=== PATIENT | female | born 1960 | race African-American/Black ===

== ENCOUNTER 2018-07-18 19:39 | Inpatient (IN) | payer MEDICAID ==
[~2018-07-18] VITALS: Ht 167.6 cm; Wt 69.9 kg
[~2018-07-18 19:39] MED LIST: LEVE250T2 PO; PANT40TA2 PO
--- NOTE | 2018-07-18 19:45 | NUR ---
PT RAFARA S/P WITNESSED SEIZURE FOR 30 SECONDS. PT HAS HX OF SEIZURES. LAST EPISODE WAS LAST YEAR. BS160 EN ROUTE. PT ON MONITOR IN BED 9. SEIZURE PRECAUTIONS TAKEN. WILL CONTINUE TO MONITOR.
--- NOTE | 2018-07-18 19:49 | NUR ---
PHLEB AT BEDSIDE FOR LAB DRAW
[2018-07-18] MEDS ORDERED: SIMV20TA6 PO (19:51)
[2018-07-18] MEDS ORDERED: IBUP-1953 PO (19:51)
[2018-07-18] MEDS ORDERED: FAMO40TA7 PO (19:51)
[2018-07-18] MEDS ORDERED: FURO20TA4 PO (19:51)
[2018-07-18] MEDS ORDERED: TRAM50TA2 PO (19:51)
[2018-07-18] MEDS ORDERED: BENA1TAB18 PO (19:51)
[2018-07-18] MEDS ORDERED: CLON0.1T PO (19:51)
[2018-07-18] MEDS ORDERED: AMLO10TA7 PO (19:51)
--- NOTE | 2018-07-18 19:56 | NUR ---
TECH AT BEDSIDE FOR EKG
[2018-07-18] MEDS ORDERED: LEVETIRACETAM (500MG) 500 MG in IV NS 0.9% 100 ML IV SCH (20:00)
[2018-07-18] MEDS ORDERED: IV NS 0.9% 1,000 ML BAG IV ONE (20:00)
[2018-07-18 20:01] LABS: BASOPHILS % (AUTO) 0.2 % (0.0-2.0); EOSINOPHILS % (AUTO) 0.4 % (0.0-6.0); HEMATOCRIT 37 % (33-45); HEMOGLOBIN 11.3 g/dL (11.5-14.8); LYMPHOCYTES # (AUTO) 1.9 /CMM (0.8-4.8); LYMPHOCYTES % (AUTO) 22.2 % (20.0-44.0); MEAN CORPUSCULAR HGB CONC 31 g/dl (31.0-36.0); MEAN CORPUSCULAR VOLUME 98 fL (82-100); MONOCYTES # (AUTO) 0.2 /CMM (0.1-1.30); MONOCYTES % (AUTO) 2.5 % (2.0-12.0); NEUTROPHILS # (AUTO) 6.2 /CMM (1.8-8.9); NEUTROPHILS % (AUTO) 74.7 % (43.0-81.0); PLATELET COUNT (AUTO) 136 /CMM (150-450); RED BLOOD CELL COUNT(AUTO) 3.73 MIL/uL (4.0-5.2); WHITE BLOOD COUNT (AUTO) 8.3 K/uL (4.3-11.0)
--- NOTE | 2018-07-18 20:02 | NUR ---
CALLED PT'S DAUGHTER, JALEEL, WHO WILL BE HERE IN 5 MINS.
[2018-07-18] MEDS ORDERED: LEVETIRACETAM (500MG) 500 MG in IV NS 0.9% 100 ML IV STA (20:06)
--- NOTE | 2018-07-18 20:10 | NUR ---
PT'S DAUGHTER IS AT THE BEDSIDE. DR. CORRALES AND PRIMARY RN NOTIFIED.
[2018-07-18 20:12] LABS: CALCIUM, SERUM 8.9 mg/dL (8.5-10.1); CREATININE 1.4 mg/dL (0.6-1.3)
--- NOTE | 2018-07-18 20:17 | NUR ---
DR. DIXON AT BEDSIDE
[2018-07-18 20:18] LABS: ALBUMIN 3.4 g/dL (3.4-5.0); BILIRUBIN,DIRECT 0.1 mg/dL (0.0-0.2); BILIRUBIN,TOTAL 0.3 mg/dL (0.2-1.0); TOTAL PROTEIN, SERUM 8.6 g/dL (6.4-8.2)
--- NOTE | 2018-07-18 20:29 | NUR ---
RADIOLOGY AT BEDSIDE FOR XRAY
[2018-07-18] MEDS ORDERED: IV NS 0.9% 500 ML BAG IV ONE (20:30)
--- NOTE | 2018-07-18 21:00 | NUR ---
URINE COLLECTED AND SENT TO LAB
[2018-07-18 21:03] LABS: APPEARANCE,URINE Slightly Cloudy (CLEAR); BILIRUBIN,URINE Negative (NEGATIVE); BLOOD, URINE Trace-intact Ery/uL (NEGATIVE); COLOR,URINE Yellow (YELLOW); KETONES,URINE Negative (NEGATIVE); LEUKOCYTE ESTERASE ,URINE Negative (NEGATIVE); NITRITE, URINE Negative (NEGATIVE); PH,URINE 6.5 (5.0-8.0); PROTEIN,URINE Trace mg/dl (NEGATIVE); UGLUCOSE Negative (NEGATIVE); UROBILINOGEN,URINE 0.2 EU/dL (0.2)
[2018-07-18 21:12] LABS: BACTERIA,URINE Many /HPF (None Seen); SQUAMOUS EPITHELIAL CELL,UR Few /HPF (None Seen)
--- NOTE | 2018-07-18 21:35 | NUR ---
PT IS GOING TO TELE 313-2.
[2018-07-18] MEDS ORDERED: POTASSIUM CHLORIDE 10 MEQ/50 ML PREMIXED IVPB FOR PERIPHERAL LINE IV ONE (22:00)
--- NOTE | 2018-07-18 22:11 | NUR ---
REPORT GIVEN TO WU DIAMOND FOR JOSE RAUL
[2018-07-18 22:30] VITALS: BP 120/95
--- NOTE | 2018-07-18 22:30 | NUR ---
EDUCATION DEPARTMENT REGISTRAR NOTES RECEIVED PATIENT FROM ER IN STABLE CONDITION. REPORT RECEIVED FROM ER NURSE WITH ADMITTING DX OF BREAKTHROUGH SEIZURE AND MILD ARF. SEIZURE PRECAUTIONS OBSERVED AND MAINTAINED AT ALL TIMES. PERIPHERAL LINE IN LFA 18 GAUGE INTACT AND PATENT. PATIENT WITH NO C/O PAIN OR DISCOMFORT. NO RESPIRATORY DISTRESS NOTED. ALL BELONGINGS KEPT NEAR BEDSIDE. BED IN LOW LOCK SETTING. ENCOURAGED USE OF CALL LIGHT FOR ASSISTANCE AND VERBALIZED GOOD UNDERSTANDING. WILL CONTINUE TO MONITOR.
[2018-07-18] MEDS ORDERED: POTASSIUM CL. PREMIX PERIPHER. 200 ML ONE (23:14)
[2018-07-18] MEDS ORDERED: CLONIDINE HCL 0.1 MG TABLET PO PRN (23:30)
[2018-07-18] MEDS ORDERED: TRAMADOL HCL 50 MG TABLET PO PRN (23:30)
[2018-07-18] MEDS: LEVETIRACETAM (250 MG) 250 MG TABLET PO SCH (23:30)
[2018-07-19] MEDS ORDERED: ONDANSETRON HCL/PF 4 MG/2 ML VIAL IVP PRN
[2018-07-19] MEDS ORDERED: ZOLPIDEM TARTRATE 5 MG TABLET PO PRN
[2018-07-19] MEDS ORDERED: POTASSIUM CL. PREMIX PERIPHER. 0 ML ONE (00:24)
[2018-07-19] MEDS: POTASSIUM CL. PREMIX PERIPHER. 50 ML IV SCH ×4 (00:54→03:42)
[2018-07-19 04:00] VITALS: BP 142/89
--- NOTE | 2018-07-19 06:54 | NUR ---
STEWARDING SUPERVISOR CLOSING NOTES PATIENT ASLEEP IN BED WITH NO DISTRESS NOTED. CALL LIGHT WITHIN REACH. SEIZURE PRECAUTIONS OBSERVED AND MAINTAINED AT ALL TIMES. PERIPHERAL IV INTACT AND PATENT. ALL DUE MEDS GIVEN ORDERED WITH NO ASE NOTED. NO C/O PAIN OR DISCOMFORT. ALL BELONGINGS KEPT NEAR BEDSIDE. BED IN LOW LOCK SETTING. WILL ENDORSE TO ONCOMING SHIFT.
--- NOTE | 2018-07-19 07:10 | NUR ---
TELE/RN OPENING NOTE THE PATIENT IS RECEIVED IN BED. AWAKE, ALERT AND ORIENTED X2 AND ABLE TO MAKE NEEDS KNOWN VERBALLY. DENIES PAIN AT THIS TIME. RESPIRATION REGULAR AND UNLABORED. IN ROOM AIR AND DENIES SOB. EXTERNAL TELE BOX READING IS SR 82. LFA G 18 PATENT AND SALINE LOCKED. BED LOW AND LOCKED. SIDE RAILS PADDED. SIDE RAILS UP X3. CALL LIGHT WITHIN REACH. WILL CONTINUE TO MONITOR.
[2018-07-19] MEDS: PANTOPRAZOLE 40 MG TABLET.DR PO SCH ×2 (07:30→08:30)
[2018-07-19 07:42] LABS: BASOPHILS % (AUTO) 0.2 % (0.0-2.0); EOSINOPHILS % (AUTO) 0.2 % (0.0-6.0); HEMATOCRIT 31 % (33-45); LYMPHOCYTES # (AUTO) 1.1 /CMM (0.8-4.8); LYMPHOCYTES % (AUTO) 6.1 % (20.0-44.0); MEAN CORPUSCULAR HGB CONC 32 g/dl (31.0-36.0); MEAN CORPUSCULAR VOLUME 95 fL (82-100); MONOCYTES # (AUTO) 0.8 /CMM (0.1-1.30); MONOCYTES % (AUTO) 4.6 % (2.0-12.0); NEUTROPHILS # (AUTO) 15.8 /CMM (1.8-8.9); NEUTROPHILS % (AUTO) 88.9 % (43.0-81.0); PLATELET COUNT (AUTO) 123 /CMM (150-450); RED BLOOD CELL COUNT(AUTO) 3.26 MIL/uL (4.0-5.2); WHITE BLOOD COUNT (AUTO) 17.7 K/uL (4.3-11.0)
[2018-07-19 08:00] VITALS: BP 125/77
[2018-07-19 08:23] LABS: ALBUMIN 2.8 g/dL (3.4-5.0); BILIRUBIN,TOTAL 0.3 mg/dL (0.2-1.0); CALCIUM, SERUM 8.4 mg/dL (8.5-10.1); CREATININE 1.3 mg/dL (0.6-1.3); MAGNESIUM 1.8 mg/dL (1.8-2.4); PHOSPHORUS 3.6 mg/dL (2.5-4.9); POTASSIUM 3.8 mmol/L (3.5-5.1); TOTAL PROTEIN, SERUM 7.1 g/dL (6.4-8.2)
[2018-07-19] MEDS: AMLODIPINE BESYLATE 10 MG TABLET PO SCH (08:31)
[2018-07-19] MEDS: LEVETIRACETAM (250 MG) 250 MG TABLET PO SCH ×2 (08:31→20:40)
[2018-07-19] MEDS: FUROSEMIDE 20 MG TABLET PO SCH (08:31)
[2018-07-19 08:32] LABS: THYROID STIMULATING HORMONE 1.357 uIU/mL (0.358-3.74)
--- NOTE | 2018-07-19 11:24 | NUR ---
TELE/RN NOTE PROTONIX 40 MG PO (ONE OF THE 2 ORDERS) NOT GIVEN DUE TO BEING DUPLICATE ORDER.
--- NOTE | 2018-07-19 11:31 | NUR ---
TELE/RN NOTE THE PATIENT STATES PAIN 8/. PRN TRAMADOL 50 MG 1 TAB PO IS GIVEN. WILL CONTINUE TO MONITOR.
[2018-07-19 12:00] VITALS: BP 126/92
--- NOTE | 2018-07-19 12:31 | NUR ---
TELE/RN NOTE PAIN VERBALIZED RELIEFS FROM PAIN RATING PAIN 0/10.
[2018-07-19] MEDS: ACETAMINOPHEN 325 MG TABLET PO PRN ×2 (14:28→20:40)
--- NOTE | 2018-07-19 14:30 | NUR ---
TELE/RN NOTE TEMP 102.0 F. TYLENOL 650 MG PO GIVEN. COOLING MEASURES TAKEN. WILL CONTINUE TO MONITOR.
--- NOTE | 2018-07-19 14:30 | NUR ---
TELE/RN NOTE SERVICE CENTER MANAGER SLAVA IS MADE AWARE THAT THE PATIENT HAS LARGE AMOUNT OF THICK SECRETION, TEMP 102.0 F AND HEAR RATE ELEVATED TO 132. RECEIVED ORDER OF NORMAL SALINE 500ML WIDE OPEN. NOTED AND CARRIED OUT.
--- NOTE | 2018-07-19 14:47 | NUR ---
TELE/RN NOTE OBTAINED ORDER FROM RUTH ANN PEDERSEN FOR CHEST X-RAY. NOTED AND CARRIED OUT.
[2018-07-19] MEDS ORDERED: IV NS 0.9% 500 ML IV ONE (15:00)
--- NOTE | 2018-07-19 15:20 | NUR ---
TELE/RN NOTE TEMP DECREASED TO 98.9.
--- NOTE | 2018-07-19 15:30 | NUR ---
TELE/RN NOTE BLOOD PRESSURE IS 165/83 AND PULSE 137. CLONIDINE HCL 0.1 MG PO IS ADMINISTERED. WILL CONTINUE TO MONITOR. UPHOLSTERY DEPARTMENT SUPERVISOR ANDREZ IS MADE AWARE OF PATIENT`S ELEVATED HEART RATE.
[2018-07-19 16:00] VITALS: BP 150/73
--- NOTE | 2018-07-19 18:42 | NUR ---
MS/RN NOTE RECEIVED ORDER FROM RONDA PEDERSEN FOR CBC AND BMP ON 07/20/18. READ BACK, VERIFIED. NOTED AND CARRIED OUT.
--- NOTE | 2018-07-19 18:50 | NUR ---
TELE/RN NOTE THE PATIENT ALERT AND ORIENTED X2. DENIES SOB. IN ROOM AIR AND SATURATION AT 94%. DENIES PAIN. TELE BOX READING SINUS TACHY 112. PATIENT IN NO APPARENT DISTRESS. BED LOW AND LOCKED. SIDE RAILS UP X3. SIDE RAILS ARE PADDED. CALL LIGHT WITHIN REACH. WILL ENDORSE TO TAX COMMISSIONER.
--- NOTE | 2018-07-19 19:05 | NUR ---
RN MS NOTES RECEIVED PATIENT IN BED AWAKE ALERT AND ORIENTED X 2, RESPIRATIONS EVEN AND UNLABORED WITH EQUAL RISE AND FALL OF CHEST, DENIES ANY PAIN AT THIS TIME, REPOSITIONED HEAD OF BED ELEVATED FOR ASPIRATION PRECAUTIONS, RAILS PADDED FOR SEIZURE PRECAUTIONS, REORIENTATION PROVIDED. SAFETY PRECAUTIONS IN PLACE, LOW BED AND LOCKED, BED ALARM FALL PRECAUTIONS IN PLACE, IV TO LEFT FA #20G INTACT AND PATENT, NO REDNESS, NO INFILTRATION PRESENT, ORIENTED TO STAFF AND CALL LIGHT, ALL NEEDS ATTENDED AT THIS TIME, REMAINS COMFORTABLE WILL CONTINUE TO CLOSELY MONITOR. Addendum: 07/19/18 at 2047 by GIDEON MACARIO RN CLARIFICATION BUSINESS DEVELOPMENT ASSISTANT OPENING NOTES PATIENT IS ON BEHAVIORAL HEALTH COUNSELOR ST 100, NO DISTRESS PRESENT, REMAINS COMFORTABLE AND ALERT AT THIS TIME.
[2018-07-19 20:00] VITALS: BP_SYST 116; BP_SYST 81; BP_DIAS 64; BP_DIAS 69
--- NOTE | 2018-07-19 20:41 | NUR ---
WU CRAIG NOTES NOTED PATIENT WITH FEVER OF 100.8 TYLENOL PRN GIVEN , COOLING MEASURES PROVIDED WILL CONTINUE TO MONITOR. Addendum: 07/20/18 at 0741 by GIDEON MACARIO RN WU DIAZ
[2018-07-19] MEDS: SIMVASTATIN 20 MG TABLET PO SCH (21:44)
--- NOTE | 2018-07-19 22:00 | NUR ---
GRID INSPECTOR NOTES TEMPERATURE REASSESSED NOTED AT 99.5. TYLENOL AND COOLING MEASURES EFFECTIVE.
[2018-07-20] VITALS: BP 111/63
--- NOTE | 2018-07-20 03:34 | NUR ---
OBSTETRICAL NURSE NOTES PATIENT ATTEMPTED TO GET OOB UNASSISTED AT RISK FOR FALL,UNABLE TO AMBULATE NOT STEADY, NOTED PATIENT REMOVED SCAB TO RIGHT KNEE, PICTURE TAKEN , NOTED PATIENT REMOVING TELE LEADS X 5 TIMES,PATIENT DOES NOTE FOLLOW DIRECTIONS AND NEEDS CONSTANT REORIENTATION , NEW ORDER NOTED AND CARRIED OUT FOR MD CANELO AWARE
[2018-07-20 04:00] VITALS: BP 148/92
[2018-07-20 06:46] LABS: BASOPHILS % (AUTO) 0.1 % (0.0-2.0); EOSINOPHILS % (AUTO) 0.5 % (0.0-6.0); HEMATOCRIT 29 % (33-45); HEMOGLOBIN 9.5 g/dL (11.5-14.8); LYMPHOCYTES # (AUTO) 1.8 /CMM (0.8-4.8); LYMPHOCYTES % (AUTO) 11.4 % (20.0-44.0); MEAN CORPUSCULAR HGB CONC 32 g/dl (31.0-36.0); MEAN CORPUSCULAR VOLUME 94 fL (82-100); MONOCYTES % (AUTO) 6.4 % (2.0-12.0); NEUTROPHILS # (AUTO) 12.9 /CMM (1.8-8.9); NEUTROPHILS % (AUTO) 81.6 % (43.0-81.0); PLATELET COUNT (AUTO) 108 /CMM (150-450); WHITE BLOOD COUNT (AUTO) 15.8 K/uL (4.3-11.0)
[2018-07-20 07:16] LABS: CALCIUM, SERUM 8.6 mg/dL (8.5-10.1); CREATININE 1.5 mg/dL (0.6-1.3); POTASSIUM 3.6 mmol/L (3.5-5.1)
--- NOTE | 2018-07-20 07:20 | NUR ---
RN OPENING NOTES RECEIVED PT. PT STABLE AND RESTING IN BED. NO S/S OF RESP DISTRESS/SOB. NO C/O PAIN AT THIS TIME. 1:1 SITTER AT BEDSIDE. SAFETY MEASURES IN PLACE, CALL LIGHT WITHIN REACH. WILL CONTINUE TO MONITOR.
[2018-07-20] MEDS: PANTOPRAZOLE 40 MG TABLET.DR PO SCH ×2 (07:30)
--- NOTE | 2018-07-20 07:39 | NUR ---
COMPUTER NETWORKING INSTRUCTOR ADJUNCT CLOSING NOTES PATIENT IN BED AWAKE ALERT AND ORIENTED X 2, RESPIRATIONS EVEN AND UNLABORED WITH EQUAL RISE AND FALL OF CHEST, DENIES ANY PAIN AT THIS TIME, REPOSITIONED HEAD OF BED ELEVATED FOR ASPIRATION PRECAUTIONS, RAILS PADDED FOR SEIZURE PRECAUTIONS, REORIENTATION PROVIDED. SAFETY PRECAUTIONS IN PLACE, LOW BED AND LOCKED, BED ALARM FALL PRECAUTIONS IN PLACE, IV TO LEFT FA #20G INTACT AND PATENT, NO REDNESS, NO INFILTRATION PRESENT,DRESSING TO RIGHT KNEE SCAB INTACT CALL LIGHT, ALL NEEDS ATTENDED AT THIS TIME, REMAINS COMFORTABLE WILL CONTINUE TO CLOSELY MONITOR AND ENDORSE TO NEXT SHIFT. PATIENT IS ON MINING ANALYST S63, NO DISTRESS PRESENT, REMAINS COMFORTABLE AND ALERT AT THIS TIME.
[2018-07-20] MEDS: AMLODIPINE BESYLATE 10 MG TABLET PO SCH (08:10)
[2018-07-20] MEDS: LEVETIRACETAM (250 MG) 250 MG TABLET PO SCH ×2 (08:13→21:05)
[2018-07-20] MEDS: FUROSEMIDE 20 MG TABLET PO SCH (09:00)
[2018-07-20] MEDS ORDERED: IV NS 0.9% 500 ML IV ONE (14:30)
[2018-07-20] MEDS ORDERED: PIPERACILLIN /TAZOBACTAM 3.375 G in IV D5W 50 ML IV SCH (16:30)
[2018-07-20] MEDS: PIPERACILLIN /TAZOBACTAM 3.375 G in IV D5W 100 ML IV SCH (17:33)
--- NOTE | 2018-07-20 18:34 | NUR ---
RN CLOSING NOTES PT IN BED RESTING. NO S/S OF RESP DISTRESS/SOB. ALL PT NEEDS ANTICIPATED AND MET. SAFETY MEASURES IN PLACE, CALL LIGHT WITHIN REACH. WILL ENDORSE TO HOST COORDINATOR FOR JOSE RAUL.
--- NOTE | 2018-07-20 19:10 | NUR ---
RN MS OPENING NOTES RECEIVED PATIENT IN BED AWAKE, ALERT AND ORIENTED X 2, ABLE TO MAKE SIMPLE NEEDS KNOWN , EXPLAINED TO PATIENT PER ANDREZ PEDERSEN SHE IS TO REMAIN NPO EXCEPT FOR MEDS AT THIS TIME, AND WILL RECEIVE IV HYDRATION PER NEW ORDERS. REEDUCATION SHE IS AT RISK FOR ASPIRATION AT THIS TIME, AND NEEDS TO BE EVALUATED. RESPIRATIONS EVEN AND UNLABORED WITH EQUAL RISE AND FALL OF CHEST, DENIES ANY PAIN OR DISCOMFORT AT THIS TIME, SITTER AT BEDSIDE, FALL PRECAUTIONS IN PLACE LOW BED AND LOCKED, CALL LIGHT KEPT WITHIN REACH, HEELS OFFLOADED, HEAD OF BED ELEVATED FOR ASPIRATION PRECAUTIONS, IV SITE TO LEFT FA #20 G INTACT AND PATENT, NO REDNESS, NO INFILTRATION PRESENT, ALL NEEDS ATTENDED REMAINS COMFORTABLE AT THIS TIME, WILL CONTINUE TO MONITOR. REMAINS AFEBRILE AT THIS TIME.
[2018-07-20 20:00] VITALS: BP 116/76
[2018-07-20] MEDS: IV D5/ 0.9% NACL 1,000 ML IV PRN (20:15)
[2018-07-20] MEDS: SIMVASTATIN 20 MG TABLET PO SCH (21:04)
[2018-07-21] MEDS: PIPERACILLIN /TAZOBACTAM 3.375 G in IV D5W 100 ML IV SCH ×3 (00:38→16:04)
--- NOTE | 2018-07-21 06:31 | NUR ---
RN MS CLOSING NOTES PATIENT REMAINS IN BED SLEEPING BUT EASILY AROUSABLE, RESPIRATIONS EVEN AND UNLABORED WITH EQUAL RISE AND FALL OF CHEST, DENIES ANY PAIN AT THIS TIME, REPOSITIONED OFFLOADED HEELS AND KEPT CLEAN SACRAL AND RIGHT MALLEOLUS SKIN REMAINS INTACT, HEAD OF BED ELEVATED FOR ASPIRATION PRECAUTIONS, NPO AT THIS TIME, IVF RUNNING ORDERED, ATB GIVEN ORDERED, DVT PUMPS IN PLACE IV SITE TO LEFT FA #2O G INTACT AND PATENT, NO REDNESS, NO INFILTRATION , ALL NEEDS WERE ATTENDED, WILL CONTINUE TO MONITOR AND ENDORSE TO NEXT SHIFT.BED ALARM IN PLACE, LOW BED AND LOCKED. CALL LIGHT KEPT WITHIN REACH.
[2018-07-21 07:00] LABS: BASOPHILS % (AUTO) 0.2 % (0.0-2.0); EOSINOPHILS % (AUTO) 0.5 % (0.0-6.0); HEMATOCRIT 26 % (33-45); HEMOGLOBIN 8.7 g/dL (11.5-14.8); LYMPHOCYTES # (AUTO) 1.4 /CMM (0.8-4.8); MEAN CORPUSCULAR HGB CONC 34 g/dl (31.0-36.0); MEAN CORPUSCULAR VOLUME 93 fL (82-100); MONOCYTES # (AUTO) 0.6 /CMM (0.1-1.30); MONOCYTES % (AUTO) 6.7 % (2.0-12.0); NEUTROPHILS # (AUTO) 6.8 /CMM (1.8-8.9); NEUTROPHILS % (AUTO) 76.6 % (43.0-81.0); PLATELET COUNT (AUTO) 120 /CMM (150-450); RED BLOOD CELL COUNT(AUTO) 2.81 MIL/uL (4.0-5.2); WHITE BLOOD COUNT (AUTO) 8.8 K/uL (4.3-11.0)
[2018-07-21 07:17] LABS: CALCIUM, SERUM 8.2 mg/dL (8.5-10.1); CREATININE 1.3 mg/dL (0.6-1.3); POTASSIUM 3.3 mmol/L (3.5-5.1)
--- NOTE | 2018-07-21 07:21 | NUR ---
RN OPENING NOTES PT WAS RECEIVED IN BED AT LOWEST AND LOCKED POSITION WITH SIDE RAILS UP X2, A/O X2, BREATHING EVEN AND UNLABORED ON RA, NO S/S OF PAIN OR DISTRESS NOTED AT THIS TIME, IV IS PATENT AND INTACT, SITTER PRESENT AT BEDSIDE, SAFETY PRECAUTIONS IN PLACE, CALL LIGHT WITHIN REACH, WILL MONITOR ACCORDINGLY
[2018-07-21] MEDS: PANTOPRAZOLE 40 MG TABLET.DR PO SCH ×2 (07:30→08:28)
[2018-07-21] MEDS: ACETAMINOPHEN 325 MG TABLET PO PRN ×2 (08:28→23:11)
[2018-07-21] MEDS: LEVETIRACETAM (250 MG) 250 MG TABLET PO SCH ×2 (08:28→20:57)
[2018-07-21] MEDS: FUROSEMIDE 20 MG TABLET PO SCH (08:38)
[2018-07-21] MEDS: AMLODIPINE BESYLATE 10 MG TABLET PO SCH (08:39)
--- NOTE | 2018-07-21 08:40 | NUR ---
RN NOTES ACETAMINOPHEN GIVEN DUE TO A SLIGHT TEMP OF 100.2
--- NOTE | 2018-07-21 08:42 | NUR ---
RN NOTE PROTONIX 40 MG PO (ONE OF THE 2 ORDERS) NOT GIVEN DUE TO BEING DUPLICATE ORDER.
[2018-07-21 08:43] VITALS: BP 102/63
--- NOTE | 2018-07-21 08:43 | NUR ---
RN NOTE BP MED HELD DUE TO A BP OF 102/63
[2018-07-21] MEDS ORDERED: POTASSIUM CHLORIDE 20 MEQ TAB.PRT.SR PO SCH ×2 (10:00→11:00)
--- NOTE | 2018-07-21 18:21 | NUR ---
RN CLOSING NOTES PT WAS IN BED AT LOWEST AND LOCKED POSITION WITH SIDE RAILS UP X2, A/O X2, BREATHING EVEN AND UNLABORED ON RA, NO S/S OF PAIN OR DISTRESS NOTED AT THIS TIME, IV IS PATENT AND INTACT, SITTER PRESENT AT BEDSIDE, SAFETY PRECAUTIONS IN PLACE, CALL LIGHT WITHIN REACH, ALL NEEDS ATTENDED TO, WILL ENDORSE TO CLOTH MERCERIZER BACK TENDER RN FOR JOSE RAUL
--- NOTE | 2018-07-21 20:00 | NUR ---
MS RN NOTES AWAKE & RESPONSIVE. NOT IN ANY DISTRESS. NO SOB NOTED. DENIES ANY PAIN OR DISCOMFORT AT THIS TIME. WITH IVF INFUSING WELL. CALL LIGHT WITHIN REACH. BED IN LOWEST POSITION. SR UP X 3 WITH BED ALARM ON FOR SAFETY. KEPT ON SEIZURE PREC AAT. WILL CONTINUE TO MONITOR.
--- NOTE | 2018-07-21 20:20 | NUR ---
MS RN NOTES PT PULLED OUT IV-HL. PLACED DRESSING ON. REPORT GIVEN TO VIK WASHBURN FOR CONTINUITY OF CARE.
--- NOTE | 2018-07-21 20:24 | NUR ---
MS RN OPENING NOTES: RECEIVED PT FROM RN, SALVADOR, ON ROOM AIR AND IS TOLERATING WELL. PT APPEARS TO BE ANGRY AT THIS TIME. NO IV NOTED AT THIS TIME IT WAS PULLED OUT NOT TOO LONG AGO. WILL START NEW IV SOON. BED ALARM ACTIVATED. BED KEPT IN LOW, LOCKED POSITION, AND SIDE RAILS X 2UP. WILL CONTINUE TO MONITOR PT.
[2018-07-21] MEDS: SIMVASTATIN 20 MG TABLET PO SCH (21:00)
[2018-07-21 21:07] VITALS: BP 137/95
--- NOTE | 2018-07-21 23:11 | NUR ---
MS RN NOTES: PT COMPLAINED OF BILATERAL CALF PAIN. PT REQUESTED FOR SOMETHING FOR PAIN. WHEN TYLENOL 650MG PO WAS BROUGHT AND CRUSHED, PT CHANGED HER MIND AND DID NOT WANT ANYTHING FOR PAIN ANYMORE. WILL CONTINUE TO MONITOR.
[2018-07-21] MEDS: IV D5/ 0.9% NACL 1,000 ML IV PRN (23:25)
--- NOTE | 2018-07-21 23:56 | NUR ---
MS RN NOTES: PT FOUND WITH IV PULLED OUT ON L HAND #22G . WILL ATTEMPT TO START A NEW ONE AGAIN.
[2018-07-22] MEDS: PIPERACILLIN /TAZOBACTAM 3.375 G in IV D5W 100 ML IV SCH ×2 (00:19→08:19)
--- NOTE | 2018-07-22 00:20 | NUR ---
MS RN NOTES: NEW IV STARTED ON L FOREARM #22G. WRAPPED WITH KERLIX.
--- NOTE | 2018-07-22 03:53 | NUR ---
MS RN NOTES: PT FOUND WITH IV PULLED OUT AGAIN. WILL HAVE TO START ANOTHER IV.
--- NOTE | 2018-07-22 05:01 | NUR ---
MS RN NOTES: NEW IV STARTED AGAIN ON L FOREARM #22G.
--- NOTE | 2018-07-22 07:18 | NUR ---
MS RN CLOSING NOTES: ALL NEEDS WERE ATTENDED AND ANTICIPATED FOR. PT KEPT CLEAN, DRY, AND COMFORTABLE. PT ASLEEP AT THIS TIME AND RESTING COMFORTABLY. IV REMAINS INTACT. CURRENTLY DISCONNECTED FROM FLUIDS PT HAS BEEN PULLING OUT IVS AND NO SITTER WAS AVAILABLE FOR PM SHIFT. BED ALARM ACTIVATED. BED PADDED FOR SEIZURE PRECAUTIONS. BED ALARM ACTIVATED. PT KEPT NPO EXCEPT MEDS. BED KEPT IN LOW, LOCKED POSITION, AND SIDE RAILS X 2UP. ENDORSED TO AM NURSE FOR JOSE RAUL.
[2018-07-22 07:32] LABS: CALCIUM, SERUM 8.7 mg/dL (8.5-10.1); CREATININE 1.2 mg/dL (0.6-1.3); POTASSIUM 3.6 mmol/L (3.5-5.1)
--- NOTE | 2018-07-22 07:43 | NUR ---
MS RN OPENING NOTE RECEIVED PT IN BED, ALERT AND ORIENTED X1-2. NO ACUTE DISTRESS NOTED AT THIS TIME. BREATHING IS EVEN AND UNLABORED ON ROOM AIR. L HAND #22G IV IS INFUSING ORDERED WITHOUT REDNESS OR SWELLING. NPO EXCEPT MEDS NOTED AND MAINTAINED. ALL NEEDS ATTENDED TO. 1:1 SITTER NOTED AT THE BEDSIDE FOR PT SAFETY. SEIZURE PRECAUTIONS MAINTAINED. BED IS LOCKED AND IN LOWEST POSITION, SIDE RAILS UP X2, CALL LIGHT WITHIN REACH.
[2018-07-22 08:00] VITALS: BP 134/88
[2018-07-22] MEDS: AMLODIPINE BESYLATE 10 MG TABLET PO SCH (08:19)
[2018-07-22] MEDS: PANTOPRAZOLE 40 MG TABLET.DR PO SCH (08:19)
[2018-07-22] MEDS: LEVETIRACETAM (250 MG) 250 MG TABLET PO SCH ×2 (08:19→21:38)
[2018-07-22] MEDS: FUROSEMIDE 20 MG TABLET PO SCH (08:19)
--- NOTE | 2018-07-22 08:30 | NUR ---
MS RN NEW IV INSERTED IV FOUND TO BE PULLED OUT BY PT. NEW IV INSERTED AT THE L FA #24G AND IS PATENT, CLEAN, DRY AND INTACT.
--- NOTE | 2018-07-22 10:15 | NUR ---
MS RN SWALLOW EVAL PER LIZBETH IN PT DEPARTMENT, SPEECH THERAPIST CALLED IN [place] AND DEPARTMENT IS PENDING PLACEMENT. INFORMED LIZBETH THAT PT IS NPO EXCEPT MEDS PENDING SWALLOW EVALUATION. WILL FOLLOW UP REGARDING SPEECH THERAPIST REPLACEMENT.
--- NOTE | 2018-07-22 12:11 | NUR ---
WOUND CARE CONSULT: PT PRESENTS WITH INCONTINENCE, LEFT ANTERIOR LOWER LEG FRAGILE SCAR, RT LATERAL ANKLE SCAR , LEFT FOOT DRY SCAB AND RT KNEE WOUND (PREVIOUSLY SCAB PICKED AT BY PT), ALL PRESENT ON ADMISSION. RECOMMENDATIONS MADE FOR SKIN PROTECTION AND WOUND CARE. DISCUSSED WITH NURSING STAFF. CURRENT ERWIN SCORE IS 13. WILL SEE PRN. MACKEY IN AGREEMENT WITH PLAN OF CARE. Addendum: 07/22/18 at 1213 by LAUREN LAZARO WNDNU Amended: Links added.
[2018-07-22] MEDS ORDERED: Z GUARD REMEDY 2 OZ OINT TP PRN (12:30)
[2018-07-22] MEDS ORDERED: LEVE250T2 PO (13:11)
[2018-07-22] MEDS ORDERED: LEVO500T2 PO (13:11)
[2018-07-22] MEDS: Z GUARD REMEDY 2 OZ OINT TP SCH (13:19)
[2018-07-22] MEDS: LEVOFLOXACIN (500MG) 500 MG TABLET PO SCH (13:19)
--- NOTE | 2018-07-22 14:00 | NUR ---
MS RN DAJUAN NIEVES FROM PHYSICAL THERAPY DEPARTMENT, COVERAGE OBTAINED FOR SPEECH THERAPIST. HOWEVER NO ONE HAS ARRIVED TO FACILITY YET. SPEECH THERAPIST WILL SEE PT WHEN THEY ARRIVE.
[2018-07-22 16:00] VITALS: BP 118/81
--- NOTE | 2018-07-22 17:55 | NUR ---
MS WU SPEECH THERAPIST AT THE BEDSIDE SPEECH THERAPIST AT THE BEDSIDE FOR SWALLOW EVAL. PER SPEECH THERAPIST PT CAN TOLERATE A PUREED DIET AND NECTAR THICK LIQUIDS. WILL ORDER DINNER TRAY FOR THE PT.
--- NOTE | 2018-07-22 19:00 | NUR ---
MS RN CLOSING NOTE PT IN BED, ALERT AND ORIENTED X1-2. NO ACUTE DISTRESS NOTED AT THIS TIME. BREATHING IS EVEN AND UNLABORED ON ROOM AIR. L FA #24G IV IS INFUSING ORDERED WITHOUT REDNESS OR SWELLING. PT PROVIDED WITH DINNER AFTER SWALLOW EVAL WITHOUT COUGHING OR CHOKING. ADLS PROVIDED. ALL NEEDS ATTENDED TO. 1:1 SITTER NOTED AT THE BEDSIDE FOR PT SAFETY. SEIZURE PRECAUTIONS MAINTAINED. BED IS LOCKED AND IN LOWEST POSITION, SIDE RAILS UP X2, CALL LIGHT WITHIN REACH. WILL ENDORSE TO THOROUGHBRED HORSE FARM MANAGER RN FOR CONTINUITY OF CARE.
--- NOTE | 2018-07-22 19:43 | NUR ---
RN MS OPENING NOTES RECEIVED PATIENT IN BED AWAKE. ALERT AND ORIENTED X1-2, VERBALLY RESPONSIVE, ABLE TO MAKE NEEDS KNOWN. BREATHING EVEN AND UNLABORED. NO SOB NOTED. TOLERATING ROOM AIR. IV ON LEFT FOREARM INTACT AND PATENT. NO COMPLAINTS OF PAIN OR DISCOMFORT. NO FACIAL GRIMACING. SKIN DRY AND WARM TO TOUCH. AFEBRILE. SITTER AT BEDSIDE. PATIENT EATING DINNER WITH NO ASPIRATIONS NOTED. ALL OTHER NEEDS ATTENDED TO. SAFETY MEASURES IN PLACE. CALL LIGHT WITHIN REACH. WILL CONTINUE TO MONITOR.
[2018-07-22] MEDS: LORAZEPAM INJ 2 MG/ML VIAL IV PRN (20:39)
[2018-07-22] MEDS: SIMVASTATIN 20 MG TABLET PO SCH (21:35)
[2018-07-22] MEDS: ACETAMINOPHEN 325 MG TABLET PO PRN (21:35)
[2018-07-23 00:59] VITALS: BP 120/78
--- NOTE | 2018-07-23 02:30 | NUR ---
RN MS NOTES IV LINE INFILTRATED. REMOVED AND APPLIED DRESSING. NEW IV LINE STARTED ON LEFT FOREARM G#22 WITH GOOD BLOOD RETURN. WILL CONTINUE TO MONITOR.
[2018-07-23] MEDS: LORAZEPAM INJ 2 MG/ML VIAL IV PRN ×2 (04:16→22:22)
--- NOTE | 2018-07-23 05:02 | NUR ---
RN MS NOTES PATIENT AGITATED AND ATTEMPTING TO GET OUT OF BED MULTIPLE TIMES. BECOMES COMBATIVE WHEN SITTER AND NURSES TRY TO CALM HER DOWN. PATIENT ALSO KEEPS TRYING TO TAKE OUT IV LINE. PAGED DR. ORELLANA FOR ANY MEDICATIONS THAT CAN HELP PATIENT CALM DOWN AND ALSO TO INFORM HIM ABOUT PATIENT ATTEMPTING TO TAKE OUT IV LINE. PER DR. ORELLANA, ATIVAN 1MG X1 NOW, AND SOFT RESTRAINTS. ORDERS NOTED AND CARRIED OUT. Addendum: 07/23/18 at 0551 by CROW PAUL RN ERROR: IT IS ATIVAN 1MG IV X1 NOW
--- NOTE | 2018-07-23 05:05 | NUR ---
RN MS NOTES OBTAINED CONSENT OVER THE PHONE WITH DAUGHTER, JALEEL LIND. DAUGHTER CONSENTED TO SOFT RESTRAINTS. WU LACEY WITNESSED.
--- NOTE | 2018-07-23 06:47 | NUR ---
RN MS CLOSING NOTES PATIENT IN BED AWAKE. HAD MULTIPLE EPISODES OF ATTEMPTING TO GET OUT OF BED, HITTING STAFF, TRYING TO TAKE OUT IV LINE. MITTENS IN PLACED. CHECKED FOR CIRCULATION/REDNESS - NONE NOTED. BREATHING EVEN AND UNLABORED. NO SOB NOTED. TOLERATING ROOM AIR. IV ON LEFT FOREARM #22 INTACT AND PATENT - WITH NS @ 75ML/HR. NO COMPLAINTS OF PAIN OR DISCOMFORT. NO FACIAL GRIMACING. SKIN DRY AND WARM TO TOUCH. AFEBRILE. SITTER AT BEDSIDE. ALL OTHER NEEDS ATTENDED TO. SAFETY MEASURES IN PLACE. CALL LIGHT WITHIN REACH. WILL ENDORSE TO ONCOMING NURSE FOR JOSE RAUL.
--- NOTE | 2018-07-23 07:40 | NUR ---
M/S RN - Assessment Patient in bed awake, confused, alert to self, reality orientation provided, verbally responsive, denies pain, not in any form of distress, no seizure activity overnight. IVF D5 1/2 NS at 75 ml/hr infusing well on the LFA with no signs of infiltration. Bilateral mittens in place to prevent pulling out peripheral IV. Sitter in place for safety. Fall, seizure and aspiration precautions maintained. All pressure ulcer prevention measures noted to be in place. Will continue with current medical management.
[2018-07-23] MEDS: PANTOPRAZOLE 40 MG TABLET.DR PO SCH (07:43)
[2018-07-23] MEDS: Z GUARD REMEDY 2 OZ OINT TP SCH (08:15)
[2018-07-23] MEDS: LEVETIRACETAM (250 MG) 250 MG TABLET PO SCH ×2 (08:16→21:45)
[2018-07-23] MEDS: FUROSEMIDE 20 MG TABLET PO SCH (08:16)
[2018-07-23] MEDS: AMLODIPINE BESYLATE 10 MG TABLET PO SCH (08:16)
[2018-07-23] MEDS: LEVOFLOXACIN (500MG) 500 MG TABLET PO SCH (13:20)
[2018-07-23 16:00] VITALS: BP 118/84
--- NOTE | 2018-07-23 17:30 | NUR ---
MS/RN - NGT NGT 14 Fr. inserted on the left nare, 60 cm in length, gastric content aspirated, obtain x-ray to confirm placement as ordered by Md. Patient tolerated procedure well.
--- NOTE | 2018-07-23 18:00 | NUR ---
MS/RN - Closing notes Patient awake, alert to self, afebrile, denies pain, not in any form of distress. Patient currently NPO, inserted NGT on the left nare, CXR done to check placement, awaiting result. Patient seen by GI for possible PEG placement. Sitter at bedside for safety, on bilateral mittens to prevent pulling out peripheral line and NGT, restraints protocol observed. All needs attended and met. Fall and aspiration precautions maintained. Daughter Hilary updated on plan of care. Will continue with current medical management.
--- NOTE | 2018-07-23 19:50 | NUR ---
MS RN NOTE: PATIENT RESTING IN BED, NO ACUTE DISTRESS NOTED. BREATHING EVEN AND UNLABORED, NO SOB NOTED. IV TO LFA IN PLACE. NG TUBE IN PLACE, HOB ELEVATED. BILATERAL MITTENS IN PLACE, WITH GOOD CIRCULATION CHECK. PATIENT OCCASIONALLY TRYING TO PULL AT NG TUBE. SITTER AT BEDSIDEBED LOCKED AND IN LOWEST POSITION, CALL LIGHT IN REACH. WILL CONTINUE TO MONITOR.
[2018-07-23 20:01] VITALS: BP 117/80
[2018-07-23] MEDS: SIMVASTATIN 20 MG TABLET PO SCH (21:45)
--- NOTE | 2018-07-23 22:00 | NUR ---
MS RN NOTE: PATIENT NIGHT MEDICATIONS NOT GIVEN, PATIENT NPO AND WITH NG TUBE, CHEST XRAY STILL PENDING RESULTS TO VERIFY PLACEMENT. WILL CONTINUE TO MONITOR.
[2018-07-23] MEDS: IV D5/ 0.9% NACL 1,000 ML IV PRN (22:22)
--- NOTE | 2018-07-23 22:30 | NUR ---
MS RN NOTE: PATIENT AGITATED, ATIVAN 1MG IV GIVEN PER MD ORDER. WILL CONTINUE TO MONITOR.
--- NOTE | 2018-07-24 06:30 | NUR ---
MS RN NOTE: PATIENT RESTING IN BED, NO ACUTE DISTRESS NOTED. BREATHING EVEN AND UNLABORED, NO SOB NOTED. IV TO LFA IN PLACE. NG TUBE IN PLACE, HOB ELEVATED. BILATERAL MITTENS IN PLACE, WITH GOOD CIRCULATION CHECK. SITTER AT BEDSIDE. BED LOCKED AND IN LOWEST POSITION, CALL LIGHT IN REACH. WILL ENDORSE TO DAY NURSE TO CONTINUE WITH PLAN OF CARE.
[2018-07-24] MEDS: LORAZEPAM INJ 2 MG/ML VIAL IV PRN (07:26)
[2018-07-24 07:29] LABS: CALCIUM, SERUM 8.7 mg/dL (8.5-10.1); CREATININE 1.1 mg/dL (0.6-1.3); POTASSIUM 3.3 mmol/L (3.5-5.1)
--- NOTE | 2018-07-24 07:31 | NUR ---
MS RN NOTE: PATIENT AGITATED AND TRYING TO PULL OUT NG TUBE, ATIVAN 1MG IV GIVEN PER MD ORDER. WILL CONTINUE TO MONITOR.
[2018-07-24 09:11] VITALS: BP 127/76
[2018-07-24] MEDS: LEVETIRACETAM (250 MG) 250 MG TABLET PO SCH (09:11)
[2018-07-24] MEDS: FUROSEMIDE 20 MG TABLET PO SCH (09:11)
[2018-07-24] MEDS: AMLODIPINE BESYLATE 10 MG TABLET PO SCH (09:11)
[2018-07-24] MEDS: PANTOPRAZOLE 40 MG TABLET.DR PO SCH (09:11)
[2018-07-24] MEDS: Z GUARD REMEDY 2 OZ OINT TP SCH (09:12)
[2018-07-24] MEDS ORDERED: POTASSIUM CHLORIDE 20 MEQ TAB.PRT.SR PO SCH (11:30)
[2018-07-24] MEDS: LEVOFLOXACIN (500MG) 500 MG TABLET PO SCH (12:26)
--- NOTE | 2018-07-24 16:28 | NUR ---
MS COLLECTION AGENT NOTES PATIENT DISCHARGED IN STABLE CONDITION. IN NO APPARENT DISTRESS. EXITCARE WAS SIGNED AND PROVIDED TO THE PARAMEDICS. BELONGINGS WERE CHECKED AND PROVIDED TO THE PATIENT. PRESCRIPTIONS WERE PROVIDED TO THE DAUGHTER. IV LINE AND ID BAND WERE REMOVED. ALL NEEDS WERE MET. PATIENT WAS ESCORTED OUT OF THE FACILITY VIA AMBULANCE BY EMT.
== END 2018-07-24 16:28 | disposition home or self-care (01) | DRG 53 ==
LOC: ER 19:42 → TELE 21:58 → MED 07-20 15:44 → MEDSG2 07-23 11:15
PROVIDERS: ADMIT Internal Medicine; ATTEND Nurse Practitioner Acute Care
DX: G40.909 Epilepsy, unspecified, not intractable, without status epilepticus (principal); N17.0 Acute kidney failure with tubular necrosis; J69.0 Pneumonitis due to inhalation of food and vomit; G93.41 Metabolic encephalopathy; R53.2 Functional quadriplegia; R13.10 Dysphagia, unspecified; E87.6 Hypokalemia; K21.9 Gastro-esophageal reflux disease without esophagitis; D64.9 Anemia, unspecified; D69.6 Thrombocytopenia, unspecified; E78.5 Hyperlipidemia, unspecified; I51.7 Cardiomegaly; I10 Essential (primary) hypertension; I69.320 Aphasia following cerebral infarction; Z96.611 Presence of right artificial shoulder joint; D68.59 Other primary thrombophilia
CPT/HCPCS: 36415; 70450-TC; 71045-TC; 71250-TC; 73502; 80048-TC; 80053-TC; 80061-TC; 80076-TC; 81000-TC; 82728-TC; 82962-TC; 83540-TC; 83735-TC; 83880; 84100-TC; 84443-TC; 84484-TC; 85025-TC; 87070-TC; 87081-TC; 87086-TC; 87186-TC; 87400; 92526; 92611-TC; 93307-TC; G0378; J1953; J2060; J2543; J3480; J7030; J7040; J7042; J7060

== ENCOUNTER 2020-01-27 15:30 | Inpatient (IN) | payer MEDICAID ==
[~2020-01-27] VITALS: Ht 175.3 cm; Wt 73.5 kg
[~2020-01-27 15:30] MED LIST changes: +AMLO10TA7 PO; +CLON0.1T PO; +FAMO40TA7 PO; +FURO20TA4 PO; +IBUP-1953 PO; +LEVO500T2 PO; +SIMV-46 PO; +TRAM50TA2 PO
--- NOTE | 2020-01-27 15:52 | NUR ---
BIB DAUGHTER FOR CHEST WALL PAIN, NON-RADIATING, CHOKING SENSATION, DROOLING WHEN EATING X 1 WEEK, TO ER BED 11. HOOKED TO HEATING SYSTEMS INSTALLER AND POX, CHANGED TO HOSP GOWN, WARM BLANKET PROVIDED, PATIENT AAO x 2, BREATHING EVEN AND UNLABORED. AWAITING MD URBANO.
--- NOTE | 2020-01-27 15:54 | NUR ---
DR REDDY AT BEDSIDE
[2020-01-27 16:20] LABS: BASOPHILS % (AUTO) 0.3 % (0.0-2.0); EOSINOPHILS % (AUTO) 0.6 % (0.0-6.0); HEMATOCRIT 27 % (33-45); HEMOGLOBIN 8.7 g/dL (11.5-14.8); LYMPHOCYTES # (AUTO) 1.5 /CMM (0.8-4.8); MEAN CORPUSCULAR HGB CONC 32 g/dl (31.0-36.0); MEAN CORPUSCULAR VOLUME 91 fL (82-100); MONOCYTES # (AUTO) 0.6 /CMM (0.1-1.30); MONOCYTES % (AUTO) 13.3 % (2.0-12.0); NEUTROPHILS # (AUTO) 2.4 /CMM (1.8-8.9); NEUTROPHILS % (AUTO) 52.8 % (43.0-81.0); PLATELET COUNT (AUTO) 177 /CMM (150-450); RED BLOOD CELL COUNT(AUTO) 3.02 MIL/uL (4.0-5.2); WHITE BLOOD COUNT (AUTO) 4.6 K/uL (4.3-11.0)
[2020-01-27] MEDS ORDERED: HYDR25TA4 MT (16:26)
[2020-01-27] MEDS ORDERED: LEVE500T20 MT (16:26)
[2020-01-27 16:42] LABS: CALCIUM, SERUM 8.6 mg/dL (8.5-10.1); CARBON DIOXIDE 25 mmol/L (21-32); CHLORIDE 103 mmol/L (98-107); CREATININE 1.2 mg/dL (0.6-1.3); GLUCOSE 122 mg/dL (74-106); POTASSIUM 3.6 mmol/L (3.5-5.1); SODIUM SERUM 137 mmol/L (136-145); UREA NITROGEN, BLOOD 13 mg/dL (7-18)
[2020-01-27 16:46] LABS: ALANINE AMINOTRANSFERASE 14 U/L (12-78); ALBUMIN 3.2 g/dL (3.4-5.0); ALKALINE PHOSPHATASE 141 U/L (46-116); ASPARTATE AMINOTRANSFERASE 17 U/L (15-37); BILIRUBIN,DIRECT 0.1 mg/dL (0.0-0.2); BILIRUBIN,TOTAL 0.2 mg/dL (0.2-1.0)
[2020-01-27] MEDS ORDERED: BENA20TA9 MT (16:51)
[2020-01-27] MEDS ORDERED: ZOLP5TAB8 MT (16:51)
[2020-01-27] MEDS ORDERED: ASPIRIN 325 MG TABLET PO ONE (17:00)
[2020-01-27] MEDS ORDERED: NITROGLYCERIN PACKET 1 GM PACKET TOP ONE (17:00)
[2020-01-27] MEDS ORDERED: NITROGLYCERIN PACKET 1 GM PACKET ONE (17:05)
[2020-01-27] MEDS ORDERED: ASPIRIN 325 MG TABLET ONE (17:06)
--- NOTE | 2020-01-27 17:26 | NUR ---
PLEASE CALL IRASEMA MARMOLEJO FOR UPDATES (CONTACT INFO IN PT DATA)
--- NOTE | 2020-01-27 17:35 | NUR ---
ODOM VIRUS SWAB DONE AND SENT TO LAB
--- NOTE | 2020-01-27 18:11 | NUR ---
Jerome sanchez in [facility] - 01/27/20 at 1816 by DAISY URINE SAMPLE COLLECTED AND SENT TO LAB
[2020-01-27] MEDS ORDERED: MAG HYDROX/AL HYDROX/SIMETH 30 ML UDC PO PRN (18:30)
[2020-01-27] MEDS ORDERED: ZOLPIDEM TARTRATE 5 MG TABLET PO PRN (18:30)
[2020-01-27] MEDS ORDERED: Z GUARD REMEDY 2 OZ OINT TP PRN (18:30)
[2020-01-27] MEDS ORDERED: MAGNESIUM HYDROXIDE 30 ML UDC PO PRN (18:30)
[2020-01-27] MEDS ORDERED: ACETAMINOPHEN 325 MG TABLET PO PRN (18:30)
[2020-01-27] MEDS ORDERED: ONDANSETRON HCL/PF 4 MG/2 ML VIAL IVP PRN (18:30)
--- NOTE | 2020-01-27 18:38 | NUR ---
GOT BED 322-2.
--- NOTE | 2020-01-27 18:50 | NUR ---
REPORT GIVEN TO ANGELLA WASHBURN FOR JOSE RAUL.
--- NOTE | 2020-01-27 19:10 | NUR ---
REPORT GIVEN TO LITHOGRAPHIC RETOUCHER APPRENTICE NURSE SHYLA WASHBURN FOR JOSE RAUL.
--- NOTE | 2020-01-27 19:15 | NUR ---
REPORT RECEIVED FROM NELLIE WASHBURN FOR JOSE RAUL
--- NOTE | 2020-01-27 19:29 | NUR ---
ULTRASOUND AT BEDSIDE IN PROGRESS
--- NOTE | 2020-01-27 19:38 | NUR ---
BED ASSIGNMENT 322-2
[2020-01-27 20:00] VITALS: BP 131/72
--- NOTE | 2020-01-27 20:00 | NUR ---
RN ADMITTING TELE OPENING NOTES RECEIVED PATIENT FROM ER VIA [facility],SAFELY TRANSFERRED TO BED, AWAKE ALERT AND ORIENTED X2, RESPIRATIONS EVEN AND UNLABORED WITH EQUAL RISE AND FALL OF CHEST, NOTED FORGETFUL HOWEVER ABLE TO MAKE NEEDS KNOWN , ABLE TO EXPRESS TOILETING NEEDS, AT THIS TIME APPEARS COMFORTABLE , DENIES PAIN AT THIS TIME, PLACED ON OBSTETRICIAN SB 56, SR 60. NO DISTRESS PRESENT, BED WHEATLEY OFFERED, PERINEAL CARE PROVIDED, LEFT PLANTAR FOOT NOTED DRY WOUND, LEFT FOOT SUSPECTED DEEP TISSUE INJURY, RIGHT HEEL SCATTERED SCABS IV SITE TO LEFT FA INTACT AND PATENT, NO REDNESS, NO INFILTRATION PRESENT, BELONGINGS LIST DONE, PATIENT HAS A WATCH AND TWO BRACELETS AND EARRINGS, ASKED PATIENT IF WOULD LIKE TO STORE IN SAFE, REFUSED TO REMOVE. BODY ASSESSMENT DONE SACRAL INTACT, NOTED WOUNDS TO BOTH LOWER EXTREMITIES ON FEET. BOTH FEET ELEVATED FLOATED WITH PILLOWS, ORIENTED TO STAFF AND CALL LIGHT AND KEPT WITHIN REACH, ALL NEEDS ATTENDED WILL CONTINUE TO MONITOR AND FOLLOW MD ORDERS, PT REMAINS COMFORTABLE AT THIS TIME.
--- NOTE | 2020-01-27 20:02 | NUR ---
PT TRANSFERRED TO ROOM VIA ACLS PROTOCOL
[2020-01-27] MEDS: HYDROCODONE/APAP 5/325MG 1 EACH TABLET PO PRN (20:27)
--- NOTE | 2020-01-27 20:27 | NUR ---
WHARF ATTENDANT NOTES PATIENT IS ABLE TO MAKE NEEDS KNOWN COMPLAINED OF PAIN STATES "PAIN TO RIGHT LEG AND CHEST SORENESS, CAN I HAVE PAIN MEDICATION". VITAL SIGNS ASSESSED WNL, NO CHANGES TO TELE MONITOR SINCE BROUGHT TO UNIT VS 131/72,60,18,98.9,100% RA. UNABLE TO STATE NUMBER ON PAIN SCALE. NORCO OFFERED AND PATIENT AGREED TO TAKE. NORCO PRN GIVEN ORDERED. PATIENT WAS ABLE TO SWALLOW PILL. REPOSITIONED WILL CONTINUE TO MONITOR FOR EFFECTIVENESS.
--- NOTE | 2020-01-27 22:45 | NUR ---
BREAKFAST SUPERVISOR NOTES PATIENT REMOVED TELE MONITOR X2, ATTEMPTED TO REPLACE TELE MONITOR BACK ON PATIENT AND SHE REFUSED DESPITE EDUCATION PROVIDED, WILL ATTEMPT TO APPLY AGAIN WHEN PATIENT AGREES. STATES " I DONT WANT IT AT THIS TIME".
[2020-01-28] VITALS (7 sets, daily range): BP systolic 108–157; BP diastolic 65–89
--- NOTE | 2020-01-28 02:21 | NUR ---
EMBEDDED FIRMWARE ENGINEER NOTES PATIENT FREQUENTLY REMOVED FLOORLEADER X4, REMOVED IV, REMOVED NAME BAND. MULTIPLE ATTEMPTS TO GET OOB DESPITE REDIRECTION AND EDUCATION. SITTER REQUESTED, CHARGE MADE AWARE.
[2020-01-28] MEDS: HYDROCODONE/APAP 5/325MG 1 EACH TABLET PO PRN (04:58)
--- NOTE | 2020-01-28 04:59 | NUR ---
government service executive notes patient states " i have pain in my back i need pain medication" juvenal prn offered patient agreed, patient unable to state level of pain BASED ON [place]CK[place] CORRAL FACE SCALE 7/10 FACIAL GRIMACING, WILL CONTINUE TO MONITOR. TELE MONITOR PLACED AGAIN REMINDED NOT TO REMOVE.
--- NOTE | 2020-01-28 05:25 | NUR ---
yarn finisher notes patient removed tele monitor reading prior to patient removing monitor sr [id number]
--- NOTE | 2020-01-28 06:23 | NUR ---
OFFICE SYSTEMS TECHNOLOGY INSTRUCTOR CLOSING NOTES PATIENT IN BED, AWAKE ALERT AND ORIENTED X2, RESPIRATIONS EVEN AND UNLABORED WITH EQUAL RISE AND FALL OF CHEST, NOTED FORGETFUL HOWEVER ABLE TO MAKE NEEDS KNOWN , ABLE TO EXPRESS TOILETING NEEDS,USES BED WHEATLEY, AT THIS TIME APPEARS COMFORTABLE , DENIES PAIN AT THIS TIME,NORCO EFFECTIVE, PLACED ON ASSEMBLER FLUORESCENT LIGHTS SB 57, NO DISTRESS PRESENT, PERINEAL CARE PROVIDED, IV SITE TO LEFT FA INTACT AND PATENT, NO REDNESS, NO INFILTRATION PRESENT, SACRAL INTACT, NOTED WOUNDS TO BOTH LOWER EXTREMITIES ON FEET. BOTH FEET ELEVATED FLOATED WITH PILLOWS, CALL LIGHT KEPT WITHIN REACH, ALL NEEDS ATTENDED WILL CONTINUE TO MONITOR AND ATTEND TO NEEDS, PT REMAINS COMFORTABLE AT THIS TIME WILL ENDORSE TO NEXT SHIFT.
--- NOTE | 2020-01-28 06:28 | NUR ---
WU DIAZ DENIES CHEST PAIN AT THIS TIME. Addendum: 01/28/20 at 0628 by GIDEON MACARIO RN WU DIAZ
[2020-01-28 07:03] LABS: BASOPHILS % (AUTO) 0.4 % (0.0-2.0); EOSINOPHILS % (AUTO) 1.3 % (0.0-6.0); HEMATOCRIT 31 % (33-45); HEMOGLOBIN 9.8 g/dL (11.5-14.8); LYMPHOCYTES # (AUTO) 1.8 /CMM (0.8-4.8); LYMPHOCYTES % (AUTO) 45.3 % (20.0-44.0); MEAN CORPUSCULAR HGB CONC 32 g/dl (31.0-36.0); MEAN CORPUSCULAR VOLUME 90 fL (82-100); MONOCYTES # (AUTO) 0.5 /CMM (0.1-1.30); MONOCYTES % (AUTO) 13.8 % (2.0-12.0); NEUTROPHILS # (AUTO) 1.5 /CMM (1.8-8.9); NEUTROPHILS % (AUTO) 39.2 % (43.0-81.0); PLATELET COUNT (AUTO) 189 /CMM (150-450); RED BLOOD CELL COUNT(AUTO) 3.44 MIL/uL (4.0-5.2); WHITE BLOOD COUNT (AUTO) 3.9 K/uL (4.3-11.0)
[2020-01-28] MEDS: PANTOPRAZOLE 40 MG TABLET.DR PO SCH (07:34)
[2020-01-28 07:46] LABS: CALCIUM, SERUM 9.3 mg/dL (8.5-10.1); CREATININE 0.8 mg/dL (0.6-1.3); MAGNESIUM 2.3 mg/dL (1.8-2.4); POTASSIUM 3.5 mmol/L (3.5-5.1)
[2020-01-28 07:49] LABS: THYROID STIMULATING HORMONE 2.643 uIU/mL (0.358-3.74)
--- NOTE | 2020-01-28 08:00 | NUR ---
CIVILIAN JAIL OFFICER OPENING NOTE Received patient awake in bed. A/O x2. PERRLA. Breathing even, clear, unlabored. On room air satting at 96%. No signs of SOB or distress. Pt denies fever, nausea, vomiting, chills. Tele monitor sinus bradycardia, HR 54. IV site left forearm 22g saline locked. IV patent and intact, no signs of infiltration. Skin warm, pink, dry, appropriate for ethnicity. Bed in low position, wheels locked, side rails up x2, call light within reach.
[2020-01-28] MEDS: ASPIRIN 81 MG TAB.CHEW PO SCH (08:02)
--- NOTE | 2020-01-28 09:11 | NUR ---
MS RN NOTE Pt scheduled for CTCA today. Consent obtained from daughter via phone. Consent witnessed by Chana Astorga RN.
--- NOTE | 2020-01-28 10:22 | NUR ---
WOUND CARE CONSULT: PT PRESENTS CONTINENT AND ABLE TO TURN AND REPOSITION IN BED. THERE ARE CALLUSED FEET AND DISCOLORED AREAS TO PLANTAR FEET, PRESENT ON ADMISSION. NO FLUCTUANCE, DRAINAGE, ERYTHEMA OR TENDERNESS NOTED. WILL SEE PRN.
[2020-01-28] MEDS ORDERED: NITROGLYCERIN 0.4 MG/TAB BOTTLE SL ONE (10:30)
[2020-01-28] MEDS ORDERED: METOPROLOL TARTRATE INJ 5 MG/5 ML AMPUL IVP PRN (10:30)
--- NOTE | 2020-01-28 10:33 | NUR ---
PLATER PRINTED CIRCUIT BOARD PANELS NOTE Pt left for CTCA by bed @ 1035.
[2020-01-28] MEDS ORDERED: IOHEXOL-350 100 ML VIAL IV ONE (10:34)
[2020-01-28] MEDS ORDERED: IV NS 0.9% 250 ML IV ONE (10:34)
--- NOTE | 2020-01-28 11:33 | NUR ---
RN NOTES: Post CTA: Patient non-compliant with the procedure, but able to complete the CTA. Patient denies pain/discomfort at this time. transferred back to her room, report given to patient RN
--- NOTE | 2020-01-28 11:56 | NUR ---
POMOLOGIST NOTE Patient returned from CTA @ 9347.
--- NOTE | 2020-01-28 17:39 | NUR ---
STONE ROUGHER CLOSING NOTE Pt sitting at bedside eating dinner. A/O x2. No signs of SOB or distress. No JVD. Pt denies pain, nausea, vomiting, chills. Tele monitor sinus bradycardia, heart rate 58. Nasal cannula 2 l/min. Breathing even, unlabored. Pt uses bedpan, urine output clear, yellow, no sediment. Patient ate 80% of dinner, tolerated well. Patient skin intact, clean, dry, appropriate for ethnicity. Safety precautions in place, bed in low position, wheels locked, side rails up x4, call light within reach. Addendum: 01/28/20 at 1821 by OSCAR MALCOLM RN Patient is confused, frequent orientation to hospital required. Frequently removes tele monitor and removed IV.
--- NOTE | 2020-01-28 19:26 | NUR ---
FINISHING INSPECTOR NOTES PATIENT IN BED, ALERT AND ORIENTED X 1-2. NEEDS FREQUENT REORIENTATION. BREATHING EVEN AND UNLABORED ON ROOM AIR. SHOWS NO SIGNS OF ACUTE RESPIRATORY DISTRESS, NO ACUTE PAIN. TELE MONITOR SR. PT NO IV MD AWARE, PT PULLING OUT. SAFETY PRECAUTIONS IN PLACE. SITTER AT BEDSIDE. BED IN LOWEST POSITION, LOCKED, AND CALL LIGHT KEPT WITHIN REACH. WILL CONTINUE TO MONITOR.
--- NOTE | 2020-01-28 23:00 | NUR ---
MS RN NOTES INSERT IV AND PT PULLED OUT. REFUSING ANOTHER IV INSERTION.
--- NOTE | 2020-01-29 06:52 | NUR ---
FURNITURE UPHOLSTERER NOTES PATIENT IN BED, ALERT AND ORIENTED X 1-2. NEEDS FREQUENT REORIENTATION. BREATHING EVEN AND UNLABORED ON ROOM AIR. SHOWS NO SIGNS OF ACUTE RESPIRATORY DISTRESS, NO ACUTE PAIN. TELE MONITOR SR. PT NO IV MD AWARE, PT PULLING OUT. ALL DUE MEDICATIONS GIVEN. SAFETY PRECAUTIONS IN PLACE. SITTER AT BEDSIDE. BED IN LOWEST POSITION, LOCKED, AND CALL LIGHT KEPT WITHIN REACH. WILL ENDORSE TO ONCOMING NURSE.
[2020-01-29] MEDS: PANTOPRAZOLE 40 MG TABLET.DR PO SCH (07:59)
[2020-01-29] MEDS: ASPIRIN 81 MG TAB.CHEW PO SCH (08:00)
[2020-01-29 08:16] LABS: BASOPHILS % (AUTO) 0.2 % (0.0-2.0); EOSINOPHILS % (AUTO) 0.7 % (0.0-6.0); HEMATOCRIT 30 % (33-45); HEMOGLOBIN 9.3 g/dL (11.5-14.8); LYMPHOCYTES # (AUTO) 1.5 /CMM (0.8-4.8); LYMPHOCYTES % (AUTO) 34.6 % (20.0-44.0); MEAN CORPUSCULAR HGB CONC 32 g/dl (31.0-36.0); MEAN CORPUSCULAR VOLUME 90 fL (82-100); MONOCYTES # (AUTO) 0.5 /CMM (0.1-1.30); MONOCYTES % (AUTO) 12.4 % (2.0-12.0); NEUTROPHILS # (AUTO) 2.3 /CMM (1.8-8.9); NEUTROPHILS % (AUTO) 52.1 % (43.0-81.0); PLATELET COUNT (AUTO) 189 /CMM (150-450); WHITE BLOOD COUNT (AUTO) 4.4 K/uL (4.3-11.0)
--- NOTE | 2020-01-29 08:21 | NUR ---
SPECIALTY MOLDER OPENING NOTE Patient awake in bed. A/O x1-2, confused and forgetful. Requires frequent reorientation to hospital. Breath sounds even, unlabored. Nasal cannula 2 l/min, satting at 94%. No JVD. No acute distress. No pain. Uses bedpan, voiding clear, yellow, urine. Bowel sounds hypoactive. Abdomen soft, round, non-distended. Pulses 2+. Skin warm, pink, dry, appropriate for ethnicity. Pulses 2+. Able to move all extremities. Sitter at bedside. Bed in low position, wheels locked, side rails up x2, call light within reach.
[2020-01-29 08:56] LABS: CALCIUM, SERUM 8.8 mg/dL (8.5-10.1); CREATININE 0.8 mg/dL (0.6-1.3); MAGNESIUM 2.3 mg/dL (1.8-2.4); PHOSPHORUS 3.4 mg/dL (2.5-4.9); POTASSIUM 3.4 mmol/L (3.5-5.1)
[2020-01-29 10:57] VITALS: BP 109/79
--- NOTE | 2020-01-29 16:30 | NUR ---
Tele/RN - Discharge Patient is alert and oriented x 1-2, confused and forgetful at times, needs frequent orientation and redirection, afebrile, denies chest pain, on room air without distress, ambulates with assistance/uses FWW. Patient was discharged home with home health for PT. Home health was arranged with [facility] [phone], pt to resume home meds as ordered. Reviewed discharge instructions with daughter Hilary and she verbalized full understanding of all teachings including medications and follow-up care with PCP within 1 week. Daughter was advised to seek immediate medical attention if patient experience chest pain, shortness of breath, palpitations, abdominal pain/distention, intractable nausea and vomiting, diarrhea, hematochezia, melena, weakness, loss of consciousness, neurological deficit, or any other emergent concerns. All belongings with patient and she deny any missing items. Pictures taken on skin breakdown. Discharge paperwork signed and copies were given per protocol. Accompanied to the lobby via wheelchair and transported by private car by daughter.
== END 2020-01-29 17:15 | disposition home health service (06) | DRG 203 ==
LOC: ER 15:40 → TELE 19:41 → MED 01-29 10:51
PROVIDERS: ADMIT Student in an Organized Health Care Education/Training Program; ATTEND Student in an Organized Health Care Education/Training Program
DX: R07.89 Other chest pain (principal); D64.9 Anemia, unspecified; E44.1 Mild protein-calorie malnutrition; I10 Essential (primary) hypertension; G40.909 Epilepsy, unspecified, not intractable, without status epilepticus; K21.9 Gastro-esophageal reflux disease without esophagitis; E88.09 Other disorders of plasma-protein metabolism, not elsewhere classified; E11.9 Type 2 diabetes mellitus without complications; I69.351 Hemiplegia and hemiparesis following cerebral infarction affecting right dominant side; I31.3 Pericardial effusion (noninflammatory); Z68.23 Body mass index [BMI] 23.0-23.9, adult
CPT/HCPCS: 36415; 71045-TC; 75574; 80048-TC; 80061-TC; 80076-TC; 82728-TC; 83540-TC; 83690-TC; 83735-TC; 84100-TC; 84443-TC; 84484-TC; 85025-TC; 87081-TC; 93307-TC; 97530-TC; G0378; J7050; Q9967

== ENCOUNTER 2020-02-14 18:00 | Emergency (ER) | payer MEDICAID ==
[~2020-02-14] VITALS: Ht 152.4 cm; Wt 73.0 kg
[~2020-02-14 18:00] MED LIST changes: +BENA20TA9 MT; +HYDR25TA4 MT; -LEVE250T2 PO; +LEVE500T20 MT; -LEVO500T2 PO; -PANT40TA2 PO; +ZOLP5TAB8 MT
--- NOTE | 2020-02-14 19:07 | NUR ---
BIBDAUGHTER FROM HOME TO ER BED 5. AAOX4. NOT IN IN RESP DISTRESS, BREATHING EVENA DN UNLABORED. CAME IN FOR CHEST PAIN SINCE SHE GOT DISCHARGED FROM HOSPITAL BACK IN MID JANUARY WELL BILAT LEG PAIN. CHEST PAIN IS IN MID CHEST NON RADIATING SHARP /. DENIES SOB. BIALT LEG ROM INTACT. MD WAS AT THE BEDSIDE. ORDERES RECEIVED, NOTED AND CARRIED OUT. IV LINE ON R HAND 20G, BLOOD DRAWN AND GIVEN TO COURT ADMINISTRATOR. PT IS ON MONITOR. EKG DONE BY EMT AT BEDSIDE
[2020-02-14] MEDS ORDERED: LIDOCAINE VISCOUS 2% UD 15 ML UDC ONE (19:14)
[2020-02-14] MEDS ORDERED: MAG HYDROX/AL HYDROX/SIMETH 30 ML UDC ONE (19:14)
[2020-02-14 19:18] LABS: BASOPHILS % (AUTO) 0.7 % (0.0-2.0); EOSINOPHILS % (AUTO) 0.5 % (0.0-6.0); HEMATOCRIT 31 % (33-45); HEMOGLOBIN 9.6 g/dL (11.5-14.8); LYMPHOCYTES # (AUTO) 1.9 /CMM (0.8-4.8); LYMPHOCYTES % (AUTO) 33.3 % (20.0-44.0); MEAN CORPUSCULAR HGB CONC 32 g/dl (31.0-36.0); MEAN CORPUSCULAR VOLUME 91 fL (82-100); MONOCYTES # (AUTO) 0.6 /CMM (0.1-1.30); MONOCYTES % (AUTO) 10.3 % (2.0-12.0); NEUTROPHILS # (AUTO) 3.2 /CMM (1.8-8.9); NEUTROPHILS % (AUTO) 55.2 % (43.0-81.0); PLATELET COUNT (AUTO) 224 /CMM (150-450); RED BLOOD CELL COUNT(AUTO) 3.37 MIL/uL (4.0-5.2); WHITE BLOOD COUNT (AUTO) 5.8 K/uL (4.3-11.0)
[2020-02-14 19:29] LABS: CALCIUM, SERUM 9.6 mg/dL (8.5-10.1); CARBON DIOXIDE 26 mmol/L (21-32); CHLORIDE 102 mmol/L (98-107); CREATININE 1.1 mg/dL (0.6-1.3); GLUCOSE 116 mg/dL (74-106); POTASSIUM 3.4 mmol/L (3.5-5.1); SODIUM SERUM 138 mmol/L (136-145); UREA NITROGEN, BLOOD 24 mg/dL (7-18)
[2020-02-14] MEDS ORDERED: LIDOCAINE VISCOUS 2% UD 15 ML UDC MM ONE (19:30)
[2020-02-14] MEDS ORDERED: MAG HYDROX/AL HYDROX/SIMETH 30 ML UDC PO ONE (19:30)
[2020-02-14 19:34] LABS: ALANINE AMINOTRANSFERASE 14 U/L (12-78); ALBUMIN 3.5 g/dL (3.4-5.0); ALKALINE PHOSPHATASE 151 U/L (46-116); ASPARTATE AMINOTRANSFERASE 16 U/L (15-37); BILIRUBIN,DIRECT 0.1 mg/dL (0.0-0.2); BILIRUBIN,TOTAL 0.2 mg/dL (0.2-1.0); LIPASE 163 U/L (73-393); TOTAL PROTEIN, SERUM 8.5 g/dL (6.4-8.2)
--- NOTE | 2020-02-14 21:54 | NUR ---
pt not complaining of pain anymore. md made aware. po trials tolerated. provided with meals
--- NOTE | 2020-02-14 22:53 | NUR ---
DAUGHTER CALLED. COMING TO LITERARY AGENT PT.
--- NOTE | 2020-02-14 23:27 | NUR ---
PT PICKED UP BY DAUGHTER JALEEL. PT WAS ASSISTED TO THE CAR ON A WHEELCHAIR. PT IS IN STABLE CONDITION.
[2020-02-14 23:28] VITALS: BP 72/143
== END 2020-02-14 23:39 | disposition home or self-care (01) ==
LOC: ER 18:05
DX: R07.89 Other chest pain (principal); R50.9 Fever, unspecified; I10 Essential (primary) hypertension; G40.909 Epilepsy, unspecified, not intractable, without status epilepticus; Z86.73 Personal history of transient ischemic attack (TIA), and cerebral infarction without residual deficits; Z98.890 Other specified postprocedural states; Z79.899 Other long term (current) drug therapy
CPT/HCPCS: 36415; 71045-TC; 80048-TC; 80076-TC; 83690-TC; 84484-TC; 85025-TC

== ENCOUNTER 2022-03-18 17:31 | Inpatient (IN) | payer MEDICAID ==
[~2022-03-18] VITALS: Ht 167.6 cm; Wt 66.2 kg
[~2022-03-18 17:31] MED LIST changes: +AMLO-213 PO; -AMLO10TA7 PO
--- NOTE | 2022-03-18 17:50 | NUR ---
RECEVED PT 61 YRS FEMALE CAME FROM [facility] BY TEJAS C/O CHEST PAIN AND UNnable to swallow RESPIRATION SPONT AND EASY PT KEEP SPEATION NO SOB
[2022-03-18] MEDS ORDERED: ACETAMINOPHEN 650 MG/20.3 ML UDC PO ONE (18:00)
--- NOTE | 2022-03-18 18:00 | NUR ---
SEEN BY DR. DAUGHERTY
--- NOTE | 2022-03-18 18:00 | NUR ---
TEJAS AT BED SIDE JALEEL F
--- NOTE | 2022-03-18 18:10 | NUR ---
SALINE LOCK ESTABLISHED, BLOOD DRAWN AND SENT TO LAB
[2022-03-18] MEDS ORDERED: ACETAMINOPHEN 325 MG TABLET ONE (18:12)
[2022-03-18 18:20] LABS: BASOPHILS % (AUTO) 0.5 % (0.0-2.0); EOSINOPHILS % (AUTO) 0.5 % (0.0-6.0); HEMATOCRIT 27 % (33-45); LYMPHOCYTES # (AUTO) 1.5 K/uL (0.8-4.8); LYMPHOCYTES % (AUTO) 23.8 % (20.0-44.0); MEAN CORPUSCULAR HGB CONC 33 g/dl (31.0-36.0); MEAN CORPUSCULAR VOLUME 96 fL (82-100); MONOCYTES # (AUTO) 0.5 K/uL (0.1-1.30); MONOCYTES % (AUTO) 8.5 % (2.0-12.0); NEUTROPHILS # (AUTO) 4.3 K/uL (1.8-8.9); NEUTROPHILS % (AUTO) 66.7 % (43.0-81.0); PLATELET COUNT (AUTO) 210 K/uL (150-450); RED BLOOD CELL COUNT(AUTO) 2.86 MIL/uL (4.0-5.2); WHITE BLOOD COUNT (AUTO) 6.4 K/uL (4.3-11.0)
--- NOTE | 2022-03-18 18:27 | NUR ---
TO CT SCAN
[2022-03-18 18:34] LABS: CARBON DIOXIDE 33 mmol/L (21-32); CHLORIDE 105 mmol/L (98-107); CREATININE 1.2 mg/dL (0.6-1.3); GLUCOSE 116 mg/dL (74-106); POTASSIUM 3.5 mmol/L (3.5-5.1); SODIUM SERUM 143 mmol/L (136-145); UREA NITROGEN, BLOOD 19 mg/dL (7-18)
[2022-03-18 18:57] LABS: ALANINE AMINOTRANSFERASE 14 U/L (12-78); ALBUMIN 2.8 g/dL (3.4-5.0); ALKALINE PHOSPHATASE 91 U/L (46-116); ASPARTATE AMINOTRANSFERASE 19 U/L (15-37); BILIRUBIN,DIRECT 0.1 mg/dL (0.0-0.2); BILIRUBIN,TOTAL 0.2 mg/dL (0.2-1.0); TOTAL PROTEIN, SERUM 7.7 g/dL (6.4-8.2)
--- NOTE | 2022-03-18 19:27 | NUR ---
HAND OFF TO MARGARET WASHBURN
--- NOTE | 2022-03-18 19:47 | NUR ---
SANDBLASTING SUPERVISOR AT PT'S BEDSIDE
--- NOTE | 2022-03-18 19:47 | NUR ---
20g IV LINE ESTABLISHED AT . PATENT AND INTACT. SALINE LOCKED.
[2022-03-18] MEDS ORDERED: ONDANSETRON HCL/PF 4 MG/2 ML VIAL ONE (20:03)
--- NOTE | 2022-03-18 20:21 | NUR ---
RORY COLLECTED AND SENT TO LAB
[2022-03-18] MEDS ORDERED: ONDANSETRON HCL/PF 4 MG/2 ML VIAL IV ONE (20:30)
--- NOTE | 2022-03-18 20:40 | NUR ---
XRAY AT BEDSIDE
--- NOTE | 2022-03-18 20:59 | NUR ---
DIRECTOR DATA ANALYTICS AT PT'S BEDSIDE
--- NOTE | 2022-03-18 21:03 | NUR ---
MAXIMINO NOEL PAGED FOR PANEL
--- NOTE | 2022-03-18 21:42 | NUR ---
DR. LINK MACKEY ON PHONE CALL WITH DR. BERT FRANKS
--- NOTE | 2022-03-18 21:50 | NUR ---
REPAGED EPIC FOR DR. NOEL
--- NOTE | 2022-03-18 21:52 | NUR ---
ROOM 308-2
--- NOTE | 2022-03-18 22:00 | NUR ---
RN NOTES PT A/O X2 VERY FORGETFUL BUT ABLE TO VERBALIZE NEEDS. PT IN DISTRESS OR PAIN AT THIS TIME. PT NOTED WITH IV ACCESS ONT HE RIGHT HAND 20G FLUSHING WELL S/L. PT PLACED ON TELE MONITOR READING SR 84. PT DOES NOT REPORT ANY CHEST PAIN AT THIS TIME. PT PLACED ON SEIZURE AND ASPIRATION PRECAUTIONS. BED IN LOWEST POSITION HOB ELEVATED. CALL LIGHT WITHIN REACH. TABLE WITHIN EACH. ALL NEEDS MET AT THIS TIME. Addendum: 03/19/22 at [address] RN TIME 22:50 Addendum: 03/19/22 [address] RN pt stating shes hungry jello,sandwich and juice provided at this time. once diet was verified.
--- NOTE | 2022-03-18 22:19 | NUR ---
REPORT GIVEN TO PATRICE
--- NOTE | 2022-03-18 22:20 | NUR ---
TROP 60, AWARE
--- NOTE | 2022-03-18 22:27 | NUR ---
DR. DAT MACKEY ON PHONE CALL WITH DR. BERT MACKEY
--- NOTE | 2022-03-18 22:48 | NUR ---
PT TRANSPORTED TO ROOM 308-2 ON CARDIAC PER ACLS PROTOCOL IN STABLE CONDITION
[2022-03-18] MEDS ORDERED: CLONIDINE HCL 0.1 MG TABLET PO PRN (23:00)
[2022-03-18] MEDS ORDERED: Z GUARD REMEDY 4 OZ OINT TP PRN (23:30)
[2022-03-18] MEDS ORDERED: MAGNESIUM HYDROXIDE 30 ML UDC PO PRN (23:30)
[2022-03-18] MEDS ORDERED: ONDANSETRON HCL/PF 4 MG/2 ML VIAL IVP PRN (23:30)
[2022-03-18] MEDS ORDERED: ACETAMINOPHEN 325 MG TABLET PO PRN (23:30)
[2022-03-18 23:46] VITALS: BP 128/88
[2022-03-19] VITALS: BP 128/88
[2022-03-19 00:23] LABS: IRON, SERUM 64 ug/dl (50-175); TOTAL IRON BINDING CAPACITY 226 ug/dl (250-450)
[2022-03-19 00:31] LABS: CHOLESTEROL 162 mg/dL (<200); HDL CHOLESTEROL 51 mg/dL (40-60); LDL 86 mg/dL (0-99); TRIGLYCERIDES 140 mg/dL (30-150)
--- NOTE | 2022-03-19 02:20 | NUR ---
rn notes pt pulled out iv catheter tip intact. pressure dressing applied to site. new iv site LFA #22g tolerated well.
[2022-03-19 04:00] VITALS: BP 149/81
--- NOTE | 2022-03-19 06:41 | NUR ---
RN NOTES PT A/O X2 VERY FORGETFUL BUT ABLE TO VERBALIZE NEEDS. PT IN DISTRESS OR PAIN AT THIS TIME. PT NOTED WITH IV ACCESS ON THE LFA #20G FLUSHING WELL S/L. PT PLACED ON TELE MONITOR READING SR 80S. PT DOES NOT REPORT ANY CHEST PAIN AT THIS TIME. PT PLACED ON SEIZURE AND ASPIRATION PRECAUTIONS. BED IN LOWEST POSITION HOB ELEVATED. CALL LIGHT WITHIN REACH. TABLE WITHIN EACH. ALL NEEDS MET AT THIS TIME. SPOKE TO DAUGHTER ONT HE PHONE THIS MORNING BRIANNA LIND WOULD LIKE TO BE UPDATED ON PLAN OF CARE ONCE DOCTORS HAVE SEEN MOTHER TODAY WILL ENDORSE TO DAY SHIFT NURSE.
[2022-03-19 07:03] LABS: BASOPHILS % (AUTO) 0.3 % (0.0-2.0); EOSINOPHILS % (AUTO) 0.3 % (0.0-6.0); HEMATOCRIT 24 % (33-45); HEMOGLOBIN 7.9 g/dL (11.5-14.8); LYMPHOCYTES # (AUTO) 2.1 K/uL (0.8-4.8); LYMPHOCYTES % (AUTO) 35.8 % (20.0-44.0); MEAN CORPUSCULAR HGB CONC 33 g/dl (31.0-36.0); MEAN CORPUSCULAR VOLUME 97 fL (82-100); MONOCYTES # (AUTO) 0.5 K/uL (0.1-1.30); MONOCYTES % (AUTO) 9.3 % (2.0-12.0); NEUTROPHILS # (AUTO) 3.1 K/uL (1.8-8.9); NEUTROPHILS % (AUTO) 54.3 % (43.0-81.0); PLATELET COUNT (AUTO) 182 K/uL (150-450); RED BLOOD CELL COUNT(AUTO) 2.46 MIL/uL (4.0-5.2); WHITE BLOOD COUNT (AUTO) 5.7 K/uL (4.3-11.0)
--- NOTE | 2022-03-19 07:05 | NUR ---
INSECTICIDE MAKER OPENING NOTES RECEIVED PATIENT AWAKE IN BED, A/Ox2, WITH EPISODES OF FORGETFULNESS. ON ROOM AIR NO S/S OF SOB OR RESPIRATORY DISTRESS. PATIENT IS ON TELEMONITORING SHOWING SINUS RHYTHM 80, NO C/O OF CARDIAC DISTRESS. IV ACCESS L FA #22 SL, INTACT AND PATENT. PATIENT IS BED BOUND AND INCONTINENT. SKIN ISSUES: TOE REDNESS. SAFETY MEASURES IN PLACE: BED LOCKED AND IN LOWEST POSITION, SIDE RAILS UP x2, CALL LIGHT WITHIN REACH, HOB ELEVATED. WILL CONTINUE TO MONITOR.
[2022-03-19 07:06] LABS: ALBUMIN 2.4 g/dL (3.4-5.0); BILIRUBIN,TOTAL 0.1 mg/dL (0.2-1.0); CALCIUM, SERUM 8.4 mg/dL (8.5-10.1); CREATININE 1.1 mg/dL (0.6-1.3); POTASSIUM 3.5 mmol/L (3.5-5.1); TOTAL PROTEIN, SERUM 6.5 g/dL (6.4-8.2)
[2022-03-19 08:00] VITALS: BP 141/85
--- NOTE | 2022-03-19 08:55 | NUR ---
HOSPITALITY MANAGER/MED RECON. HOME MEDICATION INFORMATION VERIFIED WITH PATIENT DAUGHTER ( JALEEL ). PHARMACY MADE AWARE.
[2022-03-19] MEDS ORDERED: HYDROCHLOROTHIAZIDE 25 MG TABLET PO SCH (09:00)
[2022-03-19] MEDS ORDERED: FUROSEMIDE 20 MG TABLET PO SCH (09:00)
[2022-03-19] MEDS: PANTOPRAZOLE 40 MG TABLET.DR PO SCH (09:20)
[2022-03-19] MEDS: LEVETIRACETAM (250 MG) 250 MG TABLET PO SCH ×2 (09:21→16:51)
[2022-03-19] MEDS: ASPIRIN EC 81 MG TABLET.DR PO SCH (09:21)
[2022-03-19] MEDS: AMLODIPINE BESYLATE 10 MG TABLET PO SCH (09:22)
[2022-03-19] MEDS: BENAZEPRIL HCL 20 MG TABLET PO SCH (09:22)
[2022-03-19] MEDS: FAMOTIDINE (20 MG) 20 MG TABLET PO SCH (09:22)
[2022-03-19] MEDS: IBUPROFEN 400 MG TABLET PO SCH (09:22)
[2022-03-19] MEDS: TRAMADOL HCL 50 MG TABLET PO SCH (09:23)
[2022-03-19] MEDS: METOPROLOL TARTRATE 50 MG TABLET PO SCH ×2 (09:24→21:00)
[2022-03-19] MEDS: ENOXAPARIN SODIUM 40 MG/0.4 ML DISP.SYRIN SQ SCH (09:26)
--- NOTE | 2022-03-19 10:00 | NUR ---
RN NOTES PATIENT DISCHARGED FROM TELE AND TRANSFERRED TO MED SURG. TELE MONITOR REMOVED.
[2022-03-19 12:00] VITALS: BP 120/76
[2022-03-19 16:00] VITALS: BP 116/79
[2022-03-19 16:28] LABS: BILIRUBIN,URINE NEGATIVE (NEGATIVE); COLOR,URINE YELLOW (YELLOW); LEUKOCYTE ESTERASE ,URINE NEGATIVE (NEGATIVE); NITRITE, URINE NEGATIVE (NEGATIVE); PROTEIN,URINE NEGATIVE (NEGATIVE); UGLUCOSE NEGATIVE (NEGATIVE)
[2022-03-19 16:54] LABS: BACTERIA,URINE RARE /HPF (None Seen); RBC,URINE 0-2 /HPF (0-2); WBC,URINE 0-2 /HPF (0-3)
--- NOTE | 2022-03-19 18:42 | NUR ---
MS RN CLOSING NOTES PATIENT SLEEPING IN BED, A/Ox2, WITH EPISODES OF FORGETFULNESS. STABLE ON ROOM AIR NO S/S OF SOB OR RESPIRATORY DISTRESS. NO C/O OF CARDIAC DISTRESS. IV ACCESS L FA #22 SL, INTACT AND PATENT. PATIENT IS BED BOUND AND INCONTINENT. SKIN ISSUES: L TOE REDNESS, R KNEE REDNESS, AND R FOOT REDNESS. ALL MEDICATION ADMINISTERED. SAFETY MEASURES MAINTAINED: BED LOCKED AND IN LOWEST POSITION, SIDE RAILS UP x2, CALL LIGHT WITHIN REACH, HOB ELEVATED. WILL ENDORSE TO NEXT SHIFT ANY JOSE RAUL.
--- NOTE | 2022-03-19 19:33 | NUR ---
RN OPENING NOTE PATIENT ASLEEP IN BED. A/OX2. NO S/S OF DISTRESS, BREATHING WITHOUT DIFFICULTY ON ROOM AIR. LFA #22 SL INTACT AND PATENT. SAFETY MEASURES IN PLACE: BED LOCKED AND AT LOWEST POSITION, RAILS UP X2, CALL MIKE WITHIN REACH. WILL CONTINUE TO MONITOR PATIENT.
[2022-03-19 20:32] VITALS: BP 96/67
[2022-03-19] MEDS: ZOLPIDEM TARTRATE 5 MG TABLET PO SCH (21:17)
[2022-03-19] MEDS: ATORVASTATIN 10 MG TABLET PO SCH (21:17)
--- NOTE | 2022-03-20 06:00 | NUR ---
RN NOTE PATIENT'S DAUGHTER, JALEEL LIND, CALLED TO INQUIRE ON HER MOTHER'S CURRENT HEALTH STATUS. INFORMATION VERIFIED PRIOR TO DISCUSSION. ALL QUESTIONS AND CONCERNS ADDRESSED. PATIENT STABLE; WILL CONTINUE TO MONITOR PATIENT.
--- NOTE | 2022-03-20 06:18 | NUR ---
RN CLOSING NOTE PATIENT IS ASLEEP IN BED. A/OX2. NO S/S OF DISTRESS, BREATHING WITHOUT DIFFICULTY ON ROOM AIR. LFA #22 SL INTACT AND PATENT. SAFETY MEASURES IN PLACE: BED LOCKED AND AT LOWEST POSITION, RAILS UP PER SEIZURE PRECAUTION, CALL MIKE WITHIN REACH. WILL ENDORSE TO NEXT SHIFT FOR JOSE RAUL.
[2022-03-20 06:37] LABS: BASOPHILS % (AUTO) 0.3 % (0.0-2.0); EOSINOPHILS % (AUTO) 0.8 % (0.0-6.0); HEMATOCRIT 26 % (33-45); HEMOGLOBIN 8.5 g/dL (11.5-14.8); LYMPHOCYTES # (AUTO) 1.8 K/uL (0.8-4.8); LYMPHOCYTES % (AUTO) 42.6 % (20.0-44.0); MEAN CORPUSCULAR HGB CONC 33 g/dl (31.0-36.0); MEAN CORPUSCULAR VOLUME 97 fL (82-100); MONOCYTES # (AUTO) 0.4 K/uL (0.1-1.30); MONOCYTES % (AUTO) 10.2 % (2.0-12.0); NEUTROPHILS # (AUTO) 1.9 K/uL (1.8-8.9); NEUTROPHILS % (AUTO) 46.1 % (43.0-81.0); PLATELET COUNT (AUTO) 180 K/uL (150-450); RED BLOOD CELL COUNT(AUTO) 2.69 MIL/uL (4.0-5.2); WHITE BLOOD COUNT (AUTO) 4.2 K/uL (4.3-11.0)
[2022-03-20 07:00] LABS: CALCIUM, SERUM 8.4 mg/dL (8.5-10.1); PHOSPHORUS 3.5 mg/dL (2.5-4.9); POTASSIUM 3.9 mmol/L (3.5-5.1)
--- NOTE | 2022-03-20 07:03 | NUR ---
MS RN OPENING NOTES RECEIVED PATIENT AWAKE IN BED, A/Ox2, WITH EPISODES OF FORGETFULNESS. ON ROOM AIR NO S/S OF SOB OR RESPIRATORY DISTRESS. NO C/O OF CARDIAC DISTRESS. IV ACCESS L FA #22 SL, INTACT AND PATENT. PATIENT IS BED BOUND AND INCONTINENT. SKIN ISSUES: TOE REDNESS. SAFETY MEASURES IN PLACE: BED LOCKED AND IN LOWEST POSITION, SIDE RAILS UP x2, CALL LIGHT WITHIN REACH, HOB ELEVATED. WILL CONTINUE TO MONITOR.
[2022-03-20] MEDS: PANTOPRAZOLE 40 MG TABLET.DR PO SCH (08:27)
[2022-03-20] MEDS: METOPROLOL TARTRATE 50 MG TABLET PO SCH ×2 (08:28→21:12)
[2022-03-20] MEDS: LEVETIRACETAM (250 MG) 250 MG TABLET PO SCH ×2 (08:28→16:09)
[2022-03-20] MEDS: ASPIRIN EC 81 MG TABLET.DR PO SCH (08:28)
[2022-03-20 08:29] VITALS: BP 146/90
[2022-03-20] MEDS: FAMOTIDINE (20 MG) 20 MG TABLET PO SCH (08:29)
[2022-03-20] MEDS: AMLODIPINE BESYLATE 10 MG TABLET PO SCH (08:29)
[2022-03-20] MEDS: IBUPROFEN 400 MG TABLET PO SCH (08:29)
[2022-03-20] MEDS: BENAZEPRIL HCL 20 MG TABLET PO SCH (08:29)
[2022-03-20] MEDS: TRAMADOL HCL 50 MG TABLET PO SCH (08:30)
[2022-03-20] MEDS: ENOXAPARIN SODIUM 40 MG/0.4 ML DISP.SYRIN SQ SCH (08:36)
--- NOTE | 2022-03-20 12:40 | NUR ---
RN NOTES ESTABLISHED ADDITIONAL IV LINE L AC, #20 G FOR CTCA. CONSENT OBTAINED BY DAUGHTER OVER THE PHONE WITH UW GUZMAN WITNESS.
[2022-03-20 13:08] VITALS: BP 110/63
[2022-03-20] MEDS ORDERED: CT SWABBABLE VALVE TRANS SET 1 EA INFUS.SET MC ONE (13:13)
[2022-03-20] MEDS ORDERED: IV NS 0.9% 250 ML IV ONE (13:13)
[2022-03-20] MEDS ORDERED: NITROGLYCERIN 0.4 MG/TAB BOTTLE ONE (13:13)
[2022-03-20] MEDS ORDERED: IOHEXOL-350 100 ML VIAL IV ONE (13:13)
--- NOTE | 2022-03-20 13:20 | NUR ---
RN NOTES PATIENT WAS PICKED UP FOR CTCA BY ONE HOLE PUNCHER STRAP.
--- NOTE | 2022-03-20 14:20 | NUR ---
RN NOTES PATIENT RETURNED FROM CTCA, IN STABLE CONDITION, WILL CONTINUE TO MONITOR.
[2022-03-20 16:15] VITALS: BP 122/66
[2022-03-20 20:00] VITALS: BP 107/68
--- NOTE | 2022-03-20 20:00 | NUR ---
MS RN NOTES RECEIVED LAYING ON BED A/O,A/O X2,FORGETFUL,SR-51 ON TELE MONITOR,COMMENTED "IM HUNGRY" SALINE LEFT ARM X2 INTACT AND PATENT.INCONTINENT OF URINE,REPOSITION Q 2HOURS PER PROTOCOL,CALL LIGHT IN REACH,NEEDS ANTICIPATED.
[2022-03-20] MEDS: ATORVASTATIN 10 MG TABLET PO SCH (21:34)
[2022-03-20] MEDS: ZOLPIDEM TARTRATE 5 MG TABLET PO SCH (21:34)
--- NOTE | 2022-03-21 07:00 | NUR ---
MS RN OPENING NOTES RECEIVED PATIENT AWAKE IN BED, A/Ox2, WITH EPISODES OF FORGETFULNESS. ON ROOM AIR NO S/S OF SOB OR RESPIRATORY DISTRESS. NO C/O OF CARDIAC DISTRESS. IV ACCESS L FA #22 SL, L AC #20 SL, INTACT AND PATENT. PATIENT IS BED BOUND AND INCONTINENT. SKIN ISSUES: TOE REDNESS. SAFETY MEASURES IN PLACE: BED LOCKED AND IN LOWEST POSITION, SIDE RAILS UP x2, CALL LIGHT WITHIN REACH, HOB ELEVATED. WILL CONTINUE TO MONITOR.
--- NOTE | 2022-03-21 07:40 | NUR ---
MS RN NOTES NO SIGNIFICANT CHANGE IN STATUS,ALWAYS ASKING FOR FOOD,VERY FORGETFUL.NO FALL,NO INJURY,IN NO ACUTE DISTRESS.
[2022-03-21 08:00] VITALS: BP 129/76
[2022-03-21] MEDS: PANTOPRAZOLE 40 MG TABLET.DR PO SCH (08:25)
[2022-03-21] MEDS: ASPIRIN EC 81 MG TABLET.DR PO SCH (08:28)
[2022-03-21] MEDS: FAMOTIDINE (20 MG) 20 MG TABLET PO SCH (08:28)
[2022-03-21] MEDS: IBUPROFEN 400 MG TABLET PO SCH (08:29)
[2022-03-21] MEDS: ENOXAPARIN SODIUM 40 MG/0.4 ML DISP.SYRIN SQ SCH (08:30)
[2022-03-21] MEDS: LEVETIRACETAM (250 MG) 250 MG TABLET PO SCH ×2 (08:34→16:52)
[2022-03-21] MEDS: METOPROLOL TARTRATE 50 MG TABLET PO SCH ×3 (08:35→21:00)
[2022-03-21] MEDS: AMLODIPINE BESYLATE 10 MG TABLET PO SCH ×2 (08:36→08:48)
[2022-03-21] MEDS: BENAZEPRIL HCL 20 MG TABLET PO SCH ×2 (08:36→08:48)
[2022-03-21] MEDS: TRAMADOL HCL 50 MG TABLET PO SCH (08:37)
[2022-03-21 16:00] VITALS: BP 110/68
[2022-03-21] MEDS ORDERED: MAG HYDROX/AL HYDROX/SIMETH 30 ML UDC PO PRN (17:00)
--- NOTE | 2022-03-21 18:29 | NUR ---
MS RN CLOSING NOTES PATIENT SLEEPING IN BED, A/Ox2, WITH EPISODES OF FORGETFULNESS. STABLE ON ROOM AIR NO S/S OF SOB OR RESPIRATORY DISTRESS. NO C/O OF CARDIAC DISTRESS. IV ACCESS L FA #22 SL AND L AC#20 SL, INTACT AND PATENT. PATIENT IS BED BOUND AND INCONTINENT. SKIN ISSUES: L TOE REDNESS, R KNEE REDNESS, AND R FOOT REDNESS. ALL MEDICATION ADMINISTERED. SAFETY MEASURES MAINTAINED: BED LOCKED AND IN LOWEST POSITION, SIDE RAILS UP x2, CALL LIGHT WITHIN REACH, HOB ELEVATED. WILL ENDORSE TO NEXT SHIFT ANY JOSE RAUL.
--- NOTE | 2022-03-21 19:35 | NUR ---
RN OPENING NOTE PATIENT IN BED, AWAKE, EATING DINNER. PATIENT IS A/O X 2 AT THIS TIME, FORGETFUL. PATIENT IS ON RA, TOLERATING WELL. BREATHING EVEN AND UNLABORED. PATIENT HAS A LFA 22G SALINE LOCKED ONLY AND LAC 20G SALINE LOCKED ONLY, BOTH PATENT AND INTACT. PATIENT DOES NOT REPORT ANY PAIN AT THIS TIME. SAFETY MEASURES IN PLACE: BED LOCKED AND IN LOWEST POSITION, CALL LIGHT WITHIN REACH, SIDE RAILS UP. WILL MONITOR PATIENT CLOSELY.
[2022-03-21 20:00] VITALS: BP 104/45
[2022-03-21] MEDS: ZOLPIDEM TARTRATE 5 MG TABLET PO SCH (21:24)
[2022-03-21] MEDS: ATORVASTATIN 10 MG TABLET PO SCH (21:24)
--- NOTE | 2022-03-21 21:50 | NUR ---
RN NOTE PATIENT NOT GIVEN LOPRESSOR PER PARAMETER BP 104/45 HR 71
[2022-03-22 06:31] LABS: BASOPHILS % (AUTO) 0.3 % (0.0-2.0); EOSINOPHILS % (AUTO) 0.8 % (0.0-6.0); HEMATOCRIT 28 % (33-45); HEMOGLOBIN 8.9 g/dL (11.5-14.8); LYMPHOCYTES # (AUTO) 1.7 K/uL (0.8-4.8); LYMPHOCYTES % (AUTO) 41.3 % (20.0-44.0); MEAN CORPUSCULAR HGB CONC 32 g/dl (31.0-36.0); MEAN CORPUSCULAR VOLUME 99 fL (82-100); MONOCYTES # (AUTO) 0.5 K/uL (0.1-1.30); MONOCYTES % (AUTO) 12.7 % (2.0-12.0); NEUTROPHILS # (AUTO) 1.8 K/uL (1.8-8.9); NEUTROPHILS % (AUTO) 44.9 % (43.0-81.0); PLATELET COUNT (AUTO) 185 K/uL (150-450); RED BLOOD CELL COUNT(AUTO) 2.84 MIL/uL (4.0-5.2)
[2022-03-22 07:27] LABS: CALCIUM, SERUM 8.7 mg/dL (8.5-10.1); MAGNESIUM 1.9 mg/dL (1.8-2.4); PHOSPHORUS 2.9 mg/dL (2.5-4.9); POTASSIUM 3.7 mmol/L (3.5-5.1)
--- NOTE | 2022-03-22 07:31 | NUR ---
RN CLOSING NOTE PATIENT IN BED, AWAKE. PATIENT IS A/O X 1-2 AT THIS TIME, NEEDS FREQUENT REORIENTATION. PATIENT ON RA, TOLERATING WELL. BREATHING EVEN AND UNLABORED. LAC AND LFA IV ACCESS PATENT AND INTACT. NO PAIN REPORTED BY PATIENT AT THIS TIME. SAFETY MEASURES IMPLEMENTED. ALL NEEDS MET AND ATTENDED. ALL ORDERS CARRIED OUT. ENDORSED TO DAY SHIFT NURSE FOR JOSE RAUL.
[2022-03-22 08:00] VITALS: BP 134/85
[2022-03-22] MEDS: ENOXAPARIN SODIUM 40 MG/0.4 ML DISP.SYRIN SQ SCH (09:00)
[2022-03-22] MEDS: PANTOPRAZOLE 40 MG TABLET.DR PO SCH (11:32)
[2022-03-22] MEDS: ASPIRIN EC 81 MG TABLET.DR PO SCH (11:32)
[2022-03-22] MEDS: FAMOTIDINE (20 MG) 20 MG TABLET PO SCH (11:32)
[2022-03-22] MEDS: TRAMADOL HCL 50 MG TABLET PO SCH (11:32)
[2022-03-22] MEDS: IBUPROFEN 400 MG TABLET PO SCH (11:33)
[2022-03-22] MEDS: METOPROLOL TARTRATE 50 MG TABLET PO SCH (11:33)
[2022-03-22] MEDS: LEVETIRACETAM (250 MG) 250 MG TABLET PO SCH ×2 (11:33→17:50)
[2022-03-22] MEDS: BENAZEPRIL HCL 20 MG TABLET PO SCH (11:34)
[2022-03-22] MEDS: ATORVASTATIN 10 MG TABLET PO SCH (11:34)
[2022-03-22] MEDS: AMLODIPINE BESYLATE 10 MG TABLET PO SCH (11:34)
[2022-03-22 16:00] VITALS: BP 124/74
--- NOTE | 2022-03-22 20:05 | NUR ---
LOG SKIDDER NOTE PATIENT RECEIVED LAYING ON THE BED. ON RA, TOLERATED WELL. NO SOB OR RESPIRATORY DISTRESS NOTED. VSS BP 125/74, HR 74, RESP 20, TEMP 98.3, AND O2 100%. NO PAIN. PATIENT DISCHARGED TO HOME WITH DAUGHTER AND GRANDCHILDREN. ALL BELONGINGS RETURNED TO PATENT. EXIT CARE PROVIDED, DISCHARGE EDUCATION GIVEN.
== END 2022-03-22 20:30 | disposition home or self-care (01) | DRG 53 ==
LOC: ER 17:32 → TELE 22:13 → MED 03-19 11:41
PROVIDERS: ADMIT Nurse Practitioner Acute Care; ATTEND Nurse Practitioner Acute Care
DX: G40.909 Epilepsy, unspecified, not intractable, without status epilepticus (principal); I21.A1 Myocardial infarction type 2; G93.41 Metabolic encephalopathy; I50.33 Acute on chronic diastolic (congestive) heart failure; I69.351 Hemiplegia and hemiparesis following cerebral infarction affecting right dominant side; D63.8 Anemia in other chronic diseases classified elsewhere; E87.3 Alkalosis; T84.028A Dislocation of other internal joint prosthesis, initial encounter; I11.0 Hypertensive heart disease with heart failure; K21.9 Gastro-esophageal reflux disease without esophagitis; Z20.822 Contact with and (suspected) exposure to COVID-19; M19.90 Unspecified osteoarthritis, unspecified site; Z96.611 Presence of right artificial shoulder joint; Z79.899 Other long term (current) drug therapy; E78.5 Hyperlipidemia, unspecified; R06.89 Other abnormalities of breathing; Y92.9 Unspecified place or not applicable; F03.90 Unspecified dementia, unspecified severity, without behavioral disturbance, psychotic disturbance, mood disturbance, and anxiety; Y79.2 Prosthetic and other implants, materials and accessory orthopedic devices associated with adverse incidents; Z87.19 Personal history of other diseases of the digestive system; M24.411 Recurrent dislocation, right shoulder
CPT/HCPCS: 36415; 70450-TC; 71045-TC; 73030-TC; 73200-TC; 75574; 80048-TC; 80053-TC; 80061-TC; 80076-TC; 81001; 83540-TC; 83735-TC; 83880; 84100-TC; 84443-TC; 84484-TC; 85025-TC; 87081-TC; 93307-TC; 97112-TC; 97530-TC; C9803; G0378; J1650; J2405; J3490; J7050; Q9967

== ENCOUNTER 2022-07-04 11:28 | Inpatient (IN) | payer MEDICAID ==
[~2022-07-04] VITALS: Ht 129.5 cm; Wt 66.7 kg
--- NOTE | 2022-07-04 11:53 | NUR ---
[id number] C/O RIGHT SIDED FLANK PAIN X 3 DAYS. 9/10 ON PAIN SCALE. PT PLACED ON BED AND MONITOR. PT DENIES HEMATURIA AND DYSURIA. AAOX4. GRAND DAUGHTER AT BEDSIDE.
--- NOTE | 2022-07-04 11:56 | NUR ---
PT WAS OFFERED TO BE PLACED ON A BED WHEATLEY TO COLLECT URINE BUT STATES " I CAN'T GIVE URINE RIGHT NOW".
[2022-07-04] MEDS ORDERED: ONDANSETRON HCL/PF 4 MG/2 ML VIAL IVP ONE (12:30)
[2022-07-04] MEDS ORDERED: IV NS 0.9% 1,000 ML BAG IV ONE (12:30)
--- NOTE | 2022-07-04 12:35 | NUR ---
ESTABLISHED IV 20G ON LEFT FOREARM. BLOOD DRAWN AND SENT TO LAB. INITIATED IV FLUIDS NS.
[2022-07-04] MEDS ORDERED: ONDANSETRON HCL/PF 4 MG/2 ML VIAL ONE (12:48)
[2022-07-04 13:12] LABS: BASOPHILS % (AUTO) 0.1 % (0.0-2.0); EOSINOPHILS % (AUTO) 0.1 % (0.0-6.0); HEMATOCRIT 35 % (33-45); HEMOGLOBIN 10.9 g/dL (11.5-14.8); LYMPHOCYTES % (AUTO) 11.4 % (20.0-44.0); MEAN CORPUSCULAR HGB CONC 32 g/dl (31.0-36.0); MEAN CORPUSCULAR VOLUME 96 fL (82-100); MONOCYTES # (AUTO) 0.8 K/uL (0.1-1.30); MONOCYTES % (AUTO) 8.8 % (2.0-12.0); NEUTROPHILS # (AUTO) 7.2 K/uL (1.8-8.9); NEUTROPHILS % (AUTO) 79.6 % (43.0-81.0); PLATELET COUNT (AUTO) 213 K/uL (150-450); RED BLOOD CELL COUNT(AUTO) 3.61 MIL/uL (4.0-5.2)
--- NOTE | 2022-07-04 13:18 | NUR ---
PT TAKEN TO CT VIA THA
--- NOTE | 2022-07-04 13:28 | NUR ---
MOVE SHEET SUBMITTED
[2022-07-04 13:32] LABS: ALANINE AMINOTRANSFERASE 52 U/L (12-78); ALBUMIN 2.8 g/dL (3.4-5.0); ALKALINE PHOSPHATASE 93 U/L (46-116); ASPARTATE AMINOTRANSFERASE 124 U/L (15-37); BILIRUBIN,DIRECT 0.1 mg/dL (0.0-0.2); BILIRUBIN,TOTAL 0.3 mg/dL (0.2-1.0); CALCIUM, SERUM 9.3 mg/dL (8.5-10.1); CARBON DIOXIDE 31 mmol/L (21-32); CHLORIDE 92 mmol/L (98-107); CREATININE 2.3 mg/dL (0.6-1.3); GLUCOSE 157 mg/dL (74-106); LIPASE 129 U/L (73-393); TOTAL PROTEIN, SERUM 8.5 g/dL (6.4-8.2); UREA NITROGEN, BLOOD 31 mg/dL (7-18)
--- NOTE | 2022-07-04 13:35 | NUR ---
EUGENIA [phone]
--- NOTE | 2022-07-04 13:41 | NUR ---
COVID SPECIMEN COLLECTED AND SENT TO LAB.
[2022-07-04 13:44] LABS: SODIUM SERUM 135 mmol/L (136-145)
[2022-07-04 14:11] LABS: POTASSIUM 2.4 mmol/L (3.5-5.1)
--- NOTE | 2022-07-04 14:11 | NUR ---
troponin 57, dr ellis made aware.
--- NOTE | 2022-07-04 14:13 | NUR ---
potassium 2.4, dr ellis made aware
--- NOTE | 2022-07-04 14:14 | NUR ---
URINE COLLECTED AND SENT TO LAB.
[2022-07-04] MEDS ORDERED: POTASSIUM CL. PREMIX PERIPHER. 100 ML ONE (14:55)
[2022-07-04] MEDS ORDERED: ASPIRIN 325 MG TABLET ONE (14:56)
[2022-07-04] MEDS ORDERED: ASPIRIN 325 MG TABLET PO ONE (15:00)
[2022-07-04 15:04] LABS: BILIRUBIN,URINE 1+ (NEGATIVE); COLOR,URINE YELLOW (YELLOW); LEUKOCYTE ESTERASE ,URINE NEGATIVE (NEGATIVE); NITRITE, URINE NEGATIVE (NEGATIVE); PH,URINE 5.5 (5.0-8.0); PROTEIN,URINE TRACE mg/dl (NEGATIVE); UGLUCOSE NEGATIVE (NEGATIVE); UROBILINOGEN,URINE 0.2 EU/dL (0.2)
[2022-07-04] MEDS: POTASSIUM CL. PREMIX PERIPHER. 50 ML IV SCH ×2 (15:12→16:18)
[2022-07-04 15:15] LABS: BACTERIA,URINE Rare /HPF (None Seen); SQUAMOUS EPITHELIAL CELL,UR Few /HPF (None Seen); WBC,URINE 0-2 /HPF (0-3)
--- NOTE | 2022-07-04 16:57 | NUR ---
DR CASTRO ON THE PHONE W/ DR NOEL
--- NOTE | 2022-07-04 17:20 | NUR ---
GOT BED 324-1
--- NOTE | 2022-07-04 17:57 | NUR ---
PT TRANSFERRED TO UNIT VIA GURNEY. WARM HANDOFF GIVEN TO RN ASSIGNED.
--- NOTE | 2022-07-04 19:00 | NUR ---
RN NOTE RECEIVED THE PATIENT FROM DAY SHIFT NURSE, ACCORDING TO THE DAY SHIFT NURSE, THE PATIENT'S INFORMATION IS NOT IN THE SYSTEM YET. PATIENT IS IN BED, ON RA, NO S/S OF SOB OR DISTRESS. WILL MONITOR THE PATIENT AND WAIT FOR MD ORDERS FOR THIS PATIENT.
[2022-07-04 20:00] VITALS: BP 138/87
--- NOTE | 2022-07-04 20:00 | NUR ---
RN NOTE PATIENT IS AGITATED AND PULLED OUT THE IV ACCESS ON HER LEFT FA. SHE IS CONFUSED AND VERY FORGETFUL. CHARGE NURSE, ALEXANDRU, NOTIFIED.
--- NOTE | 2022-07-04 20:10 | NUR ---
IN SCHOOL SUSPENSION AIDE NOTE ACCORDING TO THE PATIENT'S FILE IN THE COMPUTER (NEVER RECEIVED REPORT FROM ANYBODY FOR THIS PATIENT SINCE STARTING THE SHIFT), PATIENT IS ON EXTERNAL TELE MONITOR. PUT THE EXTERNAL TELE MONITOR ON THE PATIENT, THE HEART RHYTHM IS SR AT 70S. PATIENT IS VERY ANXIOUS AND AGITATED, SHE IS YELLING FOR FOOD.
--- NOTE | 2022-07-04 20:30 | NUR ---
INTERACTIVE MULTIMEDIA DESIGNER NOTE PATIENT PULLED HER IV ACCESS OUT AND THROW IT ON THE FLOOR. CONTACTED THE ER AND TRYING TO GET MORE INFORMATION ABOUT THIS PATIENT. CHARGE NURSE, ALEXANDRU, NOTIFIED.
--- NOTE | 2022-07-04 21:30 | NUR ---
SIGNS CLEANER NOTE CALLED PATIENT'S PATIENT, DR. DAVID ARZOLA WHO IS COVERING PATIENT'S PRIMARY PHYSICIAN DR. BEARD, AND NOTIFIED THAT THE PATIENT IS HERE. DR. DAVID ARZOLA STATED THAT HE DID NOT KNOW THE PATIENT WAS ADMITTED TO THE FLOOR. HE SHOULD BE NOTIFIED BY THE ER DOCTOR FIRST BEFORE THE PATIENT WAS ADMITTED TO OUR HOSPITAL. HE IS REQUESTING THE ADMITTING DOCTOR TO CALL HIM FOR THE PATIENT BEFORE HE GAVE ORDERS. CHARGE NURSE, ALEXANDRU, NOTIFIED. Addendum: 07/05/22 at 0102 by LEONIDES BERMEO RN *PATIENT'S PHYSICIAN
--- NOTE | 2022-07-04 21:55 | NUR ---
SPRAYER AUTO PARTS NOTE RECEIVED DR. DAVID ARZOLA REPLIED PHONE CALL. HE STATED THAT NOBODY CONTACTED HIM FROM ER BEFORE ADMITTING THE PATIENT TO OUR [facility]OS[facility]. HE JUST HEARD FROM ME THAT THE PATIENT WAS ADMITTED TO THE UNIT. HE NEEDED TO BE CONTACTED BY THE PATIENT'S ADMITTING PHYSICIAN FROM THE ER, THEN HE IS ABLE TO GIVE ORDERS FOR THIS PATIENT. CHARGE NURSE, ALEXANDRU NOTIFIED.
--- NOTE | 2022-07-04 22:00 | NUR ---
WOOD TOOL MAKER NOTE CHARGE NURSE HAS BEEN CONTACTING THE HOSPITAL DOCTORS AND TRYING TO REACH THE ATTENDING DOCTOR WHO ADMITTED THE PATIENT AND TRYING TO GET ORDERS FOR THIS PATIENT.
[2022-07-04] MEDS ORDERED: CLONIDINE HCL 0.1 MG TABLET PO PRN (23:00)
[2022-07-04] MEDS ORDERED: ONDANSETRON HCL/PF 4 MG/2 ML VIAL IVP PRN (23:00)
--- NOTE | 2022-07-04 23:00 | NUR ---
FURNITURE ASSEMBLY SUPERVISOR NOTE WITH CHARGE NURSE, ALEXANDRU, CALLING DOCTORS AND FINALLY RECEIVED THE ORDERS FOR THIS PATIENT.
--- NOTE | 2022-07-04 23:07 | NUR ---
ECOSYSTEM ECOLOGY PROFESSOR NOTE CALLED AFTER [facility] AT [phone] AND ASKED THEM TO VERIFY THE ORDERS. THE PERSON ANSWERED THE PHONE VERBALIZED UNDERSTANDING AND GOING TO VERIFY THE ORDER INDIRA.
--- NOTE | 2022-07-04 23:39 | NUR ---
CITY MANAGER NOTE PATIENT IS CONFUSED AND FORGETFUL. SHE KEEPS PULLING OFF THE EXTERNAL SEC REPORTING CONSULTANT. EDUCATED THE PATIENT, STILL, SHE KEEPS PULLING THE LEADS OFF AND PUT THE TELE BOX ON THE SIDE TABLE. CHARGE NURSE, ALEXANDRU, NOTIFIED. TANK HOUSE OPERATORJONNATHAN, NOTIFIED.
[2022-07-04] MEDS: LEVETIRACETAM (250 MG) 250 MG TABLET PO SCH (23:42)
[2022-07-04] MEDS: ZOLPIDEM TARTRATE 5 MG TABLET PO SCH (23:43)
[2022-07-04] MEDS: HEPARIN SODIUM, PORCINE 5000 UNITS/1 ML VIAL SQ SCH (23:46)
[2022-07-05] VITALS: BP 163/83
--- NOTE | 2022-07-05 00:07 | NUR ---
COLOR DRUM WORKER NOTE RECEIVED CRITICAL LAB RESULT FOR THE PATIENT. TROP IS 71. CHARGE NURSE, ALEXANDRU, NOTIFIED. DOCTOR RUFUS NOTIFIED OVER THE PHONE. DR. HOOPER STATED "THAT IS FINE".
--- NOTE | 2022-07-05 00:39 | NUR ---
HEALTH ADVOCATE NOTE PATIENT IS CALM NOW AFTER THE MEDICATION WAS GIVEN. RECONNECTED THE PATIENT WITH THE EXTERNAL NETWORK OPERATIONS MANAGER. ON THE TELE, THE HEART RHYTHM IS SR AT 60S.
[2022-07-05] MEDS: IV NS 0.9% 1,000 ML IV PRN (02:51)
[2022-07-05 04:00] VITALS: BP 131/96
[2022-07-05] MEDS: ACETAMINOPHEN 325 MG TABLET PO PRN (05:10)
--- NOTE | 2022-07-05 05:50 | NUR ---
MEASUREMENT SUPERINTENDENT NOTE PATIENT'S DAUGHTER, NNEKA LIND CALLED AND ASKED ABOUT HER MOTHER'S CONDITION SHE WAS TOLD THROUGH THE TELEMARKETING SUPERVISOR, HER MOTHER'S VITAL SIGNS ARE WITH NORMAL LEVEL. IF SHE NEEDS TO KNOW MORE ABOUT HER MOTHER'S MEDICAL CONDITION, SHE NEEDS TO CALL THE DOCTOR FOR MORE INFORMATION. Nneka LEFT HER HOME PHONE NUMBER: [phone]. NEEDS DAY SHIFT NURSE TO FOLLOW UP.
[2022-07-05 06:29] LABS: BASOPHILS % (AUTO) 0.3 % (0.0-2.0); EOSINOPHILS % (AUTO) 0.5 % (0.0-6.0); HEMATOCRIT 30 % (33-45); HEMOGLOBIN 9.7 g/dL (11.5-14.8); LYMPHOCYTES # (AUTO) 1.5 K/uL (0.8-4.8); LYMPHOCYTES % (AUTO) 24.1 % (20.0-44.0); MEAN CORPUSCULAR HGB CONC 32 g/dl (31.0-36.0); MEAN CORPUSCULAR VOLUME 97 fL (82-100); MONOCYTES # (AUTO) 0.9 K/uL (0.1-1.30); MONOCYTES % (AUTO) 15.4 % (2.0-12.0); NEUTROPHILS # (AUTO) 3.6 K/uL (1.8-8.9); NEUTROPHILS % (AUTO) 59.7 % (43.0-81.0); PLATELET COUNT (AUTO) 169 K/uL (150-450); RED BLOOD CELL COUNT(AUTO) 3.09 MIL/uL (4.0-5.2); WHITE BLOOD COUNT (AUTO) 6.1 K/uL (4.3-11.0)
[2022-07-05 06:34] LABS: CALCIUM, SERUM 8.3 mg/dL (8.5-10.1); CREATININE 1.3 mg/dL (0.6-1.3); MAGNESIUM 2.5 mg/dL (1.8-2.4); PHOSPHORUS 3.4 mg/dL (2.5-4.9)
[2022-07-05 06:54] LABS: POTASSIUM 2.6 mmol/L (3.5-5.1)
--- NOTE | 2022-07-05 06:59 | NUR ---
RETURNED GOODS INSPECTOR NOTE CRITICAL VALUE REPORT RECEIVED FROM CHARGE NURSEALEXANDRU. THIS PATIENT'S POTASSIUM VALUE IS 26.. NOTIFIED MD. HOOPER THROUGH TEXT MESSAGE. WAITING FOR RESPONSE. CHARGE NURSE AWARE.
--- NOTE | 2022-07-05 07:06 | NUR ---
PSYCHOLOGY INSTRUCTOR NOTE RECEIVED LAB CALL FOR CRITICAL LAB RESULT: TROP IS 68. CHARGE NURSE NOTIFIED. WILL ENDORSE THE DAY SHIFT NURSE TO FOLLOW UP.
--- NOTE | 2022-07-05 07:13 | NUR ---
ASSOCIATE DIRECTOR FINANCIAL AID CLOSING NOTE PATIENT IS IN BED SLEEPING. THROUGH THE NIGHT, PATIENT HAS BEEN CONFUSED. NEW IV ACCESS IS AT HER LEFT FA, #20G, RUNNING NS AT 75 ML/HR. IV SITE IS PATENT AND INTACT. PATIENT IS ON RA, NO S/S OF SOB OR DISTRESS. TOLERATED WELL. PATIENT IS ON EXTERNAL ASSISTANT TO THE VICE PRESIDENT, THE RHYTHM IS SR AT 60S AND 70S. PATIENT HAS CRITICAL LAB VALUE OF TROPONIN ELEVATED TO 71 AND 68, . AND CHARGE NURSE ALEXANDRU NOTIFIED. ANOTHER CRITICAL LAB RESULT RECEIVED FROM THE LAB, PATIENT'S SERUM POTASSIUM LEVEL IS 2.6. MD NOTIFIED. NO ORDER HAS BEEN RECEIVED YET. WILL ENDORSE NEXT SHIFT NURSE FOR CONTINUING PATIENT CARE AND FOLLOW UP. SAFETY PRECAUTIONS ARE IN PLACE: BED IN LOWEST AND LOCKED POSITION; SIDE RAILS UP X 3; BED ALARM IS IN PLACED. CALL MIKE AND TABLE ARE WITHIN REACH.
--- NOTE | 2022-07-05 07:30 | NUR ---
RN Opening Note Patient AOx2-3, Not able to freely express her concerns. Patient able to communicate, delayed speech, takes time to process information. Patient with no signs of distress or discomfort. Discussed plan of care, pt nodded agreement. All safety precautions taken, call light and table within reach, bed at lowest position.
[2022-07-05] MEDS: LEVETIRACETAM (250 MG) 250 MG TABLET PO SCH ×2 (08:50→20:22)
[2022-07-05] MEDS: FAMOTIDINE (20 MG) 20 MG TABLET PO SCH (08:51)
[2022-07-05] MEDS: TRAMADOL HCL 50 MG TABLET PO SCH (08:51)
[2022-07-05] MEDS: AMLODIPINE BESYLATE 10 MG TABLET PO SCH (08:52)
[2022-07-05] MEDS: HEPARIN SODIUM, PORCINE 5000 UNITS/1 ML VIAL SQ SCH ×2 (08:53→20:23)
[2022-07-05] MEDS ORDERED: IBUPROFEN 400 MG TABLET PO SCH (09:00)
--- NOTE | 2022-07-05 10:17 | NUR ---
Critical Lab Lab called with potassium level 2.6, informed physician, pending orders.
[2022-07-05] MEDS ORDERED: POTASSIUM CHLORIDE 20 MEQ TAB.PRT.SR PO ONE (11:00)
[2022-07-05] MEDS: POTASSIUM CL. PREMIX PERIPHER. 50 ML IV SCH ×4 (11:25→14:10)
[2022-07-05 12:34] LABS: THYROID STIMULATING HORMONE 2.506 uIU/mL (0.358-3.74)
--- NOTE | 2022-07-05 18:08 | NUR ---
RN Closing Note Patient AOx2, not able to express her own concerns. Not able to assess pts mental status, delayed speech and patient does not seem to fully comprehend questions. Patient remained safe throughout shift, medications administered as prescribed, care provided as needed. All safety precautions taken, call light and table within reach, bed at lowest position. Will endorse to night nurse for continuity of care.
--- NOTE | 2022-07-05 19:30 | NUR ---
DUDE WRANGLER NOTES RECEIVED PATIENT AWAKE IN BED. PATIENT IS A/O TIMES 3. FORGETFUL. REORIENT THE PATIENT. ABLE TO VERBALIZE HER NEEDS . NO PAIN NOTED. NO SOB NOTED. NO DISTRESS NOTED. ON TELE MONITOR READING SR 63. IV ACCESS ON THE LFA G # 20 INTACT RUNNING NS AT 75 ML/HR. ALL SAFETY MEASURES IN PLACE. BED LOCKED IN THE LOWEST POSITION. CALL LIGHT AND TABLE IN EASY REACH. SIDE RAILS UP TIMES 2. WILL CONTINUE TO MONITOR CLOSELY.
[2022-07-05 20:00] VITALS: BP 149/73
[2022-07-05] MEDS: ZOLPIDEM TARTRATE 5 MG TABLET PO SCH (21:58)
[2022-07-05] MEDS ORDERED: SIMVASTATIN 20 MG TABLET PO SCH (22:00)
[2022-07-06] VITALS: BP 105/64
[2022-07-06 04:00] VITALS: BP 106/78
[2022-07-06] MEDS: ACETAMINOPHEN 325 MG TABLET PO PRN (04:58)
--- NOTE | 2022-07-06 06:38 | NUR ---
MANAGEMENT ADVISOR GIGI NOTES PATIENT AWAKE IN BED. PATIENT IS A/O TIMES 3. FORGETFUL. REORIENT THE PATIENT. ABLE TO VERBALIZE HER NEEDS . NO PAIN NOTED. NO SOB NOTED. NO DISTRESS NOTED. ON TELE MONITOR READING SR 63. IV ACCESS ON THE LFA G # 20 INTACT RUNNING NS AT 75 ML/HR. ALL DUE MEDS GIVEN ORDERED. ALL SAFETY MEASURES IN PLACE. BED LOCKED IN THE LOWEST POSITION. CALL LIGHT AND TABLE IN EASY REACH. SIDE RAILS UP TIMES 2. WILL ENDORSE FOR JOSE RAUL.
[2022-07-06 08:00] VITALS: BP 139/77
--- NOTE | 2022-07-06 08:06 | NUR ---
RN Opening Note Patient AOx2-3, Not able to freely express her concerns. Patient able to communicate, delayed speech, takes time to process information. Patient with no signs of distress or discomfort. Discussed plan of care, pt nodded agreement. Patient found to have removed her telemetry leads/box. Explained to patient the importance of wearing the ex assistant/program director and reapplied monitor to patient's chest. All safety precautions taken, call light and table within reach, bed at lowest position.
[2022-07-06 08:58] LABS: CALCIUM, SERUM 7.9 mg/dL (8.5-10.1); CREATININE 1.1 mg/dL (0.6-1.3); POTASSIUM 3.6 mmol/L (3.5-5.1)
[2022-07-06] MEDS: FAMOTIDINE (20 MG) 20 MG TABLET PO SCH (09:12)
[2022-07-06] MEDS: AMLODIPINE BESYLATE 10 MG TABLET PO SCH (09:12)
[2022-07-06] MEDS: HEPARIN SODIUM, PORCINE 5000 UNITS/1 ML VIAL SQ SCH (09:16)
[2022-07-06] MEDS: LEVETIRACETAM (250 MG) 250 MG TABLET PO SCH (09:17)
[2022-07-06] MEDS: TRAMADOL HCL 50 MG TABLET PO SCH (09:18)
[2022-07-06] MEDS: IV NS 0.9% 1,000 ML IV PRN (09:33)
[2022-07-06 12:00] VITALS: BP 135/77
[2022-07-06 16:00] VITALS: BP 154/96
--- NOTE | 2022-07-06 18:42 | NUR ---
RN NOTE- PT DC HOME AWITH FAMILY AT THIS TIME. IV REMOVED, ID WRISTBAND REMOVED, AFTERCARE AND ORDERS EXPLAINED TO FAMILY. ESCORTED OFF UNIT TO CAR BY MANAGER HARDWARE.
== END 2022-07-06 18:17 | disposition home health service (06) | DRG 465 ==
LOC: ER 11:30 → TELE 18:28
PROVIDERS: ADMIT Internal Medicine; ATTEND Internal Medicine
DX: N20.0 Calculus of kidney (principal); I69.351 Hemiplegia and hemiparesis following cerebral infarction affecting right dominant side; E87.6 Hypokalemia; R77.8 Other specified abnormalities of plasma proteins; T84.028A Dislocation of other internal joint prosthesis, initial encounter; I10 Essential (primary) hypertension; I69.398 Other sequelae of cerebral infarction; G40.909 Epilepsy, unspecified, not intractable, without status epilepticus; Z20.822 Contact with and (suspected) exposure to COVID-19; E78.5 Hyperlipidemia, unspecified; Y83.8 Other surgical procedures as the cause of abnormal reaction of the patient, or of later complication, without mention of misadventure at the time of the procedure; Y92.009 Unspecified place in unspecified non-institutional (private) residence as the place of occurrence of the external cause; G31.84 Mild cognitive impairment of uncertain or unknown etiology
CPT/HCPCS: 36415; 71045-TC; 73030-TC; 80048-TC; 80061-TC; 80076-TC; 81001; 83690-TC; 83735-TC; 84100-TC; 84439-TC; 84443-TC; 84484-TC; 85025-TC; 87081-TC; 93307-TC; 97112-TC; 97530-TC; C9803; G0378; J1644; J2405; J3480; J7030; J7040

== ENCOUNTER 2022-10-25 18:18 | Inpatient (IN) | payer MEDICAID ==
[~2022-10-25] VITALS: Ht 157.5 cm; Wt 64.4 kg
[2022-10-25] MEDS: MIDODRINE HCL (5MG) 5 MG TABLET PO SCH (00:51)
--- NOTE | 2022-10-25 18:35 | NUR ---
CAMILLE76 FROM HOME FOR GENERALIZED WEAKNESS X 3 DAYS WITH NAUSEA AND VOMITING TODAY. BLOOD GLUCOSE ON SCENE 132 PER EMS. PT TRANSFERRED TO BED AND CONNECTED TO MONITOR. AWAITING MD URBANO.
--- NOTE | 2022-10-25 19:06 | NUR ---
DR. HER AT BEDSIDE FOR EVAL.
[2022-10-25] MEDS ORDERED: ONDANSETRON HCL/PF 4 MG/2 ML VIAL ONE (19:12)
--- NOTE | 2022-10-25 19:27 | NUR ---
COVID Swab collected and sent to lab.
--- NOTE | 2022-10-25 19:27 | NUR ---
TUBE TURNER AT PT'S BEDSIDE
--- NOTE | 2022-10-25 19:28 | NUR ---
MRSA collected and sent to lab
--- NOTE | 2022-10-25 19:29 | NUR ---
URINE COLLECTED AND SENT TO LAB
[2022-10-25] MEDS ORDERED: ONDANSETRON HCL/PF 4 MG/2 ML VIAL IVP ONE (19:30)
[2022-10-25] MEDS ORDERED: IV NS 0.9% 500 ML BAG IV ONE (19:30)
--- NOTE | 2022-10-25 20:05 | NUR ---
PT TAKEN TO CT VIA THA
[2022-10-25 20:06] LABS: BILIRUBIN,URINE NEGATIVE (NEGATIVE); COLOR,URINE YELLOW (YELLOW); LEUKOCYTE ESTERASE ,URINE NEGATIVE (NEGATIVE); NITRITE, URINE NEGATIVE (NEGATIVE); PH,URINE 7.5 (5.0-8.0); PROTEIN,URINE 1+ mg/dl (NEGATIVE); UGLUCOSE NEGATIVE (NEGATIVE); UROBILINOGEN,URINE 0.2 EU/dL (0.2)
--- NOTE | 2022-10-25 20:10 | NUR ---
PT RETURNED FROM CT
[2022-10-25 20:15] LABS: SERUM AMMONIA 11 umol/L (11-32)
--- NOTE | 2022-10-25 20:15 | NUR ---
Jerome sanchez in [facility] - 10/25/22 at 2017 by HAMILTON PT TO CT ACCOMPANIED BY TECH
[2022-10-25 20:16] LABS: BASOPHILS % (AUTO) 0.3 % (0.0-2.0); CARBON DIOXIDE 27 mmol/L (21-32); CHLORIDE 110 mmol/L (98-107); CREATININE 5.7 mg/dL (0.6-1.3); EOSINOPHILS % (AUTO) 0.3 % (0.0-6.0); GLUCOSE 111 mg/dL (74-106); HEMATOCRIT 31 % (33-45); HEMOGLOBIN 9.6 g/dL (11.5-14.8); LYMPHOCYTES # (AUTO) 1.1 K/uL (0.8-4.8); LYMPHOCYTES % (AUTO) 19.4 % (20.0-44.0); MEAN CORPUSCULAR HGB CONC 31 g/dl (31.0-36.0); MEAN CORPUSCULAR VOLUME 100 fL (82-100); MONOCYTES # (AUTO) 0.2 K/uL (0.1-1.30); MONOCYTES % (AUTO) 2.9 % (2.0-12.0); NEUTROPHILS # (AUTO) 4.5 K/uL (1.8-8.9); NEUTROPHILS % (AUTO) 77.1 % (43.0-81.0); PLATELET COUNT (AUTO) 115 K/uL (150-450); POTASSIUM 4.6 mmol/L (3.5-5.1); RED BLOOD CELL COUNT(AUTO) 3.09 MIL/uL (4.0-5.2); SODIUM SERUM 146 mmol/L (136-145); UREA NITROGEN, BLOOD 62 mg/dL (7-18); WHITE BLOOD COUNT (AUTO) 5.9 K/uL (4.3-11.0)
[2022-10-25 20:22] LABS: ACETAMINOPHEN < 10 ug/ml (10-30); ALANINE AMINOTRANSFERASE 72 U/L (12-78); ALBUMIN 2.2 g/dL (3.4-5.0); ALCOHOL, BLOOD < 3 mg/dL (0-0); ALKALINE PHOSPHATASE 186 U/L (46-116); ASPARTATE AMINOTRANSFERASE 103 U/L (15-37); BILIRUBIN,TOTAL 0.1 mg/dL (0.2-1.0); TOTAL PROTEIN, SERUM 7.7 g/dL (6.4-8.2)
--- NOTE | 2022-10-25 20:24 | NUR ---
S/W DAUGHTER/JALEEL LIND [phone], WILL AWAIT FOR UPDATES
[2022-10-25 20:27] LABS: THYROID STIMULATING HORMONE 9.079 uIU/mL (0.358-3.74)
[2022-10-25 20:28] LABS: BACTERIA,URINE 4+ /HPF (None Seen); SQUAMOUS EPITHELIAL CELL,UR Few /HPF (None Seen)
[2022-10-25] MEDS ORDERED: IV NS 0.9% 1,000 ML BAG IV ONE (21:30)
[2022-10-25] MEDS ORDERED: CEFTRIAXONE 1GM BAG (ER ONLY) 50 ML IV ONE ×2 (21:30→22:07)
--- NOTE | 2022-10-25 21:51 | NUR ---
LACTIC ACID 3.2; DR TAINA MACKEY AWARE
--- NOTE | 2022-10-25 21:52 | NUR ---
DRIVE THRU ORDER TAKER AT BEDSIDE
--- NOTE | 2022-10-25 21:58 | NUR ---
DR MOORE PAGED PER DR HER.
--- NOTE | 2022-10-25 22:41 | NUR ---
DR HARRIS PAGED PER DR HER.
--- NOTE | 2022-10-25 22:41 | NUR ---
DR CAPUTO PAGED PER DR HER.
--- NOTE | 2022-10-25 22:50 | NUR ---
Bed 258
[2022-10-25] MEDS ORDERED: ACETAMINOPHEN 325 MG TABLET PO PRN (23:00)
[2022-10-25] MEDS ORDERED: IV NS 0.9% 1,000 ML IV ONE (23:00)
--- NOTE | 2022-10-25 23:10 | NUR ---
18GA TO LFA ESTABLISHED
--- NOTE | 2022-10-25 23:18 | NUR ---
US TECH AT BEDSIDE
--- NOTE | 2022-10-25 23:18 | NUR ---
MASTER SONAR TECHNICIAN AT BEDSIDE
[2022-10-26] VITALS (93 sets, daily range): BP systolic 70–160; BP diastolic 32–92
--- NOTE | 2022-10-26 00:05 | NUR ---
REPORT GIVEN TO [facility]. PT GOING TO 258.
--- NOTE | 2022-10-26 00:15 | NUR ---
LABORER MINE NOTES ADMITTED A 62 Y/O FEMALE PATIENT FROM ER VIA GURNEY, AWAKE CONFUSED. WITH DX OF ACUTE RENAL FAILURE, SECONDARY DX HYPOVOLEMIC SHOCK. WITH HX OF CVA WITH RIGHT SIDED DEFECITS, HTN, HLD, GERD, SEIZURE D/O. ON ROOM AIR, SATING AT 97%. IMMEDIATELY CONNECTED TO BEDSIDE MONITOR, SINUS RHYTHM HEART RATE ON 40'S, NOTED WITH TEMP- 86.7 FAHRENHEIT, APPLIED MENDOZA HUGGER. NO S/S OF DISTRESS NOTED. RIGHT FOREARM # 18 AND LAC #18 PERIPHERAL LINE FLUSHED WITH NS, WITH ON GOING NS 1L BOLUS. V/S TAKEN AND RECORDED. BODY ASSESSMENT DONE, TOOK PICTURE AND PLACED IT IN PATIENT'S CHART. TEJEDA CATHETER INTACT, PATENT DRAINING WITH CLEAR YELLOW URINE OUTPUT VIA GRAVITY. ALL SAFETY PRECAUTION PROVIDED. BED IN LOWEST POSITION. LOCKED. CALL LIGHT WITH IN REACH
[2022-10-26] MEDS: IV D5/0.45 NACL 1,000 ML IV PRN ×2 (00:21→10:36)
[2022-10-26] MEDS ORDERED: LEVETIRACETAM (500MG) 500 MG/5 ML VIAL IV ONE (00:58)
[2022-10-26] MEDS: LEVETIRACETAM (500MG) 500 MG in IV NS 0.9% 100 ML IV SCH ×3 (01:06→23:28)
--- NOTE | 2022-10-26 01:30 | NUR ---
RN NOTES PATIENT NOTED WITH BLOOD PRESSURE- 82/48, HR- 46, DR BEARD MADE AWARE WITH NEW ORDER START LEVOPHED PER PROTOCOL AND PICC LINE INSERTION NOTED AND CARRIED OUT.
[2022-10-26] MEDS ORDERED: NOREPINEPHRINE 4 MG/4 ML AMPUL IV ONE (01:59)
[2022-10-26] MEDS ORDERED: NOREPINEPHRINE 32 MG in IV NS 0.9% 218 ML IV PRN (02:00)
--- NOTE | 2022-10-26 03:30 | NUR ---
RN NOTES OBTAINED CONSENT FOR PICC LINE INSERTION FROM DAUGHTER JALEELBlair LIND.
[2022-10-26 03:32] LABS: BASOPHILS % (AUTO) 0.5 % (0.0-2.0); EOSINOPHILS % (AUTO) 0.5 % (0.0-6.0); HEMATOCRIT 27 % (33-45); HEMOGLOBIN 8.2 g/dL (11.5-14.8); LYMPHOCYTES # (AUTO) 0.8 K/uL (0.8-4.8); LYMPHOCYTES % (AUTO) 17.1 % (20.0-44.0); MEAN CORPUSCULAR HGB CONC 31 g/dl (31.0-36.0); MEAN CORPUSCULAR VOLUME 99 fL (82-100); MONOCYTES # (AUTO) 0.1 K/uL (0.1-1.30); MONOCYTES % (AUTO) 2.6 % (2.0-12.0); NEUTROPHILS # (AUTO) 3.6 K/uL (1.8-8.9); NEUTROPHILS % (AUTO) 79.3 % (43.0-81.0); PLATELET COUNT (AUTO) 124 K/uL (150-450); RED BLOOD CELL COUNT(AUTO) 2.71 MIL/uL (4.0-5.2); WHITE BLOOD COUNT (AUTO) 4.5 K/uL (4.3-11.0)
[2022-10-26 04:13] LABS: BILIRUBIN,TOTAL 0.2 mg/dL (0.2-1.0); CALCIUM, SERUM 8.9 mg/dL (8.5-10.1); CREATININE 4.6 mg/dL (0.6-1.3); POTASSIUM 5.4 mmol/L (3.5-5.1)
--- NOTE | 2022-10-26 06:00 | NUR ---
RN NOTES NOTIFIED DR. BEARD LATEST TROPONIN- 65, NO NEW ORDER.
--- NOTE | 2022-10-26 08:00 | NUR ---
LAB STAFF STATES " PT. HARD STICK." RN INSTRUCTED TO TRY AGAIN IN 1-2 HRS.
--- NOTE | 2022-10-26 08:20 | NUR ---
DR BEARD AWARE OF THE TROPONIN=74, AND STATES" OKAY AND CANCELLED ALL TROPONIN SERIES LAB DRAW."
[2022-10-26] MEDS ORDERED: methylPREDNISolone SOD SUCC 40 MG/ML VIAL IV SCH (08:30)
[2022-10-26] MEDS: MIDODRINE HCL (5MG) 5 MG TABLET PO SCH ×3 (08:33→17:00)
--- NOTE | 2022-10-26 08:43 | NUR ---
WOUND CARE CONSULT: PT PRESENTS WITH SACRAL SCARRING WITH OPEN AREA OVER SCARRING, MULTIPLE AREAS OF DISCOLORATION/SCABS TO HEELS AND FEET WELL RT LATERAL ANKLE ULCER, PRESENT ON ADMISSION. DR WINN CALLED FOR DPM CONSULT. DISCUSSED SKIN PROTECTION WITH NURSING STAFF. MD IN AGREEMENT WITH PLAN OF CARE.
[2022-10-26] MEDS ORDERED: PANTOPRAZOLE 40 MG VIAL IV ONE (09:00)
[2022-10-26] MEDS ORDERED: Z GUARD REMEDY 4 OZ OINT TP PRN (09:00)
[2022-10-26] MEDS ORDERED: PANTOPRAZOLE 40 MG VIAL IV SCH (09:00)
[2022-10-26] MEDS: LEVOTHYROXINE INJ 100 MCG VIAL IV SCH (09:17)
[2022-10-26] MEDS: Z GUARD REMEDY 4 OZ OINT TP SCH (10:59)
[2022-10-26] MEDS: PROSOURCE / PROSTAT (PYXIS) 30 ML UDC GT SCH ×2 (12:00→17:00)
[2022-10-26] MEDS: IV 1/2NS 1000 ML 1,000 ML IV SCH ×2 (14:00→22:46)
[2022-10-26] MEDS ORDERED: SODIUM POLYSTYRENE SULFONATE 15 G/60 ML BOTTLE PO ONE (14:00)
--- NOTE | 2022-10-26 14:00 | NUR ---
NO SPEECH THERAPIST AVAILABLE NOW FOR SWALLOW EVAL PER GERIATRIC NURSING ASSISTANT. DEPT. , GERONIMO CHARGE NURSE AWARE
[2022-10-26] MEDS ORDERED: DEXTROSE 50%-WATER 50 ML DISP.SYRIN IVP ONE (17:00)
[2022-10-26] MEDS ORDERED: INSULIN REGULAR, HUMAN 100 UNIT/ML 3 ML VIAL IV ONE (17:00)
[2022-10-26] MEDS: PANTOPRAZOLE 40 MG VIAL IV SCH (17:34)
--- NOTE | 2022-10-26 19:10 | NUR ---
UX CONSULTANT NOTE RECEIVED PT FOR CONTINUITY OF CARE. PATIENT NON VERBAL IN NO S/SX OF ACUTE DISTRESS AT THIS TIME; CURRENTLY ON ROOM AIR, WITH 02 SAT >95% AT THIS TIME. IV ACCESS ON L FA#18 PATENT, INTACT AND FLUSHING WELL. RECEIVED PT WITH RUNNING DRIPS FOLLOWS: 1/2NS@120CC/HR, LEVO RECEIVED AT 0.2MCG/KG/MIN , RUNNING , MONITORED AND ADJUSTED PER PROTOCOL.PT ON NPO DUE TO MENTATION. SB ON MONITOR (DR. BEARD AWARE). TEJEDA CATH IN PLACE, MODERATE URINE OUTPUT NOTED. WILL ENSURE SAFETY MEASURES WITHIN THE SHIFT. PATIENT BED ALARM IS ON. HEAD OF BED ELEVATED. BED IS LOCKED, IN LOWEST POSITION AND SIDE RAILS UP. CALL LIGHT WITHIN REACH OF THE PATIENT. WILL CONTINUE TO MONITOR AND REASSESS FOR ANY CHANGES AND WILL CARRY OUT ANY ONGOING AND ACTIVE MD ORDER.
[2022-10-26] MEDS: CEFTRIAXONE 1 G in IV D5W 50 ML IV SCH (21:24)
--- NOTE | 2022-10-26 23:00 | NUR ---
RESEARCH SCIENTIST NOTE SECURED ORDER FOR RESTRAINTS (DR. BEARD); PT HAS BEEN REMOVNG LINES AND TELE LEADS. EAR MOLD LABORATORY TECHNICIAN AWARE.
[2022-10-27] VITALS (47 sets, daily range): BP systolic 94–145; BP diastolic 41–103
--- NOTE | 2022-10-27 03:00 | NUR ---
BEHAVIORAL ASSISTANT NOTE NSG BEDSIDE SWALLOW SCREEN DONE DUE TO IMPROVED MENTATION, WILL ENDORSE TO AM SHIFT TO FOLLOW THROUGH FOR CHANGE OF DIET.
[2022-10-27 06:02] LABS: BASOPHILS # (AUTO) 0.1 K/uL (0.0-0.2); BASOPHILS % (AUTO) 1.4 % (0.0-2.0); EOSINOPHILS % (AUTO) 0.2 % (0.0-6.0); HEMATOCRIT 27 % (33-45); HEMOGLOBIN 8.5 g/dL (11.5-14.8); LYMPHOCYTES # (AUTO) 1.5 K/uL (0.8-4.8); LYMPHOCYTES % (AUTO) 16.4 % (20.0-44.0); MEAN CORPUSCULAR HGB CONC 31 g/dl (31.0-36.0); MEAN CORPUSCULAR VOLUME 98 fL (82-100); MONOCYTES # (AUTO) 0.3 K/uL (0.1-1.30); MONOCYTES % (AUTO) 3.4 % (2.0-12.0); NEUTROPHILS % (AUTO) 78.6 % (43.0-81.0); PLATELET COUNT (AUTO) 112 K/uL (150-450); RED BLOOD CELL COUNT(AUTO) 2.78 MIL/uL (4.0-5.2); WHITE BLOOD COUNT (AUTO) 8.9 K/uL (4.3-11.0)
[2022-10-27 06:19] LABS: ALBUMIN 1.9 g/dL (3.4-5.0); BILIRUBIN,TOTAL 0.1 mg/dL (0.2-1.0); CALCIUM, SERUM 8.9 mg/dL (8.5-10.1); CREATININE 3.7 mg/dL (0.6-1.3); POTASSIUM 4.6 mmol/L (3.5-5.1); TOTAL PROTEIN, SERUM 6.9 g/dL (6.4-8.2)
[2022-10-27] MEDS: IV 1/2NS 1000 ML 1,000 ML IV SCH ×2 (06:20→16:33)
--- NOTE | 2022-10-27 07:00 | NUR ---
RN CLOSING NOTE: PATIENT REMAINS IN ROOM IN NO SIGNS OF RESPIRATORY DISTRESS, PATIENT STILL ON ROOM AIR;TOLERATING WELL SATURATING @ >95% SP02. PT MORE ALERT AND AWAKE AFTER MIDNIGHT. STILL ON NPO DUE TO MENTATION. SB ON MONITOR ; DR. BEARD AWARE SINCE LAST NIGHT. IV FLUIDS STILL RUNNING PER ORDER AND LEVO STILL RUNNING @0.02MCG/KG/MIN RUNNING PER PROTOCAL. SAFETY MEASURES IMPLEMENTED, BED IN LOWEST POSITION, LOCKED, SIDE RAILS UP, CALL LIGHT WITHIN REACH. ALL NEEDS AND ORDERS ADDRESSED DURING THE SHIFT. IV ACCESS MAINTAINED INTACT, SECURED AND FLUSHING WELL. ALL DUE MEDS GIVEN ORDERED & SCHEDULED ; PATIENT TOLERATED WELL. PATIENT KEPT CLEAN AND COMFORTABLE WITHIN THE SHIFT. PATIENT ENDORSED TO INCOMING SHIFT RN WITH STABLE VITAL SIGN AND FOR CONTINUITY OF CARE.
--- NOTE | 2022-10-27 07:33 | NUR ---
ELECTROPLATING SALES REPRESENTATIVE Note Patient's GCS [id number], bilateral pupils 3mm PEARLLA. Patient is oriented to place only and disoriented to date and person. secured entrance monitor showed SB with HR 40/min. MAP>65mmHg with levophed running at 0.02mcg/kg/min. Bedside swallowing test is done. She does not choke or cough with 30mL of water. Left FA IV line is intact with IVF running at 125mL/hr. Circulation over hands with restraints use is good. Keep observation.
--- NOTE | 2022-10-27 08:00 | NUR ---
REGIONAL FACILITIES MANAGER Note Levophed off at 07:45 as MAP and SBP is maintained. Doctor Obie visited patient just now and he said that we could proceed with puree diet as patient is more alert now.
--- NOTE | 2022-10-27 08:30 | NUR ---
MOSAIC FLOOR LAYER note - Cortrosyn test Patient's IV site is infiltrated, will attempt to put another IV line. Will coordinate with lab for cortrosyn test as specific time frame for blood taking is necessary.
[2022-10-27] MEDS: PANTOPRAZOLE 40 MG VIAL IV SCH (09:07)
[2022-10-27] MEDS: MIDODRINE HCL (5MG) 5 MG TABLET PO SCH ×3 (09:08→16:19)
[2022-10-27] MEDS: AMMONIUM LACTATE 227 GM BOTTLE TP SCH ×2 (09:08→16:19)
[2022-10-27] MEDS: LEVOTHYROXINE INJ 100 MCG VIAL IV SCH (09:08)
[2022-10-27] MEDS: Z GUARD REMEDY 4 OZ OINT TP SCH (09:08)
[2022-10-27] MEDS: PROSOURCE / PROSTAT (PYXIS) 30 ML UDC GT SCH ×3 (09:09→16:19)
[2022-10-27] MEDS ORDERED: COSYNTROPIN 0.25 MG/VIAL VIAL IV ONE (12:00)
[2022-10-27] MEDS: LEVETIRACETAM (500MG) 500 MG in IV NS 0.9% 100 ML IV SCH (12:17)
--- NOTE | 2022-10-27 13:30 | NUR ---
CONDITIONER TUMBLER OPERATOR note - Cortrosyn/ACTH test Cortrosyn was administered at 12:25. Samples were drawn at 30 minutes and 60 minutes post administration of medication respectively. diesel lube tech is notified to brass pickler the sample.
[2022-10-27] MEDS: PANTOPRAZOLE 40 MG/PACK PACK PO SCH (16:23)
--- NOTE | 2022-10-27 17:20 | NUR ---
rn notes Get report from [facility] at this time, patient a/o x 1/2, total care. patient room air, no acute respiratory distress. assist turn and reposition q 2 hr, Rossi draining via gravity. call light within to reach. total assist with dinner. will follow up.
--- NOTE | 2022-10-27 18:30 | NUR ---
RN NOTES PATIENT TOTAL CARE, ASSIST DINNER TOLERATED 75%, BILATERAL RESTRAIN INTACT, ASSIST TURN AND REPOSITION Q 2 HR. KEEP HOB ELEVATED. ENDORSED ONCOMING NURSE JOSE RAUL.
--- NOTE | 2022-10-27 20:00 | NUR ---
MS RN OPENING NOTE: RECEIVED PATIENT IN BED A/OX2 ON R/A SATING 97% IN NO SIGNS OF RESPIRATORY DISTRESS; . IV FLUIDS STILL RUNNING 1/2 NS AT 100CC/HR. SAFETY MEASURES IMPLEMENTED, BED IN LOWEST POSITION, LOCKED, SIDE RAILS UP, CALL LIGHT WITHIN MARIANELA IV ACCESS MAINTAINED INTACT, SECURED AND FLUSHING WELL. ALL DUE MEDS GIVEN ORDERED & SCHEDULED ; PATIENT TOLERATED WELL. PATIENT KEPT CLEAN AND COMFORTABLE WITHIN THE SHIFT. PATIENT ENDORSED ,STABLE VITAL SIGN WILL CONTINUE TO MONITOR.
[2022-10-27] MEDS: LEVETIRACETAM SOL (5 ML) 100 MG/ML UDC PO SCH (20:55)
[2022-10-27] MEDS: CEFTRIAXONE 1 G in IV D5W 50 ML IV SCH (21:09)
[2022-10-28] MEDS: IV 1/2NS 1000 ML 1,000 ML IV SCH (02:44)
[2022-10-28 04:00] VITALS: BP 126/76
[2022-10-28 07:34] LABS: ALBUMIN 1.7 g/dL (3.4-5.0); BILIRUBIN,TOTAL 0.1 mg/dL (0.2-1.0); CALCIUM, SERUM 8.9 mg/dL (8.5-10.1); CREATININE 2.5 mg/dL (0.6-1.3); MAGNESIUM 1.8 mg/dL (1.8-2.4); PHOSPHORUS 3.3 mg/dL (2.5-4.9); POTASSIUM 3.8 mmol/L (3.5-5.1); TOTAL PROTEIN, SERUM 6.1 g/dL (6.4-8.2)
[2022-10-28 08:00] VITALS: BP 123/75
--- NOTE | 2022-10-28 08:30 | NUR ---
Patient refused blood work states that I don't need it. Rossi catheter discontinued at this time output 70ml will monitor for voiding.
[2022-10-28] MEDS ORDERED: LEVO25TA7 PO (08:31)
[2022-10-28] MEDS ORDERED: LEVO250T59 PO (08:31)
[2022-10-28] MEDS ORDERED: PANT40TA2 PO (08:31)
[2022-10-28] MEDS ORDERED: LEVE500T9 PO (08:31)
[2022-10-28] MEDS ORDERED: ASPI-1420 PO (08:31)
[2022-10-28] MEDS ORDERED: IV 1/2NS 1000 ML 1,000 ML IV PRN (08:41)
[2022-10-28] MEDS: PROSOURCE / PROSTAT (PYXIS) 30 ML UDC GT SCH ×2 (08:58→12:04)
[2022-10-28] MEDS: Z GUARD REMEDY 4 OZ OINT TP SCH (09:00)
[2022-10-28] MEDS: AMMONIUM LACTATE 227 GM BOTTLE TP SCH (09:00)
--- NOTE | 2022-10-28 09:30 | NUR ---
Pharmacy made aware of levothyroxine not available in patient's bin.
[2022-10-28] MEDS: LEVETIRACETAM SOL (5 ML) 100 MG/ML UDC PO SCH (09:58)
[2022-10-28] MEDS: PANTOPRAZOLE 40 MG/PACK PACK PO SCH (09:58)
[2022-10-28] MEDS: MIDODRINE HCL (5MG) 5 MG TABLET PO SCH ×2 (09:59→13:13)
[2022-10-28] MEDS: LEVOTHYROXINE INJ 100 MCG VIAL IV SCH (10:28)
[2022-10-28 12:00] VITALS: BP 125/61
[2022-10-28 13:13] VITALS: BP 125/71
--- NOTE | 2022-10-28 14:26 | NUR ---
Patient is discharged home with all personal belongings. Picked up by ambulance crews. Discharge instructions given. Patient left unit via stretcher alert and verbal in no distress.
== END 2022-10-28 14:00 | disposition home or self-care (01) | DRG 469 ==
LOC: ER 18:21 → ICU 23:10 → MEDSG1 10-27 16:35
PROVIDERS: ADMIT Internal Medicine; ATTEND Internal Medicine
DX: N17.0 Acute kidney failure with tubular necrosis (principal); R57.1 Hypovolemic shock; I21.A1 Myocardial infarction type 2; G93.41 Metabolic encephalopathy; E43 Unspecified severe protein-calorie malnutrition; D69.6 Thrombocytopenia, unspecified; E87.20 Acidosis, unspecified; E27.40 Unspecified adrenocortical insufficiency; E86.0 Dehydration; I69.351 Hemiplegia and hemiparesis following cerebral infarction affecting right dominant side; I95.89 Other hypotension; N39.0 Urinary tract infection, site not specified; D64.9 Anemia, unspecified; E03.9 Hypothyroidism, unspecified; E78.5 Hyperlipidemia, unspecified; E87.5 Hyperkalemia; G40.909 Epilepsy, unspecified, not intractable, without status epilepticus; I10 Essential (primary) hypertension; K21.9 Gastro-esophageal reflux disease without esophagitis; Z79.899 Other long term (current) drug therapy
CPT/HCPCS: 36410; 36415; 70450-TC; 71045-TC; 76770-TC; 80048-TC; 80053-TC; 80076-TC; 81001; 82140-TC; 82533; 82962-TC; 83605-TC; 83735-TC; 84100-TC; 84439-TC; 84443-TC; 84484-TC; 85025-TC; 85730-TC; 87040-TC; 87081-TC; 87086-TC; 92526; 92611-TC; 93926-TC; 93970-TC; 97112-TC; 97530-TC; A4223; C9113; C9803; G0378; G0480; J0696; J0834; J1815; J1953; J2405; J3490; J7030; J7050; J7060

== ENCOUNTER 2022-11-01 19:56 | Inpatient (IN) | payer MEDICAID ==
[~2022-11-01] VITALS: Ht 167.6 cm; Wt 68.9 kg
[~2022-11-01 19:56] MED LIST changes: -AMLO-213 PO; +ASPI-1420 PO; -BENA20TA9 MT; -CLON0.1T PO; -FAMO40TA7 PO; -FURO20TA4 PO; -HYDR25TA4 MT; -IBUP-1953 PO; -LEVE500T20 MT; +LEVE500T9 PO; +LEVO250T59 PO; +LEVO25TA7 PO; +PANT40TA2 PO; -SIMV-46 PO; -TRAM50TA2 PO; -ZOLP5TAB8 MT
[2022-11-01] MEDS ORDERED: LEVETIRACETAM (500MG) 1,000 MG in IV NS 0.9% 100 ML IV STA (20:03)
[2022-11-01] MEDS ORDERED: NALOXONE PREFILLED SYRINGE 2 MG/2 ML SYRINGE ONE ×3 (20:04→21:38)
[2022-11-01] MEDS ORDERED: ONDANSETRON HCL/PF 4 MG/2 ML VIAL ONE (20:11)
--- NOTE | 2022-11-01 20:17 | NUR ---
pharmacy called for kepra medication.
--- NOTE | 2022-11-01 20:24 | NUR ---
pt taken to ct
--- NOTE | 2022-11-01 20:24 | NUR ---
20g started on lac blood drawn and sent to lab
[2022-11-01] MEDS ORDERED: IV NS 0.9% 1,000 ML BAG IV ONE (20:30)
[2022-11-01] MEDS ORDERED: ONDANSETRON HCL/PF 4 MG/2 ML VIAL IVP ONE (20:30)
[2022-11-01] MEDS ORDERED: NALOXONE HCL 0.4 MG/ML AMPUL IV ONE ×3 (20:30→22:00)
[2022-11-01 20:57] LABS: BASOPHILS % (AUTO) 0.9 % (0.0-2.0); EOSINOPHILS % (AUTO) 0.4 % (0.0-6.0); HEMATOCRIT 23 % (33-45); HEMOGLOBIN 7.1 g/dL (11.5-14.8); LYMPHOCYTES # (AUTO) 0.7 K/uL (0.8-4.8); LYMPHOCYTES % (AUTO) 18.8 % (20.0-44.0); MEAN CORPUSCULAR HGB CONC 32 g/dl (31.0-36.0); MEAN CORPUSCULAR VOLUME 96 fL (82-100); MONOCYTES # (AUTO) 0.3 K/uL (0.1-1.30); MONOCYTES % (AUTO) 6.7 % (2.0-12.0); NEUTROPHILS # (AUTO) 2.7 K/uL (1.8-8.9); NEUTROPHILS % (AUTO) 73.2 % (43.0-81.0); PLATELET COUNT (AUTO) 99 K/uL (150-450); RED BLOOD CELL COUNT(AUTO) 2.34 MIL/uL (4.0-5.2); WHITE BLOOD COUNT (AUTO) 3.7 K/uL (4.3-11.0)
--- NOTE | 2022-11-01 21:03 | NUR ---
BED 113-1
[2022-11-01 21:13] LABS: CALCIUM, SERUM 9.1 mg/dL (8.5-10.1); CARBON DIOXIDE 22 mmol/L (21-32); CHLORIDE 101 mmol/L (98-107); GLUCOSE 62 mg/dL (74-106); POTASSIUM 3.6 mmol/L (3.5-5.1); SODIUM SERUM 136 mmol/L (136-145); UREA NITROGEN, BLOOD 17 mg/dL (7-18)
[2022-11-01] MEDS ORDERED: LORAZEPAM INJ 2 MG/ML VIAL ONE (21:25)
[2022-11-01 21:27] LABS: ALANINE AMINOTRANSFERASE 69 U/L (12-78); ALBUMIN 2.3 g/dL (3.4-5.0); ALCOHOL, BLOOD < 3 mg/dL (0-0); ALKALINE PHOSPHATASE 199 U/L (46-116); ASPARTATE AMINOTRANSFERASE 37 U/L (15-37); BILIRUBIN,TOTAL 0.1 mg/dL (0.2-1.0); TOTAL PROTEIN, SERUM 7.1 g/dL (6.4-8.2)
[2022-11-01] MEDS ORDERED: LORAZEPAM INJ 2 MG/ML VIAL IV ONE (21:30)
[2022-11-01] MEDS ORDERED: IV NS 0.9% 1,000 ML IV ONE (21:30)
--- NOTE | 2022-11-01 21:36 | NUR ---
PT HAD A SEIZURE 2MG OF ATIVAN ORDERED AND GIVEN <45 SEC OF ACTIVITY NO HEAD TRAUMA NOTED PLACE ON 6L OF O2. MD MADE AWARE. SEIZURE PRECAUTIONS IN PLACE AND CONNECTED TO BEDSIDE MONITOR.
[2022-11-01 22:01] LABS: BILIRUBIN,URINE NEGATIVE (NEGATIVE); COLOR,URINE YELLOW (YELLOW); LEUKOCYTE ESTERASE ,URINE NEGATIVE (NEGATIVE); NITRITE, URINE NEGATIVE (NEGATIVE); PROTEIN,URINE NEGATIVE (NEGATIVE); UGLUCOSE NEGATIVE (NEGATIVE); UROBILINOGEN,URINE 0.2 EU/dL (0.2)
[2022-11-01 22:11] LABS: BAND % (MANUAL) 2 % (0.0-5.0); LYMPHOCYTES % (MANUAL) 20 % (16-48); MONOCYTES % (MANUAL) 6 % (0-11.0); NEUTROPHILS % (MANUAL) 72 (42-76)
[2022-11-01] MEDS ORDERED: MIDAZOLAM 50 MG/10 ML VIAL ONE (22:56)
--- NOTE | 2022-11-01 23:00 | NUR ---
PT HAD A SECOND SEIZURE EPSIODE ORDER 5MG OF VERSED IV PUSH
[2022-11-01 23:03] LABS: OCCULT BLOOD STOOL POSITIVE (NEGATIVE)
[2022-11-01] MEDS ORDERED: CEFEPIME 1 GM VIAL ONE (23:18)
[2022-11-01] MEDS ORDERED: VANCOMYCIN 1 GM VIAL ONE (23:19)
[2022-11-01] MEDS ORDERED: CEFEPIME 1 GM in IV D5W 50 ML IV ONE (23:30)
[2022-11-01] MEDS ORDERED: MIDAZOLAM HCL 2 MG/2ML VIAL IV ONE (23:30)
[2022-11-01] MEDS ORDERED: VANCOMYCIN 1 GM in IV D5W 250 ML IV ONE (23:30)
[2022-11-02] VITALS (58 sets, daily range): BP systolic 47–143; BP diastolic 31–88
--- NOTE | 2022-11-02 00:14 | NUR ---
TOOK OVER PT CARE. PT HAD ANOTHER SEIZURE AFTER COMING BACK FROM CT. CELINA 30 SECONDS. MD TOSCANO MADE AWARE. PT GIVEN 5MG IVP MIDAZOLAM. PT PLACED ON TECHNICAL SOLUTION ARCHITECT AND PULSE OX. ON 10L NRB. WILL CONTINUE TO MONITOR PT. PENDING BLOOD TRANSFUSION. AWAITING BLOOD BANK TO CALL.
[2022-11-02] MEDS ORDERED: PROPOFOL 100 ML ONE (00:24)
[2022-11-02] MEDS ORDERED: ETOMIDATE 2 MG/ML VIAL IV ONE ×2 (00:30→12:39)
[2022-11-02] MEDS ORDERED: PROPOFOL 100 ML IV ONE (00:30)
[2022-11-02] MEDS ORDERED: ROCURONIUM BROMIDE 100 MG/10 ML VIAL IV ONE (00:30)
[2022-11-02] MEDS ORDERED: MIDAZOLAM HCL 2 MG/2ML VIAL IV ONE (00:30)
--- NOTE | 2022-11-02 00:30 | NUR ---
UPDATE GIVEN TO AHSAN QUIROZ, OF [facility]. PATIENT WILL BE ADMITTED AT [facility]
[2022-11-02] MEDS ORDERED: NOREPINEPHRINE 8MG/250ML RTU 250 ML IV ONE (00:41)
--- NOTE | 2022-11-02 00:49 | NUR ---
LEVO STARTED AT 1MCG/KG/MIN TO 20GA LFA
[2022-11-02] MEDS ORDERED: NOREPINEPHRINE 8 MG in IV NS 0.9% 242 ML IV PRN ×2 (01:00→03:00)
[2022-11-02] MEDS ORDERED: FENTANYL CITRAT IV 2,500 MCG in IV NS 0.9% 200 ML IV PRN (01:00)
--- NOTE | 2022-11-02 01:03 | NUR ---
MD AT BEDSIDE FOR INTUBATION
--- NOTE | 2022-11-02 01:06 | NUR ---
INTUBATION STARTED. ETOMIDATE 20MG, ROCURONIUM 100MG GIVEN TO 20GA REJ.
--- NOTE | 2022-11-02 01:24 | NUR ---
SUCCESSFUL INTUBATION BY DR. TOSCANO. ETT 6, 22CM AT THE LIP.
--- NOTE | 2022-11-02 01:37 | NUR ---
CXR AT BEDSIDE
--- NOTE | 2022-11-02 01:52 | NUR ---
CALLED [facility]. SPOKE TO KENYATTA, HE WILL HAVE DR BEARD CALL US BACK ABOUT THE PATIENT.
--- NOTE | 2022-11-02 02:59 | NUR ---
REPORT GIVEN TO AMANDA WASHBURN FOR JOSE RAUL
--- NOTE | 2022-11-02 03:09 | NUR ---
SHELBY FROM [facility] CALLED AND ASKED FOR UPDATE. SHE WILL RELAY INFORMATION TO THE RADIOLOGIST
[2022-11-02] MEDS ORDERED: IV NS 0.9% 1,000 ML IV ONE (03:30)
[2022-11-02] MEDS ORDERED: PIPERACILLIN /TAZOBACTAM 2.25 G in IV D5W 50 ML IV ONE (03:30)
--- NOTE | 2022-11-02 04:00 | NUR ---
0340 Received patient from ED via ACLS protocol intubated to mechanical vent AC 14,TV- 400, FIO2 -100%,PEEP -5.Sedated on Diprivan gtt at 5 mcg.With 1 unit PRBC infusing.DX:SEIZURE, SHOCK.SB 50'S.Normotensive.R nare NGT clamped.NPO except meds.FC to gravity.No acute distress noted.Safety measures implemented.Plan of care initiated.
[2022-11-02] MEDS: PROPOFOL 100 ML IV PRN ×2 (04:30→12:02)
[2022-11-02 04:31] LABS: ABG BASE EXCESS -4.3 mmol/L; ABG OXYGEN SATURATION 99.6 % (92.0-98.5); ABG PCO2 36.3 mmHg (35.0-45.0); ABG PH 7.371 (7.350-7.450); ABG PO2 372.3 mmHg (75.0-100.0); AaDO2 304.4 mmHg; COHb 0.3 % (0.5-1.5); MetHb 0.1 % (0.0-1.5); O2Hb 99.2 % (94.0-97.0); SITE, ABG Left Radial; VENT MODE, BG AC 14 400 100% +5
[2022-11-02] MEDS: PANTOPRAZOLE 40 MG VIAL IV SCH ×3 (04:32→20:30)
[2022-11-02] MEDS ORDERED: PIPERACILLIN /TAZOBACTAM 2.25 G VIAL IV ONE (04:33)
--- NOTE | 2022-11-02 06:00 | NUR ---
Above Blood tansfusion completed without adverse reaction.VS stable.No seizure activity noted. Due medications administered.Continue monitoring.
--- NOTE | 2022-11-02 06:09 | NUR ---
LATE ENTRY RT CALLED TO ER ROOM 8 FOR POSSIBLE INTUBATION. PT INTUBATED AT 01:24 WITH 6.0 ETT, 22CM AT THE GUMS, WITH BOUGIE ASSIST. PT WAS PRE OXYGENATED, ONCE INTUBATED BILATERAL BREATH SOUNDS CONFIRMED AND PLACEMENT CONFIRMED WITH X-RAY. ETT IS PATENT AND SECURED. PT PLACED ON VENT SETTINGS OF AC RATE 14, VT 400, 100% +5. VENT IS PLUGGED INTO RED OUTLET WITH ALARMS ON AND AUDIBLE. WITH AMBU BAG AT BEDSIDE. PT WAS TRANSFERED TO ICU 256 USING ACLS PROTOCOL. VENT PLUGGED INTO RED OUTLET WITH ALARMS ON AND AUDIBLE AND AMBU AT BEDSIDE. NO SOB OR RESPIRATORY DISTRESS NOTED. FIO2 TITRATED TO 40% AFTER ABG. REAM CUTTER RENE IS AWARE
[2022-11-02] MEDS: IV NS 0.9% 500 ML IV SCH ×2 (07:06→11:46)
--- NOTE | 2022-11-02 07:57 | NUR ---
WOUND CARE CONSULT: PT PRESENTS WITH SACRAL DEEP TISSUE INJURY IN EVOLUTION, RT ELBOW SKIN TEAR, RT LATERAL ANKLE ULCER, DISCOLORATION/DRY WOUNDS TO RT LOWER LEG AND FOOT WELL LEFT HEEL ESCHAR/DISCOLORATION, ALL PRESENT ON ADMISSION. DR JACKSON CALLED FOR DPM CONSULT. DISCUSSED SKIN PROTECTION AND WOUND CARE RECOMMENDATIONS WITH NURSING STAFF. FIRST STEP LOW AIRLOSS MATTRESS IS ON ORDER. PT IS CURRENTLY INTUBATED. IN AGREEMENT WITH PLAN OF CARE. Addendum: 11/02/22 at 0759 by LAUREN LAZARO WNDNU Amended: Links added.
[2022-11-02] MEDS ORDERED: Z GUARD REMEDY 4 OZ OINT TP PRN (08:00)
[2022-11-02] MEDS: LEVOTHYROXINE INJ 100 MCG VIAL IV SCH (08:25)
--- NOTE | 2022-11-02 08:35 | NUR ---
RN NOTES RECEIVED VERBAL ORDERS FROM DR. BEARD TO D/C FENTANYL DRIP. PLANNED EXTUBATION TOMORROW; DO NOT HEAVILY SEDATE PT.
[2022-11-02] MEDS ORDERED: LEVETIRACETAM (500MG) 1,000 MG in IV NS 0.9% 100 ML IV SCH ×2 (09:00→12:30)
--- NOTE | 2022-11-02 11:40 | NUR ---
RN NOTES WITNESSED THE PT HAVING AN ACTIVE SEIZURE. NOTIFIED DR. BEARD. PREPARING TO PLACE PT BACK ON PROPOFOL AND LEVOPHED.
--- NOTE | 2022-11-02 11:55 | NUR ---
RN NOTES NOTIFIED DR. BEARD THAT PT IS HAVING ACTIVE SEIZURES. RECEIVED ORDER FOR 2MG IV PUSH Q2H PRN FOR SEIZURES.
[2022-11-02] MEDS: NOREPINEPHRINE 8 MG in IV NS 0.9% 242 ML IV PRN (12:00)
--- NOTE | 2022-11-02 12:00 | NUR ---
RN NOTES SPOKE TO DR. MORRISON. RECEIVED VERBAL ORDERS TO PLACE A ONE TIME ORDER OF 1000 MG IV LEVETIRACETAM AND Q12H 1500 MG IV LEVETIRACETAM.
--- NOTE | 2022-11-02 12:10 | NUR ---
RN NOTES WITNESSED PT HAVING A SECOND SEIZURE IN LESS THAN 1 HR BEFORE ATIVAN WAS GIVEN.
[2022-11-02] MEDS: LORAZEPAM INJ 2 MG/ML VIAL IV PRN ×2 (12:11→20:13)
[2022-11-02] MEDS ORDERED: ROCURONIUM BROMIDE 50 MG/5 ML IV ONE (12:39)
[2022-11-02] MEDS: PIPERACILLIN /TAZOBACTAM 2.25 G in IV D5W 50 ML IV SCH ×2 (12:42→20:31)
[2022-11-02] MEDS ORDERED: LEVETIRACETAM (500MG) 1,000 MG in IV NS 0.9% 100 ML IV ONE (15:00)
[2022-11-02] MEDS: IV NS 0.9% 1,000 ML IV PRN (17:56)
--- NOTE | 2022-11-02 19:14 | NUR ---
RN CLOSING NOTES PT LOOKS COMFORTABLE. CURRENTLY ON DIPRIVAN, LEVOPHED, AND IV FLUIDS. ALL DUE MEDICATIONS GIVEN. REPORT GIVEN TO STEPHANIE WASHBURN FOR CONTINUATION OF CARE.
--- NOTE | 2022-11-02 20:13 | NUR ---
SIX PACK PACKER SEIZURE ACTIVITY NOTED; ATIVAN GIVEN
[2022-11-02] MEDS: LEVETIRACETAM (500MG) 1,500 MG in IV NS 0.9% 100 ML IV SCH (20:32)
[2022-11-03] VITALS (97 sets, daily range): BP systolic 77–135; BP diastolic 43–84
[2022-11-03] MEDS: LORAZEPAM INJ 2 MG/ML VIAL IV PRN (00:58)
--- NOTE | 2022-11-03 00:58 | NUR ---
FOREST RESOURCE SPECIALIST SEIZURE ACTIVITY NOTED; ATIVAN GIVEN
[2022-11-03 05:14] LABS: CALCIUM, SERUM 8.3 mg/dL (8.5-10.1); CREATININE 1.8 mg/dL (0.6-1.3); POTASSIUM 3.7 mmol/L (3.5-5.1)
[2022-11-03] MEDS: IV NS 0.9% 1,000 ML IV PRN ×2 (05:15→16:30)
[2022-11-03] MEDS: PIPERACILLIN /TAZOBACTAM 2.25 G in IV D5W 50 ML IV SCH ×3 (05:15→21:31)
[2022-11-03 05:22] LABS: BASOPHILS % (AUTO) 0.1 % (0.0-2.0); HEMATOCRIT 25 % (33-45); HEMOGLOBIN 8.1 g/dL (11.5-14.8); LYMPHOCYTES # (AUTO) 0.5 K/uL (0.8-4.8); LYMPHOCYTES % (AUTO) 5.3 % (20.0-44.0); MEAN CORPUSCULAR HGB CONC 32 g/dl (31.0-36.0); MEAN CORPUSCULAR VOLUME 95 fL (82-100); MONOCYTES # (AUTO) 0.3 K/uL (0.1-1.30); MONOCYTES % (AUTO) 3.1 % (2.0-12.0); NEUTROPHILS # (AUTO) 8.4 K/uL (1.8-8.9); NEUTROPHILS % (AUTO) 91.5 % (43.0-81.0); PLATELET COUNT (AUTO) 106 K/uL (150-450); RED BLOOD CELL COUNT(AUTO) 2.61 MIL/uL (4.0-5.2); WHITE BLOOD COUNT (AUTO) 9.2 K/uL (4.3-11.0)
[2022-11-03 05:29] LABS: ALBUMIN 1.8 g/dL (3.4-5.0); BILIRUBIN,TOTAL 0.4 mg/dL (0.2-1.0); TOTAL PROTEIN, SERUM 5.9 g/dL (6.4-8.2)
--- NOTE | 2022-11-03 08:05 | NUR ---
RN NOTES SPOKE TO DR. MORRISON. NOTIFIED HIM THAT PT HAD TWO EPISODES OF SEIZURES DURING THE NIGHT. RECEIVED VERBAL ORDERS FROM DR. MORRISON TO PLACE A ONE TIME DOSE OF 1000 MG DILANTIN IV AND 100 MG Q8H DILANTIN IV FOR PT.
[2022-11-03] MEDS: LEVETIRACETAM (500MG) 1,500 MG in IV NS 0.9% 100 ML IV SCH ×2 (08:24→21:31)
[2022-11-03] MEDS: LEVOTHYROXINE INJ 100 MCG VIAL IV SCH (08:30)
[2022-11-03] MEDS: PANTOPRAZOLE 40 MG VIAL IV SCH ×2 (08:30→21:31)
[2022-11-03] MEDS ORDERED: phenytoin SODIUM IV 1,000 MG in IV NS 0.9% 100 ML IV ONE (08:30)
[2022-11-03] MEDS: NOREPINEPHRINE 8 MG in IV NS 0.9% 242 ML IV PRN (10:00)
[2022-11-03] MEDS: ALBUTEROL HALF STRENGTH 1.25 MG/3 ML VIAL.NEB NEB SCH ×2 (11:30→19:43)
[2022-11-03] MEDS: PROPOFOL 100 ML IV PRN (13:40)
[2022-11-03] MEDS: PHENYTOIN SODIUM IV 100 MG/2ML VIAL IV SCH ×2 (13:55→21:34)
[2022-11-03] MEDS: ARGININE/GLUTAMINE/CALCIUM BMB 1 EACH POWD.PACK PO SCH (17:53)
--- NOTE | 2022-11-03 19:36 | NUR ---
RN CLOSING NOTES PT LOOKS COMFORTABLE, STILL ON BOTH LEVO AND DIPRIVAN DUE TO MULTIPLE SZ, ALL DUE MEDICATIONS GIVEN. WOUND CARE DONE ON MY SHIFT. REPORT GIVEN TO STEPHANIE WASHBURN FOR CONTINUATION OF CARE.
[2022-11-04] VITALS (98 sets, daily range): BP systolic 63–131; BP diastolic 26–86
[2022-11-04] MEDS: ALBUTEROL HALF STRENGTH 1.25 MG/3 ML VIAL.NEB NEB SCH ×4 (01:15→19:53)
[2022-11-04] MEDS: IV NS 0.9% 1,000 ML IV PRN ×2 (02:45→15:24)
[2022-11-04] MEDS: PHENYTOIN SODIUM IV 100 MG/2ML VIAL IV SCH ×3 (04:30→20:57)
[2022-11-04] MEDS: PIPERACILLIN /TAZOBACTAM 2.25 G in IV D5W 50 ML IV SCH ×3 (04:30→20:30)
[2022-11-04 06:39] LABS: ABG OXYGEN SATURATION 98.9 % (92.0-98.5); ABG PCO2 32.7 mmHg (35.0-45.0); ABG PH 7.371 (7.350-7.450); ABG PO2 169.8 mmHg (75.0-100.0); AaDO2 77.8 mmHg; COHb 0.1 % (0.5-1.5); MetHb 0.2 % (0.0-1.5); O2Hb 98.6 % (94.0-97.0); PEEP,BG 5 cm H2O; SITE, ABG Left Radial
--- NOTE | 2022-11-04 06:45 | NUR ---
CORONER TECHNICIAN NO SEIZURE ACTIVITY DURING SHIFT
--- NOTE | 2022-11-04 07:30 | NUR ---
OPENING NOTE: REPORT RECEIVED FROM STEPHANIE WASHBURN. ORDERS AND LABS REVIEWED DURING REPORT. PT CONTINUES TO BE SEDATED ON 5 MCG/KG/MIN OF PROPOFOL. LEVOPHED INFUSING PER MD ORDERS. WILL MONITOR FOR SEIZURE BEHAVIOR. PT CHECKED ON HOURLY AND PRN BY NURSING STAFF.
[2022-11-04] MEDS: ARGININE/GLUTAMINE/CALCIUM BMB 1 EACH POWD.PACK PO SCH ×2 (09:00→17:00)
[2022-11-04] MEDS: PANTOPRAZOLE 40 MG VIAL IV SCH ×2 (09:37→20:31)
[2022-11-04] MEDS: LEVOTHYROXINE SODIUM 88 MCG TABLET NG SCH (09:37)
[2022-11-04] MEDS: LEVETIRACETAM (500MG) 1,500 MG in IV NS 0.9% 100 ML IV SCH ×2 (09:37→20:31)
[2022-11-04] MEDS: PROPOFOL 100 ML IV PRN (11:42)
[2022-11-04] MEDS: NOREPINEPHRINE 8 MG in IV NS 0.9% 242 ML IV PRN (11:42)
[2022-11-04] MEDS: LORAZEPAM INJ 2 MG/ML VIAL IV PRN (16:17)
[2022-11-04] MEDS ORDERED: phenytoin SODIUM IV 500 MG in IV NS 0.9% 50 ML IV ONE (16:30)
--- NOTE | 2022-11-04 18:46 | NUR ---
END OF SHIFT NOTE: PT HAD [address] MORRISON NOTIFIED, BOLUS DOSE OF DILANTIN GIVEN, DILANTIN DOSE INCREASED AND DILANTIN LAB LEVEL ORDERED FOR AM. LEVOPHED CONTINUES TO BE INFUSING PER MD ORDERS. PT CHECKED ON HOURLY AND PRN BY NURSING STAFF.
[2022-11-05] VITALS (97 sets, daily range): BP systolic 79–149; BP diastolic 47–77
[2022-11-05] MEDS: ALBUTEROL HALF STRENGTH 1.25 MG/3 ML VIAL.NEB NEB SCH ×4 (00:43→20:24)
[2022-11-05] MEDS: IV NS 0.9% 1,000 ML IV PRN ×2 (02:35→15:17)
[2022-11-05 05:20] LABS: BASOPHILS % (AUTO) 0.6 % (0.0-2.0); EOSINOPHILS % (AUTO) 0.2 % (0.0-6.0); HEMATOCRIT 23 % (33-45); HEMOGLOBIN 7.2 g/dL (11.5-14.8); LYMPHOCYTES # (AUTO) 0.8 K/uL (0.8-4.8); LYMPHOCYTES % (AUTO) 14.8 % (20.0-44.0); MEAN CORPUSCULAR HGB CONC 32 g/dl (31.0-36.0); MEAN CORPUSCULAR VOLUME 99 fL (82-100); MONOCYTES # (AUTO) 0.2 K/uL (0.1-1.30); MONOCYTES % (AUTO) 4.5 % (2.0-12.0); NEUTROPHILS # (AUTO) 4.4 K/uL (1.8-8.9); NEUTROPHILS % (AUTO) 79.9 % (43.0-81.0); PLATELET COUNT (AUTO) 111 K/uL (150-450); RED BLOOD CELL COUNT(AUTO) 2.31 MIL/uL (4.0-5.2); WHITE BLOOD COUNT (AUTO) 5.5 K/uL (4.3-11.0)
[2022-11-05] MEDS: PIPERACILLIN /TAZOBACTAM 2.25 G in IV D5W 50 ML IV SCH ×3 (05:30→20:54)
[2022-11-05 05:45] LABS: PHENYTOIN (DILANTIN) 16.4 ug/ml (10.0-20.0)
[2022-11-05] MEDS: LORAZEPAM INJ 2 MG/ML VIAL IV PRN ×2 (05:47→07:59)
[2022-11-05 05:48] LABS: CALCIUM, SERUM 8.6 mg/dL (8.5-10.1); CREATININE 1.6 mg/dL (0.6-1.3); MAGNESIUM 1.7 mg/dL (1.8-2.4); POTASSIUM 3.6 mmol/L (3.5-5.1)
--- NOTE | 2022-11-05 06:00 | NUR ---
BUSINESS AND MARKETING TEACHER ATIVAN GIVEN FOR SEIZURE ACTIVITY
--- NOTE | 2022-11-05 07:30 | NUR ---
OPENING NOTE: REPORT RECEIVED FROM STEPHANIE WASHBURN. ORDERS AND LABS REVIEWED DURING REPORT. PER REPORT PT HAD 2 SEIZURES OVERNIGHT. PROPOFOL AND LEVOPHED INFUSING PER MD ORDERS. PT CHECKED ON HOURLY AND PRN BY NURSING STAFF.
[2022-11-05] MEDS ORDERED: Magnesium 1GM/D5W 100ML PREMIX 100 ML IV SCH (08:00)
[2022-11-05] MEDS: LEVETIRACETAM (500MG) 1,500 MG in IV NS 0.9% 100 ML IV SCH ×2 (09:33→21:30)
[2022-11-05] MEDS: PANTOPRAZOLE 40 MG VIAL IV SCH ×2 (09:33→20:52)
[2022-11-05] MEDS: LEVOTHYROXINE SODIUM 88 MCG TABLET NG SCH (09:33)
[2022-11-05] MEDS: ARGININE/GLUTAMINE/CALCIUM BMB 1 EACH POWD.PACK PO SCH ×2 (09:34→17:08)
[2022-11-05] MEDS: PHENYTOIN SODIUM IV 100 MG/2ML VIAL IV SCH ×2 (09:34→20:52)
[2022-11-05] MEDS: MIDODRINE HCL (5MG) 5 MG TABLET NG SCH ×2 (12:31→20:52)
[2022-11-05] MEDS: NOREPINEPHRINE 8 MG in IV NS 0.9% 242 ML IV PRN (12:32)
[2022-11-05] MEDS: PROPOFOL 100 ML IV PRN (12:32)
[2022-11-05] MEDS ORDERED: MIDODRINE HCL (5MG) 5 MG TABLET NG SCH (13:00)
[2022-11-05] MEDS ORDERED: JEVITY 1.2 CAL 1,000 ML BOTTLE NG PRN (13:00)
[2022-11-05] MEDS: PROSOURCE / PROSTAT (PYXIS) 30 ML UDC GT SCH (17:08)
--- NOTE | 2022-11-05 19:12 | NUR ---
END OF SHIFT NOTE: PT HAD 2 SEIZURES THIS AM, PROPOFOL WAS INCREASED TO 10MCG/KG/MIN AFTER THE FIRST SEIZURE AND ATIVAN WAS GIVEN, 10 MINUTES LATER PATIENT HAD A SECOND SEIZURE, PROPOFOL WAS INCREASED TO 15 MCG/KG/MIN. NO FURTHER SEIZURES NOTED. TUBE FEEDING STARTED TODAY PER MD ORDERS. NO BM THIS SHIFT. PT CHECKED ON HOURLY AND PRN BY NURSING STAFF.
[2022-11-06] VITALS (83 sets, daily range): BP systolic 60–139; BP diastolic 36–85
[2022-11-06] MEDS: ALBUTEROL HALF STRENGTH 1.25 MG/3 ML VIAL.NEB NEB SCH ×4 (01:44→20:10)
[2022-11-06] MEDS: PROPOFOL 100 ML IV PRN ×2 (02:00→12:42)
[2022-11-06] MEDS: IV NS 0.9% 1,000 ML IV PRN ×2 (02:06→12:25)
[2022-11-06] MEDS: PIPERACILLIN /TAZOBACTAM 2.25 G in IV D5W 50 ML IV SCH (04:22)
[2022-11-06] MEDS: MIDODRINE HCL (5MG) 5 MG TABLET NG SCH ×3 (04:22→20:39)
[2022-11-06 05:15] LABS: PHENYTOIN (DILANTIN) 20.7 ug/ml (10.0-20.0)
[2022-11-06 05:19] LABS: BASOPHILS % (AUTO) 0.3 % (0.0-2.0); EOSINOPHILS % (AUTO) 0.2 % (0.0-6.0); HEMATOCRIT 23 % (33-45); HEMOGLOBIN 7.3 g/dL (11.5-14.8); LYMPHOCYTES # (AUTO) 0.9 K/uL (0.8-4.8); LYMPHOCYTES % (AUTO) 15.1 % (20.0-44.0); MEAN CORPUSCULAR HGB CONC 32 g/dl (31.0-36.0); MEAN CORPUSCULAR VOLUME 98 fL (82-100); MONOCYTES # (AUTO) 0.2 K/uL (0.1-1.30); MONOCYTES % (AUTO) 4.3 % (2.0-12.0); NEUTROPHILS # (AUTO) 4.6 K/uL (1.8-8.9); NEUTROPHILS % (AUTO) 80.1 % (43.0-81.0); PLATELET COUNT (AUTO) 131 K/uL (150-450); RED BLOOD CELL COUNT(AUTO) 2.35 MIL/uL (4.0-5.2); WHITE BLOOD COUNT (AUTO) 5.7 K/uL (4.3-11.0)
[2022-11-06 05:26] LABS: ALBUMIN 1.5 g/dL (3.4-5.0); BILIRUBIN,TOTAL 0.2 mg/dL (0.2-1.0); CALCIUM, SERUM 8.5 mg/dL (8.5-10.1); CREATININE 1.8 mg/dL (0.6-1.3); MAGNESIUM 1.8 mg/dL (1.8-2.4); POTASSIUM 3.7 mmol/L (3.5-5.1); TOTAL PROTEIN, SERUM 5.5 g/dL (6.4-8.2)
[2022-11-06] MEDS: LEVOTHYROXINE SODIUM 88 MCG TABLET NG SCH (07:58)
[2022-11-06] MEDS: PANTOPRAZOLE 40 MG VIAL IV SCH ×2 (08:12→20:34)
[2022-11-06] MEDS: PROSOURCE / PROSTAT (PYXIS) 30 ML UDC GT SCH ×2 (08:12→16:52)
--- NOTE | 2022-11-06 08:24 | NUR ---
RN Notes Seen patient, intubated, FIO2 40% PEEP- 5. Pt sedated on diprivan 15 mcg/kg/min, levophed 0.08, NS 100 mL/hr. Suction and mouth care done, residual was 60 mL through NG tube. Pt has general edema in lower and upper extremities. Due medication administered via NG tube. No seizure disorder at this time. HOB elevated, turned and reposition Q2hr. Rossi catheter draining via gravity, surya colored with sediment. Will follow up.
[2022-11-06] MEDS: PHENYTOIN SODIUM IV 100 MG/2ML VIAL IV SCH ×2 (08:31→20:35)
--- NOTE | 2022-11-06 08:32 | NUR ---
RN notes Dilantin level is 20.7, notified pharmacy and per pharmacy will administer. Neurologist will adjust medication dosage later.
[2022-11-06] MEDS: LEVETIRACETAM (500MG) 1,500 MG in IV NS 0.9% 100 ML IV SCH ×2 (09:14→21:10)
[2022-11-06] MEDS: NOREPINEPHRINE 8 MG in IV NS 0.9% 242 ML IV PRN (11:38)
--- NOTE | 2022-11-06 12:00 | NUR ---
RN NOTES T-96.6 AT THIS TIME APPLIED MENDOZA PELLETIER, ASSIST TURN AND REPOSTION, DUE MEDICATION ADMINISTERED, LEVOPHED AND DIPRIVAN TITRATED PER PROTOCOL.
[2022-11-06] MEDS: ZOSYN IVPB 3.375 G in IV D5W 50ml IV SCH ×3 (12:23→23:44)
[2022-11-06] MEDS: ARGININE/GLUTAMINE/CALCIUM BMB 1 EACH POWD.PACK PO SCH ×2 (12:55→16:38)
[2022-11-06] MEDS: methylPREDNISolone SOD SUCC 40 MG/ML VIAL IV SCH ×2 (16:44→20:35)
--- NOTE | 2022-11-06 18:29 | NUR ---
RN NOTES PM CARE DONE, SUCTION, MOUTH CARE , DUE MEDICATION ADMINISTERED, ASSIST TURN AND REPOSITION Q 2 HR, HOB ELEVATED, PATIENT TOLERATING FEEDING FAIR, NO SEIZURE NOTED. DIPRIVAN, AND LEVOPHED TITRATED PER PROTOCOL. FAMILY NEXT TO THE BED. URINE OUTPUT WAS 680 MG. ENDORSED ONCOMING NURSE JOSE RAUL.
--- NOTE | 2022-11-06 20:00 | NUR ---
BIG DATA ANALYTICS LEAD NOTE PT IN BED SEDATED. ETT INTACT AND PATENT. PT TOLERATING VENT SETTINGS WELL. ON TELE SR HR 60. NO DISTRESS OR DISCOMFORT NOTED. NO S/S OF PAIN NOTED. NGT LT NARE INTACT AND PATENT INFUSING JEVITY AT 60 ML/HR, 40 ML RESIDUAL NOTED. KEPT HOB ELEVATED. F/C INTACT AND PATENT DRAINING YELLOWISH COLOR URINE. BILATERAL UPPER AND LOWER EXT'S SWOLLEN. KEPT THEM ELEVATED. LT WRIST WITH SOFT WRIST RESTRAINT ON. SHAYY PICC LINE AND LFA SL INTACT AND PATENT. NO S/S OF INFILTRATION NOTED. DIPRIVAN INFUSING AT 15 MCG/KG/MIN, IVF NS INFUSING AT 75 ML/HR, LEVO INFUSING AT 0.07 MCG/KG/MIN. VSS. MENDOZA HUGGER IN PLACE. SIDE RAILS UP X 3. BED IN LOCKED POSITION. REPOSITION HER FOR COMFORT AND SKIN MANAGEMENT. KEPT HER CLEAN AND DRY. CONTINUE TO MONITOR HER.
[2022-11-07] VITALS (63 sets, daily range): BP systolic 80–150; BP diastolic 39–80
[2022-11-07] MEDS: IV NS 0.9% 1,000 ML IV PRN ×2 (00:02→15:56)
[2022-11-07] MEDS: PROPOFOL 100 ML IV PRN ×2 (00:03→12:45)
[2022-11-07] MEDS: ALBUTEROL HALF STRENGTH 1.25 MG/3 ML VIAL.NEB NEB SCH ×4 (02:24→19:54)
[2022-11-07 03:59] LABS: BASOPHILS % (AUTO) 0.1 % (0.0-2.0); HEMATOCRIT 23 % (33-45); HEMOGLOBIN 7.4 g/dL (11.5-14.8); LYMPHOCYTES # (AUTO) 0.5 K/uL (0.8-4.8); LYMPHOCYTES % (AUTO) 7.2 % (20.0-44.0); MEAN CORPUSCULAR HGB CONC 32 g/dl (31.0-36.0); MEAN CORPUSCULAR VOLUME 97 fL (82-100); MONOCYTES % (AUTO) 0.5 % (2.0-12.0); NEUTROPHILS # (AUTO) 6.2 K/uL (1.8-8.9); NEUTROPHILS % (AUTO) 92.2 % (43.0-81.0); PLATELET COUNT (AUTO) 139 K/uL (150-450); RED BLOOD CELL COUNT(AUTO) 2.34 MIL/uL (4.0-5.2); WHITE BLOOD COUNT (AUTO) 6.7 K/uL (4.3-11.0)
[2022-11-07] MEDS: methylPREDNISolone SOD SUCC 40 MG/ML VIAL IV SCH ×3 (04:31→20:27)
[2022-11-07 04:32] LABS: CALCIUM, SERUM 8.3 mg/dL (8.5-10.1); CREATININE 1.8 mg/dL (0.6-1.3); MAGNESIUM 1.6 mg/dL (1.8-2.4); POTASSIUM 3.5 mmol/L (3.5-5.1)
[2022-11-07] MEDS: MIDODRINE HCL (5MG) 5 MG TABLET NG SCH ×3 (04:32→20:26)
[2022-11-07] MEDS: ZOSYN IVPB 3.375 G in IV D5W 50ml IV SCH ×3 (05:39→18:01)
--- NOTE | 2022-11-07 06:42 | NUR ---
FLORAL DESIGN TEACHER NOTE PT IN BED SEDATED. NO DISTRESS OR DISCOMFORT NOTED. ON TELE SR. NO S/S OF PAIN NOTED. KEPT HER DRY AND CLEAN. LEVO, DIPRIVAN AND NS INFUSING ORDERED. NO S/S OF INFILTRATION NOTE. NGT INFUSING WELL, RESIDUAL IS 60ML. KEPT HOB ELEVATED. F/C INTACT AND PATENT. DRAINING YELLOWISH COLOR URINE. SIDE RAILS UP X 3 ALL NEEDS ATTENDED. KEPT HER DRY AND CLEAN. WILL ENDORSE TO DAY SHIFT NURSE FOR CONTINUE TO CARE
[2022-11-07] MEDS: LEVOTHYROXINE SODIUM 88 MCG TABLET NG SCH ×2 (07:30→07:56)
--- NOTE | 2022-11-07 07:30 | NUR ---
RN OPENING NOTE PT OBSERVED IN BED ON MECHANICAL VENT WITH ALL PRESCRIBED SETTINGS TOLERATING WELL O2 SAT 100%. PT IS SEDATED ON THIS TIME ON DIPRIVAN @15MCG. FC IS IN PLACE DRAINING URINE TO GRAVITY. NG IS IN PLACE INFUSING WITH JEVITY @60ML/HR. IV ACCESS L UA PICC AND L FA INFUSING WITH DIPRIVAN@60MCG AND NS @ 75ML/HR AND LEVO @0.07MCG. BED IS LOCKED IN LOWEST POSITION X2 BED RAILS UP AND ALL HOSPITAL SAFETY MEASURES ARE IN PLACE. WILL CONTINUE TO MONITOR THIS SHIFT.
--- NOTE | 2022-11-07 08:39 | NUR ---
RN NOTE TUBE FEED RESIDUAL 400 ML PT IS VOMITTING AT THIS TIME THROUGH MOUTH AND NOSE. WILL HOLD FEEDING AT THIS TIME.
[2022-11-07] MEDS: PROSOURCE / PROSTAT (PYXIS) 30 ML UDC GT SCH (08:49)
[2022-11-07] MEDS: ARGININE/GLUTAMINE/CALCIUM BMB 1 EACH POWD.PACK PO SCH ×2 (08:49→14:39)
[2022-11-07] MEDS: PANTOPRAZOLE 40 MG VIAL IV SCH ×2 (08:55→20:27)
[2022-11-07] MEDS: PHENYTOIN SODIUM IV 100 MG/2ML VIAL IV SCH ×2 (08:55→20:26)
[2022-11-07] MEDS: LEVETIRACETAM (500MG) 1,500 MG in IV NS 0.9% 100 ML IV SCH (09:17)
[2022-11-07] MEDS ORDERED: Magnesium 1GM/D5W 100ML PREMIX 100 ML IV SCH (10:00)
[2022-11-07] MEDS: METOCLOPRAMIDE HCL 10 MG/2 ML VIAL IV SCH ×3 (10:08→21:14)
[2022-11-07] MEDS ORDERED: JEVITY 1.2 CAL 1,000 ML BOTTLE NG PRN (10:30)
--- NOTE | 2022-11-07 10:41 | NUR ---
RN NOTE PT CONTINUES TO VOMIT. REGLAN ADMINISTERED ORDER BY PROVIDER. TF STILL CONTINUE TO BE HELD AT THIS TIME.
[2022-11-07] MEDS: NOREPINEPHRINE 8 MG in IV NS 0.9% 242 ML IV PRN (11:23)
--- NOTE | 2022-11-07 19:05 | NUR ---
RN CLOSING NOTE PT OBSERVED IN BED ON MECHANICAL VENT WITH ALL PRESCRIBED SETTINGS TOLERATING WELL O2 SAT 100%. PT IS SEDATED ON THIS TIME ON DIPRIVAN @10MCG. FC IS IN PLACE DRAINING URINE TO GRAVITY -600ML. 1 SCANT BM. NG IS IN PLACE AND NO TF AT THIS TIME DUE TO EMESIS AND NOT TOLERATING FEED WITH +400ML RESIDUAL. PT IS NPO AT THIS TIME UNTIL FURTHER NOTICE. IV ACCESS L UA PICC AND L FA INFUSING WITH DIPRIVAN@10MCG AND NS @ 75ML/HR AND LEVO @0.03MCG. BED IS LOCKED IN LOWEST POSITION X2 BED RAILS UP AND ALL HOSPITAL SAFETY MEASURES ARE IN PLACE. WILL ENDORSE TO AIRPORT DRIVER NURSE FOR JOSE RAUL.
--- NOTE | 2022-11-07 19:15 | NUR ---
FIGURE MODEL NOTE PT NOTED MODERATELY AGITATED. PULLING HER RESTRAINT. RESTLESS. DIPRIVAN INCREASED TO 15 MCG/KG/MIN. NO S/S OF PAIN NOTED. ON TELE SR HR 60. PT IS NPO. SHAYY PICC LINE AND LFA SL #20 G INTACT AND PATENT. LEVO INFUSING AT 0.03 MCG/KG/MIN. NS INFUSING AT 75 ML/HR. PT IS ON LT WRIST RESTRAINT. SKIN AROUND RESTRAINT WNL. KEPT HER DRY AND CLEAN. REPOSITION HER FOR COMFORT AND SKIN MANAGEMENT. SIDE RAILS UP X 3 VSS. CONTINUE TO MONITOR HER. Addendum: 11/07/22 at 2007 by PRAVEENA AMADOR RN NGT INTACT AND PATENT JOANNA.
--- NOTE | 2022-11-07 20:00 | NUR ---
FIELD ARTILLERY TARGETING TECHNICIAN NOTE PT CALM DOWN AND SEDATED. NO AGITATION NOTED. RT AT BED SIDE SUCTIONED THE PT.
[2022-11-07] MEDS: LEVETIRACETAM (500MG) 1,000 MG in IV NS 0.9% 100 ML IV SCH (20:26)
[2022-11-08] VITALS (53 sets, daily range): BP systolic 81–145; BP diastolic 53–95
[2022-11-08] MEDS: ZOSYN IVPB 3.375 G in IV D5W 50ml IV SCH ×4 (00:08→17:31)
[2022-11-08] MEDS: PROPOFOL 100 ML IV PRN (01:49)
[2022-11-08] MEDS: ALBUTEROL HALF STRENGTH 1.25 MG/3 ML VIAL.NEB NEB SCH ×2 (01:58→07:34)
[2022-11-08 03:57] LABS: BASOPHILS % (AUTO) 0.1 % (0.0-2.0); HEMATOCRIT 21 % (33-45); LYMPHOCYTES # (AUTO) 0.5 K/uL (0.8-4.8); LYMPHOCYTES % (AUTO) 13.3 % (20.0-44.0); MEAN CORPUSCULAR HGB CONC 32 g/dl (31.0-36.0); MEAN CORPUSCULAR VOLUME 96 fL (82-100); MONOCYTES # (AUTO) 0.2 K/uL (0.1-1.30); MONOCYTES % (AUTO) 5.6 % (2.0-12.0); NEUTROPHILS # (AUTO) 3.3 K/uL (1.8-8.9); PLATELET COUNT (AUTO) 137 K/uL (150-450); RED BLOOD CELL COUNT(AUTO) 2.18 MIL/uL (4.0-5.2)
[2022-11-08 04:13] LABS: CALCIUM, SERUM 8.4 mg/dL (8.5-10.1); CREATININE 1.7 mg/dL (0.6-1.3); POTASSIUM 3.5 mmol/L (3.5-5.1)
[2022-11-08] MEDS: methylPREDNISolone SOD SUCC 40 MG/ML VIAL IV SCH ×3 (04:23→21:12)
[2022-11-08] MEDS: METOCLOPRAMIDE HCL 10 MG/2 ML VIAL IV SCH ×4 (04:23→22:14)
[2022-11-08] MEDS: MIDODRINE HCL (5MG) 5 MG TABLET NG SCH ×3 (04:23→19:45)
[2022-11-08 05:02] LABS: HEMOGLOBIN 6.7 g/dL (11.5-14.8)
--- NOTE | 2022-11-08 05:20 | NUR ---
HOUSE WIRER NOTE LAB [facility] CALLED AND INFORMED ME H/H 6.02/02. DR LEZAMA INFORMED AND RECEIVED NEW ORDER TO GIVE ONE UNIT OF PRBC. ORDER NOTED AND CARRIED OUT.
--- NOTE | 2022-11-08 07:30 | NUR ---
RN OPENING NOTE PT IS IN BED ON MECHANICAL VENT WITH ALL PRESCRIBED SETTINGS TOLERATING WELL O2 SAT 100%. PT IS SEDATED ON THIS TIME ON DIPRIVAN @15MCG. FC IS IN PLACE DRAINING URINE TO GRAVITY. NG IS IN PLACE AND NO TF AT THIS TIME DUE TO EMESIS AND NOT TOLERATING FEED PREVIOUS DAY AND WILL RESTART TF JEVITY 1.2 @10ML LATER TODAY AND CHECK RESIDUALS. IV ACCESS L UA PICC AND L FA INFUSING WITH DIPRIVAN@15MCG AND NS @ 75ML/HR AND LEVO @0.03MCG. BED IS LOCKED IN LOWEST POSITION X2 BED RAILS UP AND ALL HOSPITAL SAFETY MEASURES ARE IN PLACE. WILL CONTINUE TO MONITOR THIS SHIFT.
[2022-11-08] MEDS: IV NS 0.9% 1,000 ML IV PRN (07:50)
--- NOTE | 2022-11-08 08:25 | NUR ---
RN NOTE: PRBC STARTED INFUSION OF 1 UNIT OF PRBC
[2022-11-08] MEDS: LEVOTHYROXINE SODIUM 88 MCG TABLET NG SCH (08:29)
[2022-11-08] MEDS: PANTOPRAZOLE 40 MG VIAL IV SCH ×2 (08:30→21:12)
[2022-11-08] MEDS: ARGININE/GLUTAMINE/CALCIUM BMB 1 EACH POWD.PACK PO SCH ×2 (08:46→16:41)
--- NOTE | 2022-11-08 09:00 | NUR ---
RN NOTE: DIPRIVAN SEDATION VACATION AND DIPRIVAN ON HOLD AT THIS TIME
[2022-11-08] MEDS: PHENYTOIN SODIUM IV 100 MG/2ML VIAL IV SCH ×2 (09:02→22:13)
--- NOTE | 2022-11-08 09:04 | NUR ---
RN NOTE: PHENYTOIN CURRENT LEVEL IS 21.5, PER TOMAS MACKEY TO ADMINISTER 0900 DOSE OF 150MG
[2022-11-08] MEDS: LEVETIRACETAM (500MG) 1,000 MG in IV NS 0.9% 100 ML IV SCH ×2 (09:13→21:12)
--- NOTE | 2022-11-08 11:25 | NUR ---
RN NOTE: PRBC TRANSFUSION OF 1 UNIT PRBC COMPLETE WITHOUT COMPLICATION
[2022-11-08] MEDS: JEVITY 1.2 CAL 1,000 ML BOTTLE GT PRN (12:21)
--- NOTE | 2022-11-08 12:30 | NUR ---
RN NOTE: LEVO LEVO HELD AT THIS TIME AND WILL CONTINUE TO MONITOR BP
[2022-11-08 13:48] LABS: LYMPHOCYTES % (MANUAL) 14 % (16-48); MONOCYTES % (MANUAL) 5 % (0-11.0); NEUTROPHILS % (MANUAL) 81 (42-76)
[2022-11-08] MEDS: LORAZEPAM INJ 2 MG/ML VIAL IV PRN (17:28)
--- NOTE | 2022-11-08 19:05 | NUR ---
RN OPENING NOTES RECEIVED PATIENT ON BED, OFF SEDATION. ORALLY INTUBATED SIZE 6.5, 22 CM BY THE LIPS WITH VENT SETTING AC- 14, TIDAL VOLUME- 400,. FIO2-40%, PEEP- 5. NO SOB NOTED. NO SEIZURE ACTIVITY NOTED AT THIS TIME. AFEBRILE, NO S/S OF DISTRESS NOTED. NOTED WITH SHAYY PICCLINE AND LEFT FOREARM #20, FLUSHED WITH NS NO S/S OF INFILTRATION NOTED. RUNNING WITH NS @ 75 ML/HR. NG TUBE AT LEFT NARE, PATENT AND INTACT, VERIFIED PLACEMENT BY AUSCULTATION,WITH 35ML RESIDUAL NOTED UPON ASPIRATION, RUNNING WITH JEVITY 1.2 @ 10 ML/HR, HEAD OF BED KEPT ELEVATED. TEJEDA CATHETER PATENT INTACT, DRAINING WITH YELLOW URINE OUT PUT VIA GRAVITY. ALL SAFETY PRECAUTION PROVIDED. BED IN LOWEST POSITION, LOCKED. CALL LIGHT WITH IN REACH.
--- NOTE | 2022-11-08 19:31 | NUR ---
RN CLOSING NOTE PT IS IN BED ON MECHANICAL VENT WITH ALL PRESCRIBED SETTINGS TOLERATING WELL O2 SAT 100%. PT RECEIVED 1 UNIT PRBC TODAY WITHOUT COMPLICATION. PT IS OFF SEDATION AT THIS TIME. FC IS IN PLACE DRAINING URINE TO GRAVITY - 600ML. NG IS IN PLACE INFUSING WITH JEVITY @10ML/HR. IV ACCESS L UA PICC AND L FA INFUSING NS @ 75ML/HR. BED IS LOCKED IN LOWEST POSITION X2 BED RAILS UP AND ALL HOSPITAL SAFETY MEASURES ARE IN PLACE. WILL ENDORSE TO COMMUNICATIONS CONSULTANT FOR JOSE RAUL.
[2022-11-09] VITALS (44 sets, daily range): BP systolic 98–136; BP diastolic 56–81
[2022-11-09] MEDS: ZOSYN IVPB 3.375 G in IV D5W 50ml IV SCH ×4 (00:12→17:49)
[2022-11-09] MEDS: IV NS 0.9% 1,000 ML IV PRN (00:47)
[2022-11-09 03:48] LABS: HEMATOCRIT 25 % (33-45); HEMOGLOBIN 8.1 g/dL (11.5-14.8); LYMPHOCYTES # (AUTO) 0.7 K/uL (0.8-4.8); LYMPHOCYTES % (AUTO) 12.8 % (20.0-44.0); MEAN CORPUSCULAR HGB CONC 33 g/dl (31.0-36.0); MEAN CORPUSCULAR VOLUME 96 fL (82-100); MONOCYTES # (AUTO) 0.3 K/uL (0.1-1.30); MONOCYTES % (AUTO) 6.2 % (2.0-12.0); NEUTROPHILS # (AUTO) 4.4 K/uL (1.8-8.9); PLATELET COUNT (AUTO) 130 K/uL (150-450); RED BLOOD CELL COUNT(AUTO) 2.62 MIL/uL (4.0-5.2); WHITE BLOOD COUNT (AUTO) 5.5 K/uL (4.3-11.0)
[2022-11-09 03:59] LABS: ALBUMIN 1.6 g/dL (3.4-5.0); BILIRUBIN,TOTAL 0.3 mg/dL (0.2-1.0); CALCIUM, SERUM 8.4 mg/dL (8.5-10.1); CREATININE 1.6 mg/dL (0.6-1.3); POTASSIUM 3.4 mmol/L (3.5-5.1); TOTAL PROTEIN, SERUM 5.6 g/dL (6.4-8.2)
[2022-11-09] MEDS: METOCLOPRAMIDE HCL 10 MG/2 ML VIAL IV SCH ×4 (04:42→21:00)
[2022-11-09] MEDS: MIDODRINE HCL (5MG) 5 MG TABLET NG SCH ×3 (04:42→20:56)
[2022-11-09] MEDS: methylPREDNISolone SOD SUCC 40 MG/ML VIAL IV SCH ×3 (05:22→20:59)
--- NOTE | 2022-11-09 07:00 | NUR ---
OPENING NOTE PATIENT IN BED SLEEPING, OFF SEDATION SINCE YESTERDAY, THE PLAN IS TO WEANING THE PATIENT TO DAY PER. DR. TODD'S ORDER. NO SOB OR DISTRESS NOTED, VITALS WITHIN NORMAL, WILL JOSE RAUL THROUGHOUT THE SHIFT.
[2022-11-09] MEDS: ARGININE/GLUTAMINE/CALCIUM BMB 1 EACH POWD.PACK PO SCH ×2 (08:13→17:49)
[2022-11-09] MEDS: PHENYTOIN SODIUM IV 100 MG/2ML VIAL IVP SCH (08:13)
[2022-11-09] MEDS: PANTOPRAZOLE 40 MG VIAL IV SCH ×2 (08:13→20:59)
[2022-11-09] MEDS: LEVOTHYROXINE SODIUM 88 MCG TABLET NG SCH (08:13)
[2022-11-09] MEDS: LEVETIRACETAM (500MG) 1,000 MG in IV NS 0.9% 100 ML IV SCH ×2 (08:16→20:59)
--- NOTE | 2022-11-09 12:00 | NUR ---
FEEDING RATE INCREASED FROM 10ML/HR TO 20ML/HR
--- NOTE | 2022-11-09 12:25 | NUR ---
WEANING TRIAL PER DR. TODD'S ORDER AT 1205 PM, WEANING TRIAL BY RT TREVIÑO PATIENT WILL HAVE AN ABG AT 1400. NOW PATIENT'S SPO2 100%, RR 8-9, NO DISTRESS NOTED SO FAT
[2022-11-09 14:41] LABS: ABG BASE EXCESS -6.6 mmol/L; ABG OXYGEN SATURATION 82.4 % (92.0-98.5); ABG PCO2 36.8 mmHg (35.0-45.0); ABG PH 7.325 (7.350-7.450); ABG PO2 46.5 mmHg (75.0-100.0); COHb 0.6 % (0.5-1.5); MetHb 0.4 % (0.0-1.5); O2Hb 81.6 % (94.0-97.0); SITE, ABG Other; VT, ABG 400 mL
--- NOTE | 2022-11-09 15:00 | NUR ---
PER RT TREVIÑO THE ABG LOOKED NORMAL AND WILL DO ANOTHER WEANING OFF TRIAL AT NIGHT AND ANOTHE RABG AND IF ALL IS NORMAL PER DR. TODD PATIENT WILL BE EXTUBATED TOMORROW 11/10/22.
--- NOTE | 2022-11-09 16:00 | NUR ---
FEEDING TUBE RESIDUAL CHECKED, PATIENT TOLERATING THE 20ML/HR RATE WELL. THE RESIDUAL WAS 5ML.
--- NOTE | 2022-11-09 19:00 | NUR ---
REPORT GIVEN TO SOLAR FABRICATION TECHNICIAN NURSE, PATIENT KEPT CLEAN AND DRY. DUE MEDS GIVEN, PATIENT WILL BE EXTUBATED TOMORROW PER PEREZ PARKS'S ORDER. ALL FALL AND SAFETY PRECAUTIONS IMPLEMENTED, PATIENT HAS LEFT WRIST RESTRAIN TO PREVENT HER FROM REMOVING THE TUBES.
[2022-11-09] MEDS: PHENYTOIN SODIUM IV 100 MG/2ML VIAL IV SCH (21:00)
[2022-11-10] VITALS (31 sets, daily range): BP systolic 85–148; BP diastolic 50–78
[2022-11-10] MEDS: ZOSYN IVPB 3.375 G in IV D5W 50ml IV SCH ×5 (00:20→23:23)
[2022-11-10 04:50] LABS: BASOPHILS % (AUTO) 0.1 % (0.0-2.0); HEMATOCRIT 27 % (33-45); HEMOGLOBIN 8.6 g/dL (11.5-14.8); LYMPHOCYTES # (AUTO) 0.6 K/uL (0.8-4.8); LYMPHOCYTES % (AUTO) 9.6 % (20.0-44.0); MEAN CORPUSCULAR HGB CONC 32 g/dl (31.0-36.0); MEAN CORPUSCULAR VOLUME 96 fL (82-100); MONOCYTES # (AUTO) 0.4 K/uL (0.1-1.30); NEUTROPHILS # (AUTO) 5.4 K/uL (1.8-8.9); NEUTROPHILS % (AUTO) 84.3 % (43.0-81.0); PLATELET COUNT (AUTO) 150 K/uL (150-450); RED BLOOD CELL COUNT(AUTO) 2.77 MIL/uL (4.0-5.2); WHITE BLOOD COUNT (AUTO) 6.4 K/uL (4.3-11.0)
[2022-11-10 04:59] LABS: CALCIUM, SERUM 8.3 mg/dL (8.5-10.1); CREATININE 1.4 mg/dL (0.6-1.3); MAGNESIUM 2.1 mg/dL (1.8-2.4); POTASSIUM 3.5 mmol/L (3.5-5.1)
[2022-11-10] MEDS: MIDODRINE HCL (5MG) 5 MG TABLET NG SCH ×3 (05:07→20:03)
[2022-11-10] MEDS: methylPREDNISolone SOD SUCC 40 MG/ML VIAL IV SCH ×3 (05:07→21:14)
[2022-11-10] MEDS: METOCLOPRAMIDE HCL 10 MG/2 ML VIAL IV SCH ×4 (05:07→21:45)
[2022-11-10] MEDS: JEVITY 1.2 CAL 1,000 ML BOTTLE GT PRN (05:48)
[2022-11-10 07:32] LABS: ABG BASE EXCESS -3.6 mmol/L; ABG PH 7.337 (7.350-7.450); ABG PO2 116.6 mmHg (75.0-100.0); COHb 0.3 % (0.5-1.5); MetHb 0.3 % (0.0-1.5); O2Hb 97.4 % (94.0-97.0); PEEP,BG 5 cm H2O; SITE, ABG Right Radial
[2022-11-10] MEDS: PHENYTOIN SODIUM IV 100 MG/2ML VIAL IVP SCH (08:15)
[2022-11-10] MEDS: LEVOTHYROXINE SODIUM 88 MCG TABLET NG SCH (08:15)
[2022-11-10] MEDS: PANTOPRAZOLE 40 MG VIAL IV SCH ×2 (08:15→21:14)
[2022-11-10] MEDS: ARGININE/GLUTAMINE/CALCIUM BMB 1 EACH POWD.PACK PO SCH ×2 (08:44→16:23)
[2022-11-10] MEDS: LEVETIRACETAM (500MG) 1,000 MG in IV NS 0.9% 100 ML IV SCH ×2 (08:44→21:14)
--- NOTE | 2022-11-10 08:46 | NUR ---
pt placed on cool aerosol via et-tube at 28% fio2. as ordered tolerating well at this time nursing staff aware.
--- NOTE | 2022-11-10 19:40 | NUR ---
RN CLOSING NOTES PT LOOKS COMFORTABLE. NO SIGNS OF PAIN AT THIS TIME, ALL DUE MEDICATIONS GIVEN. REPORT GIVEN TO PATSY AZAR FOR CONTINUATION OF CARE.
[2022-11-10] MEDS: PHENYTOIN SODIUM IV 100 MG/2ML VIAL IV SCH (21:46)
[2022-11-11] VITALS (30 sets, daily range): BP systolic 99–155; BP diastolic 40–81
[2022-11-11] MEDS: METOCLOPRAMIDE HCL 10 MG/2 ML VIAL IV SCH ×4 (04:00→21:06)
[2022-11-11] MEDS: methylPREDNISolone SOD SUCC 40 MG/ML VIAL IV SCH ×3 (04:37→21:05)
[2022-11-11 04:57] LABS: BASOPHILS % (AUTO) 0.1 % (0.0-2.0); EOSINOPHILS % (AUTO) 0.5 % (0.0-6.0); HEMATOCRIT 28 % (33-45); HEMOGLOBIN 8.9 g/dL (11.5-14.8); LYMPHOCYTES # (AUTO) 0.9 K/uL (0.8-4.8); LYMPHOCYTES % (AUTO) 12.8 % (20.0-44.0); MEAN CORPUSCULAR HGB CONC 32 g/dl (31.0-36.0); MEAN CORPUSCULAR VOLUME 97 fL (82-100); MONOCYTES # (AUTO) 0.4 K/uL (0.1-1.30); MONOCYTES % (AUTO) 5.9 % (2.0-12.0); NEUTROPHILS # (AUTO) 5.7 K/uL (1.8-8.9); NEUTROPHILS % (AUTO) 80.7 % (43.0-81.0); PLATELET COUNT (AUTO) 171 K/uL (150-450); RED BLOOD CELL COUNT(AUTO) 2.87 MIL/uL (4.0-5.2); WHITE BLOOD COUNT (AUTO) 7.1 K/uL (4.3-11.0)
[2022-11-11] MEDS: MIDODRINE HCL (5MG) 5 MG TABLET NG SCH ×3 (05:11→21:04)
[2022-11-11] MEDS: ZOSYN IVPB 3.375 G in IV D5W 50ml IV SCH ×4 (05:11→23:29)
[2022-11-11 05:19] LABS: CALCIUM, SERUM 8.3 mg/dL (8.5-10.1); CREATININE 1.2 mg/dL (0.6-1.3); POTASSIUM 3.3 mmol/L (3.5-5.1)
[2022-11-11 07:22] LABS: ABG BASE EXCESS -5.2 mmol/L; ABG OXYGEN SATURATION 93.9 % (92.0-98.5); ABG PCO2 40.9 mmHg (35.0-45.0); ABG PH 7.319 (7.350-7.450); ABG PO2 71.9 mmHg (75.0-100.0); AaDO2 79.5 mmHg; COHb 0.3 % (0.5-1.5); MetHb 0.2 % (0.0-1.5); O2Hb 93.4 % (94.0-97.0); SITE, ABG Right Radial; VENT MODE, BG COOL AEROSOL 28%
--- NOTE | 2022-11-11 07:45 | NUR ---
RN NOTES RECEIVED VERBAL ORDER FROM DR. MORRISON TO CHANGE PT'S KEPPRA DOSE FROM 1000 MG TO 750 MG IV Q12H.
[2022-11-11] MEDS ORDERED: POTASSIUM CHLORIDE 10 MEQ/50 ML PREMIXED IVPB FOR PERIPHERAL LINE IV ONE (08:00)
[2022-11-11] MEDS: LEVOTHYROXINE SODIUM 88 MCG TABLET NG SCH (08:12)
[2022-11-11] MEDS: PHENYTOIN SODIUM IV 100 MG/2ML VIAL IVP SCH (08:13)
[2022-11-11] MEDS: PANTOPRAZOLE 40 MG VIAL IV SCH (08:13)
[2022-11-11] MEDS: ARGININE/GLUTAMINE/CALCIUM BMB 1 EACH POWD.PACK PO SCH ×2 (08:21→17:02)
[2022-11-11] MEDS: LEVETIRACETAM (500MG) 750 MG in IV NS 0.9% 100 ML IV SCH ×2 (09:37→21:05)
[2022-11-11] MEDS: Potassium Chloride 10 MEQ in IV D5W 1,000 ML IV SCH ×2 (09:37→20:34)
[2022-11-11] MEDS ORDERED: POTASSIUM CHLORIDE 20 MEQ POWDER PACKET PO ONE (10:00)
--- NOTE | 2022-11-11 10:00 | NUR ---
RN NOTES NOTIFIED DR. MORRISON THAT PT'S DILANTIN LEVEL IS AT 25.5. RECEIVED ORDERS TO D/C DILANTIN 100 MG IV QAM AND [address] ORDER FOR DILANTIN 100 MG IV Q12H.
--- NOTE | 2022-11-11 10:17 | NUR ---
RN NOTES SPOKE TO DR. CISNEROS ([facility]), WILL PLACE PT BACK ON VENT.
--- NOTE | 2022-11-11 13:24 | NUR ---
pt placed on cpap 5 psv 8 30% fi02 for elevated work of breathing. per MD Doan Addendum: 11/11/22 at 1327 by ROSAS BETH RT Amended: Links added.
--- NOTE | 2022-11-11 19:15 | NUR ---
Pt is noted in bed full code , Nonverbal due to ETT to Vent therapy as report is received from the off going nurse. Sinus Rhythm to Sinus Mj from 60s- 45S noted. Rhonchi Lungs sound with ETT to Vent and Setting CiPAP , Fi02 30% PEEP5, Skin dry, warm but skin areas noted, please see skin assessment in chart. Pt is noted with Left Upper PICC Line, Rossi Cath , Left Rupal NG-tube with Feeding Jevity infusing at 10ML/HR, also pt is noted of Left Wrist Soft Restraint. Pt care continue as she will be monitor closely during the shift and will be suction as needed during the shift.
--- NOTE | 2022-11-11 19:26 | NUR ---
RN CLOSING NOTES PT LOOKS COMFORTABLE. NO VISIBLE SIGNS OF PAIN AT THIS TIME. BACK ON VENT AND CPAP DUE TO SOB; TOLERATING WELL. REPORT GIVEN TO PATSY WASHBURN FOR CONTINUATION OF CARE.
[2022-11-11] MEDS: PHENYTOIN SODIUM IV 100 MG/2ML VIAL IV SCH (21:04)
[2022-11-11] MEDS: PANTOPRAZOLE 40 MG/PACK PACK GT SCH (21:04)
--- NOTE | 2022-11-11 22:00 | NUR ---
2200 dose off Reglan 5mg IVP is held per order as Pt is noted with Diarrhea. Pt care continue.
[2022-11-12] VITALS (37 sets, daily range): BP systolic 98–150; BP diastolic 13–102
[2022-11-12] MEDS: LORAZEPAM INJ 2 MG/ML VIAL IV PRN (00:37)
--- NOTE | 2022-11-12 00:40 | NUR ---
Ativan 1mg IVP given to Pt by Charge Nurse. Pt care continue as she is been monitor.
--- NOTE | 2022-11-12 00:40 | NUR ---
Pt is noted very Agitated, trying to pull off Medical Lines, Even with soft Wrist Restraints to Left as she is weak on the Right with no movement. Pt care continue as she is been monitor closely for any S/S off distress or change in condition while suctions as needed.
--- NOTE | 2022-11-12 03:37 | NUR ---
Ativan 1mg IVP noted active as pt is calm with AM and wound care done. Pt care continue with ETT to Vent therapy in progress as she is suction as needed.
[2022-11-12 04:42] LABS: BASOPHILS % (AUTO) 0.1 % (0.0-2.0); EOSINOPHILS % (AUTO) 0.2 % (0.0-6.0); HEMATOCRIT 27 % (33-45); HEMOGLOBIN 8.7 g/dL (11.5-14.8); LYMPHOCYTES # (AUTO) 0.5 K/uL (0.8-4.8); LYMPHOCYTES % (AUTO) 5.4 % (20.0-44.0); MEAN CORPUSCULAR HGB CONC 33 g/dl (31.0-36.0); MEAN CORPUSCULAR VOLUME 97 fL (82-100); MONOCYTES # (AUTO) 0.3 K/uL (0.1-1.30); MONOCYTES % (AUTO) 3.3 % (2.0-12.0); PLATELET COUNT (AUTO) 164 K/uL (150-450); RED BLOOD CELL COUNT(AUTO) 2.74 MIL/uL (4.0-5.2); WHITE BLOOD COUNT (AUTO) 8.8 K/uL (4.3-11.0)
[2022-11-12 04:56] LABS: CALCIUM, SERUM 8.3 mg/dL (8.5-10.1); MAGNESIUM 1.8 mg/dL (1.8-2.4); POTASSIUM 3.8 mmol/L (3.5-5.1)
[2022-11-12] MEDS: LEVOTHYROXINE SODIUM 88 MCG TABLET NG SCH (05:16)
[2022-11-12] MEDS: METOCLOPRAMIDE HCL 10 MG/2 ML VIAL IV SCH ×4 (05:16→21:23)
[2022-11-12] MEDS: ZOSYN IVPB 3.375 G in IV D5W 50ml IV SCH ×4 (05:17→23:30)
[2022-11-12] MEDS: methylPREDNISolone SOD SUCC 40 MG/ML VIAL IV SCH ×3 (05:17→21:24)
[2022-11-12] MEDS: MIDODRINE HCL (5MG) 5 MG TABLET NG SCH ×2 (05:17→17:00)
--- NOTE | 2022-11-12 07:15 | NUR ---
Pt care continue as report is given to the AM receiving nurse as ETT noted now at 16 instead at 22, RT is page and Charge nurse is aware . Pt care continue .
--- NOTE | 2022-11-12 07:18 | NUR ---
FALL INTERNSHIP note Patient is resting in bed. GCS E1VTM2, bilateral pupils 3mm PEARLA. satellite project site monitor showed SB HR 48/min, MAP>65mmHg. Patient is intubated with 6.5, noted that the marking of the tube is 16cm, instead of 22cm, Spo2 100% with FiO2 0.3. Ordered a stat CXR to confirm placement and informed RT about it. Applied a mitten glove in addition to soft wrist for this reason. Circulation is good with restraint use. Right UA PICC is dry and intact, with D5 running at 80mL/hr. Will continue monitoring and care.
--- NOTE | 2022-11-12 08:00 | NUR ---
RT PATIENT REC'D ORALLY INTUBATED ON MECH VENT. ETT NOTED TO BE AT 17CM AT THE LIP. PATIENT STILL STABLE AND RECEIVING PROPER VOLUMES. PER DR CISNEROS PATIENT MAY BE EXTUBATED TODAY. Addendum: 11/12/22 at 1013 by ANA REDDY RT Amended: Links added.
[2022-11-12] MEDS: PANTOPRAZOLE 40 MG/PACK PACK GT SCH ×2 (09:28→21:24)
[2022-11-12] MEDS: ARGININE/GLUTAMINE/CALCIUM BMB 1 EACH POWD.PACK PO SCH ×2 (09:28→17:58)
[2022-11-12] MEDS: JEVITY 1.2 CAL 1,000 ML BOTTLE GT PRN (09:28)
[2022-11-12] MEDS: Potassium Chloride 10 MEQ in IV D5W 1,000 ML IV SCH ×2 (09:29→21:23)
--- NOTE | 2022-11-12 09:52 | NUR ---
DEAN OF ADMISSIONS Note - keppra and dilantin drug level Noted that both levels are high (keppra level taken on 11/06, 126 ug/mL; dilantin 25.5 ug/mL on 11/11, dose adjusted yesterday). Inquired Dr. Mejia about the need to recheck both levels and he said not yet. He also ordered to proceed with the administration of both meds.
--- NOTE | 2022-11-12 10:15 | NUR ---
RT PER DR CISNEROS, PATIENT WAS EXTUBATED AND PLACED ON SUPPLEMENTAL O2 TOLERATED WELL. Addendum: 11/12/22 at 1117 by ANA REDDY RT Amended: Links added.
[2022-11-12] MEDS: LEVETIRACETAM (500MG) 750 MG in IV NS 0.9% 100 ML IV SCH ×2 (10:31→21:23)
[2022-11-12] MEDS: PHENYTOIN SODIUM IV 100 MG/2ML VIAL IV SCH ×2 (10:31→21:24)
--- NOTE | 2022-11-12 11:15 | NUR ---
CASTING MACHINE OPERATOR AUTOMATIC NOTE Patient was extubated at 10:15 and was put on 4L oxygen with NC. SpO2 has been >95% all along. Would reduce oxygen to 2L via NC.
--- NOTE | 2022-11-12 19:10 | NUR ---
Pt is noted responsive in bed full code but, confused with call light in reach , fall and Seizure precautions in place , Nonverbal as report is received from the off going nurse. Sinus Rhythm to Sinus Mj from 60s- 45s noted. Rhonchi Lungs sound with 02 2Liters Nasal Cannula as she is S/P Extubated during the day shift , Skin dry, warm but skin areas noted, please see skin assessment in chart. Pt is noted with Left Upper PICC Line, Rossi Cath , Left Rupal NG-tube with Feeding Jevity infusing at 10ML/HR, also pt is noted of Left Wrist Restraint. Pt care continue as she will be monitor closely during the shift and will be suction as needed during the shift , while remain on Keppra 750 in IVPB Q12HRS and Dilantin 100mg in IVPB Q12HRS but Phenytoin Level 25.5 and MD are aware.
--- NOTE | 2022-11-12 23:27 | NUR ---
Pt is resting as she try to pull off Medical Lines, with Restraint to Left in place as she is weak on the Right with no movement. Pt care continue as she is been monitor closely for any S/S off distress or change in condition while suctions as needed and IVF D5+10KCL at 80/ML and Feeding Jevity 1.2CAL at 20ML/HR therapy in progress.
[2022-11-13] VITALS (31 sets, daily range): BP systolic 94–165; BP diastolic 44–103
[2022-11-13] MEDS: METOCLOPRAMIDE HCL 10 MG/2 ML VIAL IV SCH ×4 (04:00→21:57)
--- NOTE | 2022-11-13 04:12 | NUR ---
Reglan 5mg IVP not given as pt is been having loose stools . Pt is noted calm with AM and wound care done. Pt care continue with 02 2Liters Nasal Cannula therapy in progress as she is suction as needed.
[2022-11-13 05:03] LABS: CALCIUM, SERUM 8.4 mg/dL (8.5-10.1); CREATININE 0.9 mg/dL (0.6-1.3); POTASSIUM 3.9 mmol/L (3.5-5.1)
[2022-11-13] MEDS: ZOSYN IVPB 3.375 G in IV D5W 50ml IV SCH ×4 (05:58→23:04)
[2022-11-13] MEDS: methylPREDNISolone SOD SUCC 40 MG/ML VIAL IV SCH ×3 (05:58→20:47)
[2022-11-13] MEDS: LEVOTHYROXINE SODIUM 88 MCG TABLET NG SCH (06:00)
--- NOTE | 2022-11-13 07:12 | NUR ---
Pt care continue as report is page to the AM receiving nurse.
--- NOTE | 2022-11-13 07:30 | NUR ---
ICU/RN PT IS 0N 2L N/C SAT O2-100%.V/S STABLE,AFEBRILE.NO PAIN REPORTED AT THIS TIME.PT IS POST EXTUBATION ON 11/12/22.AWAKE . HAS ENCEPHALOPATY ,NOT FOLLOWS COMMAND .POST CVA RIGHT SIDE WEAKNESS .HAS A LOT OF SECRETION.DEEP SUCTION PROVIDED.NG TUBE INFUSING WOTH JEVITY AT 30 ML /HR.F/C DRAINING WITH YELLOW URINE.LABS REVIEW.MD AWARE.REPOSITION FOR COMFORT.
[2022-11-13] MEDS: PANTOPRAZOLE 40 MG/PACK PACK GT SCH ×2 (08:15→20:47)
[2022-11-13] MEDS: PHENYTOIN SODIUM IV 100 MG/2ML VIAL IV SCH ×2 (08:15→20:47)
[2022-11-13] MEDS: MIDODRINE HCL (5MG) 5 MG TABLET NG SCH ×2 (08:16→16:17)
[2022-11-13] MEDS: LEVETIRACETAM (500MG) 750 MG in IV NS 0.9% 100 ML IV SCH (08:32)
[2022-11-13] MEDS: JEVITY 1.2 CAL 1,000 ML BOTTLE GT PRN (08:41)
[2022-11-13] MEDS: Potassium Chloride 10 MEQ in IV D5W 1,000 ML IV SCH ×2 (09:11→21:55)
[2022-11-13] MEDS: ARGININE/GLUTAMINE/CALCIUM BMB 1 EACH POWD.PACK PO SCH (09:12)
[2022-11-13] MEDS: MODAFINIL 100 MG TABLET GT SCH (11:58)
[2022-11-13] MEDS ORDERED: LEVETIRACETAM (500MG) 500 MG in IV NS 0.9% 100 ML IV SCH (12:00)
--- NOTE | 2022-11-13 15:43 | NUR ---
ICU/RN PM CARE PROVIDED.WOUND DRESSING DONE ORDERED.DEEP SUCTION PROVIDED.PT HAS A LOT OF SECRETIONS.RESIDUAL 80 ML NOTED.REPOSITION FOR COMFORT.FAMILY AT BEDSIDE.
[2022-11-13] MEDS: ARGININE/GLUTAMINE/CALCIUM BMB 1 EACH POWD.PACK GT SCH (16:17)
--- NOTE | 2022-11-13 18:10 | NUR ---
ICU/RN DUE MEDS ARE GIVEN ORDERED.MULTIPLY SUCTIONS PROVIDED.V/S STABLE AFEBRILE. CONTINUE MONITORING.
--- NOTE | 2022-11-13 20:12 | NUR ---
RN NOTE SPOKE WITH PHARMACY RITA. CONFIRMED WITH PHARMACIST CURRENT KEPPRA LEVEL IS 126.0, BUT DOSE HAS BEEN DECREASED FROM 750 MG TO 500 MG, THEREFORE OK TO GIVE. ALSO NOTED THAT DILANTIN LEVEL WAS HIGH AT 25.5; PER DR. MORRISON'S NOTE, DOSE WAS DECREASED FROM 150 MG TO 100 MG; PER RITA, OK TO GIVE.
--- NOTE | 2022-11-13 20:14 | NUR ---
WU NOTE RAMON ELLIS TURNED OFF FOR DILANTIN SCHEDULED FOR 2099. Addendum: 11/13/22 at 2157 by PRINCESS JUMA WASHBURN DISREGARD
[2022-11-13] MEDS: LEVETIRACETAM (500MG) 500 MG in IV NS 0.9% 100 ML IV SCH (20:46)
--- NOTE | 2022-11-13 21:50 | NUR ---
MANAGER MAINTENANCE OPENING NOTE PT RECEIVED IN BED, AWAKE, A/O X0, UNABLE TO ANSWER QUESTIONS, UNABLE TO FOLLOW COMMANDS. PT RECEIVED ON 1L NC WITH CURRENT O2SAT OF 98%; PT SOUNDED GURGLY AND NOTED TO HAVE DROOLING; PT SUCTIONED APPROPRIATELY AND PROVIDED WITH ORAL CARE; NO OTHER S/S OF RESP DISTRESS, NO SOB, NON-LABORED AND EQUAL BREATHING. PT ATTACHED TO BEDSIDE MONITOR, SR WITH HR OF 74. TEJEDA INTACT AND PATENT, DRAINING CLEAR AND YELLOW URINE. NGT IN LEFT NARE AT 65 CM WITH JEVITY AT 10 ML/HR; NO RESIDUAL NOTED. SHAYY PICC INTACT AND PATENT WITH D5 KCL 10 MEEQ INFUSING AT 80 ML/HR. BED IN LOWEST POSITION, CALL LIGHT WITHIN REACH, SIDE RAILS UP X3 WITH PADDING. WILL CONTINUE TO MONITOR THROUGHOUT THE NIGHT.
[2022-11-14] VITALS (25 sets, daily range): BP systolic 71–150; BP diastolic 35–114
[2022-11-14] MEDS: METOCLOPRAMIDE HCL 10 MG/2 ML VIAL IV SCH ×4 (04:39→21:44)
[2022-11-14] MEDS: methylPREDNISolone SOD SUCC 40 MG/ML VIAL IV SCH ×2 (04:39→16:09)
[2022-11-14] MEDS: ZOSYN IVPB 3.375 G in IV D5W 50ml IV SCH ×4 (06:34→23:09)
[2022-11-14 06:38] LABS: BASOPHILS % (AUTO) 0.1 % (0.0-2.0); EOSINOPHILS % (AUTO) 0.4 % (0.0-6.0); HEMATOCRIT 28 % (33-45); HEMOGLOBIN 9.4 g/dL (11.5-14.8); LYMPHOCYTES # (AUTO) 0.7 K/uL (0.8-4.8); LYMPHOCYTES % (AUTO) 6.8 % (20.0-44.0); MEAN CORPUSCULAR HGB CONC 33 g/dl (31.0-36.0); MEAN CORPUSCULAR VOLUME 97 fL (82-100); MONOCYTES # (AUTO) 0.4 K/uL (0.1-1.30); MONOCYTES % (AUTO) 3.3 % (2.0-12.0); NEUTROPHILS # (AUTO) 9.8 K/uL (1.8-8.9); NEUTROPHILS % (AUTO) 89.4 % (43.0-81.0); PLATELET COUNT (AUTO) 208 K/uL (150-450); RED BLOOD CELL COUNT(AUTO) 2.94 MIL/uL (4.0-5.2); WHITE BLOOD COUNT (AUTO) 10.9 K/uL (4.3-11.0)
[2022-11-14 07:01] LABS: CALCIUM, SERUM 8.2 mg/dL (8.5-10.1); CREATININE 0.8 mg/dL (0.6-1.3); POTASSIUM 3.7 mmol/L (3.5-5.1)
[2022-11-14] MEDS: MIDODRINE HCL (5MG) 5 MG TABLET NG SCH (08:27)
[2022-11-14] MEDS: LEVOTHYROXINE SODIUM 88 MCG TABLET NG SCH (08:27)
[2022-11-14] MEDS: PANTOPRAZOLE 40 MG/PACK PACK GT SCH ×2 (08:27→21:43)
[2022-11-14] MEDS: PHENYTOIN SODIUM IV 100 MG/2ML VIAL IV SCH ×2 (08:27→21:43)
[2022-11-14] MEDS: MODAFINIL 100 MG TABLET GT SCH (08:27)
[2022-11-14] MEDS: ARGININE/GLUTAMINE/CALCIUM BMB 1 EACH POWD.PACK GT SCH ×2 (08:28→16:10)
[2022-11-14] MEDS: LEVETIRACETAM (500MG) 500 MG in IV NS 0.9% 100 ML IV SCH ×2 (08:28→21:43)
[2022-11-14] MEDS: Potassium Chloride 10 MEQ in IV D5W 1,000 ML IV SCH ×3 (11:24→18:29)
--- NOTE | 2022-11-14 16:10 | NUR ---
NGT pulled out accidentally during repositioning will reinsert NGT as ordered
--- NOTE | 2022-11-14 19:28 | NUR ---
sand technologist at bedside to confirm NGT placement.
--- NOTE | 2022-11-14 19:30 | NUR ---
PT RECEIVED IN BED, AWAKE, A/O X0, UNABLE TO ANSWER QUESTIONS, UNABLE TO FOLLOW COMMANDS. ON RA WITH CURRENT O2SAT OF 98%. NO S/S OF RESP DISTRESS, NO SOB, NON-LABORED AND EQUAL BREATHING. PT ATTACHED TO BEDSIDE MONITOR, SR WITH HR AT 70'S. TEJEDA INTACT AND PATENT, DRAINING CLEAR AND YELLOW URINE. NGT IN LEFT NARE AT 65 CM. JEVITY ON HOLD AWAITING XRAY RESULT TO CONFIRM PLACEMENT. SHAYY PICC IN PLACE. RESTRAINT/LT HAND MITTEN IN PLACE. CHECKED FOR CIRCULATION. SAFETY MEASURES IN PLACE. HOB ELEVATED. CALL LIGHT WITHIN REACH, SIDE RAILS UP X3 WITH PADDING. WILL CONTINUE TO MONITOR THROUGHOUT THE NIGHT AND WILL CONTINUE PLAN OF CARE.
--- NOTE | 2022-11-14 20:01 | NUR ---
NGT PLACEMENT CONFIRMED VIA AUSCULTATION AND XRAY. RESTARTED TF JEVITY 1.2 AT 10ML/HR.
[2022-11-15] VITALS (24 sets, daily range): BP systolic 117–145; BP diastolic 67–107
[2022-11-15] MEDS: METOCLOPRAMIDE HCL 10 MG/2 ML VIAL IV SCH ×4 (03:24→21:11)
[2022-11-15 04:24] LABS: EOSINOPHILS % (AUTO) 0.4 % (0.0-6.0); HEMATOCRIT 27 % (33-45); HEMOGLOBIN 8.9 g/dL (11.5-14.8); LYMPHOCYTES # (AUTO) 0.8 K/uL (0.8-4.8); LYMPHOCYTES % (AUTO) 11.1 % (20.0-44.0); MEAN CORPUSCULAR HGB CONC 33 g/dl (31.0-36.0); MEAN CORPUSCULAR VOLUME 95 fL (82-100); MONOCYTES # (AUTO) 0.4 K/uL (0.1-1.30); MONOCYTES % (AUTO) 5.3 % (2.0-12.0); NEUTROPHILS # (AUTO) 6.2 K/uL (1.8-8.9); NEUTROPHILS % (AUTO) 83.2 % (43.0-81.0); PLATELET COUNT (AUTO) 223 K/uL (150-450); RED BLOOD CELL COUNT(AUTO) 2.88 MIL/uL (4.0-5.2); WHITE BLOOD COUNT (AUTO) 7.5 K/uL (4.3-11.0)
[2022-11-15 04:37] LABS: CALCIUM, SERUM 8.2 mg/dL (8.5-10.1); CREATININE 0.9 mg/dL (0.6-1.3); POTASSIUM 3.4 mmol/L (3.5-5.1)
[2022-11-15] MEDS: ZOSYN IVPB 3.375 G in IV D5W 50ml IV SCH (05:40)
[2022-11-15] MEDS: JEVITY 1.2 CAL 1,000 ML BOTTLE GT PRN (05:40)
[2022-11-15] MEDS: Potassium Chloride 10 MEQ in IV D5W 1,000 ML IV SCH ×2 (06:04→21:12)
--- NOTE | 2022-11-15 07:00 | NUR ---
PT IN BED, AWAKE, A/O X0, ABLE TO MUMBLE WORDS. UNABLE TO FOLLOW COMMANDS. ON RA WITH CURRENT O2SAT OF 99%. NO S/S OF RESP DISTRESS, NO SOB, NON-LABORED AND EQUAL BREATHING. PT ATTACHED TO BEDSIDE MONITOR, SR WITH HR AT 60'S. TEJEDA INTACT AND PATENT, DRAINING CLEAR AND YELLOW URINE. NGT IN RIGHT NARE AT 65 CM. JEVITY INFUSING AT 20ML/HR. SHAYY PICC IN PLACE. RESTRAINT/LT HAND MITTEN IN PLACE. CHECKED FOR CIRCULATION. SAFETY MEASURES MAINTAINED. HOB ELEVATED. CALL LIGHT WITHIN REACH, SIDE RAILS UP X3 WITH PADDING. WILL ENDORSE TO NEXT NURSE ON DUTY FOR CONTINUITY OF CARE.
[2022-11-15] MEDS: PHENYTOIN SODIUM IV 100 MG/2ML VIAL IV SCH (08:13)
[2022-11-15] MEDS: PANTOPRAZOLE 40 MG/PACK PACK GT SCH ×2 (08:13→21:11)
[2022-11-15] MEDS: MODAFINIL 100 MG TABLET GT SCH (08:14)
[2022-11-15] MEDS: methylPREDNISolone SOD SUCC 40 MG/ML VIAL IV SCH ×2 (08:14→16:41)
[2022-11-15] MEDS: LEVOTHYROXINE SODIUM 88 MCG TABLET NG SCH (08:14)
[2022-11-15] MEDS: ARGININE/GLUTAMINE/CALCIUM BMB 1 EACH POWD.PACK GT SCH ×2 (08:16→16:38)
[2022-11-15] MEDS: LEVETIRACETAM (500MG) 500 MG in IV NS 0.9% 100 ML IV SCH (08:17)
[2022-11-15] MEDS ORDERED: POTASSIUM CHLORIDE 10 MEQ/50 ML PREMIXED IVPB FOR PERIPHERAL LINE IV ONE (08:30)
[2022-11-15] MEDS ORDERED: LIDOCAINE 1%-EPI 1:100,000 20 ML VIAL TP STA (11:41)
[2022-11-15] MEDS ORDERED: SILVER NITRATE APPLICATOR 1 EA BOX TP STA (11:41)
[2022-11-15] MEDS: POTASSIUM CL. PREMIX PERIPHER. 50 ML IV SCH ×2 (11:43→12:57)
[2022-11-15] MEDS: ENOXAPARIN SODIUM 40 MG/0.4 ML DISP.SYRIN SQ SCH (11:44)
[2022-11-15] MEDS: PIPERACILLIN /TAZOBACTAM 3.375 G in IV D5W 100 ML IV SCH ×2 (11:45→21:11)
[2022-11-15] MEDS ORDERED: LIDOCAINE 1%-EPI 1:100,000 50 ML VIAL IJ STA (12:06)
[2022-11-15] MEDS ORDERED: JEVITY 1.2 CAL 1,000 ML BOTTLE GT PRN (17:00)
--- NOTE | 2022-11-15 19:30 | NUR ---
PT IN BED, AWAKE, A/O X0, ABLE TO TALK AND MUMBLE WORDS. CONFUSED AND UNABLE TO FOLLOW COMMANDS. ON RA WITH CURRENT O2SAT OF 100%. NO S/S OF RESP DISTRESS, NO SOB, NON-LABORED AND EQUAL BREATHING. PT ATTACHED TO BEDSIDE MONITOR, SR WITH HR AT 68. TEJEDA INTACT AND PATENT, DRAINING CLEAR AND YELLOW URINE. NGT IN RIGHT NARE AT 65 CM. JEVITY INFUSING AT 30ML/HR WITH A GOAL OF 40ML/HR. SHAYY PICC IN PLACE. RESTRAINT/SOFT WRIST/LT HAND MITTEN IN PLACE. CHECKED FOR CIRCULATION. SAFETY MEASURES INPLACE. HOB ELEVATED. CALL LIGHT WITHIN REACH, SIDE RAILS UP X3 WITH PADDING FOR SEIZURE PRECAUTION IN PLACE. WILL CONTINUE PLAN OF CARE.
[2022-11-15] MEDS: LEVETIRACETAM (250 MG) 250 MG TABLET PO SCH (21:11)
[2022-11-15] MEDS ORDERED: IV NS 0.9% 250 ML IV PRN (21:30)
[2022-11-16] VITALS (12 sets, daily range): BP systolic 118–149; BP diastolic 73–131
[2022-11-16] MEDS: METOCLOPRAMIDE HCL 10 MG/2 ML VIAL IV SCH ×4 (03:19→23:20)
[2022-11-16] MEDS: PIPERACILLIN /TAZOBACTAM 3.375 G in IV D5W 100 ML IV SCH ×3 (04:40→20:49)
[2022-11-16 04:44] LABS: EOSINOPHILS % (AUTO) 0.2 % (0.0-6.0); HEMATOCRIT 27 % (33-45); HEMOGLOBIN 8.8 g/dL (11.5-14.8); LYMPHOCYTES # (AUTO) 0.8 K/uL (0.8-4.8); LYMPHOCYTES % (AUTO) 11.5 % (20.0-44.0); MEAN CORPUSCULAR HGB CONC 33 g/dl (31.0-36.0); MEAN CORPUSCULAR VOLUME 98 fL (82-100); MONOCYTES # (AUTO) 0.6 K/uL (0.1-1.30); MONOCYTES % (AUTO) 7.6 % (2.0-12.0); NEUTROPHILS # (AUTO) 5.9 K/uL (1.8-8.9); NEUTROPHILS % (AUTO) 80.7 % (43.0-81.0); PLATELET COUNT (AUTO) 230 K/uL (150-450); RED BLOOD CELL COUNT(AUTO) 2.74 MIL/uL (4.0-5.2); WHITE BLOOD COUNT (AUTO) 7.3 K/uL (4.3-11.0)
[2022-11-16 05:25] LABS: CALCIUM, SERUM 8.4 mg/dL (8.5-10.1); CREATININE 0.9 mg/dL (0.6-1.3); MAGNESIUM 1.7 mg/dL (1.8-2.4); POTASSIUM 3.5 mmol/L (3.5-5.1)
--- NOTE | 2022-11-16 06:59 | NUR ---
PT IN BED, ASLEEP, EASILY AROUSABLE/RESPONSIVE. A/O X0, ABLE TO TALK AND MUMBLE WORDS. CONFUSED AND UNABLE TO FOLLOW COMMANDS. ON RA WITH CURRENT O2SAT OF 100%. NO S/S OF RESP DISTRESS, NO SOB, NON-LABORED AND EQUAL BREATHING. PT ATTACHED TO BEDSIDE MONITOR, SR WITH HR AT 60's. TEJEDA INTACT AND PATENT, DRAINING CLEAR AND YELLOW URINE. NGT IN RIGHT NARE AT 65 CM. JEVITY INFUSING AT 40ML/HR. SHAYY PICC IN PLACE. RESTRAINT/SOFT WRIST/LT HAND MITTEN IN PLACE. CHECKED FOR CIRCULATION. DUE MEDS GIVEN. NEEDS ATTENDED. SAFETY MEASURES MAINTAINED. HOB ELEVATED. CALL LIGHT WITHIN REACH, SIDE RAILS UP X3 WITH PADDING FOR SEIZURE PRECAUTION IN PLACE. WILL ENDORSE TO NEXT NURSE ON DUTY FOR CONTINUITY OF CARE.
[2022-11-16] MEDS: MODAFINIL 100 MG TABLET GT SCH (08:16)
[2022-11-16] MEDS: LEVETIRACETAM (250 MG) 250 MG TABLET PO SCH ×2 (08:16→20:52)
[2022-11-16] MEDS: LEVOTHYROXINE SODIUM 88 MCG TABLET NG SCH (08:16)
[2022-11-16] MEDS: PANTOPRAZOLE 40 MG/PACK PACK GT SCH ×2 (08:17→20:52)
[2022-11-16] MEDS: Magnesium 1GM/D5W 100ML PREMIX 100 ML IV SCH ×2 (08:18→09:55)
[2022-11-16] MEDS: ARGININE/GLUTAMINE/CALCIUM BMB 1 EACH POWD.PACK GT SCH ×2 (08:20→16:15)
[2022-11-16] MEDS: methylPREDNISolone SOD SUCC 40 MG/ML VIAL IV SCH ×2 (08:30→09:00)
[2022-11-16] MEDS: ENOXAPARIN SODIUM 40 MG/0.4 ML DISP.SYRIN SQ SCH (09:53)
--- NOTE | 2022-11-16 10:56 | NUR ---
RECEIVED REPORT CHERRY KATZ RN, PATIENT FROM ICU TRANSFERRED TO BOY ROOM 115-2, PATIENT ALERT AND RESPONSIVE, NOT IN ANY DISTRESS.
--- NOTE | 2022-11-16 18:33 | NUR ---
BOY RN CLOSING NOTES PT IN BED, ASLEEP, EASILY AROUSABLE/RESPONSIVE. A/O X0, ABLE TO TALK AND MUMBLE WORDS. CONFUSED AND UNABLE TO FOLLOW COMMANDS. FAMILY AT THE BEDSIDE, ON RA WITH CURRENT O2SAT OF 99%, NO S/S OF RESP DISTRESS, NO SOB, NON-LABORED AND EQUAL BREATHING. PT ATTACHED TO BEDSIDE MONITOR, SR WITH HR AT 80'S, TEJEDA INTACT AND PATENT, DRAINING CLEAR AND YELLOW URINE. NGT IN RIGHT NARE AT 65 CM. JEVITY INFUSING AT 40ML/HR. SHAYY PICC IN PLACE WITH IV FLUIDS RUNNING ORDERED. RESTRAINT/SOFT WRIST/LT HAND MITTEN IN PLACE. CHECKED FOR CIRCULATION. WOUND CARE RENDERED. DRESSING CLEAN DRY AND INTACT. ASPIRATION PRECAUTION MAINTAINED. HOB ELEVATED. SAFETY MEASURES MAINTAINED. HOB ELEVATED. CALL LIGHT WITHIN REACH, SIDE RAILS UP X3 WITH PADDING FOR SEIZURE PRECAUTION IN PLACE. WILL ENDORSE TO NEXT NURSE ON DUTY FOR CONTINUITY OF CARE.
--- NOTE | 2022-11-16 19:30 | NUR ---
BOY RN OPENING NOTES PT IN BED, AWAKE, DISORIENTED, UNABLE TO FOLLOW COMMANDS. PT ON RA, NO S/S OF RESP DISTRESS, NO SOB, NON-LABORED BREATHING. PT ON MONITOR, SR WITH HR AT 80'S. TEJEDA INTACT AND PATENT, DRAINING CLEAR AND YELLOW URINE. NGT IN RIGHT NARE AT 65 CM. JEVITY INFUSING AT 40ML/HR. SHAYY PICC IN PLACE WITH IV FLUIDS RUNNING ORDERED. RESTRAINT/SOFT WRIST/LT HAND MITTEN IN PLACE. CIRCULATION CHECKED. CONTINUE TO MONITOR
[2022-11-16] MEDS: Potassium Chloride 10 MEQ in IV D5W 1,000 ML IV SCH (21:29)
[2022-11-17] VITALS: BP 139/88
[2022-11-17 04:00] VITALS: BP 142/74
[2022-11-17] MEDS: METOCLOPRAMIDE HCL 10 MG/2 ML VIAL IV SCH ×4 (04:27→23:18)
[2022-11-17] MEDS: PIPERACILLIN /TAZOBACTAM 3.375 G in IV D5W 100 ML IV SCH ×2 (05:09→12:36)
--- NOTE | 2022-11-17 06:18 | NUR ---
BOY RN CLOSING NOTES PT IN BED, SLEEPING, RESPONSIVE TO VERBAL AND TACTILE STIMILI, DISORIENTED, UNABLE TO FOLLOW COMMANDS. PT ON RA, OXYGEN SATURATION 96%, NO S/S OF RESP DISTRESS, NO SOB, NON-LABORED BREATHING. PT ON MONITOR, SR WITH HR AT 80'S. TEJEDA INTACT AND PATENT, DRAINING CLEAR AND YELLOW URINE. NGT IN RIGHT NARE AT 65 CM. JEVITY RUNNING AT 40ML/HR. SHAYY PICC IN PLACE WITH IV D5W 10 MEQ KCL AT 40 ML/HR, ZOSYN AT 25 ML/HR. RESTRAINT/SOFT WRIST/LT HAND MITTEN IN PLACE. CIRCULATION CHECKED. WILL BE ENDORSED TO THE NEXT SHIFT
[2022-11-17 06:58] LABS: BASOPHILS % (AUTO) 0.1 % (0.0-2.0); EOSINOPHILS % (AUTO) 0.2 % (0.0-6.0); HEMATOCRIT 27 % (33-45); HEMOGLOBIN 8.7 g/dL (11.5-14.8); LYMPHOCYTES # (AUTO) 0.8 K/uL (0.8-4.8); MEAN CORPUSCULAR HGB CONC 33 g/dl (31.0-36.0); MEAN CORPUSCULAR VOLUME 96 fL (82-100); MONOCYTES # (AUTO) 0.7 K/uL (0.1-1.30); MONOCYTES % (AUTO) 10.4 % (2.0-12.0); NEUTROPHILS # (AUTO) 5.4 K/uL (1.8-8.9); NEUTROPHILS % (AUTO) 78.3 % (43.0-81.0); PLATELET COUNT (AUTO) 233 K/uL (150-450); RED BLOOD CELL COUNT(AUTO) 2.79 MIL/uL (4.0-5.2); WHITE BLOOD COUNT (AUTO) 6.9 K/uL (4.3-11.0)
[2022-11-17 07:10] LABS: CALCIUM, SERUM 8.3 mg/dL (8.5-10.1); CREATININE 0.9 mg/dL (0.6-1.3); MAGNESIUM 1.7 mg/dL (1.8-2.4); POTASSIUM 3.4 mmol/L (3.5-5.1)
[2022-11-17 08:00] VITALS: BP 156/96
[2022-11-17] MEDS: LEVETIRACETAM (250 MG) 250 MG TABLET PO SCH ×2 (08:51→22:51)
[2022-11-17] MEDS: methylPREDNISolone SOD SUCC 40 MG/ML VIAL IV SCH (08:51)
[2022-11-17] MEDS: LEVOTHYROXINE SODIUM 88 MCG TABLET NG SCH (08:51)
[2022-11-17] MEDS: ENOXAPARIN SODIUM 40 MG/0.4 ML DISP.SYRIN SQ SCH (08:52)
[2022-11-17] MEDS: MODAFINIL 100 MG TABLET GT SCH (08:53)
[2022-11-17] MEDS: ARGININE/GLUTAMINE/CALCIUM BMB 1 EACH POWD.PACK GT SCH ×2 (08:54→16:24)
[2022-11-17] MEDS: PANTOPRAZOLE 40 MG/PACK PACK GT SCH ×2 (08:55→22:51)
[2022-11-17] MEDS ORDERED: NEUTRA PHOS 1 POWD.PACKET GT ONE (10:00)
[2022-11-17] MEDS ORDERED: POTASSIUM CHLORIDE 20 MEQ POWDER PACKET GT ONE (10:00)
[2022-11-17] MEDS: Magnesium 1GM/D5W 100ML PREMIX 100 ML IV SCH ×2 (10:23→11:55)
[2022-11-17] MEDS ORDERED: hydrALAZINE HCL 25 MG TABLET PO SCH (12:00)
[2022-11-17 12:14] VITALS: BP 149/94
[2022-11-17 16:00] VITALS: BP 145/85
[2022-11-17] MEDS ORDERED: JEVITY 1.2 CAL 1,000 ML BOTTLE GT PRN ×2 (18:00→19:00)
--- NOTE | 2022-11-17 18:10 | NUR ---
RN NOTE PATIENT WAS CLEARES BY SY FOR P[URE DIET , I TRIED TO FEED HER , AFTER ONE SPOON PATIENT STARTED TO COUGH OUT THE FOOD . DR GAMING NOTIFIED, ORDER TO RESTART JEVITY AT 40 ML/HR RECEIVED
--- NOTE | 2022-11-17 19:04 | NUR ---
BOY RN CLOSING NOTES PT IN BED, ASLEEP, EASILY AROUSABLE/RESPONSIVE. A/O X0, ABLE TO TALK AND MUMBLE WORDS. CONFUSED AND UNABLE TO FOLLOW COMMANDS. ON RA WITH CURRENT O2SAT OF 99%, NO S/S OF RESP DISTRESS, NO SOB, NON-LABORED AND EQUAL BREATHING. PT ATTACHED TO BEDSIDE MONITOR, SR WITH HR AT 90'S, TEJEDA INTACT AND PATENT, DRAINING CLEAR AND YELLOW URINE. NGT IN RIGHT NARE AT 65 CM. JEVITY INFUSING AT 40ML/HR. SHAYY PICC IN PLACE WITH IV FLUIDS RUNNING ORDERED. RESTRAINT/SOFT WRIST/LT HAND MITTEN IN PLACE. CHECKED FOR CIRCULATION. WOUND CARE RENDERED. DRESSING CLEAN DRY AND INTACT. ASPIRATION PRECAUTION MAINTAINED. HOB ELEVATED. SAFETY MEASURES MAINTAINED. HOB ELEVATED. CALL LIGHT WITHIN REACH, SIDE RAILS UP X3 WITH PADDING FOR SEIZURE PRECAUTION IN PLACE. WILL ENDORSE TO PM NURSE FOR CONTINUITY OF CARE.
--- NOTE | 2022-11-17 19:15 | NUR ---
BOY RN OPENING NOTES PT IN BED, AWAKE. A/O X0, ABLE TO TALK AND MUMBLE WORDS. CONFUSED AND UNABLE TO FOLLOW COMMANDS. ON RA, NO S/S OF RESP DISTRESS, NO SOB, NON-LABORED AND EQUAL BREATHING. PT ATTACHED TO BEDSIDE MONITOR, SR WITH HR AT 80'IES, TEJEDA INTACT AND PATENT, DRAINING CLEAR AND YELLOW URINE. NGT IN RIGHT NARE AT 65 CM. JEVITY INFUSING AT 40ML/HR. SHAYY PICC IN PLACE WITH IV FLUIDS RUNNING ORDERED. RESTRAINT/SOFT WRIST/LT HAND MITTEN IN PLACE. CHECKED FOR CIRCULATION. WILL CONTINUE TO MONITOR.
[2022-11-17 20:00] VITALS: BP 147/79
--- NOTE | 2022-11-17 20:00 | NUR ---
RN NOTE GASTRIC RESIDUAL 10 ML, RATE INCREASED TO 50 ML/HR, WILL CONTINUE TO MONITOR.
[2022-11-17] MEDS: Potassium Chloride 10 MEQ in IV D5W 1,000 ML IV SCH (22:52)
[2022-11-18] VITALS: BP 141/81
[2022-11-18 04:00] VITALS: BP 137/63
[2022-11-18] MEDS: METOCLOPRAMIDE HCL 10 MG/2 ML VIAL IV SCH ×4 (04:02→22:23)
--- NOTE | 2022-11-18 04:59 | NUR ---
RN NOTE GASTRIC RESIDUAL 10 ML, RATE INCREASED TO 60 ML/HR, ORDERED, WILL CONTINUE TO MONITOR.
[2022-11-18] MEDS: ACETAMINOPHEN 650 MG/20.3 ML UDC PO PRN ×2 (05:45→16:48)
--- NOTE | 2022-11-18 06:40 | NUR ---
BOY RN CLOSING NOTES PT IN BED, ASLEEP, EASILY AROUSABLE/RESPONSIVE. A/O X0, ABLE TO TALK AND MUMBLE WORDS. CONFUSED AND UNABLE TO FOLLOW COMMANDS. ON RA WITH CURRENT O2SAT OF 98%, NO S/S OF RESP DISTRESS, NO SOB, NON-LABORED AND EQUAL BREATHING. PT ATTACHED TO BEDSIDE MONITOR, SR WITH HR AT 80'S, TEJEDA INTACT AND PATENT, DRAINING CLEAR AND YELLOW URINE. NGT IN LEFT NARE AT 65 CM. JEVITY INFUSING AT 60ML/HR. SHAYY PICC IN PLACE WITH IV FLUIDS RUNNING ORDERED. RESTRAINT/SOFT WRIST/LT HAND MITTEN IN PLACE. CHECKED FOR CIRCULATION. WOUND DRESSING IS CLEAN DRY AND INTACT. ASPIRATION PRECAUTION MAINTAINED. HOB ELEVATED. SAFETY MEASURES MAINTAINED. HOB ELEVATED. CALL LIGHT WITHIN REACH, SIDE RAILS UP X3 WITH PADDING FOR SEIZURE PRECAUTION IN PLACE. ENDORSED TO DAY SHIFT NURSE FOR CONTINUITY OF CARE.
[2022-11-18 07:26] LABS: CALCIUM, SERUM 8.2 mg/dL (8.5-10.1); CREATININE 0.9 mg/dL (0.6-1.3); MAGNESIUM 2.3 mg/dL (1.8-2.4); PHOSPHORUS 2.4 mg/dL (2.5-4.9); POTASSIUM 4.4 mmol/L (3.5-5.1)
[2022-11-18 08:00] VITALS: BP 139/79
[2022-11-18 08:37] LABS: BASOPHILS # (AUTO) 0.1 K/uL (0.0-0.2); BASOPHILS % (AUTO) 0.8 % (0.0-2.0); EOSINOPHILS % (AUTO) 0.6 % (0.0-6.0); HEMATOCRIT 30 % (33-45); HEMOGLOBIN 9.7 g/dL (11.5-14.8); LYMPHOCYTES # (AUTO) 1.1 K/uL (0.8-4.8); LYMPHOCYTES % (AUTO) 15.5 % (20.0-44.0); MEAN CORPUSCULAR HGB CONC 33 g/dl (31.0-36.0); MEAN CORPUSCULAR VOLUME 96 fL (82-100); MONOCYTES # (AUTO) 0.9 K/uL (0.1-1.30); MONOCYTES % (AUTO) 11.8 % (2.0-12.0); NEUTROPHILS # (AUTO) 5.2 K/uL (1.8-8.9); NEUTROPHILS % (AUTO) 71.3 % (43.0-81.0); PLATELET COUNT (AUTO) 147 K/uL (150-450); RED BLOOD CELL COUNT(AUTO) 3.11 MIL/uL (4.0-5.2); WHITE BLOOD COUNT (AUTO) 7.3 K/uL (4.3-11.0)
[2022-11-18] MEDS: MODAFINIL 100 MG TABLET GT SCH (09:02)
[2022-11-18] MEDS: PANTOPRAZOLE 40 MG/PACK PACK GT SCH ×2 (09:02→20:18)
[2022-11-18] MEDS: LEVETIRACETAM (250 MG) 250 MG TABLET PO SCH ×2 (09:03→20:18)
[2022-11-18] MEDS: LEVOTHYROXINE SODIUM 88 MCG TABLET NG SCH (09:03)
[2022-11-18] MEDS: methylPREDNISolone SOD SUCC 40 MG/ML VIAL IV SCH (09:03)
[2022-11-18] MEDS: ENOXAPARIN SODIUM 40 MG/0.4 ML DISP.SYRIN SQ SCH (09:04)
[2022-11-18] MEDS: ARGININE/GLUTAMINE/CALCIUM BMB 1 EACH POWD.PACK GT SCH ×2 (09:14→16:50)
[2022-11-18 12:00] VITALS: BP 137/79
[2022-11-18] MEDS ORDERED: Potassium Chloride 10 MEQ in IV NS 0.9% 1,000 ML IV PRN (12:30)
[2022-11-18] MEDS: K PHOS NEUTRAL 250 MG TABLET NG SCH ×2 (12:55→16:20)
[2022-11-18 16:00] VITALS: BP 134/63
[2022-11-18] MEDS ORDERED: LEVETIRACETAM (500MG) 500 MG in IV NS 0.9% 100 ML IV SCH (17:00)
[2022-11-18] MEDS: JEVITY 1.2 CAL 1,000 ML BOTTLE GT PRN (18:17)
--- NOTE | 2022-11-18 18:39 | NUR ---
BOY RN CLOSING NOTES PT IN BED, ASLEEP, EASILY AROUSABLE/RESPONSIVE. A/O X0, ABLE TO TALK AND MUMBLE WORDS. CONFUSED AND UNABLE TO FOLLOW COMMANDS. ON RA WITH CURRENT O2SAT OF 98%, BREATHING NON LABORED PT ATTACHED TO BEDSIDE MONITOR, SR WITH HR AT 90'S, TEJEDA INTACT AND PATENT, DRAINING CLEAR AND YELLOW URINE. NGT IN LEFT NARE AT 65 CM. JEVITY INFUSING AT 60ML/HR. SHAYY PICC IN PLACE WITH IV FLUIDS RUNNING ORDERED. RESTRAINT/SOFT WRIST/LT HAND MITTEN IN PLACE. CHECKED FOR CIRCULATION. WOUND DRESSING IS CLEAN DRY AND INTACT. ASPIRATION PRECAUTION MAINTAINED. HOB ELEVATED. SAFETY MEASURES MAINTAINED. HOB ELEVATED. CALL LIGHT WITHIN REACH, SIDE RAILS UP X3 WITH PADDING FOR SEIZURE PRECAUTION IN PLACE. ENDORSED TO MEDICAL OFFICE SPECIALIST NURSE FOR CONTINUITY OF CARE.
--- NOTE | 2022-11-18 19:30 | NUR ---
BOY RN OPENING NOTES RECEIVED PT AWAKE IN BED, A LITTLE RESTLESS. A/O X0, DISORIENTED, CONFUSED, ABLE TO MUMBLE WORDS, UNABLE TO FOLLOW COMMANDS. ON RA WITH NO S/S OF SOB OR DISTRESS. ON DENTAL LABORATORY MANAGER READING SR 90. TEJEDA INTACT AND PATENT, DRAINING CLEAR AND YELLOW URINE. NGT IN LEFT NARE AT 65 CM, INFUSING AT JEVITY 60ML/HR. SHAYY PICC IN PLACE RUNNING KCL 10 MEQ IN 0.9 NS @ 75 ML/HR. RESTRAINT/SOFT WRIST/LT HAND MITTEN IN PLACE, CIRCULATION WNL. FOR NPO AT MIDNIGHT FOR SURGERY TOMORROW MORNING. SAFETY MEASURES IN PLACE CALL LIGHT WITHIN REACH, SIDE RAILS UP X3 WITH PADDING FOR SEIZURE PRECAUTION IN PLACE. WILL CONTINUE TO MONITOR AND ASSIST.
[2022-11-18 20:00] VITALS: BP 167/94
[2022-11-19] VITALS: BP_SYST 159; BP_SYST 167; BP_DIAS 78; BP_DIAS 94
[2022-11-19 04:00] VITALS: BP 147/87
[2022-11-19] MEDS: METOCLOPRAMIDE HCL 10 MG/2 ML VIAL IV SCH ×4 (04:14→22:54)
--- NOTE | 2022-11-19 06:45 | NUR ---
BOY RN CLOSING NOTES PT AWAKE IN BED, A LITTLE RESTLESS. A/O X0, DISORIENTED, CONFUSED, MUMBLES WORDS, UNABLE TO FOLLOW COMMANDS. STABLE ON RA WITH NO S/S OF SOB OR DISTRESS, O2 SAT AT 98%. ON AUTO SUSPENSION AND STEERING MECHANIC READING SR 97. TEJEDA INTACT AND PATENT, DRAINING CLEAR AND YELLOW URINE. NGT IN LEFT NARE AT [address] JEVITY TUBE FEEDING @ 60ML/HR RUNNING BUT STOPPED AT MIDNIGHT PER NPO ORDERS. SHAYY PICC IN PLACE RUNNING KCL 10 MEQ IN 0.9 NS @ 75 ML/HR. RESTRAINT/SOFT WRIST/LT HAND MITTEN IN PLACE, CIRCULATION WNL. NPO SINCE MIDNIGHT FOR SURGERY TODAY. ALL CARE PROVIDED AND MEDS TOLERATED WELL. TURNED/REPOSITIONED REGULARLY. NO TONIC-CLONIC EPISODES NOTED DURING SHIFT. SAFETY AND SEIZURE PRECAUTIONS MAINTAINED: BED LOCKED AND IN LOW POSITION, CALL LIGHT WITHIN REACH, SIDE RAILS UP X3 WITH PADDING, SUCTION EQUIPMENT SETUP. WILL ENDORSE JOSE RAUL TO DAY SHIFT NURSE.
--- NOTE | 2022-11-19 07:25 | NUR ---
BOY RN OPEN NOTES PT AWAKE IN BED, A LITTLE RESTLESS. A/O X0, DISORIENTED, CONFUSED, MUMBLES WORDS, UNABLE TO FOLLOW COMMANDS. STABLE ON RA WITH NO S/S OF SOB OR DISTRESS, O2 SAT AT 98%. ON SEAT COVERER READING SR 90. TEJEDA INTACT AND PATENT, DRAINING CLEAR AND YELLOW URINE. NGT IN LEFT NARE AT [address] JEVITY TUBE FEEDING @ 60ML/HR RUNNING BUT STOPPED AT MIDNIGHT PER NPO ORDERS. SHAYY PICC IN PLACE RUNNING KCL 10 MEQ IN 0.9 NS @ 75 ML/HR. RESTRAINT/SOFT WRIST/LT HAND MITTEN IN PLACE, CIRCULATION WNL. NPO SINCE MIDNIGHT FOR SURGERY TODAY. SAFETY AND SEIZURE PRECAUTIONS MAINTAINED: BED LOCKED AND IN LOW POSITION, CALL LIGHT WITHIN REACH, SIDE RAILS UP X3 WITH PADDING, SUCTION EQUIPMENT SETUP. WILL CONTINUE TO MONITOR
[2022-11-19 08:00] VITALS: BP 142/95
[2022-11-19] MEDS: PANTOPRAZOLE 40 MG/PACK PACK GT SCH ×2 (08:09→20:44)
[2022-11-19] MEDS: ARGININE/GLUTAMINE/CALCIUM BMB 1 EACH POWD.PACK GT SCH ×2 (08:09→16:27)
[2022-11-19] MEDS: LEVOTHYROXINE SODIUM 88 MCG TABLET NG SCH (08:10)
[2022-11-19] MEDS: methylPREDNISolone SOD SUCC 40 MG/ML VIAL IV SCH (08:10)
[2022-11-19] MEDS: LEVETIRACETAM (250 MG) 250 MG TABLET PO SCH (08:10)
[2022-11-19] MEDS: K PHOS NEUTRAL 250 MG TABLET NG SCH ×2 (08:10→16:29)
[2022-11-19] MEDS: ENOXAPARIN SODIUM 40 MG/0.4 ML DISP.SYRIN SQ SCH (08:10)
[2022-11-19] MEDS: MODAFINIL 100 MG TABLET GT SCH (08:10)
[2022-11-19] MEDS: Potassium Chloride 10 MEQ in IV NS 0.9% 1,000 ML IV SCH ×2 (08:42→21:54)
[2022-11-19 09:14] LABS: CALCIUM, SERUM 7.5 mg/dL (8.5-10.1); CREATININE 0.8 mg/dL (0.6-1.3); POTASSIUM 3.5 mmol/L (3.5-5.1)
--- NOTE | 2022-11-19 10:39 | NUR ---
BOY RN NOTE PATIENT WAS RAKEN TO THE OR FOR G TUBE PLACEMENT
[2022-11-19] MEDS ORDERED: Sodium Phosphate 15 MMOL in IV NS 0.9% 245 ML IV SCH (11:00)
[2022-11-19 12:08] VITALS: BP 112/65
[2022-11-19] MEDS: ACETAMINOPHEN 650 MG/20.3 ML UDC PO PRN (13:27)
[2022-11-19] MEDS: LORAZEPAM INJ 2 MG/ML VIAL IV PRN ×2 (13:44→22:30)
[2022-11-19 16:11] VITALS: BP 114/64
--- NOTE | 2022-11-19 18:38 | NUR ---
BOY RN CLOSING NOTES PT AWAKE IN BED, A LITTLE RESTLESS. A/O X0, DISORIENTED, CONFUSED, MUMBLES WORDS, UNABLE TO FOLLOW COMMANDS. STABLE ON RA WITH NO S/S OF SOB OR DISTRESS, O2 SAT AT 98%. ON FAMILY LAW MEDIATOR READING SR 97. TEJEDA INTACT AND PATENT, DRAINING CLEAR AND YELLOW URINE. NGT WAS REMOVED AND G TUBE P-LAC3ED TODAY , G TUBE CAN BE USEDE WAS THE MEDS ADMINISTRATION TONIGHT , IN AM CAN START JEVITY AT 40 ML /HR GOAL 60 ML/HR ZAC PICC IN PLACE RUNNING KCL 10 MEQ IN 0.9 NS @ 75 ML/HR. RESTRAINT/SOFT WRIST/LT HAND MITTEN IN PLACE, CIRCULATION WNL. NPO SINCE MIDNIGHT FOR SURGERY TODAY. ALL CARE PROVIDED AND MEDS TOLERATED WELL. TURNED/REPOSITIONED REGULARLY. SAFETY AND SEIZURE PRECAUTIONS MAINTAINED: BED LOCKED AND IN LOW POSITION, CALL LIGHT WITHIN REACH, SIDE RAILS UP X3 WITH PADDING, SUCTION EQUIPMENT SETUP. WILL ENDORSE JOSE RAUL TO PUT IN BEAT ADJUSTER NURSE.
[2022-11-19] MEDS ORDERED: LEVETIRACETAM (500MG) 750 MG in IV NS 0.9% 100 ML IV SCH (19:30)
--- NOTE | 2022-11-19 19:30 | NUR ---
DIRECTOR LEARNING SERVICES OPENING NOTE RECEIVED PATIENT IN BED; AWAKE, ALERT AND ORIENTED X 1. CONFUSED. ON ROOM AIR; TOLERATING WELL. BREATHING EVEN AND NONLABORED. NOT IN ANY FORM OF RESPIRATORY DISTRESS. ON TELEMETRY MONITORING SR HR-94 BPM. WITH IV ACCESS ON RIGHT UPPER ARM MIDLINE 18G; PATENT AND INTACT RUNNING WITH KCL 10 MEQ IN NS 1L REGULATED @ 75 ML/HR; FLUSHES WELL. WITH G-TUBE IN PLACE; PATENT, INTACT AND CLAMPED. WITH TEJEDA CATH IN PLACE DRAINING TO DENA URINE. NEEDS ATTENDED. FALL AND SAFETY PRECAUTIONS IMPLEMENTED: HEAD OF BED ELEVATED, BED ALARM ON, CALL LIGHT AND TABLE WITHIN REACH, SIDE RAILS UP X 3, BED IN LOWEST LOCKED POSITION. WILL CONTINUE TO MONITOR THROUGHOUT SHIFT.
[2022-11-19 20:00] VITALS: BP 143/78
[2022-11-19] MEDS ORDERED: LEVETIRACETAM (500MG) 500 MG/5 ML VIAL IV ONE (20:26)
[2022-11-20] VITALS: BP 155/78
--- NOTE | 2022-11-20 02:53 | NUR ---
RN NOTE BLOOD SUGAR CHECKED - 36 MG/DL. NOTIFIED DR CHIRAG BROWN @ 0309 AM WITH ORDERS TO GIVE DEXTROSE INJ 50% AND TO DO ACCU CHEK EVERY 6 HRS; WILL CARRY OUT.
[2022-11-20] MEDS ORDERED: DEXTROSE 50%-WATER 50 ML DISP.SYRIN ONE (02:55)
--- NOTE | 2022-11-20 02:56 | NUR ---
RN NOTE DEXTROSE INJ 50% GIVEN IV ORDERED; WILL CONTINUE TO MONITOR AND REASSESS PATIENT
[2022-11-20] MEDS: JEVITY 1.2 CAL 1,000 ML BOTTLE GT PRN (03:16)
[2022-11-20] MEDS ORDERED: DEXTROSE 50%-WATER 50 ML DISP.SYRIN IV PRN (03:30)
[2022-11-20] MEDS ORDERED: INSULIN REGULAR, HUMAN 100 UNIT/ML 3 ML VIAL SQ PRN (03:30)
--- NOTE | 2022-11-20 03:40 | NUR ---
RN NOTE BLOOD SUGAR RECHECKED - 83 MG/DL.
[2022-11-20 04:00] VITALS: BP 145/79
[2022-11-20] MEDS: METOCLOPRAMIDE HCL 10 MG/2 ML VIAL IV SCH ×3 (04:59→15:13)
[2022-11-20] MEDS ORDERED: LEVETIRACETAM (500MG) 750 MG in IV NS 0.9% 100 ML IV SCH (06:09)
--- NOTE | 2022-11-20 06:10 | NUR ---
RN NOTE BLOOD SUGAR CHECKED - 65 MG/DL. NO INSULIN COVERAGE GIVEN PER SLIDING SCALE. WILL CONTINUE TO MONITOR.
[2022-11-20] MEDS ORDERED: JEVITY 1.2 CAL 1,000 ML BOTTLE GT PRN (06:23)
--- NOTE | 2022-11-20 06:50 | NUR ---
EXECUTIVE WELLNESS PROGRAMS DIRECTOR CLOSING NOTE PATIENT IN BED; AWAKE, A/O X 1. CONFUSED. STABLE ON ROOM AIR. IN NO ACUTE DISTRESS. ON TELEMETRY MONITORING SR HR-74 BPM. WITH IV ACCESS ON RIGHT UPPER ARM MIDLINE 18G; PATENT AND INTACT RUNNING WITH KCL 10 MEQ IN NS 1L RUNNING @ 75 ML/HR; FLUSHES WELL. WITH G-TUBE IN PLACE; PATENT, INTACT AND CLAMPED. WITH TEJEDA CATH IN PLACE DRAINING TO DENA URINE. NEEDS ATTENDED. FALL AND SAFETY PRECAUTIONS MAINTAINED: HEAD OF BED ELEVATED, BED ALARM ON, CALL LIGHT AND TABLE WITHIN REACH, SIDE RAILS UP X 3, BED IN LOWEST LOCKED POSITION. ENDORSED TO MORNING SHIFT FOR JOSE RAUL.
--- NOTE | 2022-11-20 07:40 | NUR ---
RN NOTE BLOOD SUGAR CHECKED - 60 MG/DL. ENDORSED THE BLOOD SUGAR RESULT TO [facility] CARVER.
[2022-11-20] MEDS: BLOOD SUGAR DIAGNOSTIC 1 EACH STRIP IN SCH ×3 (07:42→17:45)
[2022-11-20 08:00] VITALS: BP 125/79
--- NOTE | 2022-11-20 08:03 | NUR ---
UTILITY PORTER OPEBNING NOTE PATIENT IN BED; AWAKE, A/O X 1. CONFUSED. STABLE ON ROOM AIR. IN NO ACUTE DISTRESS. ON TELEMETRY MONITORING SR . IV ACCESS ON RIGHT UPPER ARM MIDLINE 18G; PATENT AND INTACT . WITH G-TUBE IN PLACE; PATENT, INTACT AND CLAMPED. NO RESIDUAL VOLUME BNOTED AT THIS TIME. TEJEDA CATH IN PLACE DRAINING TO YELLOW COLOR URINE. FALL AND SAFETY PRECAUTIONS MAINTAINED: HEAD OF BED ELEVATED, BED ALARM ON, CALL LIGHT AND TABLE WITHIN REACH, SIDE RAILS UP X 3, BED IN LOWEST LOCKED POSITION.
[2022-11-20] MEDS ORDERED: LEVO88TA2 NG (08:10)
[2022-11-20] MEDS ORDERED: PANT40SU2 GT (08:10)
[2022-11-20] MEDS ORDERED: LEVE100S GT (08:10)
[2022-11-20] MEDS: ARGININE/GLUTAMINE/CALCIUM BMB 1 EACH POWD.PACK GT SCH ×2 (09:00→16:27)
[2022-11-20] MEDS: MODAFINIL 100 MG TABLET GT SCH (09:18)
[2022-11-20] MEDS: K PHOS NEUTRAL 250 MG TABLET NG SCH ×2 (09:18→16:27)
[2022-11-20] MEDS: PANTOPRAZOLE 40 MG/PACK PACK GT SCH (09:18)
[2022-11-20] MEDS: LEVOTHYROXINE SODIUM 88 MCG TABLET NG SCH (09:19)
[2022-11-20] MEDS: ENOXAPARIN SODIUM 40 MG/0.4 ML DISP.SYRIN SQ SCH (09:21)
[2022-11-20] MEDS: Potassium Chloride 10 MEQ in IV NS 0.9% 1,000 ML IV SCH (11:18)
[2022-11-20 12:00] VITALS: BP 134/79
[2022-11-20 13:03] LABS: BASOPHILS % (AUTO) 0.5 % (0.0-2.0); EOSINOPHILS % (AUTO) 0.3 % (0.0-6.0); HEMATOCRIT 25 % (33-45); HEMOGLOBIN 8.1 g/dL (11.5-14.8); LYMPHOCYTES % (AUTO) 12.8 % (20.0-44.0); MEAN CORPUSCULAR HGB CONC 32 g/dl (31.0-36.0); MEAN CORPUSCULAR VOLUME 99 fL (82-100); MONOCYTES # (AUTO) 0.9 K/uL (0.1-1.30); MONOCYTES % (AUTO) 11.9 % (2.0-12.0); NEUTROPHILS # (AUTO) 5.7 K/uL (1.8-8.9); NEUTROPHILS % (AUTO) 74.5 % (43.0-81.0); PLATELET COUNT (AUTO) 224 K/uL (150-450); RED BLOOD CELL COUNT(AUTO) 2.53 MIL/uL (4.0-5.2); WHITE BLOOD COUNT (AUTO) 7.6 K/uL (4.3-11.0)
[2022-11-20 13:12] LABS: CALCIUM, SERUM 8.1 mg/dL (8.5-10.1); CREATININE 0.8 mg/dL (0.6-1.3); POTASSIUM 3.9 mmol/L (3.5-5.1)
--- NOTE | 2022-11-20 15:09 | NUR ---
rn note called pharmacu regarding potassium chloiride. said they would send it up
--- NOTE | 2022-11-20 15:51 | NUR ---
rn note gave report to Shante W[employer] tufting supervisor at [facility]
[2022-11-20 16:00] VITALS: BP 106/61
[2022-11-20] MEDS: ACETAMINOPHEN 650 MG/20.3 ML UDC PO PRN (16:27)
[2022-11-20] MEDS ORDERED: HYDROCODONE/APAP 5/325MG TABLET PO ONE (18:00)
--- NOTE | 2022-11-20 18:26 | NUR ---
rn note pt left in stable condition. pt alert and oriented x1. removed tele monitor box, picc line and midline. kept myles cathether in due to pt incontience4. went over discharge instructions with ambulance team. verbalized understanding. all belongings with pt.picked up by ambulance.taken to [facility].
== END 2022-11-20 18:42 | DRG 130 ==
LOC: ER 20:07 → ICU 11-02 02:35 → TELE-TD 11-16 10:57 → TELE1 11-19 11:26
PROVIDERS: ADMIT Internal Medicine; ATTEND Internal Medicine
PROC: 5A1955Z Respiratory Ventilation, Greater than 96 Consecutive Hours (ICD-10-PCS; principal; 2022-11-02)
PROC: 0BH17EZ Insertion of Endotracheal Airway into Trachea, Via Natural or Artificial Opening (ICD-10-PCS; 2022-11-02)
PROC: 30233N1 Transfusion of Nonautologous Red Blood Cells into Peripheral Vein, Percutaneous Approach (ICD-10-PCS; 2022-11-02)
PROC: 02HV33Z Insertion of Infusion Device into Superior Vena Cava, Percutaneous Approach (ICD-10-PCS; 2022-11-02)
PROC: B548ZZA Ultrasonography of Superior Vena Cava, Guidance (ICD-10-PCS; 2022-11-02)
PROC: 0JB70ZZ Excision of Back Subcutaneous Tissue and Fascia, Open Approach (ICD-10-PCS; 2022-11-16)
PROC: 0DH63UZ Insertion of Feeding Device into Stomach, Percutaneous Approach (ICD-10-PCS; 2022-11-19)
PROC: 05HB33Z Insertion of Infusion Device into Right Basilic Vein, Percutaneous Approach (ICD-10-PCS; 2022-11-19)
PROC: 0JB70ZZ Excision of Back Subcutaneous Tissue and Fascia, Open Approach (ICD-10-PCS; 2022-11-20)
DX: J69.0 Pneumonitis due to inhalation of food and vomit (principal); N17.0 Acute kidney failure with tubular necrosis; G93.41 Metabolic encephalopathy; L89.153 Pressure ulcer of sacral region, stage 3; E43 Unspecified severe protein-calorie malnutrition; R57.9 Shock, unspecified; G40.901 Epilepsy, unspecified, not intractable, with status epilepticus; L89.896 Pressure-induced deep tissue damage of other site; D69.6 Thrombocytopenia, unspecified; E87.0 Hyperosmolality and hypernatremia; E87.20 Acidosis, unspecified; I96 Gangrene, not elsewhere classified; L89.626 Pressure-induced deep tissue damage of left heel; E86.0 Dehydration; J96.00 Acute respiratory failure, unspecified whether with hypoxia or hypercapnia; E86.1 Hypovolemia; Z20.822 Contact with and (suspected) exposure to COVID-19; L89.510 Pressure ulcer of right ankle, unstageable; D64.9 Anemia, unspecified; K29.70 Gastritis, unspecified, without bleeding; I69.351 Hemiplegia and hemiparesis following cerebral infarction affecting right dominant side; Z98.890 Other specified postprocedural states; Z79.899 Other long term (current) drug therapy; K21.9 Gastro-esophageal reflux disease without esophagitis; E03.9 Hypothyroidism, unspecified; E27.40 Unspecified adrenocortical insufficiency; E78.5 Hyperlipidemia, unspecified; E83.39 Other disorders of phosphorus metabolism; E83.42 Hypomagnesemia; E87.6 Hypokalemia; E88.09 Other disorders of plasma-protein metabolism, not elsewhere classified; S51.011A Laceration without foreign body of right elbow, initial encounter; X58.XXXA Exposure to other specified factors, initial encounter; Y92.9 Unspecified place or not applicable; Z79.82 Long term (current) use of aspirin; E87.1 Hypo-osmolality and hyponatremia; N18.30 Chronic kidney disease, stage 3 unspecified; I13.10 Hypertensive heart and chronic kidney disease without heart failure, with stage 1 through stage 4 chronic kidney disease, or unspecified chronic kidney disease; R13.10 Dysphagia, unspecified; J90 Pleural effusion, not elsewhere classified; Z86.11 Personal history of tuberculosis; Z96.611 Presence of right artificial shoulder joint; K56.7 Ileus, unspecified; T84.028A Dislocation of other internal joint prosthesis, initial encounter; Y92.129 Unspecified place in nursing home as the place of occurrence of the external cause; Y79.2 Prosthetic and other implants, materials and accessory orthopedic devices associated with adverse incidents
CPT/HCPCS: 31720; 36415; 36600; 70450-TC; 71045-TC; 73630-TC; 74018; 80048-TC; 80053-TC; 80076-TC; 80177; 80185-TC; 82140-TC; 82272-TC; 82533; 82803-TC; 82962-TC; 83605-TC; 83735-TC; 84100-TC; 84443-TC; 84478-TC; 84484-TC; 85025-TC; 85730-TC; 86850-TC; 87040-TC; 87081-TC; 87086-TC; 92526; 92611-TC; 94002-TC; 94003-TC; 94640-TC; 94799-TC; 95819-TC; A4223; A6253; A6403; A9563; C9113; C9803; G0378; G0480; J0690; J0692; J1165; J1650; J1815; J1953; J2060; J2250; J2310; J2405; J2543; J2704; J2765; J2920; J3370; J3475; J3480; J3490; J7030; J7040; J7050; J7060; J7070; P9016

== ENCOUNTER 2023-02-09 13:31 | Inpatient (IN) | payer MEDICAID ==
[~2023-02-09] VITALS: Ht 154.9 cm; Wt 68.5 kg
[2023-02-09] VITALS (19 sets, daily range): BP systolic 44–141; BP diastolic 34–94; TEMP 94.8–95.5; O2SAT 100
[~2023-02-09 13:31] MED LIST changes: +LEVE100S GT; -LEVE500T9 PO; -LEVO250T59 PO; -LEVO25TA7 PO; +LEVO88TA2 NG; +PANT40SU2 GT; -PANT40TA2 PO
[2023-02-09] MEDS ORDERED: CLON0.5T4 GT (13:59)
[2023-02-09] MEDS ORDERED: LEVE100S GT (13:59)
[2023-02-09] MEDS ORDERED: ASPI-1169 GT (13:59)
[2023-02-09] MEDS ORDERED: PREG50CA GT (13:59)
[2023-02-09] MEDS ORDERED: LACT-96 GT (13:59)
[2023-02-09] MEDS ORDERED: AMLO2.5T4 GT (13:59)
[2023-02-09] MEDS ORDERED: IV NS 0.9% 1,000 ML BAG IV ONE (14:00)
[2023-02-09] MEDS ORDERED: ROCURONIUM BROMIDE 50 MG/5 ML IV ONE (14:00)
[2023-02-09] MEDS ORDERED: ETOMIDATE 2 MG/ML VIAL IV ONE (14:00)
[2023-02-09] MEDS ORDERED: PROPOFOL 100 ML IV ONE (14:30)
[2023-02-09] MEDS ORDERED: PROPOFOL 100 ML ONE (14:43)
[2023-02-09 15:08] LABS: EOSINOPHILS % (AUTO) 0.1 % (0.0-6.0); HEMATOCRIT 29 % (33-45); HEMOGLOBIN 9.3 g/dL (11.5-14.8); LYMPHOCYTES # (AUTO) 0.3 K/uL (0.8-4.8); LYMPHOCYTES % (AUTO) 5.4 % (20.0-44.0); MEAN CORPUSCULAR HEMOGLOBIN 29 PG (26.0-33.0); MEAN CORPUSCULAR HGB CONC 32 g/dl (31.0-36.0); MEAN CORPUSCULAR VOLUME 90 fL (82-100); MONOCYTES # (AUTO) 0.1 K/uL (0.1-1.30); MONOCYTES % (AUTO) 1.3 % (2.0-12.0); NEUTROPHILS # (AUTO) 5.1 K/uL (1.8-8.9); NEUTROPHILS % (AUTO) 93.2 % (43.0-81.0); PLATELET COUNT (AUTO) 132 K/uL (150-450); RED CELL DISTRIBUTION WIDTH 17.5 % (11.5-15.0); WHITE BLOOD COUNT (AUTO) 5.4 K/uL (4.3-11.0)
[2023-02-09 15:21] LABS: CALCIUM, SERUM 8.9 mg/dL (8.5-10.1); CARBON DIOXIDE 30 mmol/L (21-32); CHLORIDE 88 mmol/L (98-107); CREATININE 0.7 mg/dL (0.6-1.3); GLUCOSE 91 mg/dL (74-106); POTASSIUM 3.4 mmol/L (3.5-5.1); SODIUM SERUM 124 mmol/L (136-145); UREA NITROGEN, BLOOD 22 mg/dL (7-18)
[2023-02-09 15:26] LABS: LACTIC ACID 1.8 mmol/L (0.4-2.0)
[2023-02-09] MEDS ORDERED: AZITHROMYCIN 500 MG in IV D5W 250 ML IV ONE (15:30)
[2023-02-09] MEDS ORDERED: CEFTRIAXONE 1GM BAG (ER ONLY) 1 GM/50 ML PIGGYBACK IV ONE (15:30)
[2023-02-09 15:33] LABS: INR 1.07 (0.91-1.10); PARTIAL THROMBOPLASTIN TIME 38.9 SEC (24.3-34.3); PROTHROMBIN TIME 11.2 SECS (9.2-11.1)
[2023-02-09 15:35] LABS: ALANINE AMINOTRANSFERASE 26 U/L (12-78); ALBUMIN 1.7 g/dL (3.4-5.0); ALKALINE PHOSPHATASE 90 U/L (46-116); ASPARTATE AMINOTRANSFERASE 29 U/L (15-37); BILIRUBIN,DIRECT 0.1 mg/dL (0.0-0.2); BILIRUBIN,TOTAL 0.2 mg/dL (0.2-1.0); NT-PRO BNP 180 pg/mL (0-125); TOTAL PROTEIN, SERUM 6.4 g/dL (6.4-8.2)
[2023-02-09] MEDS ORDERED: CEFTRIAXONE 1GM BAG (ER ONLY) 50 ML IV ONE (15:35)
[2023-02-09 15:39] LABS: APPEARANCE,URINE SLIGHTLY CLOUDY (CLEAR); BILIRUBIN,URINE NEGATIVE (NEGATIVE); BLOOD, URINE 1+ Ery/uL (NEGATIVE); COLOR,URINE YELLOW (YELLOW); KETONES,URINE NEGATIVE (NEGATIVE); LEUKOCYTE ESTERASE ,URINE 3+ (NEGATIVE); NITRITE, URINE NEGATIVE (NEGATIVE); PROTEIN,URINE 1+ mg/dl (NEGATIVE); UGLUCOSE NEGATIVE (NEGATIVE)
[2023-02-09 15:45] LABS: ABG OXYGEN SATURATION 99.7 % (92.0-98.5); ABG PCO2 34.2 mmHg (35.0-45.0); ABG PH 7.553 (7.350-7.450); ABG PO2 436.5 mmHg (75.0-100.0); ABG TOTAL HEMOGLOBIN 10.8 G/dL (12.0-16.0); AaDO2 242.3 mmHg; COHb 0.3 % (0.5-1.5); MetHb 0.3 % (0.0-1.5); O2Hb 99.1 % (94.0-97.0); SITE, ABG Left Femoral; VENT MODE, BG AC 16 450 100% +5
[2023-02-09 16:17] LABS: ADD URINE CULTURE YES; BACTERIA,URINE 3+ /HPF (None Seen); WBC,URINE 51-80 /HPF (0-3); YEAST,URINE Few /HPF (None Seen)
[2023-02-09] MEDS ORDERED: IV NS 0.9% 1,000 ML IV ONE (16:30)
[2023-02-09 17:00] LABS: ANISOCYTOSIS 1+; BAND % (MANUAL) 14 % (0.0-5.0); EOSINOPHILS % (MANUAL) 2 % (0-4); LYMPHOCYTES % (MANUAL) 4 % (16-48); MONOCYTES % (MANUAL) 3 % (0-11.0); MYELOCYTES % 1 % (0-0); NEUTROPHILS % (MANUAL) 76 (42-76); PLATELET ESTIMATE DECREASED
[2023-02-09] MEDS ORDERED: HEPARIN SODIUM, PORCINE 5000 UNITS/1 ML VIAL SQ ONE (17:00)
[2023-02-09] MEDS ORDERED: NOREPINEPHRINE 8 MG in IV NS 0.9% 242 ML IV PRN (17:00)
[2023-02-09 17:01] LABS: TARGET CELLS 1+
[2023-02-09] MEDS ORDERED: LEVETIRACETAM (500MG) 500 MG/5 ML VIAL IV ONE (17:05)
[2023-02-09] MEDS: LEVETIRACETAM SOL (5 ML) 100 MG/ML UDC GT SCH (17:14)
[2023-02-09] MEDS: IV NS 0.9% 1,000 ML IV SCH (18:01)
[2023-02-09] MEDS: MIDODRINE HCL (5MG) 5 MG TABLET PEG SCH (18:51)
[2023-02-09] MEDS: PANTOPRAZOLE 40 MG VIAL IV SCH (18:51)
[2023-02-09] MEDS: PIPERACILLIN /TAZOBACTAM 3.375 G in IV D5W 50 ML IV SCH ×2 (18:51→22:56)
[2023-02-09] MEDS ORDERED: NOREPINEPHRINE 8MG/250ML RTU 250 ML IV ONE (19:18)
[2023-02-09] MEDS: NOREPINEPHRINE 8 MG in IV NS 0.9% 242 ML IV PRN (19:33)
[2023-02-10] VITALS (62 sets, daily range): BP systolic 67–150; BP diastolic 18–85; TEMP 94.8–98.2; O2SAT 100
[2023-02-10] MEDS: IV NS 0.9% 1,000 ML IV SCH ×2 (04:27→12:02)
[2023-02-10] MEDS: PROPOFOL 100 ML IV PRN ×2 (04:28→15:09)
[2023-02-10] MEDS: NOREPINEPHRINE 8 MG in IV NS 0.9% 242 ML IV PRN ×3 (04:28→16:55)
[2023-02-10] MEDS: PIPERACILLIN /TAZOBACTAM 3.375 G in IV D5W 50 ML IV SCH ×3 (05:04→17:08)
[2023-02-10 05:12] LABS: BASOPHILS % (AUTO) 0.1 % (0.0-2.0); EOSINOPHILS % (AUTO) 0.1 % (0.0-6.0); HEMATOCRIT 27 % (33-45); HEMOGLOBIN 8.8 g/dL (11.5-14.8); LYMPHOCYTES # (AUTO) 0.3 K/uL (0.8-4.8); LYMPHOCYTES % (AUTO) 3.6 % (20.0-44.0); MEAN CORPUSCULAR HEMOGLOBIN 29 PG (26.0-33.0); MEAN CORPUSCULAR HGB CONC 33 g/dl (31.0-36.0); MEAN CORPUSCULAR VOLUME 89 fL (82-100); MONOCYTES # (AUTO) 0.2 K/uL (0.1-1.30); MONOCYTES % (AUTO) 1.8 % (2.0-12.0); NEUTROPHILS # (AUTO) 8.7 K/uL (1.8-8.9); NEUTROPHILS % (AUTO) 94.4 % (43.0-81.0); PLATELET COUNT (AUTO) 152 K/uL (150-450); RED CELL DISTRIBUTION WIDTH 17.5 % (11.5-15.0); WHITE BLOOD COUNT (AUTO) 9.3 K/uL (4.3-11.0)
[2023-02-10 05:25] LABS: CALCIUM, SERUM 8.5 mg/dL (8.5-10.1); CARBON DIOXIDE 27 mmol/L (21-32); CHLORIDE 91 mmol/L (98-107); GLUCOSE 108 mg/dL (74-106); POTASSIUM 3.6 mmol/L (3.5-5.1); SODIUM SERUM 127 mmol/L (136-145); UREA NITROGEN, BLOOD 23 mg/dL (7-18)
[2023-02-10 05:33] LABS: LACTIC ACID 3.8 mmol/L (0.4-2.0)
[2023-02-10 05:38] LABS: ALANINE AMINOTRANSFERASE 24 U/L (12-78); ALBUMIN 1.6 g/dL (3.4-5.0); ALKALINE PHOSPHATASE 109 U/L (46-116); ASPARTATE AMINOTRANSFERASE 28 U/L (15-37); BILIRUBIN,TOTAL 0.2 mg/dL (0.2-1.0); TOTAL PROTEIN, SERUM 6.5 g/dL (6.4-8.2)
[2023-02-10] MEDS ORDERED: ROCURONIUM BROMIDE 50 MG/5 ML IV ONE (07:18)
[2023-02-10] MEDS ORDERED: ETOMIDATE 2 MG/ML VIAL IV ONE (07:18)
[2023-02-10] MEDS: ENSURE CLEAR 237 ML LIQUID (MIX BERRY) GT SCH ×2 (09:00→12:22)
[2023-02-10] MEDS: LEVETIRACETAM SOL (5 ML) 100 MG/ML UDC GT SCH ×2 (09:22→17:24)
[2023-02-10] MEDS: MIDODRINE HCL (5MG) 5 MG TABLET PEG SCH ×3 (09:23→17:23)
[2023-02-10] MEDS: ASPIRIN 81 MG TAB.CHEW GT SCH (09:23)
[2023-02-10] MEDS: PANTOPRAZOLE 40 MG VIAL IV SCH (09:23)
[2023-02-10 09:49] LABS: ABG BASE EXCESS 1.4 mmol/L; ABG OXYGEN SATURATION 97.7 % (92.0-98.5); ABG PCO2 38.7 mmHg (35.0-45.0); ABG PH 7.438 (7.350-7.450); ABG PO2 101.1 mmHg (75.0-100.0); ABG TOTAL HEMOGLOBIN 10.3 G/dL (12.0-16.0); AaDO2 139.6 mmHg; MetHb 0.4 % (0.0-1.5); O2Hb 97.3 % (94.0-97.0); PEEP,BG 5 cm H2O; SITE, ABG Left Radial; VT, ABG 450 mL
[2023-02-10] MEDS ORDERED: JEVITY 1.2 CAL 1,000 ML BOTTLE GT PRN (12:00)
[2023-02-10] MEDS: ALBUTEROL FS 2.5 MG/3 ML VIAL.NEB NEB SCH ×2 (13:30→20:05)
[2023-02-10] MEDS: IPRATROPIUM NEB FS 0.5 MG/2.5 ML AMPUL.NEB NEB SCH ×2 (13:30→20:01)
[2023-02-10] MEDS: Z GUARD REMEDY 4 OZ OINT TP SCH ×2 (15:08→22:41)
[2023-02-11] VITALS (51 sets, daily range): BP systolic 63–181; BP diastolic 44–103; TEMP 98–98.8; O2SAT 95–100
[2023-02-11] MEDS: PIPERACILLIN /TAZOBACTAM 3.375 G in IV D5W 50 ML IV SCH ×5 (00:07→23:53)
[2023-02-11] MEDS: PROPOFOL 100 ML IV PRN ×2 (00:07→12:09)
[2023-02-11] MEDS: IV NS 0.9% 1,000 ML IV SCH ×2 (00:07→10:02)
[2023-02-11] MEDS: NOREPINEPHRINE 8 MG in IV NS 0.9% 242 ML IV PRN ×2 (00:09→06:31)
[2023-02-11] MEDS: ALBUTEROL FS 2.5 MG/3 ML VIAL.NEB NEB SCH ×4 (01:10→20:03)
[2023-02-11] MEDS: IPRATROPIUM NEB FS 0.5 MG/2.5 ML AMPUL.NEB NEB SCH ×4 (01:10→20:03)
[2023-02-11 05:05] LABS: ABG OXYGEN SATURATION 97.6 % (92.0-98.5); ABG PCO2 30.5 mmHg (35.0-45.0); ABG PH 7.508 (7.350-7.450); ABG TOTAL HEMOGLOBIN 9.1 G/dL (12.0-16.0); AaDO2 154.1 mmHg; COHb 0.5 % (0.5-1.5); MetHb 0.5 % (0.0-1.5); O2Hb 96.6 % (94.0-97.0); PEEP,BG 5 cm H2O; SITE, ABG Left Radial; VENT MODE, BG AC 20; VT, ABG 450 mL
[2023-02-11 05:24] LABS: EOSINOPHILS # (AUTO) 0.9 K/uL (0.0-0.7); EOSINOPHILS % (AUTO) 5.9 % (0.0-6.0); HEMATOCRIT 25 % (33-45); LYMPHOCYTES # (AUTO) 0.2 K/uL (0.8-4.8); LYMPHOCYTES % (AUTO) 1.7 % (20.0-44.0); MEAN CORPUSCULAR HEMOGLOBIN 29 PG (26.0-33.0); MEAN CORPUSCULAR HGB CONC 32 g/dl (31.0-36.0); MEAN CORPUSCULAR VOLUME 90 fL (82-100); MONOCYTES # (AUTO) 0.7 K/uL (0.1-1.30); MONOCYTES % (AUTO) 5.1 % (2.0-12.0); NEUTROPHILS # (AUTO) 12.8 K/uL (1.8-8.9); NEUTROPHILS % (AUTO) 87.3 % (43.0-81.0); PLATELET COUNT (AUTO) 123 K/uL (150-450); RED CELL DISTRIBUTION WIDTH 18.2 % (11.5-15.0); WHITE BLOOD COUNT (AUTO) 14.6 K/uL (4.3-11.0)
[2023-02-11 05:34] LABS: CALCIUM, SERUM 8.9 mg/dL (8.5-10.1); CARBON DIOXIDE 25 mmol/L (21-32); CHLORIDE 98 mmol/L (98-107); CREATININE 1.1 mg/dL (0.6-1.3); GLUCOSE 207 mg/dL (74-106); MAGNESIUM 1.8 mg/dL (1.8-2.4); SODIUM SERUM 134 mmol/L (136-145); UREA NITROGEN, BLOOD 20 mg/dL (7-18)
[2023-02-11 05:53] LABS: LACTIC ACID 3.8 mmol/L (0.4-2.0)
[2023-02-11 06:12] LABS: POTASSIUM 2.8 mmol/L (3.5-5.1)
[2023-02-11 08:27] LABS: BILIRUBIN,DIRECT 0.2 mg/dL (0.0-0.2)
[2023-02-11] MEDS: PANTOPRAZOLE 40 MG VIAL IV SCH (08:28)
[2023-02-11] MEDS: ASPIRIN 81 MG TAB.CHEW GT SCH (08:28)
[2023-02-11] MEDS: POTASSIUM CHLORIDE 20 MEQ POWDER PACKET NG SCH ×3 (08:29→10:35)
[2023-02-11] MEDS: Z GUARD REMEDY 4 OZ OINT TP SCH ×2 (08:33→21:23)
[2023-02-11] MEDS: MIDODRINE HCL (5MG) 5 MG TABLET PEG SCH ×3 (08:33→17:56)
[2023-02-11 08:35] LABS: LACTIC ACID REFLEX 3.6 mmol/L (0.4-1.9)
[2023-02-11] MEDS: LEVETIRACETAM SOL (5 ML) 100 MG/ML UDC GT SCH ×2 (10:35→17:56)
[2023-02-12] VITALS (60 sets, daily range): BP systolic 85–153; BP diastolic 53–111; TEMP 92.3–97.9; O2SAT 98–100
[2023-02-12] MEDS: ALBUTEROL FS 2.5 MG/3 ML VIAL.NEB NEB SCH ×4 (01:32→20:00)
[2023-02-12] MEDS: IPRATROPIUM NEB FS 0.5 MG/2.5 ML AMPUL.NEB NEB SCH ×4 (01:32→20:00)
[2023-02-12] MEDS: IV NS 0.9% 1,000 ML IV SCH ×2 (03:01→06:48)
[2023-02-12 04:45] LABS: BASOPHILS % (AUTO) 0.1 % (0.0-2.0); EOSINOPHILS # (AUTO) 0.1 K/uL (0.0-0.7); EOSINOPHILS % (AUTO) 0.8 % (0.0-6.0); LYMPHOCYTES # (AUTO) 0.8 K/uL (0.8-4.8); LYMPHOCYTES % (AUTO) 7.5 % (20.0-44.0); MEAN CORPUSCULAR HEMOGLOBIN 29 PG (26.0-33.0); MEAN CORPUSCULAR HGB CONC 33 g/dl (31.0-36.0); MEAN CORPUSCULAR VOLUME 89 fL (82-100); MONOCYTES # (AUTO) 0.3 K/uL (0.1-1.30); MONOCYTES % (AUTO) 2.7 % (2.0-12.0); NEUTROPHILS # (AUTO) 9.7 K/uL (1.8-8.9); NEUTROPHILS % (AUTO) 88.9 % (43.0-81.0); PLATELET COUNT (AUTO) 83 K/uL (150-450); RED BLOOD CELL COUNT(AUTO) 2.28 MIL/uL (4.0-5.2); RED CELL DISTRIBUTION WIDTH 18.3 % (11.5-15.0); WHITE BLOOD COUNT (AUTO) 10.9 K/uL (4.3-11.0)
[2023-02-12 04:56] LABS: CREATININE 0.7 mg/dL (0.6-1.3); POTASSIUM 3.3 mmol/L (3.5-5.1)
[2023-02-12 06:14] LABS: HEMATOCRIT 20 % (33-45)
[2023-02-12 06:16] LABS: HEMOGLOBIN 6.7 g/dL (11.5-14.8)
[2023-02-12] MEDS: PIPERACILLIN /TAZOBACTAM 3.375 G in IV D5W 50 ML IV SCH ×4 (06:16→23:06)
[2023-02-12] MEDS: LEVETIRACETAM SOL (5 ML) 100 MG/ML UDC GT SCH ×2 (08:21→16:46)
[2023-02-12] MEDS: ASPIRIN 81 MG TAB.CHEW GT SCH (08:21)
[2023-02-12] MEDS: MIDODRINE HCL (5MG) 5 MG TABLET PEG SCH ×3 (08:21→16:47)
[2023-02-12] MEDS: Z GUARD REMEDY 4 OZ OINT TP SCH ×2 (08:23→22:01)
[2023-02-12] MEDS ORDERED: POTASSIUM CHLORIDE 20 MEQ TAB.PRT.SR PO ONE (08:30)
[2023-02-12] MEDS ORDERED: PANTOPRAZOLE 40 MG/PACK PACK NG SCH (09:00)
[2023-02-12] MEDS ORDERED: JEVITY 1.2 CAL 1,000 ML BOTTLE GT PRN (09:00)
[2023-02-12] MEDS ORDERED: POTASSIUM CHLORIDE 20 MEQ POWDER PACKET GT ONE (09:00)
[2023-02-12] MEDS: PROSOURCE / PROSTAT (PYXIS) 30 ML UDC GT SCH (09:10)
[2023-02-12] MEDS: Potassium Chloride 20 MEQ in IV NS 0.9% 1,000 ML IV SCH (09:31)
[2023-02-12] MEDS: NOREPINEPHRINE 8 MG in IV NS 0.9% 242 ML IV PRN (12:13)
[2023-02-12] MEDS: FLUCONAZOLE IN NS,PREMIX 200 MG in PREMIX 1 EA IV SCH ×2 (12:44)
[2023-02-12 13:23] LABS: ANISOCYTOSIS 1+; BASOPHILS % (MANUAL) 0 % (0.0-2.0); EOSINOPHILS % (MANUAL) 0 % (0-4); LYMPHOCYTES % (MANUAL) 9 % (16-48); MONOCYTES % (MANUAL) 5 % (0-11.0); NEUTROPHILS % (MANUAL) 86 (42-76); PLATELET ESTIMATE DECREASED
[2023-02-13] VITALS (35 sets, daily range): BP systolic 92–153; BP diastolic 62–97; TEMP 97.1–98.5; O2SAT 99–100
[2023-02-13] MEDS: ALBUTEROL FS 2.5 MG/3 ML VIAL.NEB NEB SCH ×4 (01:47→19:48)
[2023-02-13] MEDS: IPRATROPIUM NEB FS 0.5 MG/2.5 ML AMPUL.NEB NEB SCH ×4 (01:47→19:48)
[2023-02-13 04:44] LABS: BASOPHILS % (AUTO) 0.1 % (0.0-2.0); EOSINOPHILS % (AUTO) 0.1 % (0.0-6.0); HEMATOCRIT 29 % (33-45); HEMOGLOBIN 9.5 g/dL (11.5-14.8); LYMPHOCYTES # (AUTO) 0.6 K/uL (0.8-4.8); LYMPHOCYTES % (AUTO) 5.5 % (20.0-44.0); MEAN CORPUSCULAR HEMOGLOBIN 29 PG (26.0-33.0); MEAN CORPUSCULAR HGB CONC 33 g/dl (31.0-36.0); MEAN CORPUSCULAR VOLUME 87 fL (82-100); MONOCYTES # (AUTO) 0.3 K/uL (0.1-1.30); NEUTROPHILS # (AUTO) 9.8 K/uL (1.8-8.9); NEUTROPHILS % (AUTO) 91.3 % (43.0-81.0); PLATELET COUNT (AUTO) 70 K/uL (150-450); RED BLOOD CELL COUNT(AUTO) 3.33 MIL/uL (4.0-5.2); RED CELL DISTRIBUTION WIDTH 20.2 % (11.5-15.0); WHITE BLOOD COUNT (AUTO) 10.8 K/uL (4.3-11.0)
[2023-02-13] MEDS: Potassium Chloride 20 MEQ in IV NS 0.9% 1,000 ML IV SCH (05:09)
[2023-02-13] MEDS: PIPERACILLIN /TAZOBACTAM 3.375 G in IV D5W 50 ML IV SCH (05:09)
[2023-02-13 05:10] LABS: CALCIUM, SERUM 8.9 mg/dL (8.5-10.1); CREATININE 0.7 mg/dL (0.6-1.3)
[2023-02-13 05:40] LABS: BAND % (MANUAL) 1 % (0.0-5.0); EOSINOPHILS % (MANUAL) 1 % (0-4); LYMPHOCYTES % (MANUAL) 7 % (16-48); MYELOCYTES % 3 % (0-0); NEUTROPHILS % (MANUAL) 88 (42-76)
[2023-02-13 05:41] LABS: PLATELET ESTIMATE DECREASED
[2023-02-13] MEDS: LEVETIRACETAM SOL (5 ML) 100 MG/ML UDC GT SCH ×2 (08:30→16:40)
[2023-02-13] MEDS: MIDODRINE HCL (5MG) 5 MG TABLET PEG SCH ×3 (08:31→16:41)
[2023-02-13] MEDS: PROSOURCE / PROSTAT (PYXIS) 30 ML UDC GT SCH (08:31)
[2023-02-13] MEDS: PANTOPRAZOLE 40 MG/PACK PACK NG SCH ×2 (08:31→20:37)
[2023-02-13] MEDS: ASPIRIN 81 MG TAB.CHEW GT SCH (08:31)
[2023-02-13] MEDS: Z GUARD REMEDY 4 OZ OINT TP SCH ×2 (08:32→21:31)
[2023-02-13] MEDS: FLUCONAZOLE IN NS,PREMIX 200 MG in PREMIX 1 EA IV SCH ×2 (12:13)
[2023-02-13] MEDS: PIPERACILLIN /TAZOBACTAM 3.375 G in IV D5W 100 ML IV SCH ×2 (13:08→20:37)
[2023-02-13] MEDS: THERAHONEY GEL 1.5 OZ TUBE TP SCH (21:30)
[2023-02-14] VITALS (24 sets, daily range): BP systolic 102–154; BP diastolic 68–98; TEMP 96–99.3; O2SAT 99–100
[2023-02-14] MEDS: IPRATROPIUM NEB FS 0.5 MG/2.5 ML AMPUL.NEB NEB SCH ×4 (01:21→19:24)
[2023-02-14] MEDS: ALBUTEROL FS 2.5 MG/3 ML VIAL.NEB NEB SCH ×4 (01:22→19:24)
[2023-02-14 04:01] LABS: BASOPHILS # (AUTO) 0.1 K/uL (0.0-0.2); BASOPHILS % (AUTO) 1.7 % (0.0-2.0); EOSINOPHILS # (AUTO) 0.1 K/uL (0.0-0.7); EOSINOPHILS % (AUTO) 0.9 % (0.0-6.0); HEMATOCRIT 29 % (33-45); HEMOGLOBIN 9.3 g/dL (11.5-14.8); LYMPHOCYTES # (AUTO) 0.3 K/uL (0.8-4.8); LYMPHOCYTES % (AUTO) 3.7 % (20.0-44.0); MEAN CORPUSCULAR HEMOGLOBIN 28 PG (26.0-33.0); MEAN CORPUSCULAR HGB CONC 32 g/dl (31.0-36.0); MEAN CORPUSCULAR VOLUME 87 fL (82-100); MONOCYTES # (AUTO) 0.3 K/uL (0.1-1.30); MONOCYTES % (AUTO) 3.9 % (2.0-12.0); NEUTROPHILS # (AUTO) 7.6 K/uL (1.8-8.9); NEUTROPHILS % (AUTO) 89.8 % (43.0-81.0); PLATELET COUNT (AUTO) 60 K/uL (150-450); RED BLOOD CELL COUNT(AUTO) 3.31 MIL/uL (4.0-5.2); RED CELL DISTRIBUTION WIDTH 20.3 % (11.5-15.0); WHITE BLOOD COUNT (AUTO) 8.5 K/uL (4.3-11.0)
[2023-02-14 04:14] LABS: CALCIUM, SERUM 9.2 mg/dL (8.5-10.1); CREATININE 0.9 mg/dL (0.6-1.3); POTASSIUM 4.2 mmol/L (3.5-5.1)
[2023-02-14 04:42] LABS: BAND % (MANUAL) 3 % (0.0-5.0); EOSINOPHILS % (MANUAL) 1 % (0-4); LYMPHOCYTES % (MANUAL) 9 % (16-48); MONOCYTES % (MANUAL) 2 % (0-11.0); NEUTROPHILS % (MANUAL) 85 (42-76)
[2023-02-14 04:43] LABS: ANISOCYTOSIS 1+; PLATELET ESTIMATE DECREASED; TARGET CELLS 1+
[2023-02-14] MEDS: PIPERACILLIN /TAZOBACTAM 3.375 G in IV D5W 100 ML IV SCH (04:53)
[2023-02-14] MEDS ORDERED: IV D5/0.45 NACL 1,000 ML IV ONE (07:30)
[2023-02-14] MEDS: MIDODRINE HCL (5MG) 5 MG TABLET PEG SCH ×3 (08:18→16:28)
[2023-02-14] MEDS: ASPIRIN 81 MG TAB.CHEW GT SCH (08:26)
[2023-02-14] MEDS: PROSOURCE / PROSTAT (PYXIS) 30 ML UDC GT SCH (08:26)
[2023-02-14] MEDS: LEVETIRACETAM SOL (5 ML) 100 MG/ML UDC GT SCH ×2 (08:26→16:28)
[2023-02-14] MEDS: METOCLOPRAMIDE HCL 10 MG/2 ML VIAL IV SCH ×3 (08:26→21:13)
[2023-02-14] MEDS: PANTOPRAZOLE 40 MG/PACK PACK NG SCH ×2 (08:26→21:17)
[2023-02-14] MEDS: Z GUARD REMEDY 4 OZ OINT TP SCH ×2 (08:27→21:21)
[2023-02-14] MEDS: THERAHONEY GEL 1.5 OZ TUBE TP SCH (08:28)
[2023-02-14] MEDS ORDERED: CEFEPIME 1 GM in IV D5W 50 ML IV SCH (08:30)
[2023-02-14] MEDS: CEFEPIME 2 GM in IV D5W 100 ML IV SCH ×2 (09:00→21:17)
[2023-02-14 10:02] LABS: ABG BASE EXCESS -1.7 mmol/L; ABG OXYGEN SATURATION 98.2 % (92.0-98.5); ABG PCO2 30.2 mmHg (35.0-45.0); ABG PH 7.465 (7.350-7.450); ABG TOTAL HEMOGLOBIN 11.2 G/dL (12.0-16.0); AaDO2 64.4 mmHg; COHb 0.3 % (0.5-1.5); MetHb 0.4 % (0.0-1.5); O2Hb 97.5 % (94.0-97.0); PEEP,BG 5 cm H2O; SITE, ABG Right Brachial; VENT MODE, BG SIMV 4 / PS 15; VT, ABG 425 mL
[2023-02-14] MEDS: METRONIDAZOLE 500MG/ NS 100ML 500 MG in PREMIX 1 EA IV SCH ×3 (12:10→23:59)
[2023-02-14] MEDS: FLUCONAZOLE IN NS,PREMIX 200 MG in PREMIX 1 EA IV SCH ×2 (13:26)
[2023-02-15] VITALS (20 sets, daily range): BP systolic 115–152; BP diastolic 67–95; TEMP 96–97.8; O2SAT 100
[2023-02-15] MEDS: ALBUTEROL FS 2.5 MG/3 ML VIAL.NEB NEB SCH ×4 (01:09→19:31)
[2023-02-15] MEDS: IPRATROPIUM NEB FS 0.5 MG/2.5 ML AMPUL.NEB NEB SCH ×4 (01:09→19:31)
[2023-02-15] MEDS: METOCLOPRAMIDE HCL 10 MG/2 ML VIAL IV SCH ×4 (02:50→20:23)
[2023-02-15 03:13] LABS: BASOPHILS % (AUTO) 0.2 % (0.0-2.0); EOSINOPHILS # (AUTO) 0.1 K/uL (0.0-0.7); HEMATOCRIT 30 % (33-45); HEMOGLOBIN 9.6 g/dL (11.5-14.8); LYMPHOCYTES # (AUTO) 0.7 K/uL (0.8-4.8); LYMPHOCYTES % (AUTO) 8.6 % (20.0-44.0); MEAN CORPUSCULAR HEMOGLOBIN 28 PG (26.0-33.0); MEAN CORPUSCULAR HGB CONC 32 g/dl (31.0-36.0); MEAN CORPUSCULAR VOLUME 88 fL (82-100); MONOCYTES # (AUTO) 0.3 K/uL (0.1-1.30); MONOCYTES % (AUTO) 4.3 % (2.0-12.0); NEUTROPHILS # (AUTO) 6.9 K/uL (1.8-8.9); NEUTROPHILS % (AUTO) 85.9 % (43.0-81.0); PLATELET COUNT (AUTO) 53 K/uL (150-450); RED BLOOD CELL COUNT(AUTO) 3.41 MIL/uL (4.0-5.2); RED CELL DISTRIBUTION WIDTH 20.6 % (11.5-15.0)
[2023-02-15 03:48] LABS: EOSINOPHILS % (MANUAL) 1 % (0-4); LYMPHOCYTES % (MANUAL) 8 % (16-48); MONOCYTES % (MANUAL) 2 % (0-11.0); NEUTROPHILS % (MANUAL) 89 (42-76); PLATELET ESTIMATE DECREASED
[2023-02-15 03:49] LABS: ALBUMIN 1.5 g/dL (3.4-5.0); BILIRUBIN,TOTAL 0.4 mg/dL (0.2-1.0); CALCIUM, SERUM 8.8 mg/dL (8.5-10.1); CREATININE 0.7 mg/dL (0.6-1.3); POTASSIUM 3.3 mmol/L (3.5-5.1); TOTAL PROTEIN, SERUM 6.5 g/dL (6.4-8.2)
[2023-02-15] MEDS: METRONIDAZOLE 500MG/ NS 100ML 500 MG in PREMIX 1 EA IV SCH ×3 (05:25→18:08)
[2023-02-15] MEDS: POTASSIUM CL. PREMIX PERIPHER. 50 ML IV SCH ×2 (08:20→09:13)
[2023-02-15] MEDS: ASPIRIN 81 MG TAB.CHEW GT SCH (08:21)
[2023-02-15] MEDS: PROSOURCE / PROSTAT (PYXIS) 30 ML UDC GT SCH (08:21)
[2023-02-15] MEDS: LEVETIRACETAM SOL (5 ML) 100 MG/ML UDC GT SCH ×2 (08:21→18:08)
[2023-02-15] MEDS: PANTOPRAZOLE 40 MG/PACK PACK NG SCH ×2 (08:21→20:24)
[2023-02-15] MEDS: MIDODRINE HCL (5MG) 5 MG TABLET PEG SCH (08:30)
[2023-02-15] MEDS ORDERED: POTASSIUM CHLORIDE 20 MEQ TAB.PRT.SR PO ONE (09:00)
[2023-02-15] MEDS: THERAHONEY GEL 1.5 OZ TUBE TP SCH (09:16)
[2023-02-15] MEDS: Z GUARD REMEDY 4 OZ OINT TP SCH ×2 (09:16→20:25)
[2023-02-15] MEDS: CEFEPIME 2 GM in IV D5W 100 ML IV SCH (10:14)
[2023-02-15] MEDS: FLUCONAZOLE IN NS,PREMIX 200 MG in PREMIX 1 EA IV SCH ×2 (14:56)
[2023-02-15] MEDS ORDERED: GENTAMICIN 280 MG in IV D5W 100 ML IV SCH (16:00)
[2023-02-15] MEDS: JEVITY 1.2 CAL 1,000 ML BOTTLE GT PRN (21:15)
[2023-02-16] VITALS (31 sets, daily range): BP systolic 135–164; BP diastolic 80–107; TEMP 94.2–98.2; O2SAT 99–100
[2023-02-16] MEDS: METRONIDAZOLE 500MG/ NS 100ML 500 MG in PREMIX 1 EA IV SCH ×2 (00:03→05:32)
[2023-02-16] MEDS: IPRATROPIUM NEB FS 0.5 MG/2.5 ML AMPUL.NEB NEB SCH ×4 (01:50→19:09)
[2023-02-16] MEDS: ALBUTEROL FS 2.5 MG/3 ML VIAL.NEB NEB SCH ×4 (01:50→19:09)
[2023-02-16] MEDS: METOCLOPRAMIDE HCL 10 MG/2 ML VIAL IV SCH ×3 (03:57→14:21)
[2023-02-16 03:59] LABS: BASOPHILS % (AUTO) 0.1 % (0.0-2.0); EOSINOPHILS # (AUTO) 0.1 K/uL (0.0-0.7); EOSINOPHILS % (AUTO) 0.8 % (0.0-6.0); HEMATOCRIT 28 % (33-45); HEMOGLOBIN 9.1 g/dL (11.5-14.8); LYMPHOCYTES # (AUTO) 0.7 K/uL (0.8-4.8); LYMPHOCYTES % (AUTO) 10.9 % (20.0-44.0); MEAN CORPUSCULAR HEMOGLOBIN 28 PG (26.0-33.0); MEAN CORPUSCULAR HGB CONC 32 g/dl (31.0-36.0); MEAN CORPUSCULAR VOLUME 87 fL (82-100); MONOCYTES # (AUTO) 0.4 K/uL (0.1-1.30); MONOCYTES % (AUTO) 6.6 % (2.0-12.0); NEUTROPHILS # (AUTO) 5.1 K/uL (1.8-8.9); NEUTROPHILS % (AUTO) 81.6 % (43.0-81.0); PLATELET COUNT (AUTO) 54 K/uL (150-450); RED BLOOD CELL COUNT(AUTO) 3.22 MIL/uL (4.0-5.2); RED CELL DISTRIBUTION WIDTH 20.5 % (11.5-15.0); WHITE BLOOD COUNT (AUTO) 6.3 K/uL (4.3-11.0)
[2023-02-16 04:15] LABS: CALCIUM, SERUM 8.6 mg/dL (8.5-10.1); CREATININE 0.6 mg/dL (0.6-1.3); MAGNESIUM 1.9 mg/dL (1.8-2.4); POTASSIUM 3.4 mmol/L (3.5-5.1)
[2023-02-16] MEDS: IV NS 0.9% 250 ML IV PRN (05:31)
[2023-02-16] MEDS ORDERED: POTASSIUM CHLORIDE 20 MEQ POWDER PACKET NG SCH (07:30)
[2023-02-16] MEDS: LEVETIRACETAM SOL (5 ML) 100 MG/ML UDC GT SCH ×2 (08:23→16:05)
[2023-02-16] MEDS: PANTOPRAZOLE 40 MG/PACK PACK NG SCH ×2 (08:23→20:27)
[2023-02-16] MEDS: ASPIRIN 81 MG TAB.CHEW GT SCH (08:23)
[2023-02-16] MEDS: PROSOURCE / PROSTAT (PYXIS) 30 ML UDC GT SCH (08:25)
[2023-02-16] MEDS: Z GUARD REMEDY 4 OZ OINT TP SCH ×2 (08:28→20:28)
[2023-02-16] MEDS: THERAHONEY GEL 1.5 OZ TUBE TP SCH (08:28)
[2023-02-16 08:30] LABS: ABG BASE EXCESS -3.5 mmol/L; ABG OXYGEN SATURATION 99.2 % (92.0-98.5); ABG PCO2 38.2 mmHg (35.0-45.0); ABG PH 7.366 (7.350-7.450); ABG PO2 184.9 mmHg (75.0-100.0); ABG TOTAL HEMOGLOBIN 11.6 G/dL (12.0-16.0); COHb 0.5 % (0.5-1.5); MetHb 0.3 % (0.0-1.5); O2Hb 98.4 % (94.0-97.0); SITE, ABG Right Radial; VENT MODE, BG T-BAR 28%
[2023-02-16] MEDS ORDERED: POTASSIUM CHLORIDE 20 MEQ TAB.PRT.SR PO ONE (08:30)
[2023-02-16] MEDS: FLUCONAZOLE (100 MG) 100 MG TABLET GT SCH (08:42)
[2023-02-16] MEDS: METRONIDAZOLE 500 MG TABLET GT SCH ×3 (11:16→23:42)
[2023-02-16 11:49] LABS: ANISOCYTOSIS 1+; BASOPHILS % (MANUAL) 0 % (0.0-2.0); EOSINOPHILS % (MANUAL) 0 % (0-4); LYMPHOCYTES % (MANUAL) 9 % (16-48); MONOCYTES % (MANUAL) 6 % (0-11.0); NEUTROPHILS % (MANUAL) 85 (42-76); PLATELET ESTIMATE DECREASED
[2023-02-16] MEDS: METOPROLOL TARTRATE 25 MG TABLET GT SCH ×2 (18:49→20:26)
[2023-02-16] MEDS ORDERED: METOPROLOL TARTRATE 25 MG TABLET GT SCH (21:00)
[2023-02-17] VITALS (37 sets, daily range): BP systolic 128–161; BP diastolic 80–99; TEMP 97.4–99.3; O2SAT 98–100
[2023-02-17] MEDS: ALBUTEROL FS 2.5 MG/3 ML VIAL.NEB NEB SCH ×4 (00:54→19:52)
[2023-02-17] MEDS: IPRATROPIUM NEB FS 0.5 MG/2.5 ML AMPUL.NEB NEB SCH ×4 (00:54→19:52)
[2023-02-17] MEDS: GENTAMICIN 280 MG in IV D5W 100 ML IV SCH (04:48)
[2023-02-17 05:09] LABS: BASOPHILS % (AUTO) 0.2 % (0.0-2.0); EOSINOPHILS % (AUTO) 0.8 % (0.0-6.0); HEMATOCRIT 31 % (33-45); LYMPHOCYTES # (AUTO) 0.7 K/uL (0.8-4.8); LYMPHOCYTES % (AUTO) 13.1 % (20.0-44.0); MEAN CORPUSCULAR HEMOGLOBIN 28 PG (26.0-33.0); MEAN CORPUSCULAR HGB CONC 33 g/dl (31.0-36.0); MEAN CORPUSCULAR VOLUME 87 fL (82-100); MONOCYTES # (AUTO) 0.6 K/uL (0.1-1.30); MONOCYTES % (AUTO) 10.1 % (2.0-12.0); NEUTROPHILS # (AUTO) 4.3 K/uL (1.8-8.9); NEUTROPHILS % (AUTO) 75.8 % (43.0-81.0); PLATELET COUNT (AUTO) 86 K/uL (150-450); RED BLOOD CELL COUNT(AUTO) 3.52 MIL/uL (4.0-5.2); RED CELL DISTRIBUTION WIDTH 20.1 % (11.5-15.0); WHITE BLOOD COUNT (AUTO) 5.6 K/uL (4.3-11.0)
[2023-02-17 05:17] LABS: CALCIUM, SERUM 8.9 mg/dL (8.5-10.1); CREATININE 0.7 mg/dL (0.6-1.3); POTASSIUM 3.4 mmol/L (3.5-5.1)
[2023-02-17] MEDS: METRONIDAZOLE 500 MG TABLET GT SCH ×3 (05:40→17:47)
[2023-02-17 05:46] LABS: LYMPHOCYTES % (MANUAL) 9 % (16-48); MONOCYTES % (MANUAL) 6 % (0-11.0); NEUTROPHILS % (MANUAL) 85 (42-76)
[2023-02-17 05:47] LABS: PLATELET ESTIMATE DECREASED
[2023-02-17] MEDS: ASPIRIN 81 MG TAB.CHEW GT SCH (08:52)
[2023-02-17] MEDS: Z GUARD REMEDY 4 OZ OINT TP SCH ×2 (08:53→20:58)
[2023-02-17] MEDS: FLUCONAZOLE (100 MG) 100 MG TABLET GT SCH (08:53)
[2023-02-17] MEDS: LEVETIRACETAM SOL (5 ML) 100 MG/ML UDC GT SCH ×2 (08:53→17:47)
[2023-02-17] MEDS: PANTOPRAZOLE 40 MG/PACK PACK NG SCH ×2 (08:53→20:57)
[2023-02-17] MEDS: METOPROLOL TARTRATE 25 MG TABLET GT SCH ×2 (08:53→20:57)
[2023-02-17] MEDS: THERAHONEY GEL 1.5 OZ TUBE TP SCH (08:54)
[2023-02-17] MEDS: PROSOURCE / PROSTAT (PYXIS) 30 ML UDC GT SCH (08:54)
[2023-02-17] MEDS ORDERED: POTASSIUM CHLORIDE 20 MEQ POWDER PACKET NG SCH (10:30)
[2023-02-17] MEDS: JEVITY 1.2 CAL 1,000 ML BOTTLE GT PRN (13:00)
[2023-02-17] MEDS: IV NS 0.9% 250 ML IV PRN (18:48)
[2023-02-18] VITALS (35 sets, daily range): BP systolic 96–167; BP diastolic 73–122; TEMP 97.5–99.3; O2SAT 94–100
[2023-02-18] MEDS: METRONIDAZOLE 500 MG TABLET GT SCH ×5 (01:57→23:34)
[2023-02-18] MEDS: IPRATROPIUM NEB FS 0.5 MG/2.5 ML AMPUL.NEB NEB SCH ×4 (02:13→20:32)
[2023-02-18] MEDS: ALBUTEROL FS 2.5 MG/3 ML VIAL.NEB NEB SCH ×4 (02:14→20:32)
[2023-02-18] MEDS ORDERED: hydrALAZINE HCL IV 20 MG VIAL ONE (03:30)
[2023-02-18] MEDS: hydrALAZINE HCL IV 20 MG VIAL IV PRN ×2 (03:32→16:07)
[2023-02-18 05:25] LABS: CALCIUM, SERUM 8.8 mg/dL (8.5-10.1); CREATININE 0.6 mg/dL (0.6-1.3); POTASSIUM 3.2 mmol/L (3.5-5.1)
[2023-02-18] MEDS ORDERED: POTASSIUM CHLORIDE 20 MEQ POWDER PACKET GT ONE (08:30)
[2023-02-18] MEDS: ASPIRIN 81 MG TAB.CHEW GT SCH (08:31)
[2023-02-18] MEDS: LEVETIRACETAM SOL (5 ML) 100 MG/ML UDC GT SCH ×2 (08:31→17:31)
[2023-02-18] MEDS: PANTOPRAZOLE 40 MG/PACK PACK NG SCH ×2 (08:32→20:07)
[2023-02-18] MEDS: FLUCONAZOLE (100 MG) 100 MG TABLET GT SCH (08:32)
[2023-02-18] MEDS: PROSOURCE / PROSTAT (PYXIS) 30 ML UDC GT SCH (08:33)
[2023-02-18] MEDS: THERAHONEY GEL 1.5 OZ TUBE TP SCH (08:34)
[2023-02-18] MEDS: Z GUARD REMEDY 4 OZ OINT TP SCH ×2 (08:35→20:08)
[2023-02-18] MEDS: METOPROLOL TARTRATE 25 MG TABLET GT SCH ×2 (09:09→20:07)
[2023-02-18] MEDS: JEVITY 1.2 CAL 1,000 ML BOTTLE GT PRN (13:15)
[2023-02-18] MEDS: GENTAMICIN 280 MG in IV D5W 100 ML IV SCH (17:30)
[2023-02-18] MEDS: IV NS 0.9% 250 ML IV PRN (19:34)
[2023-02-19] VITALS (34 sets, daily range): BP systolic 106–163; BP diastolic 71–106; TEMP 97.4–97.8; O2SAT 97–100
[2023-02-19] MEDS: IPRATROPIUM NEB FS 0.5 MG/2.5 ML AMPUL.NEB NEB SCH ×4 (01:58→19:46)
[2023-02-19] MEDS: ALBUTEROL FS 2.5 MG/3 ML VIAL.NEB NEB SCH ×4 (01:58→19:46)
[2023-02-19 04:20] LABS: EOSINOPHILS % (AUTO) 0.5 % (0.0-6.0); HEMATOCRIT 29 % (33-45); HEMOGLOBIN 9.2 g/dL (11.5-14.8); LYMPHOCYTES # (AUTO) 0.8 K/uL (0.8-4.8); LYMPHOCYTES % (AUTO) 10.9 % (20.0-44.0); MEAN CORPUSCULAR HEMOGLOBIN 28 PG (26.0-33.0); MEAN CORPUSCULAR HGB CONC 32 g/dl (31.0-36.0); MEAN CORPUSCULAR VOLUME 87 fL (82-100); MONOCYTES # (AUTO) 0.6 K/uL (0.1-1.30); MONOCYTES % (AUTO) 8.1 % (2.0-12.0); NEUTROPHILS # (AUTO) 5.7 K/uL (1.8-8.9); NEUTROPHILS % (AUTO) 80.5 % (43.0-81.0); PLATELET COUNT (AUTO) 214 K/uL (150-450); RED BLOOD CELL COUNT(AUTO) 3.31 MIL/uL (4.0-5.2); WHITE BLOOD COUNT (AUTO) 7.1 K/uL (4.3-11.0)
[2023-02-19 05:06] LABS: CALCIUM, SERUM 8.7 mg/dL (8.5-10.1); CREATININE 0.6 mg/dL (0.6-1.3); POTASSIUM 3.8 mmol/L (3.5-5.1)
[2023-02-19] MEDS: METRONIDAZOLE 500 MG TABLET GT SCH ×4 (05:14→23:11)
[2023-02-19 07:59] LABS: ABG BASE EXCESS 1.3 mmol/L; ABG OXYGEN SATURATION 97.8 % (92.0-98.5); ABG PCO2 43.8 mmHg (35.0-45.0); ABG PH 7.397 (7.350-7.450); ABG TOTAL HEMOGLOBIN 10.2 G/dL (12.0-16.0); AaDO2 91.6 mmHg; COHb 0.3 % (0.5-1.5); MetHb 0.2 % (0.0-1.5); O2Hb 97.3 % (94.0-97.0); SITE, ABG Right Radial; VENT MODE, BG 8L 35% T-PIECE
[2023-02-19] MEDS ORDERED: DC PROPOFOL WHEN EXTUBATED XX PRN (08:00)
[2023-02-19] MEDS: LEVETIRACETAM SOL (5 ML) 100 MG/ML UDC GT SCH ×2 (08:18→17:03)
[2023-02-19] MEDS: PANTOPRAZOLE 40 MG/PACK PACK NG SCH ×2 (08:18→20:11)
[2023-02-19] MEDS: ASPIRIN 81 MG TAB.CHEW GT SCH (08:18)
[2023-02-19] MEDS: METOPROLOL TARTRATE 25 MG TABLET GT SCH ×2 (08:23→20:11)
[2023-02-19] MEDS: Z GUARD REMEDY 4 OZ OINT TP SCH ×2 (08:28→20:12)
[2023-02-19] MEDS: PROSOURCE / PROSTAT (PYXIS) 30 ML UDC GT SCH (08:28)
[2023-02-19] MEDS: FLUCONAZOLE (100 MG) 100 MG TABLET GT SCH (08:29)
[2023-02-19] MEDS: THERAHONEY GEL 1.5 OZ TUBE TP SCH (08:29)
[2023-02-19] MEDS: JEVITY 1.2 CAL 1,000 ML BOTTLE GT PRN (15:10)
[2023-02-20] VITALS (21 sets, daily range): BP systolic 116–161; BP diastolic 63–95; TEMP 97.3–98.7; O2SAT 96–100
[2023-02-20] MEDS: ALBUTEROL FS 2.5 MG/3 ML VIAL.NEB NEB SCH ×4 (01:10→20:15)
[2023-02-20] MEDS: IPRATROPIUM NEB FS 0.5 MG/2.5 ML AMPUL.NEB NEB SCH ×4 (01:11→20:15)
[2023-02-20] MEDS: IV NS 0.9% 250 ML IV PRN (03:10)
[2023-02-20] MEDS: GENTAMICIN 280 MG in IV D5W 100 ML IV SCH (03:22)
[2023-02-20] MEDS: METRONIDAZOLE 500 MG TABLET GT SCH ×3 (05:07→17:16)
[2023-02-20 05:09] LABS: CALCIUM, SERUM 8.5 mg/dL (8.5-10.1); CREATININE 0.5 mg/dL (0.6-1.3); POTASSIUM 3.9 mmol/L (3.5-5.1)
[2023-02-20] MEDS: JEVITY 1.2 CAL 1,000 ML BOTTLE GT PRN (05:57)
[2023-02-20] MEDS: ASPIRIN 81 MG TAB.CHEW GT SCH (08:21)
[2023-02-20] MEDS: PANTOPRAZOLE 40 MG/PACK PACK NG SCH ×2 (08:21→20:37)
[2023-02-20] MEDS: METOPROLOL TARTRATE 25 MG TABLET GT SCH ×2 (08:21→20:37)
[2023-02-20] MEDS: FLUCONAZOLE (100 MG) 100 MG TABLET GT SCH (08:22)
[2023-02-20] MEDS: LEVETIRACETAM SOL (5 ML) 100 MG/ML UDC GT SCH ×2 (08:22→17:16)
[2023-02-20] MEDS: Z GUARD REMEDY 4 OZ OINT TP SCH ×2 (08:23→20:38)
[2023-02-20] MEDS: THERAHONEY GEL 1.5 OZ TUBE TP SCH (08:23)
[2023-02-20] MEDS: PROSOURCE / PROSTAT (PYXIS) 30 ML UDC GT SCH (08:24)
[2023-02-21] VITALS (10 sets, daily range): BP systolic 143–151; BP diastolic 75–91; TEMP 97.7–98.3; O2SAT 96–100
[2023-02-21] MEDS: ALBUTEROL FS 2.5 MG/3 ML VIAL.NEB NEB SCH ×3 (01:22→13:31)
[2023-02-21] MEDS: IPRATROPIUM NEB FS 0.5 MG/2.5 ML AMPUL.NEB NEB SCH ×3 (01:22→13:31)
[2023-02-21] MEDS: JEVITY 1.2 CAL 1,000 ML BOTTLE GT PRN (03:26)
[2023-02-21 06:50] LABS: BASOPHILS # (AUTO) 0.1 K/uL (0.0-0.2); BASOPHILS % (AUTO) 1.4 % (0.0-2.0); EOSINOPHILS % (AUTO) 0.3 % (0.0-6.0); HEMATOCRIT 30 % (33-45); HEMOGLOBIN 9.8 g/dL (11.5-14.8); LYMPHOCYTES # (AUTO) 1.3 K/uL (0.8-4.8); LYMPHOCYTES % (AUTO) 16.4 % (20.0-44.0); MEAN CORPUSCULAR HEMOGLOBIN 28 PG (26.0-33.0); MEAN CORPUSCULAR HGB CONC 33 g/dl (31.0-36.0); MEAN CORPUSCULAR VOLUME 87 fL (82-100); MONOCYTES # (AUTO) 0.6 K/uL (0.1-1.30); MONOCYTES % (AUTO) 7.4 % (2.0-12.0); NEUTROPHILS # (AUTO) 5.7 K/uL (1.8-8.9); NEUTROPHILS % (AUTO) 74.5 % (43.0-81.0); PLATELET COUNT (AUTO) 316 K/uL (150-450); RED BLOOD CELL COUNT(AUTO) 3.43 MIL/uL (4.0-5.2); RED CELL DISTRIBUTION WIDTH 20.8 % (11.5-15.0); WHITE BLOOD COUNT (AUTO) 7.7 K/uL (4.3-11.0)
[2023-02-21 07:28] LABS: CALCIUM, SERUM 8.7 mg/dL (8.5-10.1); CREATININE 0.6 mg/dL (0.6-1.3); POTASSIUM 4.6 mmol/L (3.5-5.1)
[2023-02-21] MEDS: IV NS 0.9% 250 ML IV PRN (07:56)
[2023-02-21] MEDS: LEVETIRACETAM SOL (5 ML) 100 MG/ML UDC GT SCH (08:39)
[2023-02-21] MEDS: ASPIRIN 81 MG TAB.CHEW GT SCH (08:39)
[2023-02-21] MEDS: PANTOPRAZOLE 40 MG/PACK PACK NG SCH (08:39)
[2023-02-21] MEDS: PROSOURCE / PROSTAT (PYXIS) 30 ML UDC GT SCH (08:39)
[2023-02-21] MEDS: METOPROLOL TARTRATE 25 MG TABLET GT SCH (08:40)
[2023-02-21] MEDS: THERAHONEY GEL 1.5 OZ TUBE TP SCH (08:40)
[2023-02-21] MEDS: Z GUARD REMEDY 4 OZ OINT TP SCH (08:40)
[2023-02-21] MEDS ORDERED: AMLODIPINE BESYLATE 2.5 MG TABLET PEG SCH (09:30)
== END 2023-02-21 15:29 | DRG 720 ==
LOC: ER 13:33 → ICU 17:38 → TELE-TD 02-20 12:44 → MEDSG1 02-21 09:50
PROVIDERS: ADMIT Internal Medicine; ATTEND Internal Medicine
PROC: 5A1955Z Respiratory Ventilation, Greater than 96 Consecutive Hours (ICD-10-PCS; principal; 2023-02-09)
PROC: 0BH18EZ Insertion of Endotracheal Airway into Trachea, Via Natural or Artificial Opening Endoscopic (ICD-10-PCS; 2023-02-09)
PROC: 02HV33Z Insertion of Infusion Device into Superior Vena Cava, Percutaneous Approach (ICD-10-PCS; 2023-02-10)
PROC: B548ZZA Ultrasonography of Superior Vena Cava, Guidance (ICD-10-PCS; 2023-02-10)
PROC: 30233N1 Transfusion of Nonautologous Red Blood Cells into Peripheral Vein, Percutaneous Approach (ICD-10-PCS; 2023-02-12)
DX: A41.9 Sepsis, unspecified organism (principal); J96.01 Acute respiratory failure with hypoxia; J69.0 Pneumonitis due to inhalation of food and vomit; R65.21 Severe sepsis with septic shock; I21.4 Non-ST elevation (NSTEMI) myocardial infarction; E43 Unspecified severe protein-calorie malnutrition; E87.20 Acidosis, unspecified; G93.41 Metabolic encephalopathy; L89.153 Pressure ulcer of sacral region, stage 3; G40.901 Epilepsy, unspecified, not intractable, with status epilepticus; L89.513 Pressure ulcer of right ankle, stage 3; D69.6 Thrombocytopenia, unspecified; E87.1 Hypo-osmolality and hyponatremia; B37.49 Other urogenital candidiasis; D64.9 Anemia, unspecified; E03.9 Hypothyroidism, unspecified; E78.5 Hyperlipidemia, unspecified; E87.6 Hypokalemia; E88.09 Other disorders of plasma-protein metabolism, not elsewhere classified; I10 Essential (primary) hypertension; I25.10 Atherosclerotic heart disease of native coronary artery without angina pectoris; I69.351 Hemiplegia and hemiparesis following cerebral infarction affecting right dominant side; K31.84 Gastroparesis; M24.571 Contracture, right ankle; M24.572 Contracture, left ankle; R13.10 Dysphagia, unspecified; Z20.822 Contact with and (suspected) exposure to COVID-19; Z79.82 Long term (current) use of aspirin; Z74.01 Bed confinement status; Z93.1 Gastrostomy status; Z96.611 Presence of right artificial shoulder joint; Y79.2 Prosthetic and other implants, materials and accessory orthopedic devices associated with adverse incidents; K21.9 Gastro-esophageal reflux disease without esophagitis; L89.626 Pressure-induced deep tissue damage of left heel; L89.616 Pressure-induced deep tissue damage of right heel; T84.02 Dislocation of internal joint prosthesis; Y83.8 Other surgical procedures as the cause of abnormal reaction of the patient, or of later complication, without mention of misadventure at the time of the procedure; Z86.11 Personal history of tuberculosis
CPT/HCPCS: 31720; 36415; 36569; 36600; 71045-TC; 80048-TC; 80053-TC; 80076-TC; 80170-TC; 81001; 82248-TC; 82533; 82803-TC; 82962-TC; 83605-TC; 83735-TC; 83880; 84443-TC; 84484-TC; 85025-TC; 85730-TC; 86850-TC; 87040-TC; 87081-TC; 87086-TC; 94002-TC; 94003-TC; 94640-TC; 94664-TC; 94799-TC; 99082-TC; A4216; A4223; A6403; A7526; C9113; G0378; J0360; J0456; J0692; J0696; J1450; J1580; J1644; J1953; J2543; J2765; J3480; J3490; J7030; J7050; J7060; P9016

== ENCOUNTER 2024-01-18 13:54 | Inpatient (IN) | payer MEDICAID, OTHER ==
[~2024-01-18] VITALS: Ht 154.9 cm; Wt 76.2 kg
[~2024-01-18 13:54] MED LIST changes: +AMLO2.5T4 GT; +ASPI-1169 GT; -ASPI-1420 PO; +CLON0.5T4 GT; +LACT-96 GT; -LEVO88TA2 NG; +LORAZEPAM 1 MG TABLET GT ONE; -PANT40SU2 GT; +PREG50CA GT
[2024-01-18 14:52] LABS: BASOPHILS % (AUTO) 0.7 % (0.0-2.0); EOSINOPHILS % (AUTO) 0.7 % (0.0-6.0); HEMATOCRIT 31 % (33-45); HEMOGLOBIN 10.2 g/dL (11.5-14.8); LYMPHOCYTES # (AUTO) 0.4 K/uL (0.8-4.8); LYMPHOCYTES % (AUTO) 20.8 % (20.0-44.0); MEAN CORPUSCULAR HEMOGLOBIN 30 PG (26.0-33.0); MEAN CORPUSCULAR HGB CONC 33 g/dl (31.0-36.0); MEAN CORPUSCULAR VOLUME 91 fL (82-100); MONOCYTES # (AUTO) 0.1 K/uL (0.1-1.30); MONOCYTES % (AUTO) 4.2 % (2.0-12.0); NEUTROPHILS # (AUTO) 1.5 K/uL (1.8-8.9); NEUTROPHILS % (AUTO) 73.6 % (43.0-81.0); PLATELET COUNT (AUTO) 182 K/uL (150-450); RED BLOOD CELL COUNT(AUTO) 3.43 MIL/uL (4.0-5.2); RED CELL DISTRIBUTION WIDTH 17.5 % (11.5-15.0); WHITE BLOOD COUNT (AUTO) 2.1 K/uL (4.3-11.0)
[2024-01-18] MEDS ORDERED: MORPHINE SULFATE INJ 2 MG/ML DISP.SYRIN ONE (14:55)
[2024-01-18 14:59] LABS: CALCIUM, SERUM 9.9 mg/dL (8.5-10.1); CREATININE 0.4 mg/dL (0.6-1.3); POTASSIUM 3.9 mmol/L (3.5-5.1)
[2024-01-18 15:05] LABS: ALBUMIN 2.2 g/dL (3.4-5.0); BILIRUBIN,DIRECT 0.2 mg/dL (0.0-0.2); BILIRUBIN,TOTAL 0.4 mg/dL (0.2-1.0); TOTAL PROTEIN, SERUM 7.7 g/dL (6.4-8.2)
[2024-01-18] MEDS: MORPHINE SULFATE INJ 2 MG/ML DISP.SYRIN IV ONE (15:22)
[2024-01-18] MEDS ORDERED: LORA-259 PO (15:25)
[2024-01-18] MEDS ORDERED: QUET25TA GT (15:25)
[2024-01-18] MEDS ORDERED: MORP15TA GT (15:25)
[2024-01-18] MEDS ORDERED: HYDR-4209 GT (15:25)
[2024-01-18] MEDS ORDERED: LACT250L14 GT (15:25)
[2024-01-18] MEDS ORDERED: HYOS-27 GT (15:25)
[2024-01-18] MEDS: IV NS 0.9% 500 ML IV ONE (15:34)
[2024-01-18] MEDS: DEXTROSE 50%-WATER 50 ML DISP.SYRIN IVP ONE (15:34)
[2024-01-18 16:44] LABS: BAND % (MANUAL) 1 % (0.0-5.0); LYMPHOCYTES % (MANUAL) 23 % (16-48); NEUTROPHILS % (MANUAL) 76 (42-76); PLATELET ESTIMATE ADEQUATE
[2024-01-18 16:45] LABS: ANISOCYTOSIS 1+; OVALOCYTES 1+; TARGET CELLS RARE
[2024-01-18] MEDS ORDERED: ASPIRIN 81 MG TAB.CHEW GT SCH (20:30)
[2024-01-18] MEDS ORDERED: AMLODIPINE BESYLATE 2.5 MG TABLET GT SCH (20:30)
[2024-01-18] MEDS ORDERED: LEVETIRACETAM SOL (5 ML) 100 MG/ML UDC ONE (21:04)
[2024-01-18] MEDS ORDERED: QUETIAPINE FUMARATE 25 MG TABLET ONE (21:05)
[2024-01-18] MEDS ORDERED: AMLODIPINE BESYLATE 5 MG TABLET ONE (21:05)
[2024-01-18] MEDS ORDERED: LORAZEPAM 1 MG TABLET ONE (21:05)
[2024-01-18] MEDS ORDERED: ASPIRIN 81 MG TAB.CHEW ONE (21:06)
[2024-01-18] MEDS: LORAZEPAM 1 MG TABLET GT ONE (21:17)
[2024-01-18] MEDS: ASPIRIN 81 MG TAB.CHEW GT ONE (21:17)
[2024-01-18] MEDS: QUETIAPINE FUMARATE 25 MG TABLET GT ONE (21:18)
[2024-01-18] MEDS: AMLODIPINE BESYLATE 2.5 MG TABLET GT ONE (21:18)
[2024-01-18] MEDS: LEVETIRACETAM SOL (5 ML) 100 MG/ML UDC GT ONE (21:18)
[2024-01-18] MEDS ORDERED: LORAZEPAM 1 MG TABLET PO PRN (21:30)
[2024-01-18] MEDS ORDERED: HYDROCODONE/APAP 5/325MG TABLET GT PRN (21:30)
[2024-01-18] MEDS ORDERED: Potassium Chloride 10 MEQ in IV NS 0.9% 1,000 ML IV PRN (21:30)
[2024-01-18 22:00] VITALS: BP 118/99; TEMP 97.6; O2SAT 99
[2024-01-18] MEDS ORDERED: QUETIAPINE FUMARATE 25 MG TABLET GT SCH (22:00)
[2024-01-18] MEDS: NA PHOS,M-B/NA PHOS,DI-BA 1 EA ENEMA RC ONE (22:48)
[2024-01-18] MEDS: LACTULOSE 10 G/15 ML UDC (PYXIS) PO SCH (22:48)
[2024-01-18] MEDS: ENOXAPARIN SODIUM 40 MG/0.4 ML DISP.SYRIN SQ SCH (22:49)
[2024-01-19 04:00] VITALS: BP 133/87; TEMP 97.6; O2SAT 95
[2024-01-19] MEDS ORDERED: IV PREMIX NS +20MEQ KCL 1 L IV ONE (05:53)
[2024-01-19] MEDS: ENSURE CLEAR 237 ML LIQUID (MIX BERRY) GT SCH (06:00)
[2024-01-19] MEDS: Potassium Chloride 20 MEQ in IV NS 0.9% 1,000 ML IV PRN (06:07)
[2024-01-19 07:21] LABS: BASOPHILS % (AUTO) 0.6 % (0.0-2.0); EOSINOPHILS % (AUTO) 0.9 % (0.0-6.0); HEMATOCRIT 30 % (33-45); HEMOGLOBIN 9.7 g/dL (11.5-14.8); LYMPHOCYTES # (AUTO) 0.6 K/uL (0.8-4.8); MEAN CORPUSCULAR HEMOGLOBIN 30 PG (26.0-33.0); MEAN CORPUSCULAR HGB CONC 33 g/dl (31.0-36.0); MEAN CORPUSCULAR VOLUME 90 fL (82-100); MONOCYTES # (AUTO) 0.2 K/uL (0.1-1.30); MONOCYTES % (AUTO) 12.8 % (2.0-12.0); NEUTROPHILS % (AUTO) 54.7 % (43.0-81.0); PLATELET COUNT (AUTO) 150 K/uL (150-450)
[2024-01-19 07:44] LABS: BILIRUBIN,TOTAL 0.3 mg/dL (0.2-1.0); CALCIUM, SERUM 9.4 mg/dL (8.5-10.1); CREATININE 0.4 mg/dL (0.6-1.3); POTASSIUM 3.4 mmol/L (3.5-5.1); TOTAL PROTEIN, SERUM 6.8 g/dL (6.4-8.2)
[2024-01-19 07:46] LABS: WHITE BLOOD COUNT (AUTO) 1.9 K/uL (4.3-11.0)
[2024-01-19] MEDS ORDERED: MORPHINE SULFATE IR 15 MG TABLET GT SCH (09:00)
[2024-01-19 09:09] LABS: ANISOCYTOSIS 1+; OVALOCYTES 1+; PLATELET ESTIMATE ADEQUATE
[2024-01-19 09:10] LABS: BAND % (MANUAL) 2 % (0.0-5.0); BASOPHILS % (MANUAL) 0 % (0.0-2.0); EOSINOPHILS % (MANUAL) 0 % (0-4); LYMPHOCYTES % (MANUAL) 28 % (16-48); MONOCYTES % (MANUAL) 7 % (0-11.0); NEUTROPHILS % (MANUAL) 63 (42-76)
[2024-01-19] MEDS ORDERED: POTASSIUM CHLORIDE 20 MEQ POWDER PACKET NG SCH (09:30)
[2024-01-19] MEDS ORDERED: MORPHINE SULFATE INJ 2 MG/ML DISP.SYRIN IM PRN (09:30)
[2024-01-19] MEDS ORDERED: ONDANSETRON HCL/PF 4 MG/2 ML VIAL IV PRN (09:30)
[2024-01-19] MEDS ORDERED: HYOSCYAMINE SULFATE 0.125 MG TAB.SUBL ONE (09:37)
[2024-01-19] MEDS: HYOSCYAMINE SULFATE 0.125 MG TAB.SUBL GT SCH (09:38)
[2024-01-19] MEDS: LEVETIRACETAM SOL (5 ML) 100 MG/ML UDC GT SCH (09:38)
[2024-01-19] MEDS: AMLODIPINE BESYLATE 2.5 MG TABLET GT SCH (09:39)
[2024-01-19] MEDS: POTASSIUM CHLORIDE 20 MEQ POWDER PACKET GT ONE (09:39)
[2024-01-19] MEDS: Potassium Chloride 20 MEQ in IV D5/ 0.9% NACL 1,000 ML IV SCH (10:50)
[2024-01-19 12:00] VITALS: BP 114/97; TEMP 98.7; O2SAT 100
[2024-01-19 12:14] LABS: THYROID STIMULATING HORMONE 18.97 uIU/mL (0.358-3.74)
[2024-01-19 12:25] LABS: APPEARANCE,URINE CLEAR (CLEAR); BILIRUBIN,URINE NEGATIVE (NEGATIVE); BLOOD, URINE NEGATIVE Ery/uL (NEGATIVE); COLOR,URINE YELLOW (YELLOW); KETONES,URINE 1+ mg/dL (NEGATIVE); LEUKOCYTE ESTERASE ,URINE 1+ (NEGATIVE); NITRITE, URINE NEGATIVE (NEGATIVE); PROTEIN,URINE NEGATIVE (NEGATIVE); UGLUCOSE TRACE mg/dL (NEGATIVE); UROBILINOGEN,URINE 0.2 EU/dL (0.2)
[2024-01-19 12:27] LABS: ADD URINE CULTURE YES; BACTERIA,URINE Rare /HPF (None Seen); SQUAMOUS EPITHELIAL CELL,UR Few /HPF (None Seen)
[2024-01-19] MEDS: FREE WATER VIA TUBE FEEDING GT SCH (12:40)
[2024-01-19] MEDS: LACTULOSE 10 G/15 ML UDC (PYXIS) PO SCH (17:17)
[2024-01-19 20:00] VITALS: BP 127/87; TEMP 98; O2SAT 100
[2024-01-19] MEDS: QUETIAPINE FUMARATE 25 MG TABLET GT SCH (21:33)
[2024-01-20 04:00] VITALS: BP 121/72; TEMP 98.5; O2SAT 95
[2024-01-20 08:12] LABS: BASOPHILS % (AUTO) 0.3 % (0.0-2.0); EOSINOPHILS % (AUTO) 0.2 % (0.0-6.0); HEMATOCRIT 30 % (33-45); LYMPHOCYTES # (AUTO) 0.4 K/uL (0.8-4.8); LYMPHOCYTES % (AUTO) 6.9 % (20.0-44.0); MEAN CORPUSCULAR HEMOGLOBIN 30 PG (26.0-33.0); MEAN CORPUSCULAR HGB CONC 33 g/dl (31.0-36.0); MEAN CORPUSCULAR VOLUME 90 fL (82-100); MONOCYTES # (AUTO) 0.2 K/uL (0.1-1.30); MONOCYTES % (AUTO) 3.5 % (2.0-12.0); NEUTROPHILS # (AUTO) 5.7 K/uL (1.8-8.9); NEUTROPHILS % (AUTO) 89.1 % (43.0-81.0); PLATELET COUNT (AUTO) 161 K/uL (150-450); RED BLOOD CELL COUNT(AUTO) 3.36 MIL/uL (4.0-5.2); RED CELL DISTRIBUTION WIDTH 17.5 % (11.5-15.0); WHITE BLOOD COUNT (AUTO) 6.4 K/uL (4.3-11.0)
[2024-01-20 09:00] LABS: CALCIUM, SERUM 9.2 mg/dL (8.5-10.1); CREATININE 0.4 mg/dL (0.6-1.3); POTASSIUM 4.3 mmol/L (3.5-5.1)
[2024-01-20] MEDS ORDERED: POLYETHYLENE GLYCOL 3350 17 GM POWD.PACK GT PRN (10:30)
[2024-01-20] MEDS: JEVITY 1.2 CAL 1,000 ML BOTTLE GT PRN (11:06)
[2024-01-20] MEDS: CEFTRIAXONE 1 G in IV D5W 50 ML IV SCH (11:29)
[2024-01-20 12:00] VITALS: BP 118/79; TEMP 98; O2SAT 95
[2024-01-20] MEDS: LACTULOSE 10 G/15 ML UDC (PYXIS) PO SCH (14:50)
[2024-01-20 16:00] VITALS: BP 112/78; TEMP 97.7; O2SAT 97
[2024-01-20] MEDS: ACETAMINOPHEN 650 MG/20.3 ML UDC GT PRN (19:00)
[2024-01-20 20:00] VITALS: BP 123/96; TEMP 97.6
[2024-01-21] VITALS: BP 114/93; TEMP 97.7; O2SAT 100
[2024-01-21] MEDS: IV D5/ 0.9% NACL 1,000 ML IV PRN (00:22)
[2024-01-21 04:00] VITALS: BP 116/89; TEMP 97.5; O2SAT 98
[2024-01-21] MEDS ORDERED: LORAZEPAM 1 MG TABLET GT PRN (06:26)
[2024-01-21 07:16] LABS: ALBUMIN 1.6 g/dL (3.4-5.0); BILIRUBIN,TOTAL 0.2 mg/dL (0.2-1.0); CALCIUM, SERUM 8.8 mg/dL (8.5-10.1); CREATININE 0.4 mg/dL (0.6-1.3); MAGNESIUM 1.7 mg/dL (1.8-2.4); POTASSIUM 3.8 mmol/L (3.5-5.1); TOTAL PROTEIN, SERUM 6.1 g/dL (6.4-8.2)
[2024-01-21 07:22] LABS: BASOPHILS % (AUTO) 0.1 % (0.0-2.0); EOSINOPHILS % (AUTO) 0.4 % (0.0-6.0); HEMATOCRIT 27 % (33-45); LYMPHOCYTES # (AUTO) 0.4 K/uL (0.8-4.8); LYMPHOCYTES % (AUTO) 6.8 % (20.0-44.0); MEAN CORPUSCULAR HEMOGLOBIN 30 PG (26.0-33.0); MEAN CORPUSCULAR HGB CONC 33 g/dl (31.0-36.0); MEAN CORPUSCULAR VOLUME 90 fL (82-100); MONOCYTES # (AUTO) 0.2 K/uL (0.1-1.30); MONOCYTES % (AUTO) 3.1 % (2.0-12.0); NEUTROPHILS # (AUTO) 5.9 K/uL (1.8-8.9); NEUTROPHILS % (AUTO) 89.6 % (43.0-81.0); PLATELET COUNT (AUTO) 116 K/uL (150-450); RED BLOOD CELL COUNT(AUTO) 2.97 MIL/uL (4.0-5.2); RED CELL DISTRIBUTION WIDTH 17.1 % (11.5-15.0); WHITE BLOOD COUNT (AUTO) 6.6 K/uL (4.3-11.0)
[2024-01-21] MEDS: LACTULOSE 10 G/15 ML UDC (PYXIS) GT SCH (09:20)
[2024-01-21] MEDS: MAGNESIUM OXIDE 400 MG TABLET GT ONE (09:21)
[2024-01-21] MEDS: METOCLOPRAMIDE HCL 10 MG/2 ML VIAL IV SCH (09:21)
[2024-01-21 12:00] VITALS: BP 124/88; TEMP 97.8; O2SAT 98
[2024-01-21] MEDS: DAKINS QUARTER STRENGTH (0.125%) 480 ML BOTTLE TOP SCH (12:32)
[2024-01-21] MEDS: PIPERACILLIN /TAZOBACTAM 3.375 G in IV D5W 50 ML IV SCH (12:33)
[2024-01-21 19:41] VITALS: O2SAT 97
[2024-01-21 20:00] VITALS: BP 140/80; TEMP 97.5; TEMP 98.5; O2SAT 98; O2SAT 99
[2024-01-22 06:20] LABS: BASOPHILS % (AUTO) 0.1 % (0.0-2.0); HEMATOCRIT 28 % (33-45); LYMPHOCYTES # (AUTO) 0.4 K/uL (0.8-4.8); LYMPHOCYTES % (AUTO) 2.6 % (20.0-44.0); MEAN CORPUSCULAR HEMOGLOBIN 30 PG (26.0-33.0); MEAN CORPUSCULAR HGB CONC 33 g/dl (31.0-36.0); MEAN CORPUSCULAR VOLUME 90 fL (82-100); MONOCYTES # (AUTO) 0.2 K/uL (0.1-1.30); MONOCYTES % (AUTO) 1.5 % (2.0-12.0); NEUTROPHILS # (AUTO) 15.2 K/uL (1.8-8.9); NEUTROPHILS % (AUTO) 95.8 % (43.0-81.0); PLATELET COUNT (AUTO) 102 K/uL (150-450); RED BLOOD CELL COUNT(AUTO) 3.06 MIL/uL (4.0-5.2); RED CELL DISTRIBUTION WIDTH 17.4 % (11.5-15.0); WHITE BLOOD COUNT (AUTO) 15.8 K/uL (4.3-11.0)
[2024-01-22 06:49] LABS: CALCIUM, SERUM 8.4 mg/dL (8.5-10.1); CREATININE 0.4 mg/dL (0.6-1.3); MAGNESIUM 1.6 mg/dL (1.8-2.4); POTASSIUM 3.8 mmol/L (3.5-5.1)
[2024-01-22 07:37] VITALS: BP 132/57; TEMP 97.1; O2SAT 99
[2024-01-22 08:00] VITALS: BP 102/87; TEMP 96.5; O2SAT 99
[2024-01-22] MEDS: LEVOTHYROXINE SODIUM 50 MCG TABLET GT SCH (09:49)
[2024-01-22] MEDS: Magnesium 1GM/D5W 100ML PREMIX 100 ML IV SCH (10:06)
[2024-01-22] MEDS: THERAHONEY GEL 1.5 OZ TUBE TP SCH ×2 (10:12→12:10)
[2024-01-22] MEDS: PIPERACILLIN /TAZOBACTAM 3.375 G in IV D5W 100 ML IV SCH (12:09)
[2024-01-22 19:16] VITALS: BP 113/82; TEMP 97.1; O2SAT 100
[2024-01-22 20:00] VITALS: BP 108/88; TEMP 98; O2SAT 96
[2024-01-22 20:16] VITALS: O2SAT 98
[2024-01-23 04:00] VITALS: BP 110/81; TEMP 98.5; O2SAT 98
[2024-01-23 08:00] VITALS: BP 97/64; TEMP 98.4; O2SAT 98
[2024-01-23 08:15] LABS: BASOPHILS % (AUTO) 0.1 % (0.0-2.0); EOSINOPHILS % (AUTO) 0.1 % (0.0-6.0); HEMATOCRIT 29 % (33-45); HEMOGLOBIN 9.5 g/dL (11.5-14.8); LYMPHOCYTES # (AUTO) 0.3 K/uL (0.8-4.8); LYMPHOCYTES % (AUTO) 2.6 % (20.0-44.0); MEAN CORPUSCULAR HEMOGLOBIN 30 PG (26.0-33.0); MEAN CORPUSCULAR HGB CONC 33 g/dl (31.0-36.0); MEAN CORPUSCULAR VOLUME 91 fL (82-100); MONOCYTES # (AUTO) 0.3 K/uL (0.1-1.30); MONOCYTES % (AUTO) 2.1 % (2.0-12.0); NEUTROPHILS # (AUTO) 12.2 K/uL (1.8-8.9); NEUTROPHILS % (AUTO) 95.1 % (43.0-81.0); PLATELET COUNT (AUTO) 85 K/uL (150-450); RED BLOOD CELL COUNT(AUTO) 3.21 MIL/uL (4.0-5.2); RED CELL DISTRIBUTION WIDTH 17.3 % (11.5-15.0); WHITE BLOOD COUNT (AUTO) 12.8 K/uL (4.3-11.0)
[2024-01-23 10:14] LABS: CALCIUM, SERUM 9.1 mg/dL (8.5-10.1); CREATININE 0.5 mg/dL (0.6-1.3); MAGNESIUM 2.1 mg/dL (1.8-2.4); POTASSIUM 3.2 mmol/L (3.5-5.1)
[2024-01-23 15:32] LABS: ANISOCYTOSIS 1+; LYMPHOCYTES % (MANUAL) 4 % (16-48); MONOCYTES % (MANUAL) 3 % (0-11.0); NEUTROPHILS % (MANUAL) 93 (42-76); PLATELET ESTIMATE DECREASED
[2024-01-23 16:00] VITALS: BP 99/76; TEMP 97.6; O2SAT 100
[2024-01-23] MEDS: POTASSIUM CHLORIDE 20 MEQ POWDER PACKET GT ONE (16:59)
[2024-01-23 17:44] VITALS: O2SAT 98
[2024-01-23 20:00] VITALS: BP 96/67; TEMP 97.9; O2SAT 93
[2024-01-24] VITALS: BP 96/67; TEMP 97.9; O2SAT 93
[2024-01-24 04:00] VITALS: BP_SYST 120; BP_SYST 99; BP_DIAS 65; BP_DIAS 82; TEMP 97.5; TEMP 97.9; O2SAT 95; O2SAT 96
[2024-01-24 06:21] LABS: BASOPHILS % (AUTO) 0.1 % (0.0-2.0); EOSINOPHILS % (AUTO) 0.2 % (0.0-6.0); HEMATOCRIT 27 % (33-45); HEMOGLOBIN 8.9 g/dL (11.5-14.8); LYMPHOCYTES # (AUTO) 0.5 K/uL (0.8-4.8); LYMPHOCYTES % (AUTO) 4.3 % (20.0-44.0); MEAN CORPUSCULAR HEMOGLOBIN 30 PG (26.0-33.0); MEAN CORPUSCULAR HGB CONC 33 g/dl (31.0-36.0); MEAN CORPUSCULAR VOLUME 91 fL (82-100); MONOCYTES # (AUTO) 0.1 K/uL (0.1-1.30); MONOCYTES % (AUTO) 1.2 % (2.0-12.0); NEUTROPHILS # (AUTO) 11.1 K/uL (1.8-8.9); NEUTROPHILS % (AUTO) 94.2 % (43.0-81.0); PLATELET COUNT (AUTO) 68 K/uL (150-450); RED BLOOD CELL COUNT(AUTO) 2.99 MIL/uL (4.0-5.2); RED CELL DISTRIBUTION WIDTH 17.7 % (11.5-15.0); WHITE BLOOD COUNT (AUTO) 11.8 K/uL (4.3-11.0)
[2024-01-24 06:59] LABS: CALCIUM, SERUM 8.8 mg/dL (8.5-10.1); CREATININE 0.5 mg/dL (0.6-1.3); MAGNESIUM 2.1 mg/dL (1.8-2.4); POTASSIUM 3.6 mmol/L (3.5-5.1)
[2024-01-24 12:50] LABS: ANISOCYTOSIS 1+; BAND % (MANUAL) 4 % (0.0-5.0); BASOPHILS % (MANUAL) 0 % (0.0-2.0); EOSINOPHILS % (MANUAL) 0 % (0-4); HYPOCHROMASIA FEW; LYMPHOCYTES % (MANUAL) 3 % (16-48); MONOCYTES % (MANUAL) 1 % (0-11.0); NEUTROPHILS % (MANUAL) 92 (42-76); PLATELET ESTIMATE DECREASED
[2024-01-25] VITALS: BP 113/73; TEMP 97.9; O2SAT 95
[2024-01-25 07:38] LABS: BASOPHILS % (AUTO) 0.1 % (0.0-2.0); EOSINOPHILS % (AUTO) 0.1 % (0.0-6.0); HEMATOCRIT 24 % (33-45); HEMOGLOBIN 8.2 g/dL (11.5-14.8); LYMPHOCYTES # (AUTO) 0.3 K/uL (0.8-4.8); LYMPHOCYTES % (AUTO) 4.2 % (20.0-44.0); MEAN CORPUSCULAR HEMOGLOBIN 30 PG (26.0-33.0); MEAN CORPUSCULAR HGB CONC 34 g/dl (31.0-36.0); MEAN CORPUSCULAR VOLUME 90 fL (82-100); MONOCYTES # (AUTO) 0.1 K/uL (0.1-1.30); MONOCYTES % (AUTO) 1.6 % (2.0-12.0); NEUTROPHILS # (AUTO) 6.6 K/uL (1.8-8.9); RED BLOOD CELL COUNT(AUTO) 2.71 MIL/uL (4.0-5.2); RED CELL DISTRIBUTION WIDTH 17.5 % (11.5-15.0)
[2024-01-25 07:49] LABS: PLATELET COUNT (AUTO) 45 K/uL (150-450)
[2024-01-25 07:50] LABS: CALCIUM, SERUM 8.9 mg/dL (8.5-10.1); CREATININE 0.4 mg/dL (0.6-1.3); MAGNESIUM 1.9 mg/dL (1.8-2.4); POTASSIUM 3.4 mmol/L (3.5-5.1)
[2024-01-25 08:00] VITALS: BP 124/95; TEMP 96.9; O2SAT 100
[2024-01-25] MEDS: LEVOTHYROXINE SODIUM 75 MCG TABLET GT SCH (08:20)
[2024-01-25 08:23] VITALS: O2SAT 100
[2024-01-25] MEDS ORDERED: POTASSIUM CHLORIDE 10 MEQ/50 ML PREMIXED IVPB FOR PERIPHERAL LINE IV ONE (09:30)
[2024-01-25] MEDS: POTASSIUM CL. PREMIX PERIPHER. 50 ML IV SCH (11:26)
[2024-01-25] MEDS: NA PHOS,M-B/NA PHOS,DI-BA 1 EA ENEMA RC ONE (11:26)
[2024-01-25] MEDS: METOCLOPRAMIDE HCL 10 MG/2 ML VIAL IV SCH (11:27)
[2024-01-25] MEDS: Potassium Chloride 10 MEQ in IV D5/ 0.9% NACL 1,000 ML IV SCH ×2 (11:31→20:20)
[2024-01-25 11:47] LABS: ANISOCYTOSIS 1+; BAND % (MANUAL) 10 % (0.0-5.0); EOSINOPHILS % (MANUAL) 0 % (0-4); HYPOCHROMASIA 1+; LYMPHOCYTES % (MANUAL) 7 % (16-48); MONOCYTES % (MANUAL) 2 % (0-11.0); NEUTROPHILS % (MANUAL) 81 (42-76); PLATELET ESTIMATE DECREASED
[2024-01-25 16:00] VITALS: BP 103/91; TEMP 97.1; O2SAT 100
[2024-01-25] MEDS: TWOCAL HN 1,000 ML LIQUID GT PRN (18:56)
[2024-01-25] MEDS ORDERED: TWOCAL HN 1,000 ML LIQUID GT PRN (19:00)
[2024-01-25 20:00] VITALS: BP 126/88; TEMP 97; O2SAT 96
[2024-01-26] VITALS (56 sets, daily range): BP systolic 54–138; BP diastolic 20–117; TEMP 87.3–97.4; O2SAT 75–99
[2024-01-26 10:03] LABS: BASOPHILS % (AUTO) 0.2 % (0.0-2.0); EOSINOPHILS % (AUTO) 0.3 % (0.0-6.0); HEMATOCRIT 26 % (33-45); HEMOGLOBIN 8.6 g/dL (11.5-14.8); LYMPHOCYTES # (AUTO) 0.2 K/uL (0.8-4.8); LYMPHOCYTES % (AUTO) 4.7 % (20.0-44.0); MEAN CORPUSCULAR HEMOGLOBIN 30 PG (26.0-33.0); MEAN CORPUSCULAR HGB CONC 33 g/dl (31.0-36.0); MEAN CORPUSCULAR VOLUME 92 fL (82-100); MONOCYTES # (AUTO) 0.1 K/uL (0.1-1.30); MONOCYTES % (AUTO) 1.4 % (2.0-12.0); NEUTROPHILS # (AUTO) 3.9 K/uL (1.8-8.9); NEUTROPHILS % (AUTO) 93.4 % (43.0-81.0); RED BLOOD CELL COUNT(AUTO) 2.87 MIL/uL (4.0-5.2); RED CELL DISTRIBUTION WIDTH 17.8 % (11.5-15.0); WHITE BLOOD COUNT (AUTO) 4.2 K/uL (4.3-11.0)
[2024-01-26 10:17] LABS: CALCIUM, SERUM 8.6 mg/dL (8.5-10.1); CREATININE 0.5 mg/dL (0.6-1.3)
[2024-01-26 10:18] LABS: PLATELET COUNT (AUTO) 40 K/uL (150-450)
[2024-01-26 10:22] LABS: ALBUMIN 1.6 g/dL (3.4-5.0); BILIRUBIN,TOTAL 0.3 mg/dL (0.2-1.0); TOTAL PROTEIN, SERUM 5.9 g/dL (6.4-8.2)
[2024-01-26 11:07] LABS: BAND % (MANUAL) 3 % (0.0-5.0); LYMPHOCYTES % (MANUAL) 5 % (16-48); MONOCYTES % (MANUAL) 2 % (0-11.0); NEUTROPHILS % (MANUAL) 90 (42-76); PLATELET ESTIMATE DECREASED
[2024-01-26] MEDS: NOREPINEPHRINE 8 MG in IV D5W 242 ML IV PRN (11:07)
[2024-01-26 11:08] LABS: ANISOCYTOSIS 1+
[2024-01-26] MEDS: PIPERACILLIN /TAZOBACTAM 3.375 G in IV D5W 50 ML IV SCH (12:17)
[2024-01-26] MEDS: IV NS 0.9% 500 ML IV ONE (12:18)
[2024-01-26] MEDS: LEVOTHYROXINE INJ 100 MCG VIAL IV SCH (12:22)
[2024-01-26] MEDS: HYDROCORTISONE SOD SUCCINATE 100 MG/2 ML VIAL IV SCH (12:22)
[2024-01-26] MEDS: IPRATROPIUM NEB FS 0.5 MG/2.5 ML AMPUL.NEB NEB SCH (13:36)
[2024-01-26] MEDS: ACETYLCYSTEINE 10% SOLN 400 MG/4 ML VIAL NEB SCH (13:36)
[2024-01-26] MEDS: ALBUTEROL HALF STRENGTH 1.25 MG/3 ML VIAL.NEB NEB SCH (13:36)
[2024-01-26] MEDS: LEVETIRACETAM (500MG) 500 MG in IV NS 0.9% 100 ML IV SCH (18:58)
[2024-01-26 19:53] LABS: HEMATOCRIT 30 % (33-45); HEMOGLOBIN 9.7 g/dL (11.5-14.8); LYMPHOCYTES # (AUTO) 0.2 K/uL (0.8-4.8); LYMPHOCYTES % (AUTO) 1.6 % (20.0-44.0); MEAN CORPUSCULAR HEMOGLOBIN 30 PG (26.0-33.0); MEAN CORPUSCULAR HGB CONC 32 g/dl (31.0-36.0); MEAN CORPUSCULAR VOLUME 93 fL (82-100); MONOCYTES # (AUTO) 0.2 K/uL (0.1-1.30); MONOCYTES % (AUTO) 1.4 % (2.0-12.0); NEUTROPHILS # (AUTO) 14.1 K/uL (1.8-8.9); PLATELET COUNT (AUTO) 55 K/uL (150-450); RED CELL DISTRIBUTION WIDTH 18.3 % (11.5-15.0); WHITE BLOOD COUNT (AUTO) 14.6 K/uL (4.3-11.0)
[2024-01-26 20:58] LABS: BAND % (MANUAL) 3 % (0.0-5.0); LYMPHOCYTES % (MANUAL) 5 % (16-48); METAMYELOCYTES % 2 % (0-0); MONOCYTES % (MANUAL) 2 % (0-11.0); MYELOCYTES % 2 % (0-0); NEUTROPHILS % (MANUAL) 86 (42-76); PLATELET ESTIMATE DECREASED
[2024-01-26 20:59] LABS: ANISOCYTOSIS 2+; HYPOCHROMASIA 1+
[2024-01-27] VITALS (90 sets, daily range): BP systolic 77–144; BP diastolic 51–91; TEMP 96.6–97; O2SAT 92–100
[2024-01-27 05:09] LABS: BASOPHILS % (AUTO) 0.1 % (0.0-2.0); HEMATOCRIT 28 % (33-45); HEMOGLOBIN 8.8 g/dL (11.5-14.8); LYMPHOCYTES # (AUTO) 0.3 K/uL (0.8-4.8); LYMPHOCYTES % (AUTO) 1.1 % (20.0-44.0); MEAN CORPUSCULAR HEMOGLOBIN 29 PG (26.0-33.0); MEAN CORPUSCULAR HGB CONC 32 g/dl (31.0-36.0); MEAN CORPUSCULAR VOLUME 91 fL (82-100); MONOCYTES # (AUTO) 0.1 K/uL (0.1-1.30); MONOCYTES % (AUTO) 0.6 % (2.0-12.0); NEUTROPHILS # (AUTO) 24.2 K/uL (1.8-8.9); NEUTROPHILS % (AUTO) 98.2 % (43.0-81.0); PLATELET COUNT (AUTO) 51 K/uL (150-450); RED BLOOD CELL COUNT(AUTO) 3.03 MIL/uL (4.0-5.2); RED CELL DISTRIBUTION WIDTH 18.4 % (11.5-15.0); WHITE BLOOD COUNT (AUTO) 24.6 K/uL (4.3-11.0)
[2024-01-27 05:26] LABS: CALCIUM, SERUM 8.2 mg/dL (8.5-10.1); CREATININE 0.8 mg/dL (0.6-1.3); POTASSIUM 3.2 mmol/L (3.5-5.1)
[2024-01-27] MEDS ORDERED: POTASSIUM CHLORIDE 10 MEQ/50 ML PREMIXED IVPB FOR PERIPHERAL LINE IV ONE (09:00)
[2024-01-27] MEDS: LEVOTHYROXINE INJ 100 MCG VIAL IV SCH (09:15)
[2024-01-27] MEDS: POTASSIUM CL. PREMIX PERIPHER. 50 ML IV SCH (09:18)
[2024-01-27 09:46] LABS: BAND % (MANUAL) 5 % (0.0-5.0); LYMPHOCYTES % (MANUAL) 2 % (16-48); MONOCYTES % (MANUAL) 11 % (0-11.0); NEUTROPHILS % (MANUAL) 76 (42-76); REACTIVE LYMPHOCYTES 1 % (0-0)
[2024-01-27 09:47] LABS: ANISOCYTOSIS 1+; HYPOCHROMASIA 1+; PLATELET ESTIMATE DECREASED
[2024-01-28] VITALS (93 sets, daily range): BP systolic 77–122; BP diastolic 56–94; TEMP 96.8–98.1; O2SAT 86–100
[2024-01-28 04:44] LABS: CALCIUM, SERUM 8.3 mg/dL (8.5-10.1); CREATININE 0.8 mg/dL (0.6-1.3); POTASSIUM 3.6 mmol/L (3.5-5.1)
[2024-01-28 07:34] LABS: BASOPHILS % (AUTO) 0.3 % (0.0-2.0); HEMATOCRIT 27 % (33-45); HEMOGLOBIN 8.5 g/dL (11.5-14.8); LYMPHOCYTES # (AUTO) 0.6 K/uL (0.8-4.8); LYMPHOCYTES % (AUTO) 4.3 % (20.0-44.0); MEAN CORPUSCULAR HEMOGLOBIN 29 PG (26.0-33.0); MEAN CORPUSCULAR HGB CONC 31 g/dl (31.0-36.0); MEAN CORPUSCULAR VOLUME 93 fL (82-100); MONOCYTES # (AUTO) 0.2 K/uL (0.1-1.30); MONOCYTES % (AUTO) 1.8 % (2.0-12.0); NEUTROPHILS # (AUTO) 12.3 K/uL (1.8-8.9); NEUTROPHILS % (AUTO) 93.6 % (43.0-81.0); RED BLOOD CELL COUNT(AUTO) 2.89 MIL/uL (4.0-5.2); RED CELL DISTRIBUTION WIDTH 18.4 % (11.5-15.0); WHITE BLOOD COUNT (AUTO) 13.1 K/uL (4.3-11.0)
[2024-01-28 08:04] LABS: PLATELET COUNT (AUTO) 31 K/uL (150-450)
[2024-01-28 09:23] LABS: ABG BASE EXCESS -1.7 mmol/L (-2.0-2.0); ABG OXYGEN SATURATION 89.9 % (92.0-98.5); ABG PH 7.366 (7.350-7.450); ABG PO2 58.4 mmHg (75.0-100.0); ABG TOTAL HEMOGLOBIN 9.7 G/dL (12.0-16.0); COHb 0.4 % (0.5-1.5); MetHb 0.5 % (0.0-1.5); O2Hb 89.1 % (94.0-97.0); SITE, ABG Left Radial; VENT MODE, BG 25/10 16 100%
[2024-01-28 09:45] LABS: ANISOCYTOSIS 1+; BAND % (MANUAL) 7 % (0.0-5.0); BASOPHILS % (MANUAL) 0 % (0.0-2.0); EOSINOPHILS % (MANUAL) 0 % (0-4); HYPOCHROMASIA 1+; LYMPHOCYTES % (MANUAL) 3 % (16-48); MONOCYTES % (MANUAL) 1 % (0-11.0); NEUTROPHILS % (MANUAL) 89 (42-76); PLATELET ESTIMATE DECREASED
[2024-01-28 09:51] LABS: ABG BASE EXCESS -1.8 mmol/L (-2.0-2.0); ABG OXYGEN SATURATION 95.3 % (92.0-98.5); ABG PCO2 43.4 mmHg (35.0-45.0); ABG PH 7.355 (7.350-7.450); ABG PO2 74.8 mmHg (75.0-100.0); ABG TOTAL HEMOGLOBIN 9.2 G/dL (12.0-16.0); AaDO2 305.3 mmHg; COHb 0.8 % (0.5-1.5); MetHb 0.4 % (0.0-1.5); O2Hb 94.2 % (94.0-97.0); SITE, ABG Right Radial
[2024-01-28] MEDS: Potassium Chloride 10 MEQ in IV D5/ 0.9% NACL 1,000 ML IV SCH (10:35)
[2024-01-29] VITALS (99 sets, daily range): BP systolic 58–157; BP diastolic 37–120; TEMP 96.9–98.3; O2SAT 81–100
[2024-01-29 04:54] LABS: BASOPHILS % (AUTO) 0.1 % (0.0-2.0); HEMATOCRIT 21 % (33-45); LYMPHOCYTES # (AUTO) 0.1 K/uL (0.8-4.8); LYMPHOCYTES % (AUTO) 1.9 % (20.0-44.0); MEAN CORPUSCULAR HEMOGLOBIN 30 PG (26.0-33.0); MEAN CORPUSCULAR HGB CONC 34 g/dl (31.0-36.0); MEAN CORPUSCULAR VOLUME 90 fL (82-100); MONOCYTES # (AUTO) 0.1 K/uL (0.1-1.30); MONOCYTES % (AUTO) 1.2 % (2.0-12.0); NEUTROPHILS % (AUTO) 96.8 % (43.0-81.0); RED CELL DISTRIBUTION WIDTH 18.6 % (11.5-15.0); WHITE BLOOD COUNT (AUTO) 7.2 K/uL (4.3-11.0)
[2024-01-29 05:16] LABS: CALCIUM, SERUM 8.8 mg/dL (8.5-10.1); CREATININE 0.9 mg/dL (0.6-1.3); MAGNESIUM 1.8 mg/dL (1.8-2.4)
[2024-01-29 05:20] LABS: PLATELET COUNT (AUTO) 21 K/uL (150-450)
[2024-01-29 05:51] LABS: ANISOCYTOSIS 1+; BAND % (MANUAL) 28 % (0.0-5.0); BASOPHILS % (MANUAL) 0 % (0.0-2.0); EOSINOPHILS % (MANUAL) 0 % (0-4); LYMPHOCYTES % (MANUAL) 4 % (16-48); MONOCYTES % (MANUAL) 2 % (0-11.0); NEUTROPHILS % (MANUAL) 66 (42-76); PLATELET ESTIMATE DECREASED
[2024-01-29] MEDS: PANTOPRAZOLE 40 MG VIAL IV SCH (09:20)
[2024-01-29] MEDS ORDERED: TPN/PPN PER PHARMACY IV PRN (10:00)
[2024-01-29] MEDS: PROPOFOL 100 ML IV PRN (18:36)
[2024-01-29] MEDS ORDERED: ETOMIDATE 2 MG/ML VIAL IV ONE (19:32)
[2024-01-29] MEDS ORDERED: TPN BAG #1 IV SCH ×2 (20:00)
[2024-01-29] MEDS: Potassium Chloride 10 MEQ in IV D5/ 0.9% NACL 1,000 ML IV SCH (20:08)
[2024-01-29] MEDS: TPN BAG #1 IV SCH (20:47)
[2024-01-30] VITALS (92 sets, daily range): BP systolic 62–157; BP diastolic 39–114; TEMP 96.4–97.4; O2SAT 69–100
[2024-01-30 05:14] LABS: LYMPHOCYTES # (AUTO) 0.3 K/uL (0.8-4.8); LYMPHOCYTES % (AUTO) 2.3 % (20.0-44.0); MEAN CORPUSCULAR HEMOGLOBIN 29 PG (26.0-33.0); MEAN CORPUSCULAR HGB CONC 32 g/dl (31.0-36.0); MEAN CORPUSCULAR VOLUME 91 fL (82-100); MONOCYTES # (AUTO) 0.1 K/uL (0.1-1.30); MONOCYTES % (AUTO) 1.1 % (2.0-12.0); NEUTROPHILS # (AUTO) 11.2 K/uL (1.8-8.9); NEUTROPHILS % (AUTO) 96.6 % (43.0-81.0); RED BLOOD CELL COUNT(AUTO) 2.04 MIL/uL (4.0-5.2); RED CELL DISTRIBUTION WIDTH 18.3 % (11.5-15.0); WHITE BLOOD COUNT (AUTO) 11.6 K/uL (4.3-11.0)
[2024-01-30 05:23] LABS: BILIRUBIN,TOTAL 0.5 mg/dL (0.2-1.0); CALCIUM, SERUM 8.6 mg/dL (8.5-10.1); CREATININE 0.8 mg/dL (0.6-1.3); MAGNESIUM 1.8 mg/dL (1.8-2.4); PHOSPHORUS 2.3 mg/dL (2.5-4.9); POTASSIUM 3.4 mmol/L (3.5-5.1); TOTAL PROTEIN, SERUM 5.4 g/dL (6.4-8.2)
[2024-01-30 05:49] LABS: ALBUMIN 1.2 g/dL (3.4-5.0); HEMOGLOBIN 5.9 g/dL (11.5-14.8)
[2024-01-30 05:50] LABS: HEMATOCRIT 19 % (33-45); PLATELET COUNT (AUTO) 36 K/uL (150-450)
[2024-01-30 06:19] LABS: BAND % (MANUAL) 7 % (0.0-5.0); BASOPHILS % (MANUAL) 0 % (0.0-2.0); EOSINOPHILS % (MANUAL) 0 % (0-4); LYMPHOCYTES % (MANUAL) 3 % (16-48); MONOCYTES % (MANUAL) 2 % (0-11.0); NEUTROPHILS % (MANUAL) 88 (42-76)
[2024-01-30 06:20] LABS: ANISOCYTOSIS 1+; HYPOCHROMASIA 1+; PLATELET ESTIMATE DECREASED
[2024-01-30] MEDS: POTASSIUM CHLORIDE 10 MEQ/50 ML PREMIXED IVPB FOR PERIPHERAL LINE IV ONE (09:18)
[2024-01-30] MEDS ORDERED: DEXTROSE 50%-WATER 50 ML DISP.SYRIN IV PRN (11:00)
[2024-01-30] MEDS: BLOOD SUGAR DIAGNOSTIC 1 EACH STRIP IN SCH (14:06)
[2024-01-30] MEDS: INSULIN REGULAR, HUMAN 100 UNIT/ML 3 ML VIAL SQ PRN (14:08)
[2024-01-30] MEDS: POTASSIUM PHOSPHATE MM 7.5 MMOL in IV NS 0.9% 100 ML IV SCH (17:48)
[2024-01-30] MEDS: TPN BAG #2 IV SCH (20:13)
[2024-01-31] VITALS (91 sets, daily range): BP systolic 67–131; BP diastolic 56–101; TEMP 96.3–98.2; O2SAT 91–100
[2024-01-31 05:20] LABS: BASOPHILS % (AUTO) 0.2 % (0.0-2.0); HEMATOCRIT 22 % (33-45); HEMOGLOBIN 7.6 g/dL (11.5-14.8); LYMPHOCYTES # (AUTO) 0.2 K/uL (0.8-4.8); LYMPHOCYTES % (AUTO) 1.7 % (20.0-44.0); MEAN CORPUSCULAR HEMOGLOBIN 30 PG (26.0-33.0); MEAN CORPUSCULAR HGB CONC 34 g/dl (31.0-36.0); MEAN CORPUSCULAR VOLUME 89 fL (82-100); MONOCYTES # (AUTO) 0.1 K/uL (0.1-1.30); MONOCYTES % (AUTO) 1.2 % (2.0-12.0); NEUTROPHILS # (AUTO) 10.9 K/uL (1.8-8.9); NEUTROPHILS % (AUTO) 96.9 % (43.0-81.0); RED BLOOD CELL COUNT(AUTO) 2.53 MIL/uL (4.0-5.2); RED CELL DISTRIBUTION WIDTH 16.8 % (11.5-15.0); WHITE BLOOD COUNT (AUTO) 11.3 K/uL (4.3-11.0)
[2024-01-31 05:36] LABS: PLATELET COUNT (AUTO) 24 K/uL (150-450)
[2024-01-31 05:41] LABS: ANISOCYTOSIS 1+; BAND % (MANUAL) 5 % (0.0-5.0); BASOPHILS % (MANUAL) 0 % (0.0-2.0); EOSINOPHILS % (MANUAL) 0 % (0-4); LYMPHOCYTES % (MANUAL) 4 % (16-48); MONOCYTES % (MANUAL) 3 % (0-11.0); NEUTROPHILS % (MANUAL) 88 (42-76); PLATELET ESTIMATE DECREASED
[2024-01-31 06:18] LABS: CREATININE 0.7 mg/dL (0.6-1.3); MAGNESIUM 1.7 mg/dL (1.8-2.4); PHOSPHORUS 2.1 mg/dL (2.5-4.9); POTASSIUM 3.6 mmol/L (3.5-5.1)
[2024-01-31] MEDS: ALBUTEROL HALF STRENGTH 1.25 MG/3 ML VIAL.NEB ONE ×3 (07:48→07:49)
[2024-01-31] MEDS: ACETYLCYSTEINE 10% SOLN 400 MG/4 ML VIAL ONE ×2 (07:48→07:49)
[2024-01-31] MEDS: IPRATROPIUM NEB FS 0.5 MG/2.5 ML AMPUL.NEB ONE ×3 (07:48→07:49)
[2024-01-31] MEDS: Magnesium 1GM/D5W 100ML PREMIX 100 ML IV SCH (10:06)
[2024-01-31] MEDS: Sodium Phosphate 15 MMOL in IV NS 0.9% 245 ML IV SCH (11:32)
[2024-01-31] MEDS: TPN BAG #3 IV SCH (20:35)
[2024-02-01] VITALS (85 sets, daily range): BP systolic 11–147; BP diastolic 58–94; TEMP 95.8–100; O2SAT 85–100
[2024-02-01 05:20] LABS: BASOPHILS % (AUTO) 0.2 % (0.0-2.0); HEMATOCRIT 21 % (33-45); HEMOGLOBIN 7.1 g/dL (11.5-14.8); LYMPHOCYTES # (AUTO) 0.2 K/uL (0.8-4.8); MEAN CORPUSCULAR HEMOGLOBIN 30 PG (26.0-33.0); MEAN CORPUSCULAR HGB CONC 34 g/dl (31.0-36.0); MEAN CORPUSCULAR VOLUME 89 fL (82-100); MONOCYTES # (AUTO) 0.1 K/uL (0.1-1.30); MONOCYTES % (AUTO) 1.8 % (2.0-12.0); NEUTROPHILS # (AUTO) 7.9 K/uL (1.8-8.9); RED BLOOD CELL COUNT(AUTO) 2.35 MIL/uL (4.0-5.2); RED CELL DISTRIBUTION WIDTH 16.9 % (11.5-15.0); WHITE BLOOD COUNT (AUTO) 8.3 K/uL (4.3-11.0)
[2024-02-01 05:38] LABS: CALCIUM, SERUM 9.1 mg/dL (8.5-10.1); CREATININE 0.7 mg/dL (0.6-1.3); MAGNESIUM 2.2 mg/dL (1.8-2.4); PHOSPHORUS 2.6 mg/dL (2.5-4.9); POTASSIUM 3.7 mmol/L (3.5-5.1)
[2024-02-01 06:10] LABS: PLATELET COUNT (AUTO) 14 K/uL (150-450)
[2024-02-01 06:33] LABS: ANISOCYTOSIS 1+; BAND % (MANUAL) 1 % (0.0-5.0); BASOPHILS % (MANUAL) 0 % (0.0-2.0); EOSINOPHILS % (MANUAL) 0 % (0-4); HYPOCHROMASIA 1+; LYMPHOCYTES % (MANUAL) 4 % (16-48); MONOCYTES % (MANUAL) 1 % (0-11.0); NEUTROPHILS % (MANUAL) 94 (42-76); PLATELET ESTIMATE DECREASED
[2024-02-01] MEDS: MEROPENEM 1 G in IV NS 0.9% 100 ML IV SCH (09:13)
[2024-02-01] MEDS: TPN BAG #4 IV SCH (20:26)
[2024-02-02] VITALS (90 sets, daily range): BP systolic 84–170; BP diastolic 61–109; TEMP 97.2–97.9; O2SAT 89–100
[2024-02-02 05:19] LABS: CALCIUM, SERUM 8.2 mg/dL (8.5-10.1); CREATININE 0.7 mg/dL (0.6-1.3); MAGNESIUM 1.8 mg/dL (1.8-2.4); PHOSPHORUS 1.9 mg/dL (2.5-4.9); POTASSIUM 3.5 mmol/L (3.5-5.1)
[2024-02-02 05:33] LABS: BASOPHILS % (AUTO) 0.1 % (0.0-2.0); LYMPHOCYTES # (AUTO) 0.3 K/uL (0.8-4.8); LYMPHOCYTES % (AUTO) 2.8 % (20.0-44.0); MEAN CORPUSCULAR HEMOGLOBIN 30 PG (26.0-33.0); MEAN CORPUSCULAR HGB CONC 34 g/dl (31.0-36.0); MEAN CORPUSCULAR VOLUME 90 fL (82-100); MONOCYTES # (AUTO) 0.2 K/uL (0.1-1.30); MONOCYTES % (AUTO) 1.8 % (2.0-12.0); NEUTROPHILS # (AUTO) 8.9 K/uL (1.8-8.9); NEUTROPHILS % (AUTO) 95.3 % (43.0-81.0); RED BLOOD CELL COUNT(AUTO) 2.17 MIL/uL (4.0-5.2); WHITE BLOOD COUNT (AUTO) 9.3 K/uL (4.3-11.0)
[2024-02-02 05:50] LABS: HEMATOCRIT 20 % (33-45); HEMOGLOBIN 6.5 g/dL (11.5-14.8)
[2024-02-02 05:51] LABS: PLATELET COUNT (AUTO) 20 K/uL (150-450)
[2024-02-02 06:31] LABS: ANISOCYTOSIS 1+; HYPOCHROMASIA 1+; LYMPHOCYTES % (MANUAL) 6 % (16-48); MONOCYTES % (MANUAL) 1 % (0-11.0); NEUTROPHILS % (MANUAL) 93 (42-76); PLATELET ESTIMATE DECREASED; TARGET CELLS 1+
[2024-02-02 10:24] LABS: D-DIMER 2.85 mg/L(FEU (0.17-0.50); INR 1.06 (0.91-1.10); PARTIAL THROMBOPLASTIN TIME 28.2 SEC (24.3-34.3); PROTHROMBIN TIME 11.2 SECS (9.2-11.1)
[2024-02-02] MEDS ORDERED: Sodium Phosphate 30 MMOL in IV NS 0.9% 250 ML IV SCH (14:00)
[2024-02-02] MEDS: Sodium Phosphate 15 MMOL in IV NS 0.9% 245 ML IV SCH (14:06)
[2024-02-02] MEDS ORDERED: Sodium Phosphate 15 MMOL in IV NS 0.9% 245 ML IV ONE (15:30)
[2024-02-02] MEDS: [UNRECOGNIZED DRUG - OTHER] IV SCH (20:21)
[2024-02-02] MEDS: POTASSIUM CHLORIDE IV SCH (20:21)
[2024-02-02] MEDS: TPN ADDITIVES IV SCH (20:21)
[2024-02-02] MEDS: MVI ADULT IV SCH (20:21)
[2024-02-02] MEDS: IV NS 0.9% 250 ML IV PRN (21:37)
[2024-02-03] VITALS (36 sets, daily range): BP systolic 104–150; BP diastolic 81–97; TEMP 96.1–100.7; O2SAT 91–100
[2024-02-03 04:51] LABS: BASOPHILS % (AUTO) 0.1 % (0.0-2.0); MEAN CORPUSCULAR HEMOGLOBIN 31 PG (26.0-33.0); MEAN CORPUSCULAR HGB CONC 34 g/dl (31.0-36.0); NEUTROPHILS # (AUTO) 10.4 K/uL (1.8-8.9); WHITE BLOOD COUNT (AUTO) 10.8 K/uL (4.3-11.0)
[2024-02-03 04:57] LABS: HEMATOCRIT 28 % (33-45); HEMOGLOBIN 9.3 g/dL (11.5-14.8); LYMPHOCYTES # (AUTO) 0.2 K/uL (0.8-4.8); LYMPHOCYTES % (AUTO) 2.1 % (20.0-44.0); MEAN CORPUSCULAR VOLUME 93 fL (82-100); MONOCYTES # (AUTO) 0.2 K/uL (0.1-1.30); MONOCYTES % (AUTO) 1.6 % (2.0-12.0); NEUTROPHILS % (AUTO) 96.2 % (43.0-81.0); PLATELET COUNT (AUTO) 62 K/uL (150-450); RED BLOOD CELL COUNT(AUTO) 2.96 MIL/uL (4.0-5.2); RED CELL DISTRIBUTION WIDTH 17.7 % (11.5-15.0)
[2024-02-03 05:09] LABS: CALCIUM, SERUM 8.2 mg/dL (8.5-10.1); CREATININE 0.6 mg/dL (0.6-1.3); MAGNESIUM 1.8 mg/dL (1.8-2.4); PHOSPHORUS 2.4 mg/dL (2.5-4.9); POTASSIUM 3.3 mmol/L (3.5-5.1)
[2024-02-03] MEDS: POTASSIUM CL. PREMIX PERIPHER. 50 ML IV SCH (06:53)
[2024-02-03 09:10] LABS: BAND % (MANUAL) 2 % (0.0-5.0); LYMPHOCYTES % (MANUAL) 3 % (16-48); MONOCYTES % (MANUAL) 1 % (0-11.0); MYELOCYTES % 1 % (0-0); NEUTROPHILS % (MANUAL) 93 (42-76)
[2024-02-03 09:11] LABS: PLATELET ESTIMATE DECREASED
[2024-02-03] MEDS ORDERED: POTASSIUM CHLORIDE 20 MEQ TAB.PRT.SR PO ONE (09:30)
[2024-02-03] MEDS: Sodium Phosphate 15 MMOL in IV NS 0.9% 245 ML IV SCH (10:28)
[2024-02-03] MEDS: ACETAMINOPHEN 650 MG/SUPP.RECT RC PRN (20:09)
[2024-02-03] MEDS: TPN BAG #6 IV SCH (20:54)
[2024-02-04] VITALS (77 sets, daily range): BP systolic 115–151; BP diastolic 75–98; TEMP 95–98; O2SAT 83–100
[2024-02-04 05:18] LABS: BASOPHILS % (AUTO) 0.3 % (0.0-2.0); HEMATOCRIT 26 % (33-45); HEMOGLOBIN 8.8 g/dL (11.5-14.8); LYMPHOCYTES # (AUTO) 0.3 K/uL (0.8-4.8); LYMPHOCYTES % (AUTO) 3.3 % (20.0-44.0); MEAN CORPUSCULAR HEMOGLOBIN 31 PG (26.0-33.0); MEAN CORPUSCULAR HGB CONC 34 g/dl (31.0-36.0); MEAN CORPUSCULAR VOLUME 93 fL (82-100); MONOCYTES # (AUTO) 0.2 K/uL (0.1-1.30); MONOCYTES % (AUTO) 2.2 % (2.0-12.0); NEUTROPHILS # (AUTO) 8.6 K/uL (1.8-8.9); NEUTROPHILS % (AUTO) 94.2 % (43.0-81.0); PLATELET COUNT (AUTO) 82 K/uL (150-450); RED BLOOD CELL COUNT(AUTO) 2.81 MIL/uL (4.0-5.2); WHITE BLOOD COUNT (AUTO) 9.1 K/uL (4.3-11.0)
[2024-02-04 05:30] LABS: CALCIUM, SERUM 8.1 mg/dL (8.5-10.1); CREATININE 0.6 mg/dL (0.6-1.3); MAGNESIUM 1.8 mg/dL (1.8-2.4); PHOSPHORUS 2.1 mg/dL (2.5-4.9); POTASSIUM 3.6 mmol/L (3.5-5.1)
[2024-02-04 05:42] LABS: BAND % (MANUAL) 2 % (0.0-5.0); LYMPHOCYTES % (MANUAL) 5 % (16-48); MONOCYTES % (MANUAL) 2 % (0-11.0); NEUTROPHILS % (MANUAL) 91 (42-76); PLATELET ESTIMATE DECREASED
[2024-02-04 05:43] LABS: ANISOCYTOSIS 1+
[2024-02-04] MEDS: Sodium Phosphate 15 MMOL in IV NS 0.9% 245 ML IV SCH (15:41)
[2024-02-04] MEDS: TPN #7 IV SCH (20:43)
[2024-02-05] VITALS (87 sets, daily range): BP systolic 103–134; BP diastolic 72–95; TEMP 97–98.4; O2SAT 91–99
[2024-02-05 04:40] LABS: BASOPHILS % (AUTO) 0.2 % (0.0-2.0); HEMATOCRIT 26 % (33-45); HEMOGLOBIN 8.7 g/dL (11.5-14.8); LYMPHOCYTES # (AUTO) 0.2 K/uL (0.8-4.8); LYMPHOCYTES % (AUTO) 2.2 % (20.0-44.0); MEAN CORPUSCULAR HEMOGLOBIN 31 PG (26.0-33.0); MEAN CORPUSCULAR HGB CONC 33 g/dl (31.0-36.0); MEAN CORPUSCULAR VOLUME 94 fL (82-100); MONOCYTES # (AUTO) 0.2 K/uL (0.1-1.30); MONOCYTES % (AUTO) 1.6 % (2.0-12.0); NEUTROPHILS # (AUTO) 9.5 K/uL (1.8-8.9); PLATELET COUNT (AUTO) 96 K/uL (150-450); RED BLOOD CELL COUNT(AUTO) 2.79 MIL/uL (4.0-5.2); WHITE BLOOD COUNT (AUTO) 9.9 K/uL (4.3-11.0)
[2024-02-05 05:14] LABS: ANISOCYTOSIS 1+; BAND % (MANUAL) 4 % (0.0-5.0); BASOPHILS % (MANUAL) 0 % (0.0-2.0); EOSINOPHILS % (MANUAL) 0 % (0-4); LYMPHOCYTES % (MANUAL) 4 % (16-48); MONOCYTES % (MANUAL) 2 % (0-11.0); NEUTROPHILS % (MANUAL) 90 (42-76); PLATELET ESTIMATE DECREASED
[2024-02-05 08:22] LABS: CALCIUM, SERUM 8.4 mg/dL (8.5-10.1); CREATININE 0.4 mg/dL (0.6-1.3); MAGNESIUM 1.9 mg/dL (1.8-2.4); PHOSPHORUS 2.5 mg/dL (2.5-4.9); POTASSIUM 3.9 mmol/L (3.5-5.1)
[2024-02-05] MEDS: [UNRECOGNIZED DRUG - NUTRITION] IV SCH (19:39)
[2024-02-06] VITALS (45 sets, daily range): BP systolic 95–126; BP diastolic 65–89; TEMP 96.7–98.1; O2SAT 90–99
[2024-02-06 05:14] LABS: CALCIUM, SERUM 7.7 mg/dL (8.5-10.1); CREATININE 0.4 mg/dL (0.6-1.3); MAGNESIUM 1.6 mg/dL (1.8-2.4); PHOSPHORUS 2.1 mg/dL (2.5-4.9); POTASSIUM 3.8 mmol/L (3.5-5.1)
[2024-02-06] MEDS: Magnesium 1GM/D5W 100ML PREMIX 100 ML IV SCH (07:53)
[2024-02-06 08:22] LABS: ABG BASE EXCESS -4.4 mmol/L (-2.0-2.0); ABG OXYGEN SATURATION 88.8 % (92.0-98.5); ABG PCO2 41.5 mmHg (35.0-45.0); ABG PH 7.328 (7.350-7.450); ABG PO2 58.2 mmHg (75.0-100.0); ABG TOTAL HEMOGLOBIN 10.1 G/dL (12.0-16.0); AaDO2 215.4 mmHg; COHb 0.3 % (0.5-1.5); MetHb 0.3 % (0.0-1.5); O2Hb 88.3 % (94.0-97.0); PEEP,BG 10 cm H2O; SITE, ABG Right Radial; VT, ABG 400 mL
[2024-02-06] MEDS: Sodium Phosphate 15 MMOL in IV NS 0.9% 245 ML IV SCH (08:41)
[2024-02-06] MEDS: TPN BAG #9 IV SCH (20:09)
[2024-02-07] VITALS (32 sets, daily range): BP systolic 97–131; BP diastolic 64–81; TEMP 97–97.8; O2SAT 73–100
[2024-02-07 04:39] LABS: BASOPHILS % (AUTO) 0.3 % (0.0-2.0); HEMATOCRIT 26 % (33-45); HEMOGLOBIN 8.6 g/dL (11.5-14.8); LYMPHOCYTES # (AUTO) 0.2 K/uL (0.8-4.8); LYMPHOCYTES % (AUTO) 2.4 % (20.0-44.0); MEAN CORPUSCULAR HEMOGLOBIN 31 PG (26.0-33.0); MEAN CORPUSCULAR HGB CONC 33 g/dl (31.0-36.0); MEAN CORPUSCULAR VOLUME 94 fL (82-100); MONOCYTES # (AUTO) 0.3 K/uL (0.1-1.30); MONOCYTES % (AUTO) 2.8 % (2.0-12.0); NEUTROPHILS # (AUTO) 9.1 K/uL (1.8-8.9); NEUTROPHILS % (AUTO) 94.5 % (43.0-81.0); PLATELET COUNT (AUTO) 173 K/uL (150-450); RED BLOOD CELL COUNT(AUTO) 2.73 MIL/uL (4.0-5.2); RED CELL DISTRIBUTION WIDTH 18.2 % (11.5-15.0); WHITE BLOOD COUNT (AUTO) 9.6 K/uL (4.3-11.0)
[2024-02-07 04:50] LABS: CALCIUM, SERUM 8.1 mg/dL (8.5-10.1); CREATININE 0.6 mg/dL (0.6-1.3); MAGNESIUM 2.1 mg/dL (1.8-2.4); PHOSPHORUS 2.5 mg/dL (2.5-4.9); POTASSIUM 3.5 mmol/L (3.5-5.1)
[2024-02-07] MEDS: TPN BAG #9 IV SCH (20:17)
[2024-02-08] VITALS (46 sets, daily range): BP systolic 94–122; BP diastolic 50–81; TEMP 96.4–97.6; O2SAT 93–99
[2024-02-08 05:31] LABS: CALCIUM, SERUM 7.8 mg/dL (8.5-10.1); CREATININE 0.5 mg/dL (0.6-1.3); MAGNESIUM 1.8 mg/dL (1.8-2.4); PHOSPHORUS 1.8 mg/dL (2.5-4.9); POTASSIUM 3.3 mmol/L (3.5-5.1)
[2024-02-08] MEDS: Sodium Phosphate 15 MMOL in IV NS 0.9% 245 ML IV ONE (16:56)
[2024-02-08] MEDS: TPN#10 IV SCH (20:52)
[2024-02-08] MEDS: POTASSIUM CL. PREMIX PERIPHER. 50 ML IV SCH (20:55)
[2024-02-09] VITALS (36 sets, daily range): BP systolic 98–121; BP diastolic 55–78; TEMP 96–97.8; O2SAT 95–100
[2024-02-09 05:17] LABS: CALCIUM, SERUM 7.6 mg/dL (8.5-10.1); CREATININE 0.4 mg/dL (0.6-1.3); MAGNESIUM 1.9 mg/dL (1.8-2.4); PHOSPHORUS 2.2 mg/dL (2.5-4.9); POTASSIUM 3.6 mmol/L (3.5-5.1)
[2024-02-09] MEDS: POTASSIUM PHOSPHATE MM 15 MMOL in IV NS 0.9% 250 ML IV SCH (10:15)
[2024-02-09] MEDS ORDERED: TPN IV SCH (20:00)
[2024-02-09] MEDS: TPN BAG #11 IV SCH (21:20)
[2024-02-10] VITALS (37 sets, daily range): BP systolic 98–131; BP diastolic 58–87; TEMP 96–96.5; O2SAT 0–100
[2024-02-10 05:02] LABS: CALCIUM, SERUM 7.5 mg/dL (8.5-10.1); CREATININE 0.4 mg/dL (0.6-1.3); MAGNESIUM 1.8 mg/dL (1.8-2.4); PHOSPHORUS 2.2 mg/dL (2.5-4.9); POTASSIUM 3.8 mmol/L (3.5-5.1)
[2024-02-10] MEDS: POTASSIUM PHOSPHATE MM 15 MMOL in IV NS 0.9% 250 ML IV SCH ×2 (08:26→14:56)
[2024-02-10] MEDS: Magnesium 1GM/D5W 100ML PREMIX 100 ML IV SCH (19:57)
[2024-02-10] MEDS: TPN BAG #12 IV SCH (20:08)
[2024-02-11] VITALS (24 sets, daily range): BP systolic 95–140; BP diastolic 69–90; TEMP 96.4–97.9; O2SAT 97–100
[2024-02-11 05:15] LABS: BASOPHILS % (AUTO) 0.1 % (0.0-2.0); EOSINOPHILS % (AUTO) 0.2 % (0.0-6.0); HEMATOCRIT 24 % (33-45); HEMOGLOBIN 7.7 g/dL (11.5-14.8); LYMPHOCYTES # (AUTO) 0.2 K/uL (0.8-4.8); LYMPHOCYTES % (AUTO) 2.3 % (20.0-44.0); MEAN CORPUSCULAR HEMOGLOBIN 31 PG (26.0-33.0); MEAN CORPUSCULAR HGB CONC 33 g/dl (31.0-36.0); MEAN CORPUSCULAR VOLUME 95 fL (82-100); MONOCYTES # (AUTO) 0.2 K/uL (0.1-1.30); MONOCYTES % (AUTO) 2.6 % (2.0-12.0); NEUTROPHILS # (AUTO) 7.1 K/uL (1.8-8.9); NEUTROPHILS % (AUTO) 94.8 % (43.0-81.0); PLATELET COUNT (AUTO) 175 K/uL (150-450); RED BLOOD CELL COUNT(AUTO) 2.48 MIL/uL (4.0-5.2); RED CELL DISTRIBUTION WIDTH 20.2 % (11.5-15.0); WHITE BLOOD COUNT (AUTO) 7.5 K/uL (4.3-11.0)
[2024-02-11 05:31] LABS: CALCIUM, SERUM 7.6 mg/dL (8.5-10.1); CREATININE 0.4 mg/dL (0.6-1.3); MAGNESIUM 1.9 mg/dL (1.8-2.4); PHOSPHORUS 2.8 mg/dL (2.5-4.9)
[2024-02-11] MEDS: TPN BAG #13 IV SCH (20:16)
[2024-02-12] VITALS (25 sets, daily range): BP systolic 69–131; BP diastolic 42–99; TEMP 95.8–97.5; O2SAT 72–100
[2024-02-12 04:25] LABS: BASOPHILS % (AUTO) 0.2 % (0.0-2.0); EOSINOPHILS % (AUTO) 0.1 % (0.0-6.0); HEMATOCRIT 27 % (33-45); HEMOGLOBIN 8.9 g/dL (11.5-14.8); LYMPHOCYTES # (AUTO) 0.2 K/uL (0.8-4.8); LYMPHOCYTES % (AUTO) 2.6 % (20.0-44.0); MEAN CORPUSCULAR HEMOGLOBIN 31 PG (26.0-33.0); MEAN CORPUSCULAR HGB CONC 33 g/dl (31.0-36.0); MEAN CORPUSCULAR VOLUME 96 fL (82-100); MONOCYTES # (AUTO) 0.3 K/uL (0.1-1.30); MONOCYTES % (AUTO) 2.7 % (2.0-12.0); NEUTROPHILS # (AUTO) 8.6 K/uL (1.8-8.9); NEUTROPHILS % (AUTO) 94.4 % (43.0-81.0); PLATELET COUNT (AUTO) 189 K/uL (150-450); RED BLOOD CELL COUNT(AUTO) 2.85 MIL/uL (4.0-5.2); RED CELL DISTRIBUTION WIDTH 20.1 % (11.5-15.0); WHITE BLOOD COUNT (AUTO) 9.1 K/uL (4.3-11.0)
[2024-02-12 05:21] LABS: CALCIUM, SERUM 8.2 mg/dL (8.5-10.1); CREATININE 0.5 mg/dL (0.6-1.3); POTASSIUM 3.6 mmol/L (3.5-5.1)
[2024-02-12] MEDS: MORPHINE SULFATE PF DRIP 250 MG in IV D5W 240 ML IV PRN (09:39)
[2024-02-12] MEDS: LORAZEPAM INJ 2 MG/ML VIAL IV PRN (11:21)
[2024-02-12] MEDS: KEY,NONCONTROL,TO KEEP IN PYXI 1 EA MC ONE (15:48)
[2024-02-12] MEDS ORDERED: KEY,NONCONTROL,TO KEEP IN PYXI 1 EA MC ONE (21:41)
== END 2024-02-12 22:10 | DRG 247 ==
LOC: ER 13:59 → MEDSG1 17:52 → TELE1 01-19 13:36 → MEDSG1 01-22 11:31 → ICU 01-26 09:58 → TELE1 02-12 15:11 → MEDSG1 02-12 15:26
PROVIDERS: ADMIT Internal Medicine; ATTEND Internal Medicine
PROC: 0JBN0ZZ Excision of Right Lower Leg Subcutaneous Tissue and Fascia, Open Approach (ICD-10-PCS; principal; 2024-01-23)
PROC: 5A09457 Assistance with Respiratory Ventilation, 24-96 Consecutive Hours, Continuous Positive Airway Pressure (ICD-10-PCS; 2024-01-26)
PROC: 5A1955Z Respiratory Ventilation, Greater than 96 Consecutive Hours (ICD-10-PCS; 2024-01-29)
PROC: 0BH18EZ Insertion of Endotracheal Airway into Trachea, Via Natural or Artificial Opening Endoscopic (ICD-10-PCS; 2024-01-29)
PROC: 0JBN0ZZ Excision of Right Lower Leg Subcutaneous Tissue and Fascia, Open Approach (ICD-10-PCS; 2024-01-29)
PROC: 02HV33Z Insertion of Infusion Device into Superior Vena Cava, Percutaneous Approach (ICD-10-PCS; 2024-01-29)
PROC: B548ZZA Ultrasonography of Superior Vena Cava, Guidance (ICD-10-PCS; 2024-01-29)
PROC: 30233R1 Transfusion of Nonautologous Platelets into Peripheral Vein, Percutaneous Approach (ICD-10-PCS; 2024-01-29)
PROC: 30233N1 Transfusion of Nonautologous Red Blood Cells into Peripheral Vein, Percutaneous Approach (ICD-10-PCS; 2024-01-30)
DX: K56.41 Fecal impaction (principal); R65.21 Severe sepsis with septic shock; J69.0 Pneumonitis due to inhalation of food and vomit; G92.8 Other toxic encephalopathy; A41.9 Sepsis, unspecified organism; J96.01 Acute respiratory failure with hypoxia; J96.02 Acute respiratory failure with hypercapnia; E44.0 Moderate protein-calorie malnutrition; L89.150 Pressure ulcer of sacral region, unstageable; L89.513 Pressure ulcer of right ankle, stage 3; K31.84 Gastroparesis; Z51.5 Encounter for palliative care; N39.0 Urinary tract infection, site not specified; E87.1 Hypo-osmolality and hyponatremia; D69.6 Thrombocytopenia, unspecified; L89.893 Pressure ulcer of other site, stage 3; E86.0 Dehydration; T84.028A Dislocation of other internal joint prosthesis, initial encounter; Y79.2 Prosthetic and other implants, materials and accessory orthopedic devices associated with adverse incidents; D64.9 Anemia, unspecified; E03.9 Hypothyroidism, unspecified; E78.5 Hyperlipidemia, unspecified; E83.42 Hypomagnesemia; E87.6 Hypokalemia; E88.09 Other disorders of plasma-protein metabolism, not elsewhere classified; G40.909 Epilepsy, unspecified, not intractable, without status epilepticus; Z66 Do not resuscitate; R13.10 Dysphagia, unspecified; I10 Essential (primary) hypertension; I69.351 Hemiplegia and hemiparesis following cerebral infarction affecting right dominant side; K21.9 Gastro-esophageal reflux disease without esophagitis; Z86.11 Personal history of tuberculosis; Z93.1 Gastrostomy status; L90.5 Scar conditions and fibrosis of skin; J98.11 Atelectasis; T17.998A Other foreign object in respiratory tract, part unspecified causing other injury, initial encounter; J98.19 Other pulmonary collapse; Y83.8 Other surgical procedures as the cause of abnormal reaction of the patient, or of later complication, without mention of misadventure at the time of the procedure; W44.F9XA Other object of natural or organic material, entering into or through a natural orifice, initial encounter; Y93.9 Activity, unspecified; Y92.009 Unspecified place in unspecified non-institutional (private) residence as the place of occurrence of the external cause
CPT/HCPCS: 31720; 36415; 36600; 71045-TC; 74018; 80048-TC; 80053-TC; 80076-TC; 81001; 82533; 82803-TC; 82962-TC; 83010; 83540-TC; 83690-TC; 83735-TC; 84100-TC; 84443-TC; 84478-TC; 85025-TC; 85396; 86850-TC; 87081-TC; 87086-TC; 94002-TC; 94003-TC; 94660; 94760-TC; 94761-TC; 94762-TC; 94799-TC; 98960; A4223; A6403; A9541; A9563; C1751; G0378; J0330; J0696; J1650; J1720; J1815; J1953; J2060; J2185; J2270; J2274; J2470; J2543; J2765; J3475; J3480; J3490; J7030; J7040; J7042; J7050; J7060; P9016; P9034